=== PATIENT | male | born 1950 | race Caucasian/White ===

== ENCOUNTER 2018-01-31 16:31 | Inpatient (IN) | payer OTHER ==
[~2018-01-31] VITALS: Ht 172.7 cm; Wt 97.4 kg
[2018-01-31] MEDS ORDERED: ASPIRIN 324 MG CHEW PO STA (16:49)
[2018-01-31] MEDS ORDERED: NITROGLYCERIN 0.4 MG SL PER TAB CHARGE SL STA (16:49)
--- NOTE | 2018-01-31 17:11 | DIAGNOSTIC IMAGING REPORT ---
CHEST ONE VIEW PORTABLE CLINICAL HISTORY: cp dyspnea COMPARISON STUDY: No previous studies for comparison. FINDINGS: Mild cardiomegaly. Lungs are clear. Diaphragms are smooth. There are no focal infiltrative changes. IMPRESSION: Mild cardia megaly. Otherwise negative study. The above report was generated using voice recognition software. It may contain grammatical, syntax or spelling errors. Electronically signed by: Gee Neil M.D. 01/31/2018 5:10 PM Dictated Date/Time: 01/31/2018 5:10 PM
[2018-01-31] MEDS ORDERED: MoRPHine SULFATE 2 MG/ML CARP ONE ×2 (17:28→17:35)
[2018-01-31] MEDS ORDERED: GLC/500 PO (17:37)
[2018-01-31] MEDS ORDERED: FENO48TA9 PO (17:37)
[2018-01-31] MEDS ORDERED: MONT1TAB5 PO (17:38)
[2018-01-31] MEDS ORDERED: CRS/10 PO (17:39)
[2018-01-31] MEDS ORDERED: NITROGLYCERIN/D5W 100 MCG/ML 500 ML IV STA (17:41)
[2018-01-31] MEDS ORDERED: MULT60CA PO (17:42)
[2018-01-31] MEDS ORDERED: CHOL1TAB46 PO (17:44)
[2018-01-31] MEDS ORDERED: HEPARIN SOD (PORCINE) 1000 UNIT/ML 10 ML VIAL ONE (17:50)
[2018-01-31] MEDS ORDERED: HEPARIN 25000 UNIT/500 ML D5W ONE (17:50)
[2018-01-31] MEDS ORDERED: GLUCOSE 40% GEL 15 GM TUBE PO PRN (18:15)
[2018-01-31] MEDS ORDERED: ACETAMINOPHEN 325 MG TAB PO PRN (18:15)
[2018-01-31] MEDS ORDERED: DEXTROSE 50% 50 ML SYR IV PRN (18:15)
[2018-01-31] MEDS ORDERED: ALUMINUM/MAGNESIUM/SIMETH (MAALOX MAX) 30 ML UDC PO PRN (18:15)
[2018-01-31] MEDS ORDERED: GLUCOSE 10 TABS/TUBE PO PRN (18:15)
[2018-01-31] MEDS ORDERED: ONDANSETRON INJ 2 MG/ML 2 ML VIAL IV PRN (18:15)
[2018-01-31] MEDS ORDERED: GLUCAGON FOR INJ 1 MG VIAL SQ PRN (18:15)
[2018-01-31 18:17] LABS: BASO % 0.5 %; BASO ABS # 0.05 K/uL (0-0.2); EOS % 0.9 %; HEMATOCRIT 44.9 % (42-52); HEMOGLOBIN 15.4 g/dL (14.0-18.0); IG# 0.02 K/uL (0.00-0.02); LYMPH % 24.3 %; MEAN CELL VOLUME 89.3 fL (80-100); MEAN CORPUSCULAR HEMOGLOBIN 30.6 pg (25-34); MEAN CORPUSCULAR HGB CONC 34.3 g/dl (32-36); MEAN PLATELET VOLUME 10.3 fL (7.4-10.4); MONO % 6.6 %; MONO ABS # 0.71 K/uL (0.11-0.59); NEUT % 67.5 %; NEUT ABS # 7.21 K/uL (1.4-6.5); PLATELET COUNT 215 K/uL (130-400); RED CELL DISTRIBUTION WIDTH CV 14.9 % (11.5-14.5); RED CELL DISTRIBUTION WIDTH SD 48.6 fL (36.4-46.3); WHITE BLOOD COUNT 10.69 K/uL (4.8-10.8)
[2018-01-31 18:25] LABS: PTT PATIENT 28.7 SECONDS (21.0-31.0)
[2018-01-31] MEDS ORDERED: HYDR12.56 PO (18:28)
[2018-01-31] MEDS ORDERED: ADVIN50/60 INH (18:28)
[2018-01-31] MEDS ORDERED: NITROGLYCERIN 2% OINTMENT 30GM TUBE EXT SCH (18:45)
[2018-01-31 18:48] LABS: CALCIUM 8.6 mg/dl (8.5-10.1); CREATININE 0.91 mg/dl (0.60-1.40); POTASSIUM 3.6 mmol/L (3.5-5.1)
--- NOTE | 2018-01-31 18:51 | History and Physical ---
History & Physical Date & Time of Service: Jan 31, 2018 at 18:41 Chief Complaint: Chest Pain Primary Care Physician: Nisha Lafleur M.D. History of Present Illness Source: patient This is a 67 year old male with a PMH of DM2, COPD and ongoing tobacco use, hypertension, HLD - presents with substernal chest pain that began on the evening of 01/30. He states that the pain began at night and was across his upper chest. The pain subsided slightly, but recurred even worse on the day of arrival. He states the pain was across his chest and radiated to this R shoulder. Minimal shortness of breath. States he's never had this pain before. He presented to the ED; found to have elevated troponin >46. Pain improved with nitro and morphine, but still around a 3/10 during my exam. No other symptoms to note. Past Medical/Surgical History Medical Problems: (1) Diabetes (2) NSTEMI (non-ST elevated myocardial infarction) Family History Unobtainable family history due to adoption Social History Smoking Status: Current Every Day Smoker Allergies Coded Allergies: Fenoprofen (Verified Adverse Reaction, Severe, SYNCOPE, 01/31/18) Home Medications Scheduled Cholecalciferol (Vitamin D3), 5,000 UNITS PO DAILY Fenofibrate (Tricor), 48 MG PO DAILY Fluticasone Prop/Salmeterol (Advair Diskus 500/50 60 Dose), 1 PUFFS INH BID Hydrochlorothiazide (Hctz), Unknown Dose PO DAILY Metformin Hcl (Glucophage), 500 MG PO BID Montelukast Sodium (Montelukast Sodium), 10 MG PO DAILY Multiple Vitamins W/ Minerals (Preservision Areds 2), 1 CAP PO BID Rosuvastatin Calcium (Crestor), 10 MG PO DAILY Review of Systems Constitutional: No fever, No chills, No sweats, No weakness, No fatigue Respiratory: + dyspnea on exertion, No cough, No sputum, No wheezing, No shortness of breath, No dyspnea at rest, No hemoptysis Cardiovascular: + chest pain, No orthopnea, No edema, No palpitations Abdomen: No pain, No nausea, No vomiting, No diarrhea, No constipation, No GI bleeding Musculoskeletal: No joint pain, No muscle pain Genitourinary - Male: No hematuria, No dysuria, No urinary frequency, No urinary urgency Neurologic: No weakness, No balance problems Psychiatric: No depression symptoms, No anxiety, No insomnia Endocrine: No fatigue Hematologic / Lymphatic: No abnormal bleeding/bruising Integumentary: No rash Allergic / Immunologic: No environmental allergies, No seasonal allergies Physical Exam Vital Signs Date Time Temp Pulse Resp B/P (MAP) Pulse Ox O2 Delivery O2 Flow Rate FiO2 01/31/18 18:30 78 21 146/90 96 Nasal Cannula 2.0 01/31/18 18:15 78 19 142/88 97 Nasal Cannula 2.0 01/31/18 17:12 87 21 120/73 96 Nasal Cannula 2.0 01/31/18 17:09 96 Nasal Cannula 2.0 01/31/18 17:05 84 20 124/77 95 Room Air 01/31/18 17:01 89 19 118/78 93 Room Air 01/31/18 16:49 89 01/31/18 16:46 97 Room Air 01/31/18 16:45 92 131/91 97 Room Air 01/31/18 16:35 36.5 94 20 121/76 96 Room Air General Appearance: WD/WN, no apparent distress Head: normocephalic, atraumatic Eyes: normal inspection ENT: hearing grossly normal Neck: supple Respiratory/Chest: chest non-tender, lungs clear, normal breath sounds, no respiratory distress, no accessory muscle use Cardiovascular: regular rate, rhythm, no edema, no murmur Abdomen/GI: normal bowel sounds, non tender, soft Extremities/Musculoskelatal: normal inspection, no calf tenderness, normal capillary refill, no pedal edema, normal range of motion Neurologic/Psych: lacquerer II-XII nml as tested, no motor/sensory deficits, alert, normal mood/affect, oriented x 3 Skin: normal color Lymphatic: no adenopathy Diagnostics Laboratory Results Results Past 24 Hours Test 01/31/18 16:55 01/31/18 17:09 Range/Units White Blood Count 10.69 4.8-10.8 K/uL Red Blood Count 5.03 4.7-6.1 M/uL Hemoglobin 15.4 14.0-18.0 g/dL Hematocrit 44.9 42-52 % Mean Corpuscular Volume 89.3 80-100 fL Mean Corpuscular Hemoglobin 30.6 25-34 pg Mean Corpuscular Hemoglobin Concent 34.3 32-36 g/dl Platelet Count 215 130-400 K/uL Mean Platelet Volume 10.3 7.4-10.4 fL Neutrophils (%) (Auto) 67.5 % Lymphocytes (%) (Auto) 24.3 % Monocytes (%) (Auto) 6.6 % Eosinophils (%) (Auto) 0.9 % Basophils (%) (Auto) 0.5 % Neutrophils # (Auto) 7.21 1.4-6.5 K/uL Lymphocytes # (Auto) 2.60 1.2-3.4 K/uL Monocytes # (Auto) 0.71 0.11-0.59 K/uL Eosinophils # (Auto) 0.10 0-0.5 K/uL Basophils # (Auto) 0.05 0-0.2 K/uL RDW Standard Deviation 48.6 36.4-46.3 fL RDW Coefficient of Variation 14.9 11.5-14.5 % Immature Granulocyte % (Auto) 0.2 % Immature Granulocyte # (Auto) 0.02 0.00-0.02 K/uL Prothrombin Time 10.7 9.0-12.0 SECONDS Prothromb Time International Ratio 1.0 0.9-1.1 Activated Partial Thromboplast Time 28.7 21.0-31.0 SECONDS Partial Thromboplastin Ratio 1.1 Bedside Troponin I 46.390 0-0.045 ng/ml Diagnostic Radiology CHEST ONE VIEW PORTABLE CLINICAL HISTORY: cp dyspnea COMPARISON STUDY: No previous studies for comparison. FINDINGS: Mild cardiomegaly. Lungs are clear. Diaphragms are smooth. There are no focal infiltrative changes. IMPRESSION: Mild cardia megaly. Otherwise negative study. EKG Normal sinus rhythm T wave abnormality, consider lateral ischemia Impression Assessment and Plan This is a 67 year old male with a PMH of DM2, COPD and ongoing tobacco use, hypertension, HLD - presents with substernal chest pain NSTEMI - chest pain began last evening; crushing, substernal chest pain, recurring on the day of arrival to the ED - EKG with T wave inversions in Leads I, aVL, V5, V6 - troponin elevation to >46 - heparin ggt started - SL nitro and morphine with pain improvement - will add nitro topical and continue morphine PRN - added metoprolol - increase Crestor from 10mg to 20mg (mentioned tolerance issue to statins; ideally will need 40mg), check fasting lipid panel in AM - trend cardiac enzymes - monitor in tele - check a resting echo - cardiology consulted DM2 - well controlled; last Ha1c is around 6.0% as per patient - will check an updated one in AM - insulin sliding scale and hold oral agents while inpatient HTN - hold HCTZ (will likely d/c on discharge) - started on b-gus COPD Ongoing Tobacco Use - smoking cessation counseling - does not want a nicotine patch while inpatient - continue Advair DVT ppx - heparin ggt FULL CODE Resuscitation Status VTE Prophylaxis Will order VTE Prophylaxis: Yes
[2018-01-31 19:00] VITALS: O2SAT 98
[2018-01-31] MEDS ORDERED: NITROGLYCERIN 2% OINTMENT 30GM TUBE EXT ONE (19:14)
[2018-01-31] MEDS ORDERED: METOPROLOL TARTRATE 50 MG TAB PO STA (19:15)
[2018-01-31 20:00] VITALS: BP 115/77; PULSE 88; TEMP 36.6; Ht 172.7 cm; Wt 97.4 kg
[2018-01-31] MEDS: HEPARIN 25,000 UNIT/500ML D5W 500 ML IV SCH (20:00)
[2018-01-31] MEDS: INSULIN ASPART 100 UNITS/ML 3 ML PEN SC SCH (21:00)
[2018-01-31] MEDS: FLUTICASONE/SALMETEROL (ADVAIR) 500/50 INH 14 PUFF INH SCH (21:00)
[2018-01-31] MEDS ORDERED: METOPROLOL TARTRATE 25 MG TAB PO SCH (21:00)
[2018-01-31] MEDS: SODIUM CHLORIDE 0.9% 1000ML 1,000 ML IV SCH (21:16)
[2018-01-31] MEDS ORDERED: INFLUENZA ADMINISTRATION CHARGE ONE (21:30)
[2018-01-31] MEDS ORDERED: INFLUENZA VACCINE HIGH DOSE 65+ 0.5 ML SYR IM. ONE (21:30)
--- NOTE | 2018-01-31 23:26 | EMERGENCY ROOM VISIT NOTE ---
History Report prepared by Shayna: Hayden Landis Under the Supervision of: Dr. Lobo Allen M.D. First contact with patient: 16:41 Chief Complaint: CHEST PAIN Stated Complaint: CHEST PAIN Nursing Triage Summary: alisa c/o midsternal chest pain last night. patient states pain went away last night. around 0400 today patient c/o bilateral upper chest pain. denies SOB. History of Present Illness The patient is a 67 year old male with a history of diabetes who presents to the Emergency Room with complaints of worsening chest pain that started around 0400 this morning. He states that he initially had chest pain last night, but that mostly went away, and worsened a lot this morning. The patient says that he is not sure if the pain woke him up from sleep. He notes that the pain is mostly in his upper chest on both sides, and radiates into both his shoulders. He describes the pain as an ache. He adds that a couple times today, he felt some numbness down both his arms. The patient states that nothing changes the severity of the pain. The patient currently rates his pain as a 6 or 7 out of 10 in severity. Per the patient's , the patient's face was really flushed last night when the patient had the pain. The patient states that he felt a bit nauseous in the morning when the pain first worsened, but the nausea went away shortly thereafter. The patient denies any sweating or shortness of breath. The patient states that his blood sugars have been fine recently, and is not aware of his family history since he was adopted. The patient notes no use of Viagra or similar drugs within the past 48 hours. He smokes a pack of cigarettes every 2 days. Source of History: patient, spouse/significant other Onset: 0 this morning Position: chest (upper) Symptom Intensity: 6 or 7 out of 10 Quality: ache Timing: worsening Associated Symptoms: + nausea (but has gone away), + numbness (down both arms), No SOB Note: Associated symptoms: Bilateral shoulder pain. A bit flushed last night. Denies sweats. Review of Systems See HPI for pertinent positives & negatives. A total of 10 systems reviewed and were otherwise negative. Past Medical & Surgical Medical Problems: (1) Diabetes (2) NSTEMI (non-ST elevated myocardial infarction) Family History Unobtainable family history due to adoption Social History Smoking Status: Current Every Day Smoker Drug Use: none Marital Status: Housing Status: lives with family Current/Historical Medications Scheduled Cholecalciferol (Vitamin D3), 5,000 UNITS PO DAILY Fenofibrate (Tricor), 48 MG PO DAILY Fluticasone Prop/Salmeterol (Advair Diskus 500/50 60 Dose), 1 PUFFS INH BID Hydrochlorothiazide (Hctz), Unknown Dose PO DAILY Metformin Hcl (Glucophage), 500 MG PO BID Montelukast Sodium (Montelukast Sodium), 10 MG PO DAILY Multiple Vitamins W/ Minerals (Preservision Areds 2), 1 CAP PO BID Rosuvastatin Calcium (Crestor), 10 MG PO DAILY Allergies Coded Allergies: Fenoprofen (Verified Adverse Reaction, Severe, SYNCOPE, 01/31/18) Physical Exam Vital Signs Date Time Temp Pulse Resp B/P (MAP) Pulse Ox O2 Delivery O2 Flow Rate FiO2 01/31/18 17:12 87 21 120/73 96 Nasal Cannula 2.0 01/31/18 17:09 96 Nasal Cannula 2.0 01/31/18 17:05 84 20 124/77 95 Room Air 01/31/18 17:01 89 19 118/78 93 Room Air 01/31/18 16:49 89 01/31/18 16:46 97 Room Air 01/31/18 16:45 92 131/91 97 Room Air 01/31/18 16:35 36.5 94 20 121/76 96 Room Air Physical Exam Constitutional: Vital signs reviewed. Eyes: Pupils are equal round reactive to light. Conjunctiva are noninjected. ENT: Pharynx is clear without erythema or exudate. Mucous membranes are moist. Neck supple without meningeal signs. Respiratory: Clear to auscultation bilaterally. Breath sounds are equal bilaterally. Cardiovascular: Regular rate and rhythm. No rubs or gallops. GI: Soft, nondistended and nontender. Bowel sounds are present. Musculoskeletal: No peripheral edema. No lower extremity tenderness. Integumentary: No cyanosis. Neurological: The patient is awake and alert. No focal deficits. Psychiatric: Normal affect. Medical Decision & Procedures ER Provider Diagnostic Interpretation: X-ray results as stated below per interpretation by me and the radiologist: CHEST ONE VIEW PORTABLE CLINICAL HISTORY: cp dyspnea COMPARISON STUDY: No previous studies for comparison. FINDINGS: Mild cardiomegaly. Lungs are clear. Diaphragms are smooth. There are no focal infiltrative changes. IMPRESSION: Mild cardia megaly. Otherwise negative study. The above report was generated using voice recognition software. It may contain grammatical, syntax or spelling errors. Electronically signed by: Gee Neil M.D. 01/31/2018 5:10 PM Dictated Date/Time: 01/31/2018 5:10 PM Laboratory Results 01/31/18 16:55 Red Blood Count 5.03, Mean Corpuscular Volume 89.3, Mean Corpuscular Hemoglobin 30.6, Mean Corpuscular Hemoglobin Concent 34.3, Mean Platelet Volume 10.3, Neutrophils (%) (Auto) 67.5, Lymphocytes (%) (Auto) 24.3, Monocytes (%) (Auto) 6.6, Eosinophils (%) (Auto) 0.9, Basophils (%) (Auto) 0.5, Neutrophils # (Auto) 7.21, Lymphocytes # (Auto) 2.60, Monocytes # (Auto) 0.71, Eosinophils # (Auto) 0.10, Basophils # (Auto) 0.05 01/31/18 16:55 Test 01/31/18 16:55 01/31/18 17:09 White Blood Count 10.69 K/uL (4.8-10.8) Red Blood Count 5.03 M/uL (4.7-6.1) Hemoglobin 15.4 g/dL (14.0-18.0) Hematocrit 44.9 % (42-52) Mean Corpuscular Volume 89.3 fL (80-100) Mean Corpuscular Hemoglobin 30.6 pg (25-34) Mean Corpuscular Hemoglobin Concent 34.3 g/dl (32-36) Platelet Count 215 K/uL (130-400) Mean Platelet Volume 10.3 fL (7.4-10.4) Neutrophils (%) (Auto) 67.5 % Lymphocytes (%) (Auto) 24.3 % Monocytes (%) (Auto) 6.6 % Eosinophils (%) (Auto) 0.9 % Basophils (%) (Auto) 0.5 % Neutrophils # (Auto) 7.21 K/uL (1.4-6.5) Lymphocytes # (Auto) 2.60 K/uL (1.2-3.4) Monocytes # (Auto) 0.71 K/uL (0.11-0.59) Eosinophils # (Auto) 0.10 K/uL (0-0.5) Basophils # (Auto) 0.05 K/uL (0-0.2) RDW Standard Deviation 48.6 fL (36.4-46.3) RDW Coefficient of Variation 14.9 % (11.5-14.5) Immature Granulocyte % (Auto) 0.2 % Immature Granulocyte # (Auto) 0.02 K/uL (0.00-0.02) Prothrombin Time 10.7 SECONDS (9.0-12.0) Prothromb Time International Ratio 1.0 (0.9-1.1) Activated Partial Thromboplast Time 28.7 SECONDS (21.0-31.0) Partial Thromboplastin Ratio 1.1 Anion Gap 4.0 mmol/L (3-11) Est Creatinine Clear Calc Drug Dose 89.5 ml/min Estimated GFR () 99.3 Estimated GFR (Non- 85.7 BUN/Creatinine Ratio 11.2 (10-20) Calcium Level 8.6 mg/dl (8.5-10.1) Hepatitis C Antibody Screen NEG (NEG) Bedside Troponin I 46.390 ng/ml (0-0.045) Laboratory results as reviewed by me. Medications Administered Medications (Trade) Dose Ordered Sig/Earl Route Start Time Stop Time Status Last Admin Dose Admin Aspirin (Aspirin Chew) 324 mg NOW STAT PO 01/31/18 16:49 01/31/18 16:50 DC 01/31/18 16:57 324 MG Nitroglycerin (Nitrostat Tab) 0.4 mg Q5M STAT SL 01/31/18 16:49 01/31/18 16:50 DC 01/31/18 16:57 0.4 MG Morphine Sulfate (MoRPHine SULFATE INJ) 2 mg STK-MED ONCE .ROUTE 01/31/18 17:28 01/31/18 17:29 DC 01/31/18 17:38 2 MG Morphine Sulfate (MoRPHine SULFATE INJ) 2 mg STK-MED ONCE .ROUTE 01/31/18 17:35 01/31/18 17:36 DC 01/31/18 17:38 2 MG Nitroglycerin/ Dextrose 500 ml @ 0 mls/hr Q0M STAT IV 01/31/18 17:41 01/31/18 19:20 DC 01/31/18 18:10 5 MLS/HR Heparin Sodium (Porcine) (Heparin Iv Bolus) 10,000 unit STK-MED ONCE .ROUTE 01/31/18 17:50 01/31/18 17:51 DC 01/31/18 18:01 7,000 UNIT Heparin Sodium/ Dextrose (Heparin 25,000 Unit/500ml D5W) 25,000 unit STK-MED ONCE .ROUTE 01/31/18 17:50 01/31/18 17:51 DC 01/31/18 18:08 25,000 UNIT ECG Per My Interpretation Indication: chest pain Rate (beats per minute): 89 Rhythm: sinus rhythm Findings: T-wave inversion (in V5, V6, and 1 in AVL), other (no ST elevations) Comparison ECG Date: compared to May 25 2007, T-wave inversions are new Change: Repeat 12-lead EKG shows a normal sinus rhythm at 85 bpm. Prolonged QT and T- wave inversions laterally. Unchanged. ED Course 164: The patient was evaluated in room C12B. A complete history and physical exam was performed. 1649: Nitrostat Tab 0.4 mg SL, Aspirin Chew 324 mg PO. 1730: I reevaluated the patient and his chest pain went down to a 3 with 3 Nitroglycerin, but still has some soreness to his chest. His troponin came back over 46 so I talked about Heparinizing him. We are calling cardiology. 1731: Heparin Sodium/Dextrose 1 ea N/A. 1740: I reevaluated the patient and he still has soreness to his chest. We will start him on IV Nitroglycerin. 1741: Ordered Nitroglycerin/Dextrose 500 ml @ 0 mls/hr IV. I discussed the patient with Dr. Jase Dueñas cardiology - he agrees with the Heparin drip and admission to medicine, and for no need for emergent catheterization. 1751: I reevaluated the patient and he is still having chest pain that he rates as a 3 out of 10. He is getting his Heparin, and waiting for the Nitro drip. The patient expressed understanding and agreement with the treatment plan. The patient will be evaluated for further treatment. 180: I spoke with Dr. Cuellar of [facility] internal medicine. We discussed the patient and his results. The patient will be further evaluated by Dr. Cuellar. 1835: I reevaluated the patient and his Nitro drip is going at 5 micrograms. He states that his chest pain has lessened but he still has a little bit of pain. Medical Decision This is a 67-year-old male presents with chest pain. Differential diagnosis includes MA, unstable angina, GERD, pulmonary embolism, pneumonia, pneumothorax. I did perform a limited focused review of portions of the patient 's old chart on the electronic medical record. The patient has had no prior visits. I did evaluate the patient as noted above. IV access was established. The patient was placed on a continuous cardiac catheterization technologist. Patient was given aspirin. He was also given nitroglycerin sublingually. I did order and personally review the patient's 12-lead EKG and chest x-ray as described above. His chest x-ray demonstrates no acute process. His twelve-lead EKG has T-wave inversions in the lateral leads. This is new compared to his old EKG from 2006 which we obtained to the [employer] system. I did order and review the patient's blood work as noted in the electronic medical record. Troponin is elevated significantly. I did order a second twelve-lead EKG which shows persistent T-wave inversions but no ST elevations. He did have improvement of his chest pain with nitroglycerin but still complains of 3 out of 10 pain. He was given IV morphine which did not seem to affect his pain at all. He was started on IV nitroglycerin. He was also started on IV heparin after I had a discussion with the patient regarding risks and benefits. I did discuss case with Dr. Bailey of cardiology who agreed with my management and plan for inpatient admission to the medical service. I did discuss the case with the hospitalist and complex case manager. The patient did have improvement of his chest pain with the IV nitroglycerin. Will be further assessed by the edger automatic and hospitalist. Medication Reconcilliation Current Medication List: was personally reviewed by me Blood Pressure Screening Patient's blood pressure: Normal blood pressure Consults Time Called: 173 Consulting Physician: Dr. Jase Dueñas cardiology Returned Call: 1741 I discussed the patient with Dr. Jase Dueñas cardiology - he agrees with the Heparin drip and admission to medicine, and for no need for emergent catheterization. Additional Consults: Time Called: 1755 Consulted Physician: Dr. Cuellar - [facility] internal medicine Returned Call: [phone] Additional Comments: I spoke with Dr. Cuellar of [facility] internal medicine. We discussed the patient and his results. The patient will be further evaluated by Dr. Cuellar. Impression Primary Impression: Non-STEMI (non-ST elevated myocardial infarction) Critical Care I have personally spent 42 minutes of critical care time in the direct management of this patient. This includes bedside care, interpretation of diagnostic studies, and testing, discussion with consultants, patient, and family members, and other required patient management activities. This 42 minutes is in excess of all separately billable procedures. Scribe Attestation The scribe's documentation has been prepared under my direct and personally reviewed by me in its entirety. I confirm that the note above accurately reflects all work, treatment, procedures, and medical decision making performed by me. Departure Information Dispostion Being Evaluated By Hospitalist Prescriptions Fluticasone Prop/Salmeterol (Advair Diskus 500/50 60 Dose) 1 Ea Aerp 1 PUFFS INH BID for 30 Days, #1 INHALER 5 Refills Prov: Cody Cuellar, DO 01/31/18 Referrals No Doctor, Assigned (PCP) Patient Instructions My [facility]
[2018-01-31 23:40] VITALS: BP 107/72; PULSE 77; TEMP 36.6; O2SAT 96
[2018-02-01] MEDS: METOPROLOL TARTRATE 25 MG TAB PO SCH ×4 (00:28→17:44)
[2018-02-01] MEDS: NITROGLYCERIN 2% OINTMENT 30GM TUBE EXT SCH ×4 (00:37→17:42)
[2018-02-01 00:55] LABS: PTT PATIENT 70.2 SECONDS (21.0-31.0)
--- NOTE | 2018-02-01 01:43 | CARDIOLOGY CONSULTATION ---
DATE OF CONSULTATION: 01/31/2018 REFERRING: Cody Cuellar DO PRIMARY CARE PHYSICIAN: Dr. Nisha Lafleur. INDICATIONS: Persistent chest pain. HISTORY OF PRESENT ILLNESS: The patient is a 67-year-old male with cardiac risk factors of hypertension, diabetes mellitus, chronic tobacco use, his underlying medical problems of chronic obstructive lung disease with chronic dyspnea, obstructive sleep apnea by past history. The patient presents now to the Emergency Room at [facility] noting having developed severe chest pressure pain beginning approximately 7:00 p.m. day prior to presentation. Symptoms lasted several hours and resolved only to reoccur again approximately 3:00 a.m. this morning. Second bout of episode was associated with pain radiating to the clavicles and jaw. noted flushing in the face, but no diaphoresis. He noted no tachypalpitations, syncope, or near syncope. Symptoms have eased in the Emergency Room with nitrates and morphine, but low level grade 3 ache sensation is still persistent. He notes no recent fevers, chills or sweats. Notes no past injury. Notes no history of prior myocardial infarction, angina or congestive heart failure. Notes no history of rheumatic fever or scarlet fever. Notes no history of significant renal or hepatic disease. Has been on lipid lowering therapy as well as medications to manage diabetes. Notes blood pressures tend to be generally controlled, though have been elevated since ER presentation. Notes no acute weight loss or gain. Notes no recent swelling. Denies any claudication symptoms. notes he has slowed substantially, however in the last several months with increasing fatigue and irritability. REVIEW OF SYSTEMS: Otherwise negative. ALLERGIES: NOTED TO BE FENOPROFEN. MEDICATIONS: Prior to hospitalization were, fenofibrate 48 mg p.o. q. day., hydrochlorothiazide 25 mg p.o. q. day, metformin 500 mg twice per day, Advair inhaler, Singulair 10 mg p.o. q. day, rosuvastatin 10 mg p.o. q. day, multivitamin per day. PAST SURGICAL HISTORY: Notable for lumbar laminectomy in 2010, remote vasectomy, and dental extractions. FAMILY HISTORY: Unknown, patient is adopted. 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 He smokes 1/2 to 1 pack of cigarettes per day. Uses no alcoholic products or significant [id number] medications. PHYSICAL EXAMINATION: VITAL SIGNS: Heart rate is 84, blood pressure is 155/96. HEENT: Normocephalic and atraumatic. Nares without discharge. Throat was clear. NECK: Thick. There is no distinct jugular venous distention. LUNGS: Reveal diminished breath sounds but are predominantly clear. CARDIOVASCULAR: Regular with normal S1, S2. PMI is nondisplaced. There is no audible murmur or rub. ABDOMEN: Obese, soft, nontender. There is no palpable hepatosplenomegaly. There is no palpable aortic enlargement. EXTREMITIES: Femoral and distal pulses are 2+ at the femoral region and 1+ at dorsalis pedis and posterior tibialis. There is no audible abdominal or femoral bruits. There is trivial pedal edema. NEUROLOGIC: The patient alert, answering questions appropriately. DIAGNOSTIC DATA: Chest x-ray reveals mild cardiomegaly but no infiltrate or globular cardiac silhouette. LABORATORY STUDIES: Sodium is 139, potassium is 3.6, chloride is 105, bicarbonate is 30, BUN is 10, creatinine 0.9, glucose is 91. White cell count is 10.6, hemoglobin is 15.4, hematocrit is 44.9. EKG on 2 serial testings demonstrates sinus rhythm with T-wave inversion in 1, aVL, V5 and V6. No acute ST elevation. IMPRESSION: A 67-year-old male presents with symptoms strongly reflective of acute myocardial ischemia, angina with significant elevation in troponin at 46, reflecting non-ST segment elevation myocardial infarction. Symptoms have eased now approximately 24 hours after initial onset. Plan has already begun, control pain with nitrates given low dose of infusion rate, we will begin topical nitro paste 1 inch q. 6 hours, begin beta gus with 25 mg p.o. now with metoprolol 12.5 mg q. 6 hours. We will likely add KENDALL inhibitor in a.m. to regimen pending review of laboratory studies and echocardiogram, tentative plans for diagnostic cardiac catheterization on Friday. Discussed this all in detail with patient. He is to report any worsening complaints and nursing staff to report any hemodynamic instability. Current EKGs do not reflect no ST elevation or Q-waves. Pain now greater than 24 hours after onset sounds. Orders placed, metformin on hold. We will follow patient in the hospital.
[2018-02-01] MEDS: HEPARIN 25,000 UNIT/500ML D5W 500 ML IV SCH (01:44)
[2018-02-01 03:25] VITALS: BP 100/65; PULSE 69; TEMP 36.7; O2SAT 99
[2018-02-01 06:31] LABS: BASO % 0.9 %; BASO ABS # 0.07 K/uL (0-0.2); EOS % 2.6 %; HEMATOCRIT 40.1 % (42-52); HEMOGLOBIN 13.2 g/dL (14.0-18.0); IG# 0.01 K/uL (0.00-0.02); LYMPH % 37.6 %; LYMPH ABS # 2.86 K/uL (1.2-3.4); MEAN CELL VOLUME 90.5 fL (80-100); MEAN CORPUSCULAR HEMOGLOBIN 29.8 pg (25-34); MEAN CORPUSCULAR HGB CONC 32.9 g/dl (32-36); MEAN PLATELET VOLUME 10.8 fL (7.4-10.4); MONO % 7.6 %; MONO ABS # 0.58 K/uL (0.11-0.59); NEUT % 51.2 %; NEUT ABS # 3.88 K/uL (1.4-6.5); PLATELET COUNT 138 K/uL (130-400); RED CELL DISTRIBUTION WIDTH CV 14.8 % (11.5-14.5); RED CELL DISTRIBUTION WIDTH SD 49.7 fL (36.4-46.3)
[2018-02-01 06:55] LABS: PTT PATIENT 64.1 SECONDS (21.0-31.0)
[2018-02-01 07:03] LABS: ALBUMIN 2.9 gm/dl (3.4-5.0); CALCIUM 8.1 mg/dl (8.5-10.1); CREATININE 0.75 mg/dl (0.60-1.40); POTASSIUM 3.8 mmol/L (3.5-5.1)
[2018-02-01 07:12] VITALS: BP 95/60; PULSE 76; TEMP 36.5; O2SAT 98
[2018-02-01 07:22] LABS: TOTAL PROTEIN 6.6 gm/dl (6.4-8.2)
[2018-02-01] MEDS: INSULIN ASPART 100 UNITS/ML 3 ML PEN SC SCH ×4 (07:56→20:03)
[2018-02-01] MEDS: SODIUM CHLORIDE 0.9% 1000ML 1,000 ML IV SCH ×2 (07:57→20:00)
[2018-02-01] MEDS: ROSUVASTATIN CALCIUM 20 MG TAB PO SCH (07:59)
[2018-02-01] MEDS: ASPIRIN 81 MG ECTAB PO SCH (07:59)
[2018-02-01] MEDS: MONTELUKAST SOD 10 MG TAB PO SCH (07:59)
[2018-02-01] MEDS: FENOFIBRATE 48 MG TAB PO SCH (08:00)
[2018-02-01] MEDS: FLUTICASONE/SALMETEROL (ADVAIR) 500/50 INH 14 PUFF INH SCH ×2 (09:00→20:00)
[2018-02-01] MEDS ORDERED: PERFLUTREN LIPID MICROSPHERE (DEFINITY) IV ONE (09:02)
--- NOTE | 2018-02-01 11:31 | ECHOCARDIOGRAM REPORT ---
*NOTICE TO RECEIVING REPUBLICAN AGENCY This information is strictly Confidential and protected under [place] law. [place] law prohibits you from making any further disclosure of this information unless further disclosure is expressly permitted by the written consent of the person to whom it pertains or is authorized by law. A general authorization for the release of medical or other information is not sufficient for this purpose. Hospital accepts no responsibility if the information is made available to any other person, INCLUDING THE PATIENT. Interpretation Summary * Name: MAREK MARC Study Date: 02/01/2018 08:29 AM * Patient Location: .2T\S\S230\S\2 * : 1950 (M/d/yyyy) Gender: Male Height: 68 in * Age: 67 yrs Ethnicity: CA Weight: 229 lb * Ordering Physician: Cody Cuellar * Referring Physician: Self, Referred * Performed By: Silvino Kaufman RDCS * * Reason For Study: Chest pain * BSA: 2.2 m2 * -- Conclusions -- * The left ventricle is normal in size. * There is mild concentric left ventricular hypertrophy. * There is severe hypokinesis to akinesis of the inferior,posterior, and inferoseptal guzman with hypokinesis of all other wall segments. * Ejection Fraction = 35-40%. * Aortic valve sclerosis moderate, without significant aortic valvular stenosis. * There is mild mitral regurgitation. * There is a very small circumferential pericardial effusion Procedure Details * A complete two-dimensional transthoracic echocardiogram was performed (2D, M-mode, Doppler and color flow Doppler). * The study was technically difficult, but visualization was adequate with the administration of Definity ultrasound contrast. * A contrast injection of Definity was performed to improve assessment of LV function. * Contrast was injected into an intravenous site in the right arm. * One vial of Definity ultrasound contrast was diluted in normal saline to a total volume of 10 ml. A total of '2' ml of solution was administered during imaging. * Lot # [id number] of Definity utilized for procedure. * Expiration date 1APR19. * The attending nurse who injected the contrast agent was DEVIKA Schofield. Left Ventricle * The left ventricle is normal in size. * There is mild concentric left ventricular hypertrophy. * Ejection Fraction = 35-40%. * There is severe hypokinesis to akinesis of the inferior,posterior, and inferoseptal guzman with hypokinesis of all other wall segments. Right Ventricle * The right ventricle is normal in size and function. Atria * The left atrium is moderately dilated. * Right atrial size is normal. * No ASD detected; PFO is not assessed. Mitral Valve * The mitral valve anatomy is normal. * There is no mitral valve stenosis. * There is mild mitral regurgitation. Tricuspid Valve * The tricuspid valve anatomy is normal. * There is no tricuspid stenosis. * There is trace tricuspid regurgitation. * Doppler findings do not suggest pulmonary hypertension. Aortic Valve * The aortic valve is trileaflet. * Aortic valve sclerosis moderate, without significant aortic valvular stenosis. * There is focal calcification of the left coronary cusp * No aortic regurgitation is present. Pulmonic Valve * The pulmonic valve is not well visualized. Great Vessels * The aortic root is normal size. Pericardium/Pleural * There is a very small circumferential pericardial effusion Great Vessels * Normal inferior vena cava diameter and respiratory variation suggests normal central venous pressure. Left Ventricular Diastolic Function * Diastolic dysfunction, Grade II, consistent with elevated left atrial pressure. MMode 2D Measurements and Calculations IVSd 1.3 cm IVSs 1.8 cm LVIDd 5.3 cm LVIDs 4.0 cm LVPWd 0.97 cm LVPWs 1.1 cm IVS/LVPW 1.4 FS 25.7 % EDV(Teich) 138.2 ml ESV(Teich) 69.0 ml EF(Teich) 50.1 % EDV(cubed) 153.0 ml ESV(cubed) 62.8 ml EF(cubed) 58.9 % % IVS thick 32.6 % % LVPW thick 14.9 % LV mass(C)d 247.9 grams LV mass(C)dI 114.5 grams/m\S\2 LV mass(C)s 218.6 grams LV mass(C)sI 101.0 grams/m\S\2 SV(Teich) 69.2 ml SI(Teich) 32.0 ml/m\S\2 SV(cubed) 90.1 ml SI(cubed) 41.6 ml/m\S\2 EPSS 1.4 cm Ao root diam 3.2 cm Ao root area 8.2 cm\S\2 ACS 2.0 cm LA dimension 5.0 cm asc Aorta Diam 3.1 cm LA/Ao 1.5 LVOT diam 2.1 cm LVOT area 3.3 cm\S\2 LVAd ap4 42.8 cm\S\2 LVLd ap4 9.5 cm EDV(MOD-sp4) 161.2 ml EDV(sp4-el) 164.5 ml LVAs ap4 30.4 cm\S\2 LVLs ap4 8.5 cm ESV(MOD-sp4) 87.3 ml ESV(sp4-el) 92.1 ml EF(MOD-sp4) 45.8 % EF(sp4-el) 44.0 % LVAd ap2 42.5 cm\S\2 LVLd ap2 9.3 cm EDV(MOD-sp2) 157.3 ml EDV(sp2-el) 164.9 ml LVAs ap2 31.4 cm\S\2 LVLs ap2 9.0 cm ESV(MOD-sp2) 91.1 ml ESV(sp2-el) 93.4 ml EF(MOD-sp2) 42.1 % EF(sp2-el) 43.3 % LVLd %diff -1.85 % EDV(MOD-bp) 158.4 ml LVLs %diff 5.4 % ESV(MOD-bp) 91.5 ml EF(MOD-bp) 42.2 % SV(MOD-sp4) 73.8 ml SI(MOD-sp4) 34.1 ml/m\S\2 SV(MOD-sp2) 66.1 ml SI(MOD-sp2) 30.5 ml/m\S\2 SV(MOD-bp) 66.9 ml SI(MOD-bp) 30.9 ml/m\S\2 SV(sp4-el) 72.3 ml SI(sp4-el) 33.4 ml/m\S\2 SV(sp2-el) 71.4 ml SI(sp2-el) 33.0 ml/m\S\2 Doppler Measurements and Calculations MV E max becca 96.6 cm/sec MV A max becca 61.7 cm/sec MV E/A 1.6 MV dec time 0.18 sec Ao V2 max 137.8 cm/sec Ao max PG 7.6 mmHg Ao max PG (full) 4.8 mmHg PHU(V,A) 2.0 cm\S\2 PHU(V,D) 2.0 cm\S\2 LV V1 max PG 2.8 mmHg LV V1 max 83.7 cm/sec PA V2 max 87.6 cm/sec PA max PG 3.1 mmHg PA acc slope 458.4 cm/sec\S\2 PA acc time 0.12 sec TR max becca 267.9 cm/sec PA pr(Accel) 26.9 mmHg
[2018-02-01 11:37] VITALS: BP 100/67; PULSE 78; TEMP 36.6; O2SAT 94
--- NOTE | 2018-02-01 11:52 | PROGRESS NOTE ---
DATE: 02/01/2018 CARDIOLOGY CONSULTATION FOLLOWUP NOTE The patient seen and examined. Chart, medications, telemetry reviewed. SUBJECTIVE: The patient feels more comfortable this morning, only low grade ache in his chest. Notes no bleeding difficulties. Notes no cough. Notes no dizziness or lightheadedness. Notes no tachypalpitations. OBJECTIVE: VITAL SIGNS: Heart rate is 78, blood pressure is 100/67. NECK: Thin. There is no distinct jugular venous distention. LUNGS: Notable for mildly diminished breath sounds. CARDIOVASCULAR: Regular. There is no audible rub, there is less than grade 1/6 systolic murmurs, no diastolic murmur. ABDOMEN: Soft, nontender. There is no palpable hepatosplenomegaly, no hepatojugular reflux. EXTREMITIES: Without cyanosis or clubbing. There is no peripheral edema. DATA: EKG reveals sinus rhythm with left ventricular hypertrophy pattern and strain. Echocardiogram demonstrates severe hypokinesis to akinesis in the inferoposterior and inferoseptal guzman with global hypokinesis of other segments. There is mild mitral insufficiency, calcification and sclerosis of the aortic valve and trivial circumferential pericardial effusion. Troponin peak was 49.2. Albumin level is 2.9. Cholesterol is 106, LDL is 48, HDL 38. TSH is 2.1. IMPRESSION: A 67-year-old male with late presentation with acute chest pain greater than 24 hours' duration, significant rise in troponins to a peak of 49. Echocardiogram suggestive of multivessel coronary artery disease with a trivial circumferential pericardial effusion. RECOMMENDATIONS: We will continue current dosing of metoprolol. Reduce nitroglycerin to 1/2 inch q. 6 hours with plans to institute low dose KENDALL inhibitor, diagnostic cardiac catheterization has been arranged in a.m. Further recommendations pending the results of coronary angiography. Discussed above findings in detail with the patient's son at patient's request. Son's name is Regan Pryor, . [facility]ITAL[facility]anae
[2018-02-01 15:36] VITALS: BP 105/61; PULSE 82; TEMP 37; O2SAT 96
--- NOTE | 2018-02-01 18:42 | Progress Note ---
Medicine Progress Note Date & Time of Visit: Feb 01, 2018 at 18:41. Subjective Patient denies any additional episodes of chest pain, no overnight events noted. Tolerating PO without difficulty. at the bedside and was updated. Patient denies any other complaints. Objective Last 8 Hrs Date Time Temp Pulse Resp B/P (MAP) Pulse Ox O2 Delivery O2 Flow Rate FiO2 02/01/18 16:00 Room Air 02/01/18 15:36 37.0 82 21 105/61 (76) 96 Room Air 02/01/18 12:00 Room Air 02/01/18 11:37 36.6 78 18 100/67 (78) 94 Room Air Physical Exam: GENERAL: Patient is in no acute distress. HEENT: No acute trauma, normocephalic, mucous membranes moist, no nasal congestion, no scleral icterus. NECK: No stridor, trachea is midline. LUNGS: Diminished bilaterally, no wheeze, no rhonchi, breath sounds equal. HEART: Without murmurs gallops or rubs, regular rate and rhythm. ABDOMEN: Soft, nontender, bowel sounds positive EXTREMITIES: No cyanosis or edema, full range of motion of all the joints without pain or difficulty, no signs for acute trauma. NEUROLOGIC: Oriented x 3, no acute motor or sensory deficits, no focal weakness. SKIN: No rash, no jaundice, no diaphoresis. Laboratory Results: Last 24 Hours Test 01/31/18 20:47 02/01/18 00:11 02/01/18 05:37 02/01/18 06:37 Bedside Glucose 96 mg/dl 106 mg/dl Activated Partial Thromboplast Time 70.2 SECONDS 64.1 SECONDS Partial Thromboplastin Ratio 2.7 2.5 Troponin I 49.200 ng/ml 32.400 ng/ml White Blood Count 7.60 K/uL Red Blood Count 4.43 M/uL Hemoglobin 13.2 g/dL Hematocrit 40.1 % Mean Corpuscular Volume 90.5 fL Mean Corpuscular Hemoglobin 29.8 pg Mean Corpuscular Hemoglobin Concent 32.9 g/dl Platelet Count 138 K/uL Mean Platelet Volume 10.8 fL Neutrophils (%) (Auto) 51.2 % Lymphocytes (%) (Auto) 37.6 % Monocytes (%) (Auto) 7.6 % Eosinophils (%) (Auto) 2.6 % Basophils (%) (Auto) 0.9 % Neutrophils # (Auto) 3.88 K/uL Lymphocytes # (Auto) 2.86 K/uL Monocytes # (Auto) 0.58 K/uL Eosinophils # (Auto) 0.20 K/uL Basophils # (Auto) 0.07 K/uL RDW Standard Deviation 49.7 fL RDW Coefficient of Variation 14.8 % Immature Granulocyte % (Auto) 0.1 % Immature Granulocyte # (Auto) 0.01 K/uL Sodium Level 138 mmol/L Potassium Level 3.8 mmol/L Chloride Level 105 mmol/L Carbon Dioxide Level 27 mmol/L Anion Gap 6.0 mmol/L Blood Urea Nitrogen 14 mg/dl Creatinine 0.75 mg/dl Est Creatinine Clear Calc Drug Dose 105.0 ml/min Estimated GFR () 108.5 Estimated GFR (Non- 93.6 BUN/Creatinine Ratio 18.3 Random Glucose 98 mg/dl Calcium Level 8.1 mg/dl Total Bilirubin 0.4 mg/dl Aspartate Amino Transf (AST/SGOT) 162 U/L Alanine Aminotransferase (ALT/SGPT) 37 U/L Alkaline Phosphatase 73 U/L Total Protein 6.6 gm/dl Albumin 2.9 gm/dl Globulin 3.7 gm/dl Albumin/Globulin Ratio 0.8 Triglycerides Level 99 mg/dl Cholesterol Level 106 mg/dl HDL Cholesterol 38 mg/dl LDL Cholesterol, Calculated 48 mg/dl VLDL Cholesterol, Calculated 20 mg/dl Cholesterol/HDL Ratio 2.8 Thyroid Stimulating Hormone (TSH) 2.130 uIu/ml Hepatitis C Antibody Screen NEG Test 02/01/18 11:31 02/01/18 12:10 02/01/18 16:00 02/01/18 18:15 Bedside Glucose 105 mg/dl 126 mg/dl Troponin I 20.400 ng/ml Assessment & Plan NSTEMI: -crushing, substernal chest pain, recurring on the day of arrival to the ED and the night before admission -EKG with T wave inversions in Leads I, aVL, V5, V6 -troponin elevation maxed to 49, now trending down slowly -remains on heparin drip -SL nitro and morphine with pain improvement -continue nitro paste -continue morphine PRN -continue metoprolol -continue crestor -mentioned tolerance issue to statins; ideally will need 40mg, fasting lipid panel Trigly: 99 Total: 106 LDL: 48 HDL:38 -no new events in tele -TTE: -Cardiology consulted, planning cath tomorrow DM TYPE II: -well controlled as of HbA1c: 6.0% -insulin sliding scale and hold oral agents while inpatient HTN: -hold HCTZ (will likely d/c on discharge) -continue on metoprolol COPD -smoking cessation counseling -continue Advair -not in exacerbation NICOTINE DEPENDANCE: -offered nicotine patch which he refused -smoking cessation advised Current Inpatient Medications: Current Inpatient Medications Medications (Trade) Dose Ordered Sig/Earl Route Start Time Stop Time Status Last Admin Dose Admin Sodium Chloride 1,000 ml @ 80 mls/hr [id number] IV 01/31/18 20:30 03/02/18 20:29 02/01/18 07:57 80 MLS/HR Acetaminophen (Tylenol Tab) 650 mg Q4H PRN PO 01/31/18 18:15 03/02/18 18:14 Al Hydrox/Mg Hydrox/Simethicone (Maalox Max Susp) 15 ml Q4H PRN PO 01/31/18 18:15 03/02/18 18:14 Ondansetron HCl (Zofran Inj) 4 mg Q6H PRN IV 01/31/18 18:15 03/02/18 18:14 Morphine Sulfate (MoRPHine SULFATE INJ) 2 mg Q30M PRN IV 01/31/18 18:15 02/14/18 18:14 Aspirin (Ecotrin Tab) 81 mg QAM PO 02/01/18 09:00 03/03/18 08:59 02/01/18 07:59 81 MG Insulin Aspart (novoLOG ASPART) SLIDING SCALE If C... ACHS SC 01/31/18 21:00 03/02/18 20:59 02/01/18 17:39 6 UNITS Glucose (Glucose 40% Gel) 15-30 GRAMS 15 GRAMS... UD PRN PO 01/31/18 18:15 03/02/18 18:14 Glucose (Glucose Chew Tab) 4-8 Tablets 4 Tabl... UD PRN PO 01/31/18 18:15 03/02/18 18:14 Dextrose (Dextrose 50% 50ML Syringe) 25-50ML OF 50% DW IV FOR... UD PRN IV 01/31/18 18:15 03/02/18 18:14 Glucagon (Glucagon Inj) 1 mg UD PRN SQ 01/31/18 18:15 03/02/18 18:14 Fenofibrate (Tricor Tab) 48 mg DAILY PO 02/01/18 09:00 03/03/18 08:59 02/01/18 08:00 48 MG Montelukast Sodium (Singulair Tab) 10 mg DAILY PO 02/01/18 09:00 03/03/18 08:59 02/01/18 07:59 10 MG Rosuvastatin Calcium (Crestor Tab) 20 mg DAILY PO 02/01/18 09:00 03/03/18 08:59 02/01/18 07:59 20 MG Metoprolol Tartrate (Lopressor Tab) 12.5 mg Q6 PO 02/01/18 00:00 03/02/18 20:59 02/01/18 17:44 12.5 MG Heparin Sodium/ Dextrose 500 ml @ 28 mls/hr [id number] IV 01/31/18 20:00 03/02/18 19:59 02/01/18 01:44 28 MLS/HR Nitroglycerin (Nitroglycerin 2% Oint) 0.5 inch Q6H EXT 02/01/18 12:00 03/02/18 11:59 02/01/18 17:42 0.5 INCH Sodium Chloride 1,000 ml @ 48 mls/hr [id number] IV 02/02/18 06:00 03/04/18 05:59 Salmeterol Xinafoate/ Fluticasone (Advair Diskus 500/50 Inh) 1 puff BID INH 02/01/18 21:00 03/03/18 20:59
[2018-02-01 19:49] VITALS: BP 97/60; PULSE 91; TEMP 36.9; O2SAT 96
[2018-02-01 23:55] VITALS: BP 105/70; PULSE 83; TEMP 36.7; O2SAT 93
[2018-02-02] VITALS (15 sets, daily range): BP systolic 99–144; BP diastolic 61–91; PULSE 75–102; TEMP 36.3–37; O2SAT 90–100
[2018-02-02] MEDS: METOPROLOL TARTRATE 25 MG TAB PO SCH ×2 (00:11→05:22)
[2018-02-02] MEDS: HEPARIN 25,000 UNIT/500ML D5W 500 ML IV SCH (05:24)
[2018-02-02] MEDS: NITROGLYCERIN 2% OINTMENT 30GM TUBE EXT SCH ×2 (05:25)
[2018-02-02] MEDS ORDERED: SODIUM CHLORIDE 0.9% 1000ML 1,000 ML IV SCH ×2 (06:00→13:30)
[2018-02-02 07:08] LABS: PTT PATIENT 53.7 SECONDS (21.0-31.0)
[2018-02-02] MEDS: INSULIN ASPART 100 UNITS/ML 3 ML PEN SC SCH ×4 (07:41→20:23)
[2018-02-02] MEDS: MONTELUKAST SOD 10 MG TAB PO SCH (07:43)
[2018-02-02] MEDS: ASPIRIN 81 MG ECTAB PO SCH (07:44)
[2018-02-02] MEDS: ROSUVASTATIN CALCIUM 20 MG TAB PO SCH (07:44)
[2018-02-02] MEDS: FENOFIBRATE 48 MG TAB PO SCH (07:44)
[2018-02-02] MEDS: FLUTICASONE/SALMETEROL (ADVAIR) 500/50 INH 14 PUFF INH SCH ×2 (07:45→20:24)
[2018-02-02] MEDS: SODIUM CHLORIDE 0.9% 1000ML 1,000 ML IV SCH ×2 (09:18→20:26)
[2018-02-02] MEDS ORDERED: FENTANYL CITRATE INJ 50 MCG/1 ML 2 ML VIAL ONE (10:20)
[2018-02-02] MEDS ORDERED: MIDAZOLAM HCL 1 MG/ML 2ML VIAL ONE ×2 (10:20→11:51)
[2018-02-02] MEDS ORDERED: HEPARIN SOD (PORCINE) 1000 UNIT/ML 10 ML VIAL ONE (10:20)
[2018-02-02] MEDS ORDERED: NITROGLYCERIN/D5W 100MCG/ML 20ML SYR ONE (10:21)
[2018-02-02] MEDS ORDERED: NiCARDipine HCL INJ 2.5 MG/ML 10 ML AMP ONE (10:21)
[2018-02-02] MEDS ORDERED: LORAZEPAM 2 MG/ML 1 ML VIAL IV STA (10:39)
[2018-02-02] MEDS ORDERED: LIDOCAINE HCL 1% 20 ML VIAL ONE (10:50)
[2018-02-02] MEDS ORDERED: LORAZEPAM INJ 0.5 MG in SYRINGE 0.75 ML IV ONE (11:00)
[2018-02-02] MEDS ORDERED: TICAGRELOR 90 MG TAB PO ONE (12:29)
[2018-02-02] MEDS ORDERED: ACETAMINOPHEN 325 MG TAB PO PRN (13:00)
--- NOTE | 2018-02-02 13:00 | Post Sedation Assessment ---
Post Sedation Assessment General Date of Sedation Feb 02, 2018. Vital Signs: Vital Signs Past 12 Hours Date Time Temp Pulse Resp B/P (MAP) Pulse Ox O2 Delivery O2 Flow Rate FiO2 02/02/18 12:28 92 16 121/78 (92) 96 Room Air 02/02/18 08:00 Room Air 02/02/18 07:39 36.5 79 16 129/80 (96) 96 Room Air 02/02/18 04:00 Room Air 02/02/18 03:45 36.6 78 18 99/61 (74) 95 Nasal Cannula Post Procedure Recovery Score Activity: (2) Moves 4 extremities * Respiration: (2) Deep breath/cough Circulation: (2) +/-20% PreAnes Value Consciousness: (2) Fully Awake Oxygen Saturation: (2) > 92% On Room Air Post Anesthesia Score: 10 Discharge Sedation Level of Care: Fast Track Phase II Post Sedation Plan On clinical assessment, the patient appears to have tolerated the sedation without complications. Patient is recovering as anticipated. Patient will continue to be monitored by nursing and may be discharged when sedation discharge criteria are met per below protocol. Upon Completions of procedure and additional 15 minutes continue every 5 minute vital signs and the P.A.R. score; then discharge to a Phase I or Fast Track to Phase II per the following guidelines: * Discharge Patient to appropriate Phase II area if PAR is 8 or greater or return to pre- procedure baseline. The post - procedure orders will be as directed. * If PAR score is less than 8 or not return to pre-procedure baseline then patient will follow Phase I monitoring till PAR is reached for Phase II. The Phase I may be done in procedure room or may call to secure a Phase I area. * If naloxone or flumazenil are used for reversal, hold in Phase I for an additional 60 -120 minutes before discharge to Phase II. Please call the Sedation Physician to re-evaluate and complete post-note for discharge to Phase II area. Do NOT discharge from procedure sedation or Phase 1 until post- sedation evaluation note is complete by procedure /sedation MD Sedation Discharge Instructions to be given to the patient at discharge to home.
--- NOTE | 2018-02-02 13:09 | Cardiac Catheterization ---
Procedure Note Procedure Date Feb 02, 2018. Pre-Procedure Diagnosis Non STEMI AUC Score 8 Post-Procedure Diagnosis Severe CAD, Successful PCI Procedure(s) Performed Drug Eluting Stent, IVUS, Fractional Flow [facility] Manager Kev Enterprise Architect(s) Darrick Estimated Blood Loss 15 Medication(s) Fentanyl, Heparin, Nicardipine, Nitroglycerin, Versed Summary of Findings Indication: NSTEMI Access: 6Fr right radial artery Catheters: EBU 3.5 guide Findings: Full full details of patient's coronary angiography please see cath report dictated by Dr. Laguna. Briefly, patient found to have a severe thrombotic-appearing proximal circumflex stenosis. Decision to proceed with PCI -- PCI -- Antithrombotic therapy: Heparin, Ticagrelor Procedure: LM cannulated with EBU 3.5 guide BMW wire passed across lesion into distal vessel Proximal circumflex lesion predilated with 2.5 compliant balloon Dilated lesion stented with 3.0 x 18 Xience WALDO IVUS confirmed stent stents struts to ostium with no evidence of distal vessel complications or disease at distal end of stent. Stent underexpanded Stent post-dilated with 3.5 noncompliant balloon IC vasodilators administered for spasm BMW wire placed into LAD IVUS showed calcified proximal disease, 50-60% ostial stenosis (CSA 4.2 cm2). iFR completed of ostial LAD lesions -- 0.95 Post procedure SOTERO 3 flow, stent well expanded with minimal residual stenosis and no apparent cardiac complications. Arterial Closure: TR Band Summary: 1. Successful PCI of proximal circumflex with single WALDO (3.0 x 18 Xience, post- dilated with 3.5 NC). 2. Moderate non-obstructive ostial/proximal LAD disease (50-60% calcified by IVUS, iFR 0.95) Recommendations: To PCU for continued monitoring Loaded with Ticagrelor in slab lifting engineer Continue dual-antiplatelet therapy for 1 year Continue statin, ASCVD risk factor modification per Dr. Laguna Consult cardiac Rehab Hemodynamics Rest Ao: -- Final Ao: -- LV: 110/65/85 Recommendations PCI without planned CABG Specimens None Radiation Exposure (mGy) 4644 Contrast (mls) 232 total (120) Visi Fluids (cc crystalloids) 140 Drains none Anesthesia moderate Procedural Complication(s) None Disposition PCU ACC Data Cardiac Status Clinical evaluation leading to the procedure CAD Presntation: Non STEMI Anginal Classification: CCS IV Heart Failure: No, NYHA Class: CCS I Cardiogenic Shock w/in 24Hrs: No Cardiac Arrest w/in 24Hrs: No Imaging studies past 6 months: Yes Stress studies past 6 months: No Closure Device Percutaneous Entry Location: Radial Closure Device: Radial Band Recommendations: PCI without planned CABG PCI Indication: PCI for high risk Non-STEMI Lesion Segment Name: proximal circumflex Culprit Artery: Yes Stenosis Prior to Rx (%): 90 Chronic Total Occlusion: No IVUS: Yes FFR: No Pre-Procedure SOTERO Flow: 3 Previously Treated Lesion: No Lesion Complexity: Non-High/Non-C Lesion Length (mm): 15 Thrombus Present: Yes Bifurcation Lesion: No Guidewire Across Lesion: Yes Guidewire: Stenosis Post-Procedure (%): 0 Post-Procedure SOTERO Flow: 3 Device(s) Deployed: Yes Intraprocedure Events Significant Dissection: No Perforation: No
[2018-02-02] MEDS ORDERED: LISINOPRIL 5 MG TAB PO ONE ×2 (15:00)
--- NOTE | 2018-02-02 15:03 | CARDIAC CATH REPORT ---
PROCEDURE: Left heart catheterization, coronary and LV angiography. INDICATIONS: [id number] elevation myocardial infarction. BRIEF HISTORY: The patient is a 67-year-old male without prior documented cardiac disease, who presented with acute onset rest chest pain and angina pectoris lasting greater than 24 hours on date of admission, 01/31/2018. Troponins were significantly elevated. He did not manifest arrhythmia or congestive heart failure. Imaging demonstrated segmental wall motion abnormalities and moderate left ventricular dysfunction, EF 40%. No stress testing was performed. He was referred for diagnostic cardiac catheterization. ACCESS: Right radial artery. CATHETERS: A 6-Australian long [place] sheath, 5-Australian brachial 3.5, 5-Australian straight pigtail. CONTRAST: Nonionic x112 mL IV FLUIDS: 50 mL normal saline. SEDATION: Start time 11:07, end time 11:31. Lima Boo RN, monitor. SEDATION: 12.5 mcg of fentanyl, 1 mg IV Versed. Local infiltration access site with 1% lidocaine. After intraarterial sheath placed, intraarterial injection of 300 mcg of nicardipine were given. After central access was gained, 2500 units of IV heparin were given. COMPLICATIONS: None. RADIATION EXPOSURE: 2.84 minutes of fluoroscopy, 1774 milligrays, DAP score of 11,443. RESULTS: CORONARY ANGIOGRAPHY: Note left coronary is right dominant. LEFT MAIN: Left main is of normal length and caliber and bifurcates to give rise to left anterior descending. There is no disease in the left main. LEFT ANTERIOR DESCENDING: Left anterior descending is large and long, type 3 vessel. It gives rise to a bifurcating diagonal at the end of its proximal third and courses to the apex and beyond giving rise to usual septal perforators. Within the left anterior descending, there is an eccentric 40% lesion in its proximal portion, just after its origin. There are moderate irregularities in its mid and distal portion. LEFT CIRCUMFLEX: Left circumflex is large but consists predominantly of 1 single large obtuse marginal which reaches well to the apex. Within the left anterior descending, there is an 80% stenosis in its proximal portion. RIGHT CORONARY ARTERY: The right coronary is large and dominant in distribution. It gives rise to 2 right ventricular branches, and at the AV groove, a long posterior descending artery which reaches well to the apex, and along the AV groove, a large first posterior ventricular branch, also reaching to the apex, and a small bifurcating second posterior ventricular branch. Within the right coronary artery, there are moderate irregularities throughout with 2 areas of focal 30% narrowing in its mid portion and at the AV groove, but no high-grade obstructions observed. LEFT VENTRICULAR ANGIOGRAPHY: The left ventricle was upper limits of normal in size. There is focal akinesis of the basilar wall segments with diffuse hypokinesis all other segments, EF 30-40%. There is no mitral insufficiency. HEMODYNAMICS: Initial aortic root pressure was 97/57 with a mean of 74. LV pressure following coronary angiography is 102/15 with an LDP of 22. Aortic root pressure following completion of imaging study was 107/62 with a mean of 82. FINAL IMPRESSIONS: 1. [id number] elevation myocardial infarction with substantial troponin elevation. 2. 80% proximal left circumflex stenosis. 3. Eccentric 40% narrowing in the proximal left anterior descending. 4. Focal akinesis at the basilar inferoposterior wall with diffuse hypokinesis all other segments and moderate left ventricular dysfunction, EF 30-40%. RECOMMENDATIONS: The patient will be referred for coronary intervention acutely of the left circumflex culprit lesion with planned ultimate goals of continued management medically, cardiac risk factors and LV dysfunction, careful monitor for additional ischemia in the LAD distribution, to be reassessed at the time of coronary intervention.
[2018-02-02] MEDS: MoRPHine SULFATE 2 MG/ML CARP IV PRN ×2 (15:25→19:16)
--- NOTE | 2018-02-02 19:24 | Progress Note ---
Medicine Progress Note Date & Time of Visit: Feb 02, 2018 at 19:24. Subjective Patient was seen earlier this AM before the procedure; was feeling a great deal of anxiety before procedure and requested anxiolytic. No recurrence of CP. No overnight events noted. NPO for procedure. Family at bedside and were updated. Objective Last 8 Hrs Date Time Temp Pulse Resp B/P (MAP) Pulse Ox O2 Delivery O2 Flow Rate FiO2 02/02/18 17:45 36.7 80 16 135/85 (102) 100 Room Air 0.0 02/02/18 16:45 36.7 78 18 144/79 (100) 100 Nasal Cannula 2.0 02/02/18 16:15 36.8 82 16 124/74 (91) 96 Nasal Cannula 2.0 02/02/18 16:00 Room Air 02/02/18 15:45 36.9 80 18 125/75 (92) 98 Room Air 02/02/18 15:15 36.5 84 18 138/73 (94) 96 Nasal Cannula 2.0 02/02/18 15:15 36.8 75 20 135/75 (95) 98 Room Air 02/02/18 14:45 36.8 80 18 115/70 (85) 96 Room Air 02/02/18 14:15 93 16 138/87 (104) 96 Room Air 02/02/18 13:45 98 16 119/81 (94) 94 Room Air 02/02/18 13:30 36.5 93 16 136/80 (98) 90 Room Air 02/02/18 13:15 36.5 16 125/83 (97) 92 Room Air 02/02/18 13:00 36.5 87 16 115/73 (87) 96 Room Air 02/02/18 13:00 36.5 87 16 115/73 (87) 96 Room Air 02/02/18 12:55 Room Air 02/02/18 12:28 92 16 121/78 (92) 96 Room Air Physical Exam: GENERAL: Patient is in no acute distress. HEENT: No acute trauma, normocephalic, mucous membranes moist, no nasal congestion, no scleral icterus. NECK: No stridor, trachea is midline. LUNGS: Diminished bilaterally, no wheeze, no rhonchi, breath sounds equal. HEART: Without murmurs gallops or rubs, regular rate and rhythm. ABDOMEN: Soft, nontender, bowel sounds positive EXTREMITIES: No cyanosis or edema, full range of motion of all the joints without pain or difficulty, no signs for acute trauma. NEUROLOGIC: Oriented x 3, no acute motor or sensory deficits, no focal weakness. SKIN: No rash, no jaundice, no diaphoresis. Laboratory Results: Last 24 Hours Test 02/01/18 20:02 02/02/18 05:28 02/02/18 07:01 02/02/18 16:16 Bedside Glucose 100 mg/dl 108 mg/dl 135 mg/dl Activated Partial Thromboplast Time 53.7 SECONDS Partial Thromboplastin Ratio 2.1 Assessment & Plan NSTEMI: -crushing, substernal chest pain, recurring on the day of arrival to the ED and the night before admission -EKG with T wave inversions in Leads I, aVL, V5, V6 -troponin elevation maxed to 49, now trending down slowly -remains on heparin drip -SL nitro and morphine with pain improvement -continue nitro paste -continue morphine PRN -continue metoprolol -continue crestor -mentioned tolerance issue to statins; ideally will need 40mg, fasting lipid panel Trigly: 99 Total: 106 LDL: 48 HDL:38 -no new events in tele -TTE: Report: * -- Conclusions -- * The left ventricle is normal in size. * There is mild concentric left ventricular hypertrophy. * There is severe hypokinesis to akinesis of the inferior,posterior, and inferoseptal guzman with hypokinesis of all other wall segments. * Ejection Fraction = 35-40%. * Aortic valve sclerosis moderate, without significant aortic valvular stenosis. * There is mild mitral regurgitation. * There is a very small circumferential pericardial effusion -Cardiology consulted, cath today showed moderate nonobstructive CAD in the LAD and also required a WALDO in the left circumflex DM TYPE II: -well controlled as of HbA1c: 6.0% -insulin sliding scale and hold oral agents while inpatient HTN: -hold HCTZ (will likely d/c on discharge) -continue on metoprolol COPD -smoking cessation counseling -continue Advair -not in exacerbation NICOTINE DEPENDANCE: -offered nicotine patch which he refused -smoking cessation advised Current Inpatient Medications: Current Inpatient Medications Medications (Trade) Dose Ordered Sig/Earl Route Start Time Stop Time Status Last Admin Dose Admin Sodium Chloride 1,000 ml @ 80 mls/hr [id number] IV 01/31/18 20:30 03/02/18 20:29 02/02/18 09:18 80 MLS/HR Acetaminophen (Tylenol Tab) 650 mg Q4H PRN PO 01/31/18 18:15 03/02/18 18:14 02/02/18 07:53 650 MG Al Hydrox/Mg Hydrox/Simethicone (Maalox Max Susp) 15 ml Q4H PRN PO 01/31/18 18:15 03/02/18 18:14 Ondansetron HCl (Zofran Inj) 4 mg Q6H PRN IV 01/31/18 18:15 03/02/18 18:14 Morphine Sulfate (MoRPHine SULFATE INJ) 2 mg Q30M PRN IV 01/31/18 18:15 02/14/18 18:14 02/02/18 15:25 2 MG Aspirin (Ecotrin Tab) 81 mg QAM PO 02/01/18 09:00 03/03/18 08:59 02/02/18 07:44 81 MG Insulin Aspart (novoLOG ASPART) SLIDING SCALE If C... ACHS SC 01/31/18 21:00 03/02/18 20:59 02/01/18 17:39 6 UNITS Glucose (Glucose 40% Gel) 15-30 GRAMS 15 GRAMS... UD PRN PO 01/31/18 18:15 03/02/18 18:14 Glucose (Glucose Chew Tab) 4-8 Tablets 4 Tabl... UD PRN PO 01/31/18 18:15 03/02/18 18:14 Dextrose (Dextrose 50% 50ML Syringe) 25-50ML OF 50% DW IV FOR... UD PRN IV 01/31/18 18:15 03/02/18 18:14 Glucagon (Glucagon Inj) 1 mg UD PRN SQ 01/31/18 18:15 03/02/18 18:14 Fenofibrate (Tricor Tab) 48 mg DAILY PO 02/01/18 09:00 03/03/18 08:59 02/02/18 07:44 48 MG Montelukast Sodium (Singulair Tab) 10 mg DAILY PO 02/01/18 09:00 03/03/18 08:59 02/02/18 07:43 10 MG Rosuvastatin Calcium (Crestor Tab) 20 mg DAILY PO 02/01/18 09:00 03/03/18 08:59 02/02/18 07:44 20 MG Heparin Sodium/ Dextrose 500 ml @ 28 mls/hr [id number] IV 01/31/18 20:00 03/02/18 19:59 02/02/18 05:24 28 MLS/HR Sodium Chloride 1,000 ml @ 48 mls/hr [id number] IV 02/02/18 06:00 03/04/18 05:59 02/02/18 05:23 48 MLS/HR Salmeterol Xinafoate/ Fluticasone (Advair Diskus 500/50 Inh) 1 puff BID INH 02/01/18 21:00 03/03/18 20:59 02/02/18 07:45 1 PUFF Lisinopril (Zestril Tab) 2.5 mg QAM PO 02/03/18 09:00 03/05/18 08:59 Metoprolol Succinate (Toprol Xl Tab) 25 mg BID PO 02/02/18 21:00 03/04/18 20:59 Ticagrelor (Brilinta Tab) 90 mg BID PO 02/02/18 21:00 03/04/18 20:59 Hydroxyzine HCl (Vistaril Tab) 25 mg Q8 PRN PO 02/02/18 19:00 03/04/18 18:59
[2018-02-02] MEDS: METOPROLOL SUCC 25MG EXT REL TAB PO SCH (20:25)
[2018-02-02] MEDS: TICAGRELOR 90 MG TAB PO SCH (20:25)
[2018-02-03] VITALS (7 sets, daily range): BP systolic 93–188; BP diastolic 56–82; PULSE 76–99; TEMP 36.3–37.4; O2SAT 93–96
[2018-02-03] MEDS ORDERED: NURSING VERBAL MED ORDER ONE
[2018-02-03 06:50] LABS: BASO % 0.3 %; BASO ABS # 0.03 K/uL (0-0.2); EOS % 0.5 %; EOS ABS # 0.05 K/uL (0-0.5); HEMATOCRIT 37.8 % (42-52); HEMOGLOBIN 12.9 g/dL (14.0-18.0); IG# 0.03 K/uL (0.00-0.02); LYMPH % 13.4 %; LYMPH ABS # 1.33 K/uL (1.2-3.4); MEAN CELL VOLUME 88.7 fL (80-100); MEAN CORPUSCULAR HEMOGLOBIN 30.3 pg (25-34); MEAN CORPUSCULAR HGB CONC 34.1 g/dl (32-36); MEAN PLATELET VOLUME 11.3 fL (7.4-10.4); MONO % 8.2 %; MONO ABS # 0.82 K/uL (0.11-0.59); NEUT % 77.3 %; PLATELET COUNT 145 K/uL (130-400); RED CELL DISTRIBUTION WIDTH CV 14.8 % (11.5-14.5); RED CELL DISTRIBUTION WIDTH SD 47.9 fL (36.4-46.3); WHITE BLOOD COUNT 9.96 K/uL (4.8-10.8)
[2018-02-03 06:57] LABS: PTT PATIENT 27.2 SECONDS (21.0-31.0)
[2018-02-03 07:19] LABS: CALCIUM 8.4 mg/dl (8.5-10.1); CREATININE 0.88 mg/dl (0.60-1.40)
[2018-02-03] MEDS: TICAGRELOR 90 MG TAB PO SCH ×2 (08:06→20:54)
[2018-02-03] MEDS: hydrOXYzine HCL 25 MG TAB PO PRN ×3 (08:06→23:41)
[2018-02-03] MEDS: MONTELUKAST SOD 10 MG TAB PO SCH (08:07)
[2018-02-03] MEDS: ASPIRIN 81 MG ECTAB PO SCH (08:07)
[2018-02-03] MEDS: ROSUVASTATIN CALCIUM 20 MG TAB PO SCH (08:07)
[2018-02-03] MEDS: FENOFIBRATE 48 MG TAB PO SCH (08:07)
[2018-02-03] MEDS: FLUTICASONE/SALMETEROL (ADVAIR) 500/50 INH 14 PUFF INH SCH ×2 (08:09→20:53)
[2018-02-03] MEDS: INSULIN ASPART 100 UNITS/ML 3 ML PEN SC SCH ×4 (08:13→20:52)
[2018-02-03] MEDS: LISINOPRIL 2.5 MG TAB PO SCH (09:00)
[2018-02-03] MEDS: METOPROLOL SUCC 25MG EXT REL TAB PO SCH ×2 (10:11→20:53)
--- NOTE | 2018-02-03 10:53 | Progress Note ---
Medicine Progress Note Date & Time of Visit: Feb 03, 2018 at 10:52 . Subjective Cardiac catheterization yesterday via right radial artery demonstrated circumflex lesion. PCI with drug-eluting stent performed with good results. Feels well today. No chest pain, dyspnea. No cough. No nausea or vomiting. No bowel movement today. . Objective Last 8 Hrs Date Time Temp Pulse Resp B/P (MAP) Pulse Ox O2 Delivery O2 Flow Rate FiO2 02/03/18 08:00 Room Air 02/03/18 07:51 36.8 83 16 93/56 (68) 96 02/03/18 04:10 37.3 90 16 105/67 (80) 95 Room Air 02/03/18 04:00 Room Air Physical Exam: General- no distress Lungs- clear to auscultation; no respiratory distress Cardiovascular- RRR; no murmur or gallop appreciated; no JVD; trace pretibial edema Abdomen- + bowel sounds, soft, nontender Extremities- no cyanosis; no calf tenderness; cath site right wrist without hematoma; capillary refill right fingers < 1 sec Neuro- alert, oriented Skin- warm & dry . Laboratory Results: Last 24 Hours Test 02/02/18 11:50 02/02/18 16:16 02/03/18 06:06 Kaolin Activated Coagulation Time 246 SECONDS Bedside Glucose 135 mg/dl White Blood Count 9.96 K/uL Red Blood Count 4.26 M/uL Hemoglobin 12.9 g/dL Hematocrit 37.8 % Mean Corpuscular Volume 88.7 fL Mean Corpuscular Hemoglobin 30.3 pg Mean Corpuscular Hemoglobin Concent 34.1 g/dl Platelet Count 145 K/uL Mean Platelet Volume 11.3 fL Neutrophils (%) (Auto) 77.3 % Lymphocytes (%) (Auto) 13.4 % Monocytes (%) (Auto) 8.2 % Eosinophils (%) (Auto) 0.5 % Basophils (%) (Auto) 0.3 % Neutrophils # (Auto) 7.70 K/uL Lymphocytes # (Auto) 1.33 K/uL Monocytes # (Auto) 0.82 K/uL Eosinophils # (Auto) 0.05 K/uL Basophils # (Auto) 0.03 K/uL RDW Standard Deviation 47.9 fL RDW Coefficient of Variation 14.8 % Immature Granulocyte % (Auto) 0.3 % Immature Granulocyte # (Auto) 0.03 K/uL Activated Partial Thromboplast Time 27.2 SECONDS Partial Thromboplastin Ratio 1.0 Sodium Level 140 mmol/L Potassium Level 4.0 mmol/L Chloride Level 107 mmol/L Carbon Dioxide Level 25 mmol/L Anion Gap 7.0 mmol/L Blood Urea Nitrogen 9 mg/dl Creatinine 0.88 mg/dl Est Creatinine Clear Calc Drug Dose 89.5 ml/min Estimated GFR () 101.6 Estimated GFR (Non- 87.6 BUN/Creatinine Ratio 10.0 Random Glucose 104 mg/dl Calcium Level 8.4 mg/dl Assessment & Plan NON-STEMI Peak troponin 49.2. Echocardiogram demonstrated mild concentric LVH, severe hypokinesis/akinesis of the inferior, posterior, and inferoseptal guzman with overall LVEF of 35 - 40%. Cardiac catheterization demonstrated 40% proximal LAD lesion, 80% proximal left circumflex lesion, 2 areas with 30% stenosis in the mid RCA and at the AV groove. PCI with drug-eluting stent performed with good results. Initially received heparin which has been discontinued. Receiving dual-antiplatelet therapy with aspirin and ticagrelor, metoprolol, statin. Lisinopril held for hypotension. DYSLIPIDEMIA LDL-c = 48. Receiving rosuvastatin. DM TYPE II Usually well controlled. Hemoglobin A1c 6.0. Hold metformin during hospital stay. NovoLog as needed for elevated blood sugars. Fasting blood sugar this morning 159. VTE PROPHYLAXIS Initially received IV heparin for acute coronary syndrome. Transition to enoxaparin. Ambulate. DISPOSITION Expected discharge to home. Primary care follow-up with Dr. Lafleur in [place]. Follow-up with Cardiology. . Current Inpatient Medications: Current Inpatient Medications Medications (Trade) Dose Ordered Sig/Earl Route Start Time Stop Time Status Last Admin Dose Admin Sodium Chloride 1,000 ml @ 80 mls/hr [id number] IV 01/31/18 20:30 03/02/18 20:29 02/02/18 20:26 80 MLS/HR Acetaminophen (Tylenol Tab) 650 mg Q4H PRN PO 01/31/18 18:15 03/02/18 18:14 02/02/18 07:53 650 MG Al Hydrox/Mg Hydrox/Simethicone (Maalox Max Susp) 15 ml Q4H PRN PO 01/31/18 18:15 03/02/18 18:14 Ondansetron HCl (Zofran Inj) 4 mg Q6H PRN IV 01/31/18 18:15 03/02/18 18:14 Morphine Sulfate (MoRPHine SULFATE INJ) 2 mg Q30M PRN IV 01/31/18 18:15 02/14/18 18:14 02/02/18 19:16 2 MG Aspirin (Ecotrin Tab) 81 mg QAM PO 02/01/18 09:00 03/03/18 08:59 02/03/18 08:07 81 MG Insulin Aspart (novoLOG ASPART) SLIDING SCALE If C... ACHS SC 01/31/18 21:00 03/02/18 20:59 02/03/18 08:13 2 UNITS Glucose (Glucose 40% Gel) 15-30 GRAMS 15 GRAMS... UD PRN PO 01/31/18 18:15 03/02/18 18:14 Glucose (Glucose Chew Tab) 4-8 Tablets 4 Tabl... UD PRN PO 01/31/18 18:15 03/02/18 18:14 Dextrose (Dextrose 50% 50ML Syringe) 25-50ML OF 50% DW IV FOR... UD PRN IV 01/31/18 18:15 03/02/18 18:14 Glucagon (Glucagon Inj) 1 mg UD PRN SQ 01/31/18 18:15 03/02/18 18:14 Fenofibrate (Tricor Tab) 48 mg DAILY PO 02/01/18 09:00 03/03/18 08:59 02/03/18 08:07 48 MG Montelukast Sodium (Singulair Tab) 10 mg DAILY PO 02/01/18 09:00 03/03/18 08:59 02/03/18 08:07 10 MG Rosuvastatin Calcium (Crestor Tab) 20 mg DAILY PO 02/01/18 09:00 03/03/18 08:59 02/03/18 08:07 20 MG Salmeterol Xinafoate/ Fluticasone (Advair Diskus 500/50 Inh) 1 puff BID INH 02/01/18 21:00 03/03/18 20:59 02/03/18 08:09 1 PUFF Lisinopril (Zestril Tab) 2.5 mg QAM PO 02/03/18 09:00 03/05/18 08:59 Metoprolol Succinate (Toprol Xl Tab) 25 mg BID PO 02/02/18 21:00 03/04/18 20:59 02/03/18 10:11 25 MG Ticagrelor (Brilinta Tab) 90 mg BID PO 02/02/18 21:00 03/04/18 20:59 02/03/18 08:06 90 MG Hydroxyzine HCl (Vistaril Tab) 25 mg Q8 PRN PO 02/02/18 19:00 03/04/18 18:59 02/03/18 08:06 25 MG
[2018-02-03] MEDS ORDERED: FUROSEMIDE 20 MG TAB PO STA (11:07)
--- NOTE | 2018-02-03 11:48 | CARDIOLOGY PROGRESS NOTE ---
DATE: 02/03/2018 CARDIOLOGY CONSULTATION FOLLOWUP NOTE The patient was seen and examined. Chart, medications, and telemetry were reviewed. SUBJECTIVE: The patient notes mild anxiety over the night. Notes no chest pains. Notes no tachypalpitations. Notes no dizziness. Telemetry reveals minimal atrial tachycardia, but no tachyarrhythmias. No ventricular arrhythmias. Blood pressures are trending slightly lower today. I's and O's are significantly positive over the past 2 days. OBJECTIVE: VITAL SIGNS: Heart rate is 83 and blood pressure is 105/67. HEENT: Normocephalic and atraumatic. NECK: Thick. LUNGS: Reveal mildly diminished breath sounds diffusely. CARDIOVASCULAR: Regular. There is no S3 gallop. ABDOMEN: Soft and nontender. EXTREMITIES: Without cyanosis or clubbing. There is 1+ lower extremity edema. IMPRESSION: A 67-year-old male presented with acute non-ST segment elevation myocardial infarction with coronary intervention for single vessel high grade obstruction. LV systolic function is disproportionate to the degree of coronary artery disease. PLAN: Once again continued medical therapies, he is on appropriate issues with beta gus and low dose KENDALL inhibitor. The KENDALL inhibitor will be held due to low blood pressures. We will plan on getting single dose oral diuretic today given positive volume status. Continue telemetry for an additional 24 hours.
[2018-02-03] MEDS: MoRPHine SULFATE 2 MG/ML CARP IV PRN ×2 (15:30→20:55)
[2018-02-03] MEDS ORDERED: ENOXAPARIN 40 MG/0.4 ML SYR SQ SCH (22:00)
[2018-02-04 03:38] VITALS: BP 101/68; PULSE 84; TEMP 36.9; O2SAT 96
[2018-02-04 06:31] LABS: PTT PATIENT 28.7 SECONDS (21.0-31.0)
[2018-02-04] MEDS: hydrOXYzine HCL 25 MG TAB PO PRN (07:37)
[2018-02-04] MEDS: FLUTICASONE/SALMETEROL (ADVAIR) 500/50 INH 14 PUFF INH SCH (07:37)
[2018-02-04] MEDS: ROSUVASTATIN CALCIUM 20 MG TAB PO SCH (07:37)
[2018-02-04] MEDS: ASPIRIN 81 MG ECTAB PO SCH (07:38)
[2018-02-04] MEDS: MONTELUKAST SOD 10 MG TAB PO SCH (07:38)
[2018-02-04] MEDS: FENOFIBRATE 48 MG TAB PO SCH (07:38)
[2018-02-04] MEDS: TICAGRELOR 90 MG TAB PO SCH (07:38)
[2018-02-04] MEDS: METOPROLOL SUCC 25MG EXT REL TAB PO SCH (07:38)
[2018-02-04] MEDS: INSULIN ASPART 100 UNITS/ML 3 ML PEN SC SCH ×2 (07:42→11:00)
[2018-02-04 08:00] VITALS: BP 113/72; PULSE 83; TEMP 36.7; O2SAT 95
[2018-02-04] MEDS: LISINOPRIL 2.5 MG TAB PO SCH ×2 (09:00→11:01)
[2018-02-04] MEDS ORDERED: TPRSR25 PO ×2 (11:57→13:29)
[2018-02-04] MEDS ORDERED: LSN25 PO ×2 (11:57→13:29)
[2018-02-04] MEDS ORDERED: PLV75 PO ×2 (11:57→13:29)
[2018-02-04] MEDS ORDERED: CRS20 PO ×2 (11:57→13:29)
[2018-02-04] MEDS ORDERED: ASPEC81 PO (11:57)
[2018-02-04] MEDS ORDERED: NTRGSL/4 UT (11:59)
[2018-02-04] MEDS ORDERED: CLOPIDOGREL BISULFATE 75 MG TAB PO ONE (12:00)
[2018-02-04 12:06] VITALS: BP 113/73; PULSE 87; TEMP 36.5; O2SAT 95
[2018-02-04] MEDS ORDERED: ATV5X PO (12:52)
[2018-02-04 13:53] VITALS: BP 113/73; PULSE 87; TEMP 36.5; O2SAT 95
--- NOTE | 2018-02-05 04:52 | Progress Note ---
Medicine Progress Note Date & Time of Visit: Feb 05, 2018 at 04:51. Objective Physical Exam: General- no distress Lungs- clear to auscultation; no respiratory distress Cardiovascular- RRR; no murmur or gallop appreciated; no JVD; trace pretibial edema Abdomen- + bowel sounds, soft, nontender Extremities- no cyanosis; no calf tenderness; cath site right wrist without hematoma; capillary refill right fingers < 1 sec Neuro- alert, oriented Skin- warm & dry . Laboratory Results: Last 24 Hours Test 02/04/18 05:46 02/04/18 06:53 02/04/18 11:51 Activated Partial Thromboplast Time 28.7 SECONDS Partial Thromboplastin Ratio 1.1 Bedside Glucose 160 mg/dl 84 mg/dl Assessment & Plan NON-STEMI Peak troponin 49.2. Echocardiogram demonstrated mild concentric LVH, severe hypokinesis/akinesis of the inferior, posterior, and inferoseptal guzman with overall LVEF of 35 - 40%. Cardiac catheterization demonstrated 40% proximal LAD lesion, 80% proximal left circumflex lesion, 2 areas with 30% stenosis in the mid RCA and at the AV groove. PCI with drug-eluting stent performed with good results. Initially received heparin which has been discontinued. Receiving dual-antiplatelet therapy with aspirin and ticagrelor, metoprolol, statin. Lisinopril held for hypotension. DYSLIPIDEMIA LDL-c = 48. Receiving rosuvastatin. DM TYPE II Usually well controlled. Hemoglobin A1c 6.0. Hold metformin during hospital stay. NovoLog as needed for elevated blood sugars. Fasting blood sugar this morning 159. VTE PROPHYLAXIS Initially received IV heparin for acute coronary syndrome. Transition to enoxaparin. Ambulate. DISPOSITION Expected discharge to home. Primary care follow-up with Dr. Lafleur in [place]. Follow-up with Cardiology. .
== END 2018-02-04 14:35 | disposition home or self-care (01) | DRG 247 ==
LOC: C.EDB 16:33 → C.2T 18:10 → ENRESERV 18:26
PROVIDERS: ADMIT Family Medicine; ATTEND Hospitalist
PROC: 4A023N7 Measurement of Cardiac Sampling and Pressure, Left Heart, Percutaneous Approach (ICD-10-PCS; 2018-02-02)
PROC: B215YZZ Fluoroscopy of Left Heart using Other Contrast (ICD-10-PCS; 2018-02-02)
PROC: B211YZZ Fluoroscopy of Multiple Coronary Arteries using Other Contrast (ICD-10-PCS; 2018-02-02)
PROC: B210YZZ Fluoroscopy of Single Coronary Artery using Other Contrast (ICD-10-PCS; principal; 2018-02-02 07:07)
PROC: 027034Z Dilation of Coronary Artery, One Artery with Drug-eluting Intraluminal Device, Percutaneous Approach (ICD-10-PCS; principal; 2018-02-02 07:07)
DX: I21.4 Non-ST elevation (NSTEMI) myocardial infarction (principal); I25.10 Atherosclerotic heart disease of native coronary artery without angina pectoris; E78.5 Hyperlipidemia, unspecified; E11.9 Type 2 diabetes mellitus without complications; I10 Essential (primary) hypertension; J44.9 Chronic obstructive pulmonary disease, unspecified; F17.210 Nicotine dependence, cigarettes, uncomplicated; Z79.84 Long term (current) use of oral hypoglycemic drugs; Z79.899 Other long term (current) drug therapy; Z88.6 Allergy status to analgesic agent

== ENCOUNTER 2019-02-25 17:19 | Observation (INO) ==
[2019-02-25] MEDS ORDERED: SODIUM CHLORIDE 0.9% 500 ML IV SCH (17:45)
--- NOTE | 2019-02-25 18:02 | XRay Report ---
XR chest 1V portable CLINICAL HISTORY: weakness COMPARISON STUDY: 01/31/2018 FINDINGS: The heart remains mildly enlarged. There is no focal pulmonary consolidation. There is no o vert failure. There are no pleural effusions.[ IMPRESSION: Mild cardiomegaly. No acute findings. Electronically signed by: Bhavik Leavitt M.D. 02/25/2019 6:00 PM
[2019-02-25 18:05] LABS: Basophils # (auto) 0.07 K/uL (0-0.2); Eosinophils # (auto) 0.16 K/uL (0-0.5); Eosinophils % (auto) 2.2 %; Hematocrit (blood only) 41.1 % (42-52); Immature Granulocytes # (auto) 0.02 K/uL (0.00-0.02); Immature Granulocytes % (auto) 0.3 %; Lymphocytes # (auto) 2.18 K/uL (1.2-3.4); Lymphocytes % (auto) 30.4 %; Mean Corpuscular Hgb Conc 34.1 g/dL (32-36); Mean Corpuscular Volume 92.6 fL (80-100); Mean Platelet Volume 9.6 fL (7.4-10.4); Monocytes # (auto) 0.53 K/uL (0.11-0.59); Monocytes % (auto) 7.4 %; Neutrophils % (auto) 58.7 %; Platelet Count 194 K/uL (130-400); RDW Coefficient of Variation 14.7 % (11.5-14.5); RDW Standard Deviation 49.9 fL (36.4-46.3); Red Blood Count 4.44 M/uL (4.7-6.1); White Blood Count 7.16 K/uL (4.8-10.8)
[2019-02-25 18:15] LABS: iSTAT Creatinine 0.8 mg/dl (0.6-1.3); iSTAT Hemoglobin 13.9 g/dl (14.0-18.0); iSTAT Ionized Calcium 1.11 mmol/l (1.12-1.32); iSTAT Potassium 3.9 mEq/L (3.3-5.0)
[2019-02-25 18:20] LABS: D Dimer 300 ug/L FEU (0-500); Partial Thromboplastin Time 27.1 Seconds (21.0-31.0); Prothrombin Time 10.5 Seconds (9.0-12.0)
[2019-02-25 18:30] LABS: Albumin Level 3.1 gm/dl (3.4-5.0); BUN Creatinine Ratio 18.2 (10-20); Blood Urea Nitrogen 15 mg/dl (7-18); Calcium 8.2 mg/dl (8.5-10.1); Carbon Dioxide 25 mmol/L (21-32); Chloride 110 mmol/L (98-107); Creatinine Clr Calc Pharmacy 92.8 ml/min; Est GFR (African American) 102.1; Est GFR (Non-African American) 88.1; Glucose 115 mg/dl (70-99); Magnesium 2.3 mg/dl (1.8-2.4); Potassium 3.9 mmol/L (3.5-5.1); Sodium 140 mmol/L (136-145)
--- NOTE | 2019-02-25 18:31 | CT Scan Report ---
CT head/brain wo con CLINICAL HISTORY: syncope, fall HEAD PAIN COMPARISON STUDY: No previous studies for comparison. TECHNIQUE: Axial CT of the brain is performed from the vertex to the skull base. IV contrast was not administered for this examination. A dose lowering technique was utilized adhering to the principles of ALARA. CT DOSE: 537.48 mGy.cm FINDINGS: No intra or extra-axial mass lesions are visualized. There is no CT evidence of acute cortical infarc tion. There is no evidence of midline shift. There is no acute hemorrhage. No calvarial fractures ar e visualized. There are minor white matter hypodensities likely on a small vessel basis. There is a cavum pellucida and cavum vergae. There is no hydrocephalus. There is no evidence of acute sinusitis IMPRESSION: No acute intracranial findings Electronically signed by: Bhavik Leavitt M.D. 02/25/2019 6:30 PM
[2019-02-25 18:43] LABS: Alanine Aminotransferase 24 U/L (12-78); Albumin Globulin Ratio 0.8 (0.9-2); Alkaline Phosphatase 82 U/L (45-117); Aspartate Aminotransferase 20 U/L (15-37); Bilirubin,Total 0.4 mg/dl (0.2-1); Total Protein 7.1 gm/dl (6.4-8.2); Troponin I < 0.015 ng/ml (0-0.045)
--- NOTE | 2019-02-25 19:31 | Emergency Department Note ---
Entered by Madhavi Anderson acting as a scribe for History of Present Illness General Chief complaint: Tachycardia Stated complaint: FAST HEART RATE, DIZZY, NAUSEA,SYNCOPE- CARDIAC HX Source: patient and other () History of Present Illness Onset (ago): hour(s) (earlier today) Location: head, chest (heart), back (lower) and abdomen Maximum Pain Intensity: 4 Quality: + other (weakness, like he just got hit by a [place] truck. ) Associated symptoms: + headaches and + other (Positive nausea, abdominal pain, dizziness, lower back pain, syncope, diarrhea, and skin color being off. Negat dane neck pain. ); no chest pain and no shortness of breath The patient is a 69 year old male who presents to the Emergency Room with complaints of weakness beginning earlier today. He reports that today he felt like his heart was racing and he had nausea, abdominal pain, dizziness, and diarrhea. He states he feels like he just got hit by a [place] truck. He has a headache and some lower back pain. Pt denies any chest pain, neck pain, or SOB. He notes he went to use the bathroom around noon when he woke up and his found him lying on the floor unconscious. He does not remember his syncopal episode but he does remember his finding him on the floor. He is accompanied by his who reports the patients skin color seems off. The patient has a hx of an IL and he states that when he had his IL, he did not have any symptoms. Pt regularly takes aspirin and Plavix. Home Medications Home Medications Medication Instructions Recorded Confirmed Type aspirin 81 mg PO 3XWK 02/25/19 02/25/19 History cholecalciferol (vitamin D3) 5,000 unit PO DAILY 02/25/19 02/25/19 History [Vitamin D3] citalopram 20 mg PO DAILY 02/25/19 02/25/19 History clopidogrel 75 mg PO DAILY 02/25/19 02/25/19 History lisinopril 2.5 mg PO DAILY 02/25/19 02/25/19 History metformin 500 mg PO BID 02/25/19 02/25/19 History metoprolol succinate 25 mg PO BID 02/25/19 02/25/19 History montelukast [Singulair] 10 mg PO PM 02/25/19 02/25/19 History rosuvastatin 20 mg PO HS 02/25/19 02/25/19 History vit C,B-Yi-acznv-lutein-zeaxan 1 tab PO DAILY 02/25/19 02/25/19 History [PreserVision AREDS-2] Allergies Allergy/AdvReac Type Severity Reaction Status Date / Time fenoprofen AdvReac Severe SYNCOPE Verified 02/25/19 18:07 Past Med/Surg History Medical History NSTEMI (non-ST elevated myocardial infarction) (Acute) Coronary artery disease (Chronic) "s/p non-STEMI 01/31/18, cath showed circ lesion and lesser disease in LAD and RCA, PCI circ with WALDO 02/02/18" Dyslipidemia (Chronic) Sleep apnea (Chronic) COPD (chronic obstructive pulmonary disease) (Chronic) Diabetes mellitus, type 2 (Chronic) Hypertension (Chronic) Surgical History Status post coronary artery stent placement (Chronic) "PCI L circumflex with WALDO 02/02/18" Family History Other No pertinent family history Social History marital status: Current Living Situation: Spouse Feels Safe at Home: Yes Smoking Status: Current every day smoker Review of Systems See HPI for pertinent positives & negatives. and A total of 10 systems reviewed and were otherwise negative Physical Exam Vital Signs Vital Signs - 24 hr 02/25/19 17:30 02/25/19 17:48 02/25/19 18:29 Temperature 36.7 C Temperature Source Oral Sepsis Recent Fever Within 48 Hours No Sepsis Action Taken by Nursing No Action Required Pulse Rate 87 Pulse Rate [Finger] 81 77 Respiratory Rate 20 23 18 Blood Pressure 130/82 Blood Pressure [Right Arm] 145/74 H 133/72 Blood Pressure Mean 98 Blood Pressure Mean [Right Arm] 97 92 Blood Pressure Position Sitting Pulse Oximetry 94 96 95 Oxygen Delivery Method Room Air Room Air Room Air GENERAL: Awake, alert, fatigued-appearing, Mildly diaphoretic HENT: Normocephalic, atraumatic. Oropharynx unremarkable. EYES: Normal conjunctiva. Sclera non-icteric. NECK: Supple. No nuchal rigidity. RESPIRATORY: Clear to auscultation. No wheezes. Normal respiratory effort. CARDIAC: Normal rate. Normal rhythm. Extremities warm and well perfused. GI: Soft, non-distended. No tenderness to palpation. No rebound or guarding. RECTAL: Deferred. MUSCULOSKELETAL: Atraumatic. Chest examination reveals no tenderness. LOWER EXTREMITIES: Calves are equal size bilaterally and non-tender. No edema NEURO: Normal sensorium. No sensory or motor deficits noted. No facial droop. SKIN: Warm and dry. No aundice noted. Course 1734: The patient was evaluated in room A11, and a complete history and physical examination were performed. Administered Medications Discontinued Medications Sodium Chloride (Nss) 500 mls @ 999 mls/hr IV .Q31M CONOR Stop: 02/25/19 18:15 Last Infusion: 02/25/19 18:38 Dose: 0 mls/hr Documented by: [id number] Admin: 02/25/19 17:53 Dose: 999 mls/hr Documented by: [id number] Medical Decision Making Differential Diagnosis Differential diagnosis: Etiologies such as metabolic, infection, hypo/hyperglycemia, electrolyte abnormalities, cardiac sources, intracerebral event, toxicologic, neurologic, as well as others were entertained. Home Medications Current Medication List: was personally reviewed by me Laboratory Data Attestation: I reviewed the patient's lab results. Result diagrams: 02/25/19 17:49 02/25/19 17:49 Lab Results 02/25/19 02/25/19 02/25/19 Range/Units 17:49 17:49 17:49 WBC 7.16 (4.8-10.8) K/uL RBC 4.44 L (4.7-6.1) M/uL Hgb 14.0 (14.0-18.0) g/dL POC Hgb (14.0-18.0) g/dl Hct 41.1 L (42-52) % POC Hct (42-52) % MCV 92.6 (80-100) fL MCH 31.5 (25-34) pg MCHC 34.1 (32-36) g/dL RDW Std Deviation 49.9 H (36.4-46.3) fL RDW Coeff of Adrian 14.7 H (11.5-14.5) % Plt Count 194 (130-400) K/uL MPV 9.6 (7.4-10.4) fL Immature Gran % (Auto) 0.3 % Neut % (Auto) 58.7 % Lymph % (Auto) 30.4 % Callaway % (Auto) 7.4 % Eos % (Auto) 2.2 % Baso % (Auto) 1.0 % Immature Gran # (Auto) 0.02 (0.00-0.02) K/uL Neut # (Auto) 4.20 (1.4-6.5) K/uL Lymph # (Auto) 2.18 (1.2-3.4) K/uL Callaway # (Auto) 0.53 (0.11-0.59) K/uL Eos # (Auto) 0.16 (0-0.5) K/uL Baso # (Auto) 0.07 (0-0.2) K/uL PT 10.5 (9.0-12.0) Seconds INR 1.0 (0.9-1.1) APTT 27.1 (21.0-31.0) Seconds PTT Ratio 1.0 D-Dimer 300 (0-500) ug/L FEU POC Sodium (135-144) mEq/L Sodium 140 (136-145) mmol/L POC Potassium (3.3-5.0) mEq/L Potassium 3.9 (3.5-5.1) mmol/L POC Chloride (101-112) mEq/L Chloride 110 H (98-107) mmol/L Carbon Dioxide 25 (21-32) mmol/L POC Total CO2 (24-31) mEq/l Anion Gap 5.0 (3-11) POC Anion Gap (16-25) mmol/L POC BUN (7-18) mg/dl BUN 15 (7-18) mg/dl Creatinine 0.84 (0.6-1.4) mg/dl POC Creatinine (0.6-1.3) mg/dl Est Cr Clr Drug Dosing 92.8 ml/min Est GFR ( Amer) 102.1 Est GFR (Non-Af Amer) 88.1 BUN/Creatinine Ratio 18.2 (10-20) Glucose 115 H (70-99) mg/dl POC Glucose (other) (70-99) mg/dl Calcium 8.2 L (8.5-10.1) mg/dl POC Ioniz Calcium Meliton (1.12-1.32) mmol/l Magnesium 2.3 (1.8-2.4) mg/dl Total Bilirubin 0.4 (0.2-1) mg/dl AST 20 (15-37) U/L ALT 24 (12-78) U/L Alkaline Phosphatase 82 (45-117) U/L POC Troponin I (0-0.045) ng/ml Troponin I < 0.015 (0-0.045) ng/ml Total Protein 7.1 (6.4-8.2) gm/dl Albumin 3.1 L (3.4-5.0) gm/dl Globulin 4.0 (2.5-4.0) gm/dl Albumin/Globulin Ratio 0.8 L (0.9-2) Lipase 250 (73-393) U/L TSH 1.240 (0.300-4.500) uIu/ml 02/25/19 02/25/19 Range/Units 17:58 18:01 WBC (4.8-10.8) K/uL RBC (4.7-6.1) M/uL Hgb (14.0-18.0) g/dL POC Hgb 13.9 L (14.0-18.0) g/dl Hct (42-52) % POC Hct 41 L (42-52) % MCV (80-100) fL MCH (25-34) pg MCHC (32-36) g/dL RDW Std Deviation (36.4-46.3) fL RDW Coeff of Adrian (11.5-14.5) % Plt Count (130-400) K/uL MPV (7.4-10.4) fL Immature Gran % (Auto) % Neut % (Auto) % Lymph % (Auto) % Callaway % (Auto) % Eos % (Auto) % Baso % (Auto) % Immature Gran # (Auto) (0.00-0.02) K/uL Neut # (Auto) (1.4-6.5) K/uL Lymph # (Auto) (1.2-3.4) K/uL Callaway # (Auto) (0.11-0.59) K/uL Eos # (Auto) (0-0.5) K/uL Baso # (Auto) (0-0.2) K/uL PT (9.0-12.0) Seconds INR (0.9-1.1) APTT (21.0-31.0) Seconds PTT Ratio D-Dimer (0-500) ug/L FEU POC Sodium 141 (135-144) mEq/L Sodium (136-145) mmol/L POC Potassium 3.9 (3.3-5.0) mEq/L Potassium (3.5-5.1) mmol/L POC Chloride 105 (101-112) mEq/L Chloride (98-107) mmol/L Carbon Dioxide (21-32) mmol/L POC Total CO2 24 (24-31) mEq/l Anion Gap (3-11) POC Anion Gap 17.0 (16-25) mmol/L POC BUN 15 (7-18) mg/dl BUN (7-18) mg/dl Creatinine (0.6-1.4) mg/dl POC Creatinine 0.8 (0.6-1.3) mg/dl Est Cr Clr Drug Dosing ml/min Est GFR ( Amer) Est GFR (Non-Af Amer) BUN/Creatinine Ratio (10-20) Glucose (70-99) mg/dl POC Glucose (other) 115 H (70-99) mg/dl Calcium (8.5-10.1) mg/dl POC Ioniz Calcium Meliton 1.11 L (1.12-1.32) mmol/l Magnesium (1.8-2.4) mg/dl Total Bilirubin (0.2-1) mg/dl AST (15-37) U/L ALT (12-78) U/L Alkaline Phosphatase (45-117) U/L POC Troponin I < 0.03 (0-0.045) ng/ml Troponin I (0-0.045) ng/ml Total Protein (6.4-8.2) gm/dl Albumin (3.4-5.0) gm/dl Globulin (2.5-4.0) gm/dl Albumin/Globulin Ratio (0.9-2) Lipase (73-393) U/L TSH (0.300-4.500) uIu/ml Imaging Data Radiologist's Impression: Radiology results as stated below per my review and the radiologist's interpretation: CT head/brain wo con CLINICAL HISTORY: syncope, fall HEAD PAIN COMPARISON STUDY: No previous studies for comparison. TECHNIQUE: Axial CT of the brain is performed from the vertex to the skull base. IV contrast was not administered for this examination. A dose lowering technique was utilized adhering to the principles of ALARA. CT DOSE: 537.48 mGy.cm FINDINGS: No intra or extra-axial mass lesions are visualized. There is no CT evidence of acute cortical infarction. There is no evidence of midline shift. There is no acute hemorrhage. No calvarial fractures are visualized. There are minor white matter hypodensities likely on a small vessel basis. There is a cavum pellucida and cavum vergae. There is no hydrocephalus. There is no evidence of acute sinusitis IMPRESSION: No acute intracranial findings Electronically signed by: Bhavik Leavitt M.D. 02/25/2019 6:30 PM XR chest 1V portable CLINICAL HISTORY: weakness COMPARISON STUDY: 01/31/2018 FINDINGS: The heart remains mildly enlarged. There is no focal pulmonary consolidation. There is no overt failure. There are no pleural effusions.[ IMPRESSION: Mild cardiomegaly. No acute findings. Electronically signed by: Bhavik Leavitt M.D. 02/25/2019 6:00 PM ECG Data Attestation: I personally reviewed and interpreted this ECG as follows: Indication: weakness Rate (beats per minute): 79 Rhythm: normal sinus (with SA) Findings: + other (nonspecific inferior T wave changes ); no ST depression and no ST elevation Blood Pressure Blood Pressure Findings: Normal blood pressure Blood Pressure Disposition: did not require urgent referral Head Trauma GCS Score: 15 MDM Narrative 69-year-old gentleman with a past medical history significant for CAD status post stent, COPD, diabetes, hypertension presenting today complaining of generalized weakness and fatigue today with a syncopal episode. States a little bit of diarrhea and stomach upset earlier. Denies now. Denies fever or cold symptoms. Slightly diaphoretic upon arrival. Denies any chest pain. Point of care troponin is negative. EKG without acute changes. Given the syncope and trauma as well as his aspirin and Plavix use CT the head was completed. Chest x-ray complete without acute findings. Basic laboratory studies here do not show significant leukocytosis or anemia. D-dimer is negative lowering my suspicion of PE. Doubt dissection here. Kidney function is normal. No electrolyte abnormality. No evidence of acute hepatitis or pancreatitis. Trop negative x1. Patient does have significant cardiac history. With the unprovoked syncopal episode today believe observation overnight is warranted. Still feeling weak. Hospitalist contacted. Impression & Plan Syncope, Weakness Discharge Plan Visit Data Chief Complaint: Tachycardia Stated Complaint: FAST HEART RATE, DIZZY, NAUSEA,SYNCOPE- CARDIAC HX ED Provider: Julio Cesar [place] Discharge Problem: Syncope, Weakness Patient Disposition: Being Evaluated by Hospitalist Forms Stand Alone Forms: [facility] Prescriptions Prescriptions: No Action metformin 500 mg tablet 500 mg PO BID RF: 0 clopidogrel 75 mg tablet 75 mg PO DAILY RF: 0 citalopram 20 mg tablet 20 mg PO DAILY RF: 0 metoprolol succinate 25 mg tablet extended release 24 hr 25 mg PO BID RF: 0 lisinopril 2.5 mg tablet 2.5 mg PO DAILY RF: 0 rosuvastatin 20 mg tablet 20 mg PO HS RF: 0 aspirin 81 mg Tablet,Delayed Release (Dr/Ec) 81 mg PO 3XWK RF: 0 montelukast [Singulair] 10 mg Tablet 10 mg PO PM RF: 0 cholecalciferol (vitamin D3) [Vitamin D3] 5,000 unit Tablet 5,000 unit PO DAILY RF: 0 PreserVision AREDS-2 [id number]-mg Capsule 1 tab PO DAILY RF: 0 Referrals Referrals: Nisha Lafelur M.D. [Primary Care Provider] - Discharge Problem: Syncope Qualifiers: Syncope type: unspecified Qualified Code(s): R55 - Syncope and collapse The scribe's documentation has been prepared under my direction and personally reviewed by me in its entirety. I confirm that the note above accurately reflects all work, treatment, procedures, and medical decision making performed by me.
--- NOTE | 2019-02-25 20:56 | History & Physical Report ---
Date of Service February 25, 2019 Assessment & Plan (1) Syncope: This is a 69-year-old male with a PMH of HTN, HLD, DM II, CAD (s/p stent placement in January 2018), tobacco use disorder, COPD and other medical problems listed below who presents with generalized weakness and syncopal event occurring earlier today. -Likely due to orthostatic hypotension after GI losses, poor p.o. intake -CT head without acute intracranial abnormalities -Troponin within normal limits. D-dimer negative -Orthostatic vitals, encourage p.o. intake -No EKG changes or findings on chest x-ray that would suggest cardiac etiology -However, due to asymptomatic NSTEMI in the past, best to monitor overnight on telemetry -See attending addendum for further plan details (2) Diarrhea: Endorsing 3 episodes earlier today -C. difficile toxin pending -Clears for now (3) Coronary artery disease: H/o NSTEMI s/p PCI L circumflex with WALDO 02/02/18 -No chest pain today. No acute EKG changes, initial troponin WNL -Continue Plavix, aspirin, statin (4) COPD (chronic obstructive pulmonary disease): Stable. Encourage smoking cessation -Takes a home inhaler intermittently but does not remember the name (5) Diabetes mellitus, type 2: Last a1c of 5.7 in May 2018 -Repeat a1c needed -Hold home agents -SSI while in-patient -BSG AC HS (6) Hypertension: Normotensive -Continue Toprol with hold parameters, lisinopril (7) Dyslipidemia: Continue statin Code status: FULL PCP: Ciarra gay [place] Patient seen in collaboration with Dr. Oliver. Please see addendum. History of Present Illness Chief Complaint: Weakness, syncopal episode Primary Care Provider: Nisha guy This is a 69-year-old male with a PMH of HTN, HLD, DM II, CAD (s/p stent placement in January 2018), tobacco use disorder, COPD and other medical problems listed below who presents with generalized weakness and syncopal event occurring earlier today. Patient woke up in her normal state of health and was getting ready for the day when he developed dizziness and nausea. Feels like "a [place] truck had hit me". Had 3 episodes of diarrhea and and last remembers walking from the bathroom back to his bedroom. found patient face down on bedroom floor, but he was responsive when she called his name. Unclear how long patient was on the ground. Patient continues to feel generally weak and lightheaded but denies any confusion, chest pain, palpitations or shortness of breath. Had 3 glasses of diet ice tea today but no water intake. No history of syncopal events in the past. Was admitted last January after feeling generally ill and was found to have an NSTEMI that required cardiac catheterization and stent placement 2 days later. Is on Plavix and aspirin. Patient found to be hemodynamically stable. No electrolyte abnormalities. Troponin normal. Head CT without acute intracranial abnormalities. Chest x-ray with mild cardiomegaly. EKG without acute ischemic changes. Allergies Allergy/AdvReac Type Severity Reaction Status Date / Time fenoprofen AdvReac Severe SYNCOPE Verified 02/25/19 18:07 Home Medications Home Medications Medication Instructions Recorded Confirmed Type aspirin 81 mg PO 3XWK 02/25/19 02/25/19 History cholecalciferol (vitamin D3) 5,000 unit PO DAILY 02/25/19 02/25/19 History [Vitamin D3] citalopram 20 mg PO DAILY 02/25/19 02/25/19 History clopidogrel 75 mg PO DAILY 02/25/19 02/25/19 History lisinopril 2.5 mg PO DAILY 02/25/19 02/25/19 History metformin 500 mg PO BID 02/25/19 02/25/19 History metoprolol succinate 25 mg PO BID 02/25/19 02/25/19 History montelukast [Singulair] 10 mg PO PM 02/25/19 02/25/19 History rosuvastatin 20 mg PO HS 02/25/19 02/25/19 History vit C,E-Ze-qpbgu-lutein-zeaxan 1 tab PO BID 02/25/19 02/25/19 History [PreserVision AREDS-2] Past Med/Surg History Surgical History Status post coronary artery stent placement (Chronic) "PCI L circumflex with WALDO 02/02/18" Family History Other No pertinent family history Social History Preferred Language: Khmer Communication Ability: Effective 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 Physical Exam Physical Exam: General Appearance: WD/WN, no apparent distress, obese Head: normocephalic, atraumatic Eyes: normal inspection, PERRL, EOMI ENT: hearing grossly normal, pharynx normal (mucous membranes) Neck: supple, no JVD, no adenopathy Respiratory/Chest: lungs clear to auscultation. Scattered wheezes. No rales or rhonci. No respiratory distress or accessory muscle use Cardiovascular: regular rate, rhythm, no murmur, normal peripheral pulses Abdomen/GI: normal bowel sounds, soft, non-tender to palpation Extremities/Musculoskelatal: normal inspection, no calf tenderness, normal capillary refill, no pedal edema Neurologic/Psych: alert, normal mood/affect, oriented x 3 Skin: normal color, warm/dry Results & Data Vital Signs (Past 12 Hours) Vital Signs Temp Pulse Pulse Resp BP BP Pulse Ox 02/25/19 20:00 70 15 02/25/19 19:31 77 17 97 02/25/19 19:30 68 15 123/75 97 02/25/19 19:21 74 18 118/74 96 02/25/19 19:00 72 18 118/74 96 02/25/19 18:31 75 20 96 02/25/19 18:30 73 15 122/67 97 02/25/19 18:29 76 77 17 133/72 133/72 96 02/25/19 18:01 76 18 96 02/25/19 18:00 76 16 120/76 02/25/19 17:54 85 22 96 02/25/19 17:48 81 23 145/74 H 96 02/25/19 17:47 79 22 145/74 H 96 02/25/19 17:30 36.7 C 87 20 130/82 94 Laboratory Results Short CBC 02/25/19 Range/Units 17:49 WBC 7.16 (4.8-10.8) K/uL Hgb 14.0 (14.0-18.0) g/dL Hct 41.1 L (42-52) % Plt Count 194 (130-400) K/uL BMP 02/25/19 17:49 Sodium 140 Potassium 3.9 Chloride 110 H Carbon Dioxide 25 BUN 15 Creatinine 0.84 Glucose 115 H Calcium 8.2 L Cardiac Enzymes 02/25/19 Range/Units 17:49 Troponin I < 0.015 (0-0.045) ng/ml Liver Function 02/25/19 Range/Units 17:49 Total Bilirubin 0.4 (0.2-1) mg/dl AST 20 (15-37) U/L ALT 24 (12-78) U/L Alkaline Phosphatase 82 (45-117) U/L Albumin 3.1 L (3.4-5.0) gm/dl Diagnostic Findings Head CT: IMPRESSION: No acute intracranial findings CXR: IMPRESSION: Mild cardiomegaly. No acute findings Supervising Physician Co-Signing Physician Notes IM ATTENDING : Patient seen and examined. History obtained from patient and records. Preceding documentation by Ms. Siri Mayo PA-C reviewed. FINAL ASSESSMENT AND PLAN as follows : Syncope Likely secondary to orthostasis secondary to their illness Rule out arrhythmia given palpitation complaints the day before event Rule out cardiac dysfunction (hx ischemic cardiomyopathy EF 35 to 40%, TTE 2018) Hypertension, stable CAD status post stent Hyperlipidemia on statin Rx DM2 on oral meds, well controlled as of recent inpatient hemoglobin A1c of 6 last year. Asthma as per records, stable Ongoing tobacco abuse OBS Medical telemetry Check orthostatic vitals IVF Stool C. difficile TTE RE syncope ISS BG goal 1 40-180, update hemoglobin A1C DVT prophylaxis Lovenox subcu Full code (1) Syncope Syncope type: unspecified Qualified Code(s): R55 - Syncope and collapse
[2019-02-26] MEDS ORDERED: ACETAMINOPHEN 325 MG TAB PO PRN (00:06)
[2019-02-26] MEDS ORDERED: GLUCAGON FOR INJ 1 MG VIAL SQ PRN (00:06)
[2019-02-26] MEDS ORDERED: ROSUVASTATIN CALCIUM 20 MG TAB PO SCH (00:06)
[2019-02-26] MEDS ORDERED: DEXTROSE 50% 50 ML SYRINGE IV PRN (00:06)
[2019-02-26] MEDS ORDERED: NITROGLYCERIN SL 0.4 MG/TAB TAB SL PRN (00:06)
[2019-02-26] MEDS ORDERED: LACTATED RINGER'S 1,000 ML IV ONE (00:06)
[2019-02-26] MEDS ORDERED: CARBOHYDRATES FOR HYPOGLYCEMIA PO PRN (00:06)
[2019-02-26] MEDS ORDERED: GLUCOSE 40% GEL 15 GM TUBE PO PRN (00:06)
[2019-02-26] MEDS ORDERED: GLUCOSE 10 TABS/TUBE PO PRN (00:06)
[2019-02-26] MEDS ORDERED: TRAMADOL HCL 50 MG TABLET PO PRN (00:06)
[2019-02-26] MEDS ORDERED: PROMETHAZINE HCL 12.5 MG in SODIUM CHLORIDE 0.9% 50 ML IV PRN (00:06)
[2019-02-26] MEDS: INSULIN ASPART 100 UNITS/ML 3 ML PEN SC SCH ×3 (01:24→12:48)
[2019-02-26] MEDS: METOPROLOL SUCC 25MG EXT REL TAB PO SCH ×2 (01:24→08:47)
[2019-02-26 05:49] LABS: Basophils # (auto) 0.03 K/uL (0-0.2); Basophils % (auto) 0.4 %; Eosinophils % (auto) 2.9 %; Hematocrit (blood only) 38.7 % (42-52); Immature Granulocytes # (auto) 0.01 K/uL (0.00-0.02); Immature Granulocytes % (auto) 0.1 %; Lymphocytes % (auto) 37.5 %; Mean Corpuscular Hgb Conc 33.6 g/dL (32-36); Mean Corpuscular Volume 90.8 fL (80-100); Mean Platelet Volume 9.3 fL (7.4-10.4); Monocytes # (auto) 0.54 K/uL (0.11-0.59); Monocytes % (auto) 7.8 %; Neutrophils # (auto) 3.56 K/uL (1.4-6.5); Neutrophils % (auto) 51.3 %; Platelet Count 173 K/uL (130-400); RDW Coefficient of Variation 14.7 % (11.5-14.5); Red Blood Count 4.26 M/uL (4.7-6.1); White Blood Count 6.94 K/uL (4.8-10.8)
[2019-02-26 06:25] LABS: BUN Creatinine Ratio 20.1 (10-20); Calcium 8.6 mg/dl (8.5-10.1); Creatinine Clr Calc Pharmacy 97.8 ml/min; Est GFR (African American) 104.2; Est GFR (Non-African American) 89.9
[2019-02-26 06:28] LABS: Estimated Average Glucose 128 mg/dl; Hemoglobin A1C 6.1 % (4.5-5.6)
[2019-02-26] MEDS ORDERED: INFLUENZA VACCINE HIGH DOSE 65+ 0.5 ML SYR IM ONE (08:30)
[2019-02-26] MEDS ORDERED: INFLUENZA VIRUS QUAD VACCINE 0.5 ML SYR IM ONE (09:00)
[2019-02-26] MEDS ORDERED: INFLUENZA ADMINISTRATION CHARGE ONE (09:00)
[2019-02-26] MEDS ORDERED: ENOXAPARIN INJ 30 MG/0.3 ML SYR SQ SCH (09:00)
[2019-02-26] MEDS ORDERED: CLOPIDOGREL BISULFATE 75 MG TAB PO SCH (09:00)
[2019-02-26] MEDS ORDERED: LISINOPRIL 2.5 MG TAB PO SCH (09:00)
[2019-02-26] MEDS ORDERED: ASPIRIN 81 MG ECTAB PO SCH (09:00)
[2019-02-26] MEDS ORDERED: CITALOPRAM 20 MG TAB PO SCH (09:00)
--- NOTE | 2019-02-26 11:38 | Consultation Report ---
DATE OF CONSULTATION: 02/26/2019 CONSULTATION REQUESTED BY: Siri Mayo PA-C. REASON FOR CONSULTATION: Syncope. HISTORY OF PRESENT ILLNESS: Mr. Pryor states he was in his normal state of health up until yesterday morning. He states he woke up feeling well but then had several bouts of significant diarrhea. He does not remember eating anything out of the ordinary except for his 's homemade apple tarts, which is a new recipe for her, but he had significant diarrhea. After his third and final bout he stood up and was walking back to bed when all of a sudden next thing he knew he woke up on the floor. He states that when he is walking back, he really notice anything out the ordinary, was just as though someone turned the lights off on him. He woke up on the floor, was only out for a few seconds. His came to his aid and he woke up feeling rather well. He denied any associated chest pain, shortness of breath, palpitations, lightheadedness or dizziness. He notes he really did not have anything to drink yesterday besides coffee and on a regular basis he normally drinks about a gallon of diet ice tea a day without any other liquids. Since admission, he was started on IV fluids and currently states he feels fine and is anxious for discharge. PAST SURGICAL HISTORY: 1. Drug-eluting stent placement to the circumflex in the setting of non-ST segment elevation [place] January 2018. 2. Vasectomy. 3. Lumbar hemilaminectomy. 4. Colonoscopy. 5. Oral surgery. MEDICAL ILLNESSES: 1. Coronary artery disease status post PCI to the circumflex with residual nonobstructive ostial/proximal LAD disease, calcified with IFR of 0.95. 2. Moderate LV systolic dysfunction, EF of 40-45%. 3. Hypertension. 4. Dyslipidemia. 5. COPD. 6. Ongoing tobacco abuse. 7. Diabetes. 8. Spinal stenosis. FAMILY HISTORY: Noncontributory. SOCIAL HISTORY: The patient is a lifelong smoker, still smokes on a daily basis. Denies any alcohol or recreational drug use. REVIEW OF SYSTEMS: As per HPI, all other review of systems reviewed and negative at this time. ALLERGIES: 1. LISINOPRIL. 2. NALFON. MEDICATIONS AN OUTPATIENT: 1. Plavix 75 mg daily. 2. Aspirin 81 mg every other day. 3. Lisinopril 2.5 mg daily. 4. Metoprolol succinate 25 mg b.i.d. 5. Crestor 20 mg daily. 6. Singular daily. 7. Metformin daily. PHYSICAL EXAMINATION: VITALS: Temperature 36.8, pulse 73, respiratory rate 12, blood pressure 120/76. GENERAL: Awake, alert, oriented x3 in no acute distress. HEENT: Normocephalic, atraumatic. Pupils equal, round, reactive to light and accommodation. Extraocular muscles intact. Anicteric sclerae. Moist mucous membranes. NECK: No JVD, no bruit. CARDIOVASCULAR: Regular. Positive S4. Normal S1 and S2. No S3. No murmurs or rubs. PULMONARY: Clear to auscultation bilaterally. No rales, rhonchi, or wheezing. ABDOMEN: Bowel sounds x4, soft. No rebound, guarding, tenderness. No organomegaly. EXTREMITIES: No clubbing, cyanosis or edema. +2 pedal pulses bilaterally. SKIN: Warm and dry. TEST RESULTS OF SIGNIFICANCE: BUN to creatinine ratio of 20:1. A 2D echocardiogram performed today was read as no significant change compared to previous study of 02/20/2018, normal LV chamber size, wall thickness is mildly increased and segments with normal wall motion, severe hypokinesis of the inferior and posterior guzman. The remaining left ventricular wall segments are mildly hypokinetic. EF 40-45%, grade 1 diastolic dysfunction, mild aortic valve sclerosis without stenosis, [id number] mitral regurgitation, mild tricuspid regurgitation. IMPRESSION: 1. Orthostatic syncope. 2. Prerenal azotemia. 3. History of coronary artery disease. 4. Mild ischemic cardiomyopathy, stable. RECOMMENDATIONS: It was my pleasure to see Mr. Pryor in consultation today. From a cardiac standpoint he was counseled that it appears he had an episode of orthostatic syncope, which is not surprising given his chronic dehydration and significant bouts of diarrhea yesterday. So at this point, no further cardiac testing or intervention is necessary. I recommend he continue with IV fluid hydration and then be discharged to home once he is euvolemic. No other medication changes will be made at this time. He is to follow up with his regularly scheduled appointment with Dr. Laguna in April.
--- NOTE | 2019-02-26 14:17 | Hospitalist Progress Note ---
Date of Service February 26, 2019 Assessment & Plan (1) Syncope: This is a 69-year-old male with a PMH of HTN, HLD, DM II, CAD (s/p stent placement in January 2018), tobacco use disorder, COPD and other medical problems listed below who presents with generalized weakness and syncopal event Syncope Likely due to orthostatic hypotension after GI losses, poor p.o. intake -CT head without acute intracranial abnormalities -no arrhythmia on telemetry -Troponin within normal limits. D-dimer negative echocardiogram 02/26/19 No significant change compared to previous study for 02/20/18 Normal LV chamber size The wall thickness is mildly increased in segments with normal wall motion There is severe hypokinese of the inferior and posterior guzman The remaining left ventricular wall segments are mildly hypokinetic The qualitative LV ejection fraction is 40 to 45% (mildly reduced) Grade I diastolic dysfunction Aortic valve sclerosis mild, without significant aortic valvular stenosis Mild to moderate mitral regurgitation Mild tricuspid regurgitation was evaluated by cardiology Dr. Hogue and no further cardiology testing Patient has follow up cardiology appointment scheduled 04/27/2019 1:30 PM Provider Leo Laguna MD Department Cardiology, [facility] clinic appointment line also notified of any earlier appointments can be made for the patient to see Dr. Laguna Patient should follow up with primary medical doctor in 1 week (2) Diarrhea: No clinical evidence for C.difficile colitis given that patient is afebrile and normal whit blood cell count diarrhea has resolved after 3 episodes at home yesterday (3) Coronary artery disease: Coronary artery disease with stent in the past (s/p PCI L circumflex with WALDO 02/02/18 because of STEMI), Left Ventricular systolic dysfunction No chest pain on presentation echocardiogram 02/26/19 (No significant change compared to previous study for 02/20/18) -Continue Plavix, aspirin, statin (4) COPD (chronic obstructive pulmonary disease): Stable. Encourage smoking cessation follow up with primary care doctor (5) Diabetes mellitus, type 2: Type 2 diabetes mellitus with glucose controlled without retirement current use of insulin HbA1c 6.1 patient may resume follow up with primary care doctor with metformin (6) Hypertension: History of hypertension -Continue home dose metoprolol and lisinopril -no documented hypoteniso while in patient -no syncope while inpatient (7) Dyslipidemia: Continue statin Discharge Diagnosis Syncope, Diarrhea, Coronary artery disease with stent in the past, Left Ventricular systolic dysfunction, Type 2 diabetes mellitus without watermaster current use of insulin Subjective Patient seen and examined. No syncopal events. ambulatory. no hypotension. no arrhythmia on telemetry. no abdomen pain. no vomiting. Physical Exam Constitutional: WD/WN, vitals as above Eyes: PERRL, conjunctivae normal, anicteric sclerae EOM intact bilaterally ENMT: external ear and nose normal, oropharynx normal Neck: trachea midline, no thyromegaly Respiratory: normal respiratory effort, lungs clear to auscultation Gastrointestinal (Abdomen): normal bowel sounds, soft, nontender, no hepatosplenomegaly Neurologic: PERRL, EOMI, accommodation nl, no face palsy, no dysarthria CN's II-XI intact bilaterally Psychiatric: A+Ox3, euthymic affect Results & Data Vital Signs (Past 12 Hours) Vital Signs Temp Pulse Pulse Resp BP BP Pulse Ox 02/26/19 12:00 36.8 C 61 20 128/76 96 02/26/19 08:00 73 02/26/19 07:27 36.8 C 66 20 120/76 96 02/26/19 04:42 36.7 C 67 18 134/81 95 (1) Syncope Syncope type: unspecified Qualified Code(s): R55 - Syncope and collapse
--- NOTE | 2019-02-26 14:45 | Discharge Summary ---
Date of Service February 26, 2019 Admission HPI Per Admitting Provider This is a 69-year-old male with a PMH of HTN, HLD, DM II, CAD (s/p stent placement in January 2018), tobacco use disorder, COPD and other medical problems listed below who presents with generalized weakness and syncopal event occurring earlier today. Patient woke up in her normal state of health and was getting ready for the day when he developed dizziness and nausea. Feels like "a [place] truck had hit me". Had 3 episodes of diarrhea and and last remembers walking from the bathroom back to his bedroom. found patient face down on bedroom floor, but he was responsive when she called his name. Unclear how long patient was on the ground. Patient continues to feel generally weak and lightheaded but denies any confusion, chest pain, palpitations or shortness of breath. Had 3 glasses of diet ice tea today but no water intake. No history of syncopal events in the past. Was admitted last January after feeling generally ill and was found to have an NSTEMI that required cardiac catheterization and stent place ment 2 days later. Is on Plavix and aspirin. Patient found to be hemodynamically stable. No electrolyte abnormalities. Troponin normal. Head CT without acute intracranial abnormalities. Chest x-ray with mild cardiomegaly. EKG without acute ischemic changes. Admission Exam Per Admitting Provider General Appearance: WD/WN, no apparent distress, obese Head: normocephalic, atraumatic Eyes: normal inspection, PERRL, EOMI ENT: hearing grossly normal, pharynx normal (mucous membranes) Neck: supple, no JVD, no adenopathy Respiratory/Chest: lungs clear to auscultation. Scattered wheezes. No rales or rhonci. No respiratory distress or accessory muscle use Cardiovascular: regular rate, rhythm, no murmur, normal peripheral pulses Abdomen/GI: normal bowel sounds, soft, non-tender to palpation Extremities/Musculoskelatal: normal inspection, no calf tenderness, normal capillary refill, no pedal edema Neurologic/Psych: alert, normal mood/affect, oriented x 3 Skin: normal color, warm/dry Principal Diagnosis Syncope, Diarrhea, Coronary artery disease with stent in the past, Left Ventricular systolic dysfunction, Type 2 diabetes mellitus without fci current use of insulin Discharge Exam Constitutional WD/WN, vitals as above Eyes PERRL, conjunctivae normal, anicteric sclerae EOM intact bilaterally ENMT external ear and nose normal, oropharynx normal Neck trachea midline, no thyromegaly Respiratory normal respiratory effort, lungs clear to auscultation Gastrointestinal (Abdomen) normal bowel sounds, soft, nontender, no hepatosplenomegaly Neurologic PERRL, EOMI, accommodation nl, no face palsy, no dysarthria CN's II-XI intact bilaterally Psychiatric A+Ox3, euthymic affect Discharge Data Allergies Allergy/AdvReac Type Severity Reaction Status Date / Time fenoprofen AdvReac Severe SYNCOPE Verified 02/25/19 18:07 Consultations 02/25/19 19:56 ED Decision to Admit Stat Ordered Studies 02/25/19 17:43 CT head/brain wo con Stat Hospital Course (1) Syncope: This is a 69-year-old male with a PMH of HTN, HLD, DM II, CAD (s/p stent placement in January 2018), tobacco use disorder, COPD and other medical problems listed below who presents with generalized weakness and syncopal event Syncope Likely due to orthostatic hypotension after GI losses, poor p.o. intake -CT head without acute intracranial abnormalities -no arrhythmia on telemetry -Troponin within normal limits. D-dimer negative echocardiogram 02/26/19 No significant change compared to previous study for 02/20/18 Normal LV chamber size The wall thickness is mildly increased in segments with normal wall motion There is severe hypokinese of the inferior and posterior guzman The remaining left ventricular wall segments are mildly hypokinetic The qualitative LV ejection fraction is 40 to 45% (mildly reduced) Grade I diastolic dysfunction Aortic valve sclerosis mild, without significant aortic valvular stenosis Mild to moderate mitral regurgitation Mild tricuspid regurgitation was evaluated by cardiology Dr. Hogue and no further cardiology testing Patient has follow up cardiology appointment scheduled 04/27/2019 1:30 PM Provider Leo Laguna MD Department Cardiology, [facility] appointment line also notified of any earlier appointments can be made for the patient to see Dr. Laguna Patient should follow up with primary medical doctor in 1 week (2) Diarrhea: No clinical evidence for C.difficile colitis given that patient is afebrile and normal whit blood cell count diarrhea has resolved after 3 episodes at home yesterday (3) Coronary artery disease: Coronary artery disease with stent in the past (s/p PCI L circumflex with WALDO 02/02/18 because of STEMI), Left Ventricular systolic dysfunction No chest pain on presentation echocardiogram 02/26/19 (No significant change compared to previous study for 02/20/18) -Continue Plavix, aspirin, statin (4) COPD (chronic obstructive pulmonary disease): Stable. Encourage smoking cessation follow up with primary care doctor (5) Diabetes mellitus, type 2: Type 2 diabetes mellitus with glucose controlled without fci current use of insulin HbA1c 6.1 patient may resume follow up with primary care doctor with metformin (6) Hypertension: History of hypertension -Continue home dose metoprolol and lisinopril -no documented hypoteniso while in patient -no syncope while inpatient (7) Dyslipidemia: Continue statin Discharge Diagnosis Syncope, Diarrhea, Coronary artery disease with stent in the past, Left Ventricular systolic dysfunction, Type 2 diabetes mellitus without fci current use of insulin Total Time Total Time Spent Total Time Spent (In Minutes): 40 minutes Total Time Includes: Examination of the Patient, Discharge Planning and Medication Reconciliation Discharge Plan Discharge Items Patient Disposition: Home - Self-Care Reason For Visit: SYNCOPE Discharge Diagnosis: Syncope, Diarrhea, Coronary artery disease with stent in the past, Left Ventricular systolic dysfunction, Type 2 diabetes mellitus without fci current use of insulin Condition: Good Discharge Goals: Improve disease control Activity: Resume your previous activity Non-emergency contact: Primary Care Provider and [employer] Call non-emergency contact if: you have any medication questions Follow-up/Referrals: Nisha Lafleur M.D. [Primary Care Provider] - Diet: Carb Consistent or DM2 and Heart Healthy Addtl Provider Instructions: Syncope Likely due to orthostatic hypotension after GI losses, poor p.o. intake -CT head without acute intracranial abnormalities -no arrhythmia on telemetry -Troponin within normal limits. D-dimer negative echocardiogram 02/26/19 No significant change compared to previous study for 02/20/18 Normal LV chamber size The wall thickness is mildly increased in segments with normal wall motion There is severe hypokinese of the inferior and posterior guzman The remaining left ventricular wall segments are mildly hypokinetic The qualitative LV ejection fraction is 40 to 45% (mildly reduced) Grade I diastolic dysfunction Aortic valve sclerosis mild, without significant aortic valvular stenosis Mild to moderate mitral regurgitation Mild tricuspid regurgitation was evaluated by cardiology Dr. Hogue and no further cardiology testing Patient has follow up cardiology appointment scheduled 04/27/2019 1:30 PM Provider Leo Laguna MD Department Cardiology, [facility] appointment line also notified of any earlier appointments can be made for the patient to see Dr. Laguna Patient should follow up with primary medical doctor in 1 week Prescriptions: Continued metformin 500 mg tablet 500 mg PO BID RF: 0 clopidogrel 75 mg tablet 75 mg PO DAILY RF: 0 citalopram 20 mg tablet 20 mg PO DAILY RF: 0 metoprolol succinate 25 mg tablet extended release 24 hr 25 mg PO BID RF: 0 lisinopril 2.5 mg tablet 2.5 mg PO DAILY RF: 0 rosuvastatin 20 mg tablet 20 mg PO HS RF: 0 aspirin 81 mg Tablet,Delayed Release (Dr/Ec) 81 mg PO 3XWK RF: 0 montelukast [Singulair] 10 mg Tablet 10 mg PO PM RF: 0 cholecalciferol (vitamin D3) [Vitamin D3] 5,000 unit Tablet 5,000 unit PO DAILY RF: 0 PreserVision AREDS-2 [id number] Capsule 1 tab PO BID RF: 0 Stand-Alone Forms: [facility] Discharge Orders: Discharge Order (Routine); Ordered 02/26/19 Ordered By: Jose Francisco Salgado Admission Data Admit Date/Time: 02/25/19 21:58 Attending Provider: Jose Francisco Salgado Admit Provider: Silvino Oliver Primary Care Provider: Nisha Lafleur Other Providers: Silvino Oliver Service: Telemetry Medical
[2019-02-26] MEDS ORDERED: MONTELUKAST SODIUM 10 MG TABLET PO SCH (21:00)
== END 2019-02-26 15:45 | disposition home or self-care (01) ==
LOC: 2N 17:19 → ED 17:19 → 2N 22:37

== ENCOUNTER 2022-01-19 13:55 | Observation (INO) ==
--- NOTE | 2022-01-19 14:15 | Emergency Department Note ---
Impression & Plan Brain TIA, Facial droop, Stenosis of both vertebral arteries, Encounter for smoking cessation counseling ED Provider Note NAME: MAREK MARC AGE: 71 SEX: M : 1950 ARRIVES VIA: Walk-In INFORMANT: Patient, ED PROVIDER(S): Wali Biggs MD Chief Complaint: Falls, facial droop HPI: Patient presents due to concern for some weakness and falls that have occurred each of the last 3 days. The patient had noticed some facial droop around 1030 this morning. Patient denies any fevers chills chest pains or shortness of breath. The patient denies any head strike with his falls or LOC. The patient does take aspirin Plavix from prior history of stroke and states that his symptoms are somewhat similar to when he had a stroke before. Patient does use tobacco but denies any alcohol use. The patient denies any cough but had had some wheezing this morning to where he used an inhaler. Patient denies any belly pain nausea vomiting or diarrhea. Patient does have some chronic right lower extremity issues secondary to prior back surgery and states that sometimes he feels a little bit of weakness and pain in that leg but that is chronic in nature. Patient denies any chest pains or shortness of breath. The patient is not had any nausea. Patient denies any other blood thinners with the exception of his antiplatelets. ROS: See HPI for pertinent positives and negatives. A total of 10 systems were reviewed and otherwise negative. Past medical history: See below Surgical history: See below Social history: See below Physical Exam: GENERAL: NAD, wearing a mask, non-toxic. EYE EXAM: Normal conjunctiva. PERRL, no anisocoria and EOM's grossly intact w/o pain. NECK: Supple, no nuchal rigidity, no adenopathy, non-tender. No signs of meningismus. FROM of the neck with good chin to chest and neck extension. No stridor. LUNGS: Clear to auscultation. Normal chest wall mechanics. HEART: NSR, no MRG. ABDOMEN: Abdomen soft, non-tender, normo-active bowel sounds, no masses, no rebound or guarding. BACK: No CVA TTP. SKIN: No rashes and no bruising. UPPER EXTREMITIES: Upper extremities are grossly normal. LOWER EXTREMITIES: Grossly normal, no edema. NEURO EXAM: A&O x3, cranial nerves II-XII grossly intact, normal speech, moves all 4 extremities on command w/o issue. Good finger to nose, no drift, no sensory deficits. Differential diagnoses: Infection, dehydration, metabolic abnormality, hypo/hyperglycemia, electrolyte disturbance, anemia, hypoxia, cardiac sources, intracerebral event, toxicologic, neurologic, as well as other pathologies. Course: Patient was seen and evaluated the bedside. Full history physical exam was performed. EKG interpreted by me Normal sinus rhythm, rate of 79, normal intervals, normal axis, T wave inversion in the high lateral leads as well as V6 inversion in V6 may be more pronounced but the high lateral lead T wave inversions appear to be old from comparison EKG November 11, 2021 per Imaging Studies: See Below Cardiac monitoring: An order was placed for continuous cardiac monitoring. The monitor shows a rate of 82 with sinus rhythm. MDM: Patient was seen due to concern for TIA symptoms the patient did have some right-sided facial droop prior to arrival. The patient did not have any acute deficits on my exam. NIH of 0. The patient did have blood work completed along with CT of the head and CT angiography of the head neck. Patient's blood work showed a normal white count with mild anemia at 13.6. Platelet count is unremarkable. The patient's kidney function unremarkable. Covid negative with negative troponin. UA and chest x-ray unremarkable. CT of the head shows no acute changes. The patient's head and neck CTA does show multifocal moderate to severe narrowing within the intracranial segments of the bilateral vertebral arteries. The patient does have a prior left ICA stent with 75% stenosis. I did speak with the on-call neurologist Dr. Alex who does not think that the patient requires any additional need for intervention at this time given the patient's lack of acute findings on exam. Patient will be admitted to the medicine service. I did speak the on-call hospitalist Dr. Carlson who admitted the patient. I counseled patient on smoking cessation for 3 minutes. Treatment options discussed and resources provided. Patient was receptive. Past Med/Surg History Medical History (Updated 01/19/22 @ 21:22 by Wali Biggs MD) Cardiac murmur in childhood; no further issues COPD (chronic obstructive pulmonary disease) inhaler prn Coronary artery disease "s/p non-STEMI 01/31/18, cath showed circ lesion and lesser disease in LAD and RCA, PCI circ with WALDO 02/02/18" Degenerative disc disease Depression Diabetes mellitus, type 2 Dyslipidemia Hypertension Macular degeneration of both eyes NSTEMI (non-ST elevated myocardial infarction) 01/31/18--follows with Dr. Laguna--plavix daily Sleep apnea cpap Transient ischemic attack (TIA) 02/2019--follows with Dr. Itz Fernando @ [facility] on plavix daily Surgical History History of bilateral cataract extraction History of cardiac cath 02/02/2018 @ [facility] with 1 stent placed History of carotid angioplasty left side 1 stent placed @ [facility] 02/2019 History of colonoscopy History of lumbar spinal fusion History of tooth extraction all teeth removed Hx of vasectomy Status post coronary artery stent placement "PCI L circumflex with WALDO 02/02/18" Family History Other Family history not known due to adoption No pertinent family history Social History Smoking Status: Current every day smoker Tobacco Type: Cigarettes Cigarettes Per Day: 1/2 PPD; Second Hand Exposure: No; Do You Dip or Chew Tobacco: No; Hx Alcohol Use: Yes Alcohol type: beer Hx Substance Use: No Preferred Language: Indian Communication Ability: Effective Digital Photographic Printer Required: No Beliefs That Will Affect Care: None marital status: Current Living Situation: Spouse Feels Safe at Home: Yes Assistive Devices: CPAP, Denture - Upper and Denture - Lower Allergies Allergies Allergy/AdvReac Type Severity Reaction Status Date / Time fenoprofen Allergy Severe SYNCOPE Verified 01/19/22 15:25 Home Meds Home Medications Medication Instructions Recorded Confirmed aspirin 81 mg tablet,delayed 81 mg PO HS 02/25/19 01/19/22 release cholecalciferol (vitamin D3) 125 5,000 unit PO QAM 02/25/19 01/19/22 mcg (5,000 unit) tablet (Vitamin D3) citalopram 20 mg tablet 20 mg PO QAM 02/25/19 01/19/22 clopidogrel 75 mg tablet 75 mg PO QAM 02/25/19 01/19/22 lisinopril 2.5 mg tablet 2.5 mg PO QAM 02/25/19 01/19/22 metformin 500 mg tablet 500 mg PO QAM 02/25/19 01/19/22 metoprolol succinate 25 mg 25 mg PO QAM 02/25/19 01/19/22 tablet,extended release 24 hr montelukast 10 mg tablet 10 mg PO HS 02/25/19 01/19/22 (Singulair) rosuvastatin 20 mg tablet 20 mg PO QAM 02/25/19 01/19/22 vit C 250 mg-vit E 90 mg-zinc 40 1 tab PO BID 02/25/19 01/19/22 mg-copper 1 [id number] capsule (PreserVision AREDS-2) fluticasone 500 mcg-salmeterol 50 1 inh INHALATION BID PRN 05/18/20 01/19/22 mcg/dose blistr powdr for inhalation (Advair Diskus) albuterol sulfate 90 mcg/actuation 2 puff INHALATION Q6H PRN 01/19/22 01/19/22 aerosol inhaler (ProAir HFA) Results & Data (ED) Vital Signs Vital Signs - 24 hr 01/19/22 14:05 01/19/22 14:24 01/19/22 14:25 Temperature 36.3 C L Temperature Source Skin Pulse Rate 86 Pulse Rate [Left Radial] 87 Pulse Rate from SpO2 Sensor Pulse Rhythm [Left Radial] Regular Pulse Strength [Left Radial] Normal Respiratory Rate 20 14 Respiratory Effort / Characteristics Non-Labored Spontaneous Non-Labored Respiratory Depth Normal Normal Respiratory Pattern Regular Regular Blood Pressure 128/69 Blood Pressure [Left Arm] 156/100 H Blood Pressure Mean 88 Blood Pressure Mean [Left Arm] 118 Blood Pressure Position [Left Arm] Lying Pulse Oximetry 97 97 Oxygen Delivery Method Room Air Room Air Room Air Sepsis Recent Fever Within 48 Hours No Sepsis New/Unexplained Change in Mental Status N/A Sepsis Action Taken by Nursing No Action Required 01/19/22 16:00 01/19/22 16:30 01/19/22 18:00 Temperature Temperature Source Pulse Rate 75 78 Pulse Rate [Left Radial] 81 84 Pulse Rate from SpO2 Sensor 77 66 Pulse Rhythm [Left Radial] Regular Regular Pulse Strength [Left Radial] Normal Normal Respiratory Rate 14 18 20 Respiratory Effort / Characteristics Non-Labored Non-Labored Respiratory Depth Normal Normal Respiratory Pattern Regular Regular Blood Pressure 134/77 119/78 Blood Pressure [Left Arm] 128/81 128/68 Blood Pressure Mean 96 91 Blood Pressure Mean [Left Arm] 96 88 Blood Pressure Position [Left Arm] Lying Lying Pulse Oximetry 97 93 98 Oxygen Delivery Method Room Air Room Air Sepsis Recent Fever Within 48 Hours Sepsis New/Unexplained Change in Mental Status Sepsis Action Taken by [facility] Medications Current Medication List: was personally reviewed by me Laboratory Data Attestation: I reviewed the patient's lab results. Result diagrams: 01/19/22 14:35 01/19/22 14:35 Lab Results 01/19/22 01/19/22 01/19/22 Range/Units 14:35 14:35 14:35 WBC 7.57 (4.8-10.8) K/uL RBC 4.43 L (4.7-6.1) M/uL Hgb 13.6 L (14.0-18.0) g/dL Hct 40.0 L (42-52) % MCV 90.3 (80-100) fL MCH 30.7 (25-34) pg MCHC 34.0 (32-36) g/dL RDW Std Deviation 53.5 H (36.4-46.3) fL RDW Coeff of Adrian 16.0 H (11.5-14.5) % Plt Count 201 (130-400) K/uL MPV 9.7 (7.4-10.4) fL Immature Gran % (Auto) 0.1 % Neut % (Auto) 68.3 % Lymph % (Auto) 21.0 % [place] % (Auto) 9.2 % Eos % (Auto) 0.9 % Baso % (Auto) 0.5 % Neut # (Auto) 5.16 (1.4-6.5) K/uL Lymph # (Auto) 1.59 (1.2-3.4) K/uL [place] # (Auto) 0.70 H (0.11-0.59) K/uL Eos # (Auto) 0.07 (0-0.5) K/uL Baso # (Auto) 0.04 (0-0.2) K/uL Immature Gran # (Auto) 0.01 (0.00-0.02) K/uL PT 10.7 (9.0-12.0) Seconds INR 1.0 (0.9-1.1) APTT 28.1 (21.0-31.0) Seconds PTT Ratio 1.0 Sodium 136 (136-145) mmol/L Potassium 4.1 (3.5-5.1) mmol/L Chloride 104 (98-107) mmol/L Carbon Dioxide 26 (21-32) mmol/L Anion Gap 6 (3-11) BUN 12 (6-23) mg/dl Creatinine 0.80 (0.6-1.4) mg/dl Est Cr Clr Drug Dosing 92.3 ml/min Est GFR ( Amer) 102.7 ml/min Est GFR (Non-Af Amer) 88.6 ml/min BUN/Creatinine Ratio 15.0 (10-20) Glucose 90 (70-99(Fasting)) mg/dl Calcium 9.3 (8.5-10.1) mg/dl Magnesium 2.1 (1.7-2.4) mg/dl Total Bilirubin 0.4 (0.2-1.0) mg/dl AST 16 (13-39) U/L ALT 13 (7-52) U/L Alkaline Phosphatase 75 (34-104) U/L Troponin I < 0.03 (0-0.04) ng/ml Total Protein 7.2 (6.0-8.3) gm/dl Albumin 4.0 (3.4-5.0) gm/dl Globulin 3.2 (2.5-4.0) gm/dl Albumin/Globulin Ratio 1.3 (0.9-2) SARS-CoV-2, RNA, NAAT (NEGATIVE) 01/19/22 Range/Units 15:35 WBC (4.8-10.8) K/uL RBC (4.7-6.1) M/uL Hgb (14.0-18.0) g/dL Hct (42-52) % MCV (80-100) fL MCH (25-34) pg MCHC (32-36) g/dL RDW Std Deviation (36.4-46.3) fL RDW Coeff of Adrian (11.5-14.5) % Plt Count (130-400) K/uL MPV (7.4-10.4) fL Immature Gran % (Auto) % Neut % (Auto) % Lymph % (Auto) % [place] % (Auto) % Eos % (Auto) % Baso % (Auto) % Neut # (Auto) (1.4-6.5) K/uL Lymph # (Auto) (1.2-3.4) K/uL [place] # (Auto) (0.11-0.59) K/uL Eos # (Auto) (0-0.5) K/uL Baso # (Auto) (0-0.2) K/uL Immature Gran # (Auto) (0.00-0.02) K/uL PT (9.0-12.0) Seconds INR (0.9-1.1) APTT (21.0-31.0) Seconds PTT Ratio Sodium (136-145) mmol/L Potassium (3.5-5.1) mmol/L Chloride (98-107) mmol/L Carbon Dioxide (21-32) mmol/L Anion Gap (3-11) BUN (6-23) mg/dl Creatinine (0.6-1.4) mg/dl Est Cr Clr Drug Dosing ml/min Est GFR ( Amer) ml/min Est GFR (Non-Af Amer) ml/min BUN/Creatinine Ratio (10-20) Glucose (70-99(Fasting)) mg/dl Calcium (8.5-10.1) mg/dl Magnesium (1.7-2.4) mg/dl Total Bilirubin (0.2-1.0) mg/dl AST (13-39) U/L ALT (7-52) U/L Alkaline Phosphatase (34-104) U/L Troponin I (0-0.04) ng/ml Total Protein (6.0-8.3) gm/dl Albumin (3.4-5.0) gm/dl Globulin (2.5-4.0) gm/dl Albumin/Globulin Ratio (0.9-2) SARS-CoV-2, RNA, NAAT NEGATIVE (NEGATIVE) Administered Medications Discontinued Medications Ioversol (Optiray 320 125ml) 119 ml IV ONCE ONE Stop: 01/19/22 15:34 Last Admin: 01/19/22 15:41 Dose: 1 ml Documented by: [id number] Imaging Data Radiologist's Impression: Head CT 01/19/22 14:[address] DOSE: HISTORY: Weakness. Stroke Like Symptoms TECHNIQUE: Multiaxial CT images of the head were performed without the use of intravenous contrast. Automated exposure control was utilized for this study. A dose lowering technique was utilized adhering to the principles of ALARA. Comparison: Head CT 02/25/2019. Findings: The paranasal sinuses and mastoid air cells are clear. The calvarium and skull base are intact. There is no mass, hematoma, midline shift, acute infarct. White matter hypodensity is nonspecific but suggestive of microvascular ischemic change. The ventricles and sulci demonstrate mild age-related invo lutional changes. A cavum septum pellucidum is again noted. Impression: No significant change compared to the prior study. No acute intracranial abnormality. ACT 112: Negative or not required by law. Electronically signed by: Seth Armas M.D. 01/19/2022 4:07 PM Head CTA 01/19/22 14:29 HEAD & NECK CTA HISTORY: Weakness. Stroke Like Symptoms TECHNIQUE: Multiaxial CT images of the head were performed following the intravenous administration of contrast to evaluate the major cerebral vessels. Multiaxial CT images of the neck were also performed following the intravenous administration of contrast to evaluate the major cervical vessels. Maximum intensity projection images were also obtained. A dose lowering technique was utilized adhering to the principles of ALARA. COMPARISON: Head CT 02/25/2019. FINDINGS: There is no mass, hematoma, midline shift, or acute infarct. Visualized intracranial internal carotid arteries and basilar artery are widely patent. There is no significant stenosis, occlusion, or aneurysm seen within the bilateral ACAs, MCAs, or vending mechanic. Mild to moderate calcified plaque within the bilateral carotid siphons and distal vertebral arteries. There is moderate to severe multifocal narrowing seen within the hypoplastic distal left vertebral artery. There is also a focal area of moderate to severe stenosis within the distal right vertebral artery due to the calcified plaque. Persistent right posterior circulation which is considered to be a normal variant. The major dural venous sinuses are patent. The aortic arch and proximal great vessels are widely patent. Evidence for prior left carotid endarterectomy. Focal area of approximately 75 % narrowing within the stent at the level the proximal left internal carotid artery. This is best seen on axial image 241. The bilateral common carotid arteries are widely patent. There is moderate atherosclerotic plaque in the proximal right internal carotid artery resulting in approximately 40% stenosis. The mid to distal bilateral cervical internal carotid arteries are patent. Bilateral cervical vertebral arteries are patent. The left vertebral artery is slightly hypoplastic. IMPRESSION: 1. No significant stenosis, occlusion, or aneurysm within the [place]. 2. Multifocal moderate to severe narrowing within the intracranial segments of the distal bilateral vertebral arteries. 3. Prior left carotid endarterectomy. There is a focal area of approximately 75% stenosis within the stent at the level of the left proximal internal carotid artery. 4. Approximately 40% stenosis within the proximal right internal carotid artery due to the calcified plaque. ACT 112: Negative or not required by law. Electronically signed by: Seth Armas M.D. 01/19/2022 4:16 PM Neck CTA 01/19/22 14:29 HEAD & NECK CTA HISTORY: Weakness. Stroke Like Symptoms TECHNIQUE: Multiaxial CT images of the head were performed following the intravenous administration of contrast to evaluate the major cerebral vessels. Multiaxial CT images of the neck were also performed following the intravenous administration of contrast to evaluate the major cervical vessels. Maximum intensity projection images were also obtained. A dose lowering technique was utilized adhering to the principles of ALARA. COMPARISON: Head CT 02/25/2019. FINDINGS: There is no mass, hematoma, midline shift, or acute infarct. Visualized intracranial internal carotid arteries and basilar artery are widely patent. There is no significant stenosis, occlusion, or aneurysm seen within the bilateral ACAs, MCAs, or vending mechanic. Mild to moderate calcified plaque within the bilateral carotid siphons and distal vertebral arteries. There is moderate to severe multifocal narrowing seen within the hypoplastic distal left vertebral artery. There is also a focal area of moderate to severe stenosis within the distal right vertebral artery due to the calcified plaque. Persistent right posterior circulation which is considered to be a normal variant. The major dural venous sinuses are patent. The aortic arch and proximal great vessels are widely patent. Evidence for prior left carotid endarterectomy. Focal area of approximately 75 % narrowing within the stent at the level the proximal left internal carotid artery. This is best seen on axial image 241. The bilateral common carotid arteries are widely patent. There is moderate atherosclerotic plaque in the proximal right internal carotid artery resulting in approximately 40% stenosis. The mid to distal bilateral cervical internal carotid arteries are patent. Bilateral cervical vertebral arteries are patent. The left vertebral artery is slightly hypoplastic. IMPRESSION: 1. No significant stenosis, occlusion, or aneurysm within the [place]. 2. Multifocal moderate to severe narrowing within the intracranial segments of the distal bilateral vertebral arteries. 3. Prior left carotid endarterectomy. There is a focal area of approximately 75% stenosis within the stent at the level of the left proximal internal carotid artery. 4. Approximately 40% stenosis within the proximal right internal carotid artery due to the calcified plaque. ACT 112: Negative or not required by law. Electronically signed by: Seth Armas M.D. 01/19/2022 4:16 PM Chest X-Ray 01/19/22 14:35 XR chest 1V portable HISTORY: Weakness. COMPARISON: Chest 11/11/2021. FINDINGS: The cardiac silhouette remains mildly enlarged. The lungs are clear. No pleural effusions. No pneumothorax. No evidence for pulmonary edema. IMPRESSION: Mild cardiomegaly. Otherwise, no acute process within the chest. ACT 112: Negative or not required by law. Electronically signed by: Seth Armas M.D. 01/19/2022 2:59 PM Knee X-Ray 01/19/22 14:35 RIGHT KNEE 3 VIEWS HISTORY: intermittent R medial knee pain COMPARISON: None. FINDINGS: There is no fracture or dislocation. The bones are slightly osteopenic. Mild vascular calcifications are present. Cartilage spaces are maintained for age No radiopaque foreign bodies. Mild prepatellar soft tissue swelling. No knee effusion. IMPRESSION: Mild prepatellar soft tissue swelling. No fractures within the right knee. ACT 112: Negative or not required by law. Electronically signed by: Seth Armas M.D. 01/19/2022 3:00 PM Discharge Plan Visit Data Chief Complaint: Stroke/CVA Symptoms Stated Complaint: FALLING, FACE IS DROOPING, TIA SYMPTOMS Discharge Problem: Brain TIA, Facial droop, Stenosis of both vertebral arteries, Encounter for smoking cessation counseling Patient Disposition: Admitted As Inpatient Discharge Instructions Interventions: ED Discharge Assessment Last Done: 01/19/22 19:22
[2022-01-19 14:46] LABS: Basophils # (auto) 0.04 K/uL (0-0.2); Basophils % (auto) 0.5 %; Eosinophils # (auto) 0.07 K/uL (0-0.5); Eosinophils % (auto) 0.9 %; Hemoglobin 13.6 g/dL (14.0-18.0); Immature Granulocytes # (auto) 0.01 K/uL (0.00-0.02); Immature Granulocytes % (auto) 0.1 %; Lymphocytes # (auto) 1.59 K/uL (1.2-3.4); Mean Corpuscular Hemoglobin 30.7 pg (25-34); Mean Corpuscular Volume 90.3 fL (80-100); Mean Platelet Volume 9.7 fL (7.4-10.4); Monocytes % (auto) 9.2 %; Neutrophils # (auto) 5.16 K/uL (1.4-6.5); Neutrophils % (auto) 68.3 %; Platelet Count 201 K/uL (130-400); RDW Standard Deviation 53.5 fL (36.4-46.3); Red Blood Count 4.43 M/uL (4.7-6.1); White Blood Count 7.57 K/uL (4.8-10.8)
[2022-01-19 14:56] LABS: Partial Thromboplastin Time 28.1 Seconds (21.0-31.0); Prothrombin Time 10.7 Seconds (9.0-12.0)
--- NOTE | 2022-01-19 15:00 | XRay Report ---
XR chest 1V portable HISTORY: Weakness. COMPARISON: Chest 11/11/2021. FINDINGS: The cardiac silhouette remains mildly enlarged. The lungs are clear. No pleural effusions. No pneumothorax. No evidence for pulmonary edema. IMPRESSION: Mild cardiomegaly. Otherwise, no acute process within the chest. ACT 112: Negative or not required by law. Electronically signed by: Seth Armas M.D. 01/19/2022 2:59 PM
--- NOTE | 2022-01-19 15:01 | XRay Report ---
RIGHT KNEE 3 VIEWS HISTORY: intermittent R medial knee pain COMPARISON: None. FINDINGS: There is no fracture or dislocation. The bones are slightly osteopenic. Mild vascular calci fications are present. Cartilage spaces are maintained for age No radiopaque foreign bodies. Mild pre patellar soft tissue swelling. No knee effusion. IMPRESSION: Mild prepatellar soft tissue swelling. No fractures within the right knee. ACT 112: Negative or not required by law. Electronically signed by: Seth Armas M.D. 01/19/2022 3:00 PM
[2022-01-19 15:09] LABS: Alanine Aminotransferase 13 U/L (7-52); Albumin Globulin Ratio 1.3 (0.9-2); Alkaline Phosphatase 75 U/L (34-104); Anion Gap 6 (3-11); Aspartate Aminotransferase 16 U/L (13-39); Bilirubin,Total 0.4 mg/dl (0.2-1.0); Blood Urea Nitrogen 12 mg/dl (6-23); Calcium 9.3 mg/dl (8.5-10.1); Carbon Dioxide 26 mmol/L (21-32); Chloride 104 mmol/L (98-107); Creatinine Clr Calc Pharmacy 92.3 ml/min; Est GFR (African American) 102.7 ml/min; Est GFR (Non-African American) 88.6 ml/min; Globulin 3.2 gm/dl (2.5-4.0); Glucose 90 mg/dl (70-99(Fasting)); Magnesium 2.1 mg/dl (1.7-2.4); Potassium 4.1 mmol/L (3.5-5.1); Sodium 136 mmol/L (136-145); Total Protein 7.2 gm/dl (6.0-8.3); Troponin I < 0.03 ng/ml (0-0.04)
[2022-01-19] MEDS ORDERED: OPTIRAY 320 125ml IV ONE (15:33)
--- NOTE | 2022-01-19 16:08 | CT Scan Report ---
HEAD CT NONCONTRAST CT DOSE: HISTORY: Weakness. Stroke Like Symptoms TECHNIQUE: Multiaxial CT images of the head were performed without the use of intravenous contrast. A utomated exposure control was utilized for this study. A dose lowering technique was utilized adheri ng to the principles of ALARA. Comparison: Head CT 02/25/2019. Findings: The paranasal sinuses and mastoid air cells are clear. The calvarium and skull base are int act. There is no mass, hematoma, midline shift, acute infarct. White matter hypodensity is nonspecifi c but suggestive of microvascular ischemic change. The ventricles and sulci demonstrate mild age-rela natalia involutional changes. A cavum septum pellucidum is again noted. Impression: No significant change compared to the prior study. No acute intracranial abnormality. ACT 112: Negative or not required by law. Electronically signed by: Seth Armas M.D. 01/19/2022 4:07 PM
--- NOTE | 2022-01-19 16:17 | CT Scan Report ---
HEAD & NECK CTA HISTORY: Weakness. Stroke Like Symptoms TECHNIQUE: Multiaxial CT images of the head were performed following the intravenous administration o f contrast to evaluate the major cerebral vessels. Multiaxial CT images of the neck were also perform ed following the intravenous administration of contrast to evaluate the major cervical vessels. Maxim um intensity projection images were also obtained. A dose lowering technique was utilized adhering to the principles of ALARA. COMPARISON: Head CT 02/25/2019. FINDINGS: There is no mass, hematoma, midline shift, or acute infarct. Visualized intracranial internal carotid arteries and basilar artery are widely patent. There is no significant stenosis, occlusion, or aneur ysm seen within the bilateral ACAs, MCAs, or leases and land supervisor. Mild to moderate calcified plaque within the bilat eral carotid siphons and distal vertebral arteries. There is moderate to severe multifocal narrowing seen within the hypoplastic distal left vertebral artery. There is also a focal area of moderate to s evere stenosis within the distal right vertebral artery due to the calcified plaque. Persistent right posterior circulation which is considered to be a normal variant. The major dural venous sinus es are patent. The aortic arch and proximal great vessels are widely patent. Evidence for prior left carotid endar terectomy. Focal area of approximately 75 % narrowing within the stent at the level the proximal left internal carotid artery. This is best seen on axial image 241. The bilateral common carotid arteries are widely patent. There is moderate atherosclerotic plaque in the proximal right internal carotid a rtery resulting in approximately 40% stenosis. The mid to distal bilateral cervical internal carotid arteries are patent. Bilateral cervical vertebral arteries are patent. The left vertebral artery is s lightly hypoplastic. IMPRESSION: 1. No significant stenosis, occlusion, or aneurysm within the [place]. 2. Multifocal moderate to severe narrowing within the intracranial segments of the distal bilateral v ertebral arteries. 3. Prior left carotid endarterectomy. There is a focal area of approximately 75% stenosis within the stent at the level of the left proximal internal carotid artery. 4. Approximately 40% stenosis within the proximal right internal carotid artery due to the calcified plaque. ACT 112: Negative or not required by law. Electronically signed by: Seth Armas M.D. 01/19/2022 4:16 PM
[2022-01-19] MEDS ORDERED: PHARMACIST DISCHARGE MED REC CONSULT PRN (19:36)
[2022-01-19] MEDS ORDERED: POLYETHYLENE (MIRALAX) 17 GM PACK PO PRN (19:36)
[2022-01-19] MEDS ORDERED: NITROGLYCERIN SL 0.4 MG/TAB TAB SL PRN (19:36)
[2022-01-19] MEDS ORDERED: ONDANSETRON INJ 2 MG/ML 2 ML VIAL IV PRN (19:36)
[2022-01-19] MEDS ORDERED: SODIUM CHLORIDE 0.9% 1000ML 1,000 ML IV SCH (19:36)
[2022-01-19] MEDS ORDERED: ACETAMINOPHEN 325 MG TAB PO PRN (19:36)
[2022-01-19] MEDS ORDERED: ALBUTEROL HFA 8 GM INHALER INH PRN (19:44)
[2022-01-19] MEDS ORDERED: FLUTICASONE/VILANTEROL 200/25MCG 14 PUFFS/INHALER INH PRN (19:45)
[2022-01-19] MEDS ORDERED: ASPIRIN 81 MG ECTAB PO SCH (21:00)
[2022-01-19] MEDS ORDERED: MONTELUKAST SODIUM 10 MG TABLET PO SCH (21:00)
[2022-01-19] MEDS: CEROVITE ADV FORMULA TAB PO SCH (21:10)
[2022-01-19] MEDS: INSULIN ASPART PER UNIT SC SCH (21:12)
--- NOTE | 2022-01-19 21:36 | History and Physical Report ---
DATE OF ADMISSION: 01/19/2022. CHIEF COMPLAINT: Stroke-like symptoms. HISTORY OF PRESENT ILLNESS: This is a 71-year-old male with past medical history significant for hyperlipidemia, type 2 diabetes, allergies, asthma, obstructive sleep apnea, hypertension, bilateral carotid stenosis, status post stent to the left internal carotid, history of CVA, history of ischemic cardiomyopathy, obesity, degenerative disk disease, history of spinal stenosis, status post back surgery, anxiety, who lives at home with his , who was brought in because of stroke-like symptoms around 10:30 am. As per daughter and , the patient is falling every day for the last 3 days. The patient has chronic back pain and the patient states the pain shoots into the leg and left leg is giving up. It is going on for one year, but last week getting more worse, but today after a fall, he seemed to be somewhat slurring speech, he also has right facial droop and right eye was deviated. By they got t0 ER, the symptoms improved, currently back to his baseline. The patient is alert and oriented. Speech is clear. No facial droop seen currently. Was feeling lightheaded earlier, but is okay now. No blurred visions, no earache, no runny nose, no sore throat. He has chronic cough. No difficulty swallowing. Appetite is okay. No fever, no chills, no chest pain, no shortness of breath, no nausea, no vomiting, no abdominal pain. Normal bowel and bladder movements. Denies any blood in stool or black stools. Hemodynamically stable. ALLERGIES: FENTANYL, PROPANE. PAST MEDICAL HISTORY: As mentioned above. PAST SURGICAL HISTORY: Left carotid artery stenosis, dental surgery, colonoscopy, lumbar laminectomy, vasectomy. MEDICATIONS: The patient is on albuterol 2 puffs inhalation q. 6 hours p.r.n., aspirin 81 mg p.o. at bedtime, vitamin D 5000 units p.o. a.m., citalopram 20 mg p.o. a.m., Plavix 75 mg p.o. a.m., Advair Diskus one inhalation b.i.d., lisinopril 2.5 mg p.o. a.m., metformin 500 mg p.o. a.m., metoprolol succinate 25 mg p.o. a.m., Singulair 10 mg p.o. at bedtime, PreserVision AREDS one tablet p.o. b.i.d., lovastatin 20 mg p.o. a.m. FAMILY HISTORY: Significant for no family history on file. SOCIAL HISTORY: . Smokes half pack a day. No alcohol, no drug use. REVIEW OF SYSTEMS: As per HPI. Rest of the review of systems is negative. PHYSICAL EXAMINATION: GENERAL: The patient is obese, not in acute distress. VITAL SIGNS: Temperature 36.3, pulse 70, respiratory rate 18, blood pressure 119/78, oxygen 93% on room air. HEENT: Pupils equal, round and reactive to light. Extraocular muscles intact. Oral mucosa moist. NECK: No JVD, no neck masses. CARDIOVASCULAR: S1 and S2 heard. Regular rate and rhythm. No murmur, no gallop. RESPIRATORY SYSTEM: Normal AP diameter. No accessory muscle use. No wheezing, no crackles. ABDOMEN: Soft, bowel sounds present, nontender, no distention. CENTRAL NERVOUS SYSTEM: Alert and oriented. No facial droop. Speech is clear. Insight is okay. Power 5/5 in all extremities. No pronator drift. Coordination of movements normal. Sensation is intact. Position sense intact. EXTREMITIES: No edema, no erythema. LABORATORY DATA: WBC 7.5, hemoglobin 13.6, hematocrit 40, platelets 201. PT 10.7, INR 1, APTT 28.1. Sodium 136, potassium 4.1, chloride 104, bicarbonate 26, BUN 12, creatinine 0.8, serum glucose 98, calcium 9.3, magnesium 2.1, total bilirubin 0.4, AST 16, ALT 13, alkaline phosphatase 74. Troponin I less than 0.03. SARS-CoV-2 rapid test negative. IMAGING DATA: Right knee x-ray: Mild prepatellar soft tissue swelling, no active fractures of the right knee. Chest x-ray: Mild cardiomegaly, no acute process within the chest. CTA of the head and neck, no significant stenosis, occlusion or aneurysm within the [place], multifocal moderate to severe narrowing within the intracranial segments of the distal bilateral vertebral arteries. 75% stenosis of the stent of the left proximal internal carotid artery, approximately 40% stenosis within the proximal right internal carotid artery due to the calcified plaque. CT of the head, no significant change, no acute intracranial abnormality. EKG: Normal sinus rhythm at 79, nonspecific T-wave abnormality in the lateral leads. ASSESSMENT AND PLAN: This 71-year-old male presents with stroke-like symptoms. 1. Possible TIA with right facial droop that got resolved now. History of CVA and TIA in the past. Imaging study shows stenosis of the left carotid artery stent placement and also multifocal ytmnodnc-eg-eqwtqt narrowing of the intracranial segments of the distal bilateral vertebral arteries. The patient is on aspirin, Plavix and statin. Findings were notified to the neurology by the ER. To continue current meds. Monitor in the hospital. We will do full stroke with MRI scan, echo, speech evaluation, PT, OT evaluation. Await neuro input. Continue home medications. We will also consult vascular surgery while the patient is in the hospital. 2. Frequent falls. History of back surgery in the past, getting sciatica, like pain, getting worse lately. We will consult orthopedic surgery consult while the patient is in the hospital and PT/OT.Has right knee soft tissue swelling on xray probabaly from falling. 3. History of diabetes: Hold metformin. Follow HbA1c levels. We will place the patient on insulin sliding scale. 4. History of hyperlipidemia: Continue statin. Follow fasting lipid profile. 5. History of tobacco abuse: Needs counseling. 6. History of sleep apnea, noncompliant with CPAP: We will place him on a CPAP while in the hospital and recommend to use CPAP while at home. 7. History of hypertension: We will hold lisinopril for now. Continue metoprolol( patient not sure wheter taking 25mg or 50mg). Allow for permissive hypertension. 8. History of asthma: Continue home inhalers. 9. Deep venous thrombosis prophylaxis: Sequential compression devices for now. DISPOSITION: Closely monitor in the tele floor. Level 1 full code. PT/OT prior to discharge. Social service to help with discharge planning. Job ID: [id number] [facility]
[2022-01-19] MEDS ORDERED: GADOBUTROL 65ML VIAL IV ONE (22:09)
[2022-01-20] MEDS ORDERED: DICLOFENAC SOD 1% GEL 100 GM TUBE EXT PRN (05:02)
[2022-01-20 06:35] LABS: Basophils # (auto) 0.04 K/uL (0-0.2); Basophils % (auto) 0.6 %; Eosinophils # (auto) 0.12 K/uL (0-0.5); Eosinophils % (auto) 1.7 %; Hematocrit (blood only) 39.2 % (42-52); Hemoglobin 13.3 g/dL (14.0-18.0); Immature Granulocytes # (auto) 0.01 K/uL (0.00-0.02); Immature Granulocytes % (auto) 0.1 %; Lymphocytes # (auto) 2.16 K/uL (1.2-3.4); Lymphocytes % (auto) 31.2 %; Mean Corpuscular Hemoglobin 30.6 pg (25-34); Mean Corpuscular Hgb Conc 33.9 g/dL (32-36); Mean Corpuscular Volume 90.1 fL (80-100); Monocytes # (auto) 0.76 K/uL (0.11-0.59); Neutrophils # (auto) 3.84 K/uL (1.4-6.5); Neutrophils % (auto) 55.4 %; Platelet Count 220 K/uL (130-400); Red Blood Count 4.35 M/uL (4.7-6.1); White Blood Count 6.93 K/uL (4.8-10.8)
[2022-01-20 07:11] LABS: BUN Creatinine Ratio 18.1 (10-20); Calcium 9.1 mg/dl (8.5-10.1); Chol HDL Ratio 2.8 (0-5); Creatinine Clr Calc Pharmacy 88.5 ml/min; Est GFR (African American) 101.2 ml/min; Est GFR (Non-African American) 87.3 ml/min; Magnesium 2.1 mg/dl (1.7-2.4); Potassium 4.1 mmol/L (3.5-5.1)
[2022-01-20] MEDS: INSULIN ASPART PER UNIT SC SCH ×3 (07:45→16:33)
[2022-01-20] MEDS: CEROVITE ADV FORMULA TAB PO SCH (08:16)
--- NOTE | 2022-01-20 08:55 | Magnetic Resonance Report ---
Brain MRI WITH AND WITHOUT CONTRAST HISTORY: Headache. Multiple falls. Amnesia. TECHNIQUE: Multiplanar multisequence MRI of the brain was performed both before and after the intrave nous administration of contrast. COMPARISON STUDY: Head CT 01/19/2022. FINDINGS: There is no mass, hematoma, midline shift, or acute infarct. The paranasal sinuses are sandhya r. The mastoid air cells are clear. The ventricles and sulci demonstrate mild age-related involutiona l changes. Scattered foci of T2 hyperintensity seen within the periventricular and subcortical white matter are nonspecific but suggestive of mild microvascular ischemic changes. The major vascular flow voids at the skull base are well-maintained. Incidental note is made of a cavum septum pellucidum. B ilateral lens replacement. No abnormal enhancement. IMPRESSION: No acute intracranial abnormality. Scattered foci of T2 hyperintensity seen within the periventricula r and subcortical white matter are nonspecific but favor microvascular ischemic change. ACT 112: Negative or not required by law. Electronically signed by: Seth Armas M.D. 01/20/2022 8:54 AM
[2022-01-20] MEDS ORDERED: lisinopril 2.5 MG TAB PO SCH (09:00)
[2022-01-20] MEDS ORDERED: ROSUVASTATIN CALCIUM 20 MG TAB PO SCH (09:00)
[2022-01-20] MEDS ORDERED: CHOLECALCIFEROL 5,000 UNITS 125 MCG TAB PO SCH (09:00)
[2022-01-20] MEDS ORDERED: CITALOPRAM 20 MG TAB PO SCH (09:00)
[2022-01-20] MEDS ORDERED: CLOPIDOGREL BISULFATE 75 MG TAB PO SCH (09:00)
[2022-01-20] MEDS ORDERED: METOPROLOL SUCC 25MG EXT REL TAB PO SCH (09:00)
--- NOTE | 2022-01-20 09:23 | Electrocardiogram Report ---
Test Reason : Blood Pressure : / mmHG Vent. Rate : 079 BPM Atrial Rate : 079 BPM P-R Int : 166 ms QRS Dur : 092 ms QT Int : 368 ms P-R-T Axes : 063 -21 225 degrees QTc Int : 421 ms Normal sinus rhythm Nonspecific T wave abnormality Lateral leads Abnormal ECG When compared with ECG of 11-NOV-2021 11:59, T wave inversion more evident in Lateral leads Confirmed by Jesús Domingo ([id number]) on 01/20/2022 9:23:00 AM Referred By: REFERRED SELF Confirmed By:Jesús Domingo
--- NOTE | 2022-01-20 10:46 | Orthopedic Consultation ---
Date of Consultation January 20, 2022 Assessment & Plan (1) Chronic back pain greater than 3 months duration: Assessment chronic back pain with worsening right sciatica. Plan at this time would like to start with some x-rays lumbar spine. We progressed to an MRI of the lumbar spine without gadolinium. The MRI lumbar spine does not need to delay his discharge if he is okay to go later today. This can be done in outpatient basis. History of Present Illness Reason for Consultation: Back pain with right leg pain Attending Physician: Chelle Valdez MD History of Present Illness This is a very pleasant 71-year-old male who was admitted yesterday with possible stroke. He also was noting worsening chronic persistent back pain with right sciatica. He does have a history of undergoing a lumbar surgery in 2010. He has not had follow-up regarding his back for well over a year. He describes pain involving the right leg mostly of the thigh extending to the knee. Does not extend to the foot. It limits his ability to stand and ambulate any distance. He states that he uses a electric cart when shopping. Left lower extremity is asymptomatic. Allergies Allergy/AdvReac Type Severity Reaction Status Date / Time fenoprofen Allergy Severe SYNCOPE Verified 01/19/22 15:25 Home Medications Medication Instructions Recorded Confirmed Type aspirin 81 mg tablet,delayed 81 mg PO HS 02/25/19 01/19/22 History release cholecalciferol (vitamin D3) 125 5,000 unit PO QAM 02/25/19 01/19/22 History mcg (5,000 unit) tablet (Vitamin D3) citalopram 20 mg tablet 20 mg PO QAM 02/25/19 01/19/22 History clopidogrel 75 mg tablet 75 mg PO QAM 02/25/19 01/19/22 History lisinopril 2.5 mg tablet 2.5 mg PO QAM 02/25/19 01/19/22 History metformin 500 mg tablet 500 mg PO QAM 02/25/19 01/19/22 History metoprolol succinate 25 mg 25 mg PO QAM 02/25/19 01/19/22 History tablet,extended release 24 hr montelukast 10 mg tablet 10 mg PO HS 02/25/19 01/19/22 History (Singulair) rosuvastatin 20 mg tablet 20 mg PO QAM 02/25/19 01/19/22 History vit C 250 mg-vit E 90 mg-zinc 40 1 tab PO BID 02/25/19 01/19/22 History mg-copper 1 om-wsvkek-pbwjwl capsule (PreserVision AREDS-2) fluticasone 500 mcg-salmeterol 50 1 inh INHALATION BID PRN 05/18/20 01/19/22 History mcg/dose blistr powdr for inhalation (Advair Diskus) albuterol sulfate 90 mcg/actuation 2 puff INHALATION Q6H PRN 01/19/22 01/19/22 History aerosol inhaler (ProAir HFA) Patient History Medical History (Updated 01/20/22 @ 10:44 by Guerrero Hays DO) Cardiac murmur in childhood; no further issues COPD (chronic obstructive pulmonary disease) inhaler prn Coronary artery disease "s/p non-STEMI 01/31/18, cath showed circ lesion and lesser disease in LAD and RCA, PCI circ with WALDO 02/02/18" Degenerative disc disease Depression Diabetes mellitus, type 2 Dyslipidemia Hypertension Macular degeneration of both eyes NSTEMI (non-ST elevated myocardial infarction) 01/31/18--follows with Dr. Laguna--plavix daily Sleep apnea cpap Transient ischemic attack (TIA) 02/2019--follows with Dr. Itz Fernando @ [facility] [place] on plavix daily Surgical History History of bilateral cataract extraction History of cardiac cath 02/02/2018 @ [facility] with 1 stent placed History of carotid angioplasty left side 1 stent placed @ [facility] [place] 02/2019 History of colonoscopy History of lumbar spinal fusion History of tooth extraction all teeth removed Hx of vasectomy Status post coronary artery stent placement "PCI L circumflex with WALDO 02/02/18" Family History Other Family history not known due to adoption No pertinent family history Social History Smoking Status: Current every day smoker Tobacco Type: Cigarettes Cigarettes Per Day: 1/2 PPD; Second Hand Exposure: No; Do You Dip or Chew Tobacco: No; Hx Alcohol Use: Yes Alcohol type: beer Hx Substance Use: No Preferred Language: Spanish Communication Ability: Effective 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 He has excellent strength testing. Full sensation to cold and light touch lower extremities. No tension signs. He has a well-healed midline incision to the lumbar spine. Results & Data ([facility]) Vital Signs (Past 12 Hours) Vital Signs Temp Pulse Pulse Pulse Resp BP Pulse Ox 01/20/22 08:18 85 122/69 01/20/22 08:00 36.6 C 83 18 122/69 94 01/20/22 04:52 36.9 C 71 16 99/63 L 98 01/19/22 23:43 92 H 01/19/22 22:46 36.5 C 68 18 119/69 97
--- NOTE | 2022-01-20 16:22 | XRay Report ---
XR lumbar spine min 4V routine HISTORY: 71 years-old Male back pain, standing films acute low back pain without reported trauma COMPARISON: Lumbar spine MRI of same day TECHNIQUE: 5 views of the lumbar spine FINDINGS: 5 lumbar type vertebral segments are present. Posterior interbody rickey and screw fusion hardware at L3 -L5. The hardware appears intact. There is mild lucency surrounding the right L4 and left L5 pedicle screws. Multilevel intervertebral disc space narrowing, severe at L2-L3. Moderate associated anterior osteophytic spurring at this interspace. Vacuum disc phenomenon at L1-L2. Straightening of the sherri l lumbar lordosis. No acute fracture, subluxation or endplate erosion. IMPRESSION: 1. No acute fracture or subluxation. 2. Posterior interbody rickey and screw fusion at L3-L5. Mild lucency surrounding the L4 and L5 pedicle screws may represent hardware loosening. 3. Degenerative changes as above include severe intervertebral disc space narrowing at L2-L3. ACT 112: Negative or not required by law. The above report was generated using voice recognition software. It may contain grammatical, syntax o r spelling errors. Electronically signed by: Carl Austin M.D. 01/20/2022 4:21 PM
[2022-01-20] MEDS ORDERED: STROKE PATIENT DISCHARGE STA (16:42)
--- NOTE | 2022-01-20 17:30 | Consultation Report ---
NEUROLOGY CONSULTATION NOTE DATE OF SERVICE: 01/20/2022. CHIEF COMPLAINT: Falls, weakness. HISTORY OF PRESENT ILLNESS: This 71-year-old male with multiple medical comorbidities including hypertension, peripheral vascular disease, diabetes and prior history of stroke, brought to the Emergency Department yesterday morning after a fall. As per daughter and , the patient has been following every day for the last 3 days. He has chronic back pain. The pain shoots into the leg. The leg has been giving out on him. Predominantly this is involving the left leg. It is being going on for 1 year, but worse in the last week, also noted to be slurring his words at times with a right facial droop. The patient was at baseline when he was seen in the Emergency Department. He underwent CT and CTA head and neck imaging. The patient was admitted for further evaluation. Neurology was consulted upon admission. ALLERGIES: FENTANYL AND PROPANE. PAST MEDICAL HISTORY: Type 2 diabetes, hyperlipidemia, hypertension, allergies, asthma, obstructive sleep apnea, bilateral carotid disease, status post stent, history of cerebrovascular accident, ischemic cardiomyopathy, obesity, degenerative disk disease, history of spinal stenosis, status post back surgery. PAST SURGICAL HISTORY: Left carotid artery stent, dental surgery, colonoscopy, lumbar laminectomy, vasectomy. HOME MEDICATIONS: Albuterol, aspirin, Celexa, Plavix, lisinopril, metformin, metoprolol, Singulair, lovastatin. FAMILY HISTORY: No pertinent family history noted. SOCIAL HISTORY: He is . Smokes half pack a day. No alcohol. No drug use. REVIEW OF SYSTEMS: Pertinent for left leg weakness, slurred speech, low back pain, sciatica, facial droop. PHYSICAL EXAMINATION: VITAL SIGNS: Blood pressure 114/67, pulse is 78, respiratory rate 18, temperature is 36.6 degrees Celsius, oxygen saturation 94% on room air. GENERAL: The patient appears chronically ill, appears stated age, no distress. HEENT: Head is normocephalic and atraumatic. Eyes show normal conjunctivae. Eyes are midline. No ptosis. NECK: Supple. LUNGS: Normal respiratory effort. CARDIAC: Pulses are intact. ABDOMEN: Nontender. SKIN: No skin rashes. PSYCHIATRIC: Normal mood and normal affect for psychiatric exam. NEUROLOGIC: He is awake, alert, oriented to person, place, and time. Speech is clear. He is following simple commands. No aphasia. Face is symmetric. Eyes are midline. Extraocular muscles intact. Pupils symmetric. Tongue is midline. Shoulder shrug is intact. No focal weakness in the upper and lower extremities. No tremor. No myoclonic jerks. Sensation is intact to light touch. No ataxia with gcrgbh-yv-ulcv testing. DIAGNOSTIC TESTING AND LABORATORY VALUES: WBC 6.93, hemoglobin 13.3, platelet count 220. Urinalysis was not performed. Sodium was 139, potassium 4.1, chloride 105, carbon dioxide 27, BUN 15, creatinine 0.83, glucose 96. Hemoglobin A1c is pending. Magnesium 2.1, triglycerides 319, LDL 17, HDL 44. IMAGING: MRI of the brain showed no acute intracranial abnormality. Scattered T2 hyperintensities within the periventricular and subcortical white matter are nonspecific, but favor microvascular ischemic changes. X-ray of the knee, mild prepatellar soft tissue swelling. No fracture of the right knee. Chest x-ray: Mild cardiomegaly. Head CTA and CTA of the neck, there was no significant stenosis, occlusion or aneurysm within the [place]. Multifocal fqhzmtdi-vf-mjwapp narrowing within the intracranial segments of the bilateral vertebral arteries, prior left carotid endarterectomy. There is focal area of approximately 75% stenosis within the stent at the level of the proximal internal carotid artery. Approximately 40% stenosis in the proximal right internal carotid artery due to calcified plaque. ASSESSMENT AND PLAN: A 71-year-old male with a history of chronic low back pain, status post lumbar laminectomy as well as known peripheral vascular disease, status post left carotid endarterectomy on dual antiplatelet therapy, as well as known diabetes and chronic smoker, admitted with falls and left leg weakness. Clinical history is devoid of any features to suggest ischemic stroke. Recommend continue dual antiplatelet therapy or home medications. Discussed smoking cessasion. MRI of the brain is reassuring and shows no evidence of acute infarct. Recommend outpatient PT. Follow up with Neurology as needed. Job ID: [id number] [facility]
--- NOTE | 2022-01-20 17:55 | Magnetic Resonance Report ---
MR lumbar spine wo con CLINICAL HISTORY: 71 years-old Male with back and right leg pain. Chronic low back pain with right l ower extremity radicular symptoms. COMPARISON: None. TECHNIQUE: Multiplanar, multi sequence MRI of the lumbar spine was performed without intravenous cont rast. FINDINGS: The study is motion degraded. Quarter Supervisor localizer images demonstrate no gross extraspinal abnormality. Mi ld lumbar levoscoliosis. Mild urinary bladder distention. There is moderate marrow edema involving th e L1 and L2 vertebral bodies, centered around the endplates. Small chronic appearing Schmorl's node i nvolves the inferior endplate of L1 anteriorly. Mild edema within the adjacent prevertebral tissues. No acute fracture, subluxation or endplate erosion. Susceptibility artifact related to the posterior interbody rickey and screw fusion hardware at L3-L5. Prior L4-L5 laminectomy. There is a multilocular fl uid collection within the operative bed at the L4-L5 level measuring 1.8 x 2.0 x 5.9 cm. Conus medull jessica terminates at L1. Signal within the imaged thoracic spinal cord and cauda equina is within sherri l limits. T12-L1: Ligamentum flavum thickening with moderate facet arthrosis. No central canal or neural [place] inal stenosis. L1-L2: Moderate intervertebral disc space narrowing with marrow changes as above. Mild spondylitic s purring with small circumferential annular disc bulge. Ligamental flavum thickening with severe facet arthrosis and small facet effusions. Moderate to severe central canal stenosis with AP dimension of the thecal sac measuring 6 mm. Mild to moderate bilateral foraminal stenosis. L2-L3: Severe intervertebral disc space narrowing with moderate bridging osteophytic spurring. Circu mferential annular disc bulge with disc osteophyte complex. Ligamentum flavum thickening with severe facet arthrosis. Mild to moderate central canal stenosis, AP dimension of the thecal sac measuring 8 mm. The right neural foramen is patent. Mild left foraminal stenosis. L3-L4: Mild intervertebral disc space narrowing with spondylitic spurring and tiny posterior annular disc bulge. Facet arthrosis. The central canal is patent. Mild bilateral foraminal narrowing. L4-L5: Mild intervertebral disc space narrowing with spondylitic spurring and posterior disc osteoph yte complex. Facet arthrosis. Central canal is patent. Mild bilateral foraminal narrowing. L5-S1: Severe intervertebral disc space narrowing with spondylitic spurring and central/left paracen tral disc osteophyte complex. Ligamentum flavum thickening with moderate facet arthrosis. The central canal and right neural foramen are patent. Moderate narrowing of the left lateral recess. The aforem entioned disc osteophyte complex may abut the left S1 nerve root. Mild left foraminal stenosis. IMPRESSION: 1. No acute fracture or subluxation. 2. Moderate bone marrow edema at the L1-L2 level is likely secondary to Mod[place] type I endplate degener ation. 3. Prior L4-L5 laminectomy with L3-L5 posterior interbody rickey and screw fusion. 5.9 cm multilocular f luid collection within the deep operative bed is suggestive of a probable seroma. 4. Moderate to severe central canal stenosis at L1-L2. 5. Multilevel neural foraminal narrowing. ACT 112: Negative or not required by law. The above report was generated using voice recognition software. It may contain grammatical, syntax o r spelling errors. Dictated: 01/20/2022 5:27 PM Transcribed: 01/20/2022 5:50 PM Stacie [id number] C[facility]_Valerie Electronically signed by: Carl Austin M.D. 01/20/2022 5:54 PM
[2022-01-21 09:02] LABS: Estimated Average Glucose 123 mg/dl; Hemoglobin A1C 5.9 % (4.5-5.6)
== END 2022-01-20 17:15 | disposition home or self-care (01) ==
LOC: ED 13:55 → INTOOBSV 18:26 → 2S 18:26 → SUATTDRO 18:26 → 2S 19:22

== ENCOUNTER 2022-04-04 17:14 | Observation (INO) ==
[2022-04-04] MEDS ORDERED: SODIUM CHLORIDE 0.9% 1000ML 1,000 ML IV SCH (17:30)
--- NOTE | 2022-04-04 17:37 | Emergency Department Note ---
Impression & Plan Ventricular tachycardia (paroxysmal) ADMIT ED Provider Note HPI: Patient is a 72-year-old gentleman with history of NSTEMI, coronary artery disease, presents emergency department with a chief complaint of 2 weeks of generalized weakness, shortness of breath with ambulation, states that he did test positive for COVID-19 about 2 weeks ago. Patient actually presents with his [id number] stating that they were at [facility] emergency room earlier today and they were discharged home despite him having some hypotension which was very concerning to them and therefore they presented to this emergency room at [facility]. On arrival here to the ED the patient is in no acute distress, he is noted to be hypotensive in the 80s systolic but is resting comfortably in bed, saturating well on room air, he is alert and oriented x3 on arrival. Denies any chest pain or shortness of breath ROS: -Pulmonary: Shortness of breath on exertion -Cardio: Shortness of breath on exertion -General: Generalized weakness, COVID-19 infection *10 point review systems was conducted and is otherwise negative unless stated above *Outpatient medications and allergy history reviewed PE: General: Alert, NAD HEENT: Normocephalic, atraumatic Eyes: Extraocular eye movement is intact, no scleral erythema Pulmonary: Clear to auscultation bilaterally, no wheezing Cardio: Regular rate and rhythm GI: Abdomen is soft, nontender : No suprapubic tenderness MSK: No evidence of trauma or malformation of the extremities, no edema Skin: No evidence of rash Neuro: Alert, no focal deficits Psychiatric: Cooperative quality assurance monitor chassis: - An order was placed for continuous cardiac monitoring - Patient was noted to be in sinus rhythm with rate of 80 EKG: Rate: 84 Rhythm: Normal sinus rhythm Intervals: Within normal limits ST changes: No ST elevation Time: 1740 Medical Decision Making: Patient presented to the emergency department generalized weakness, hypotension, states he was just discharged from [facility] emergency room. 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 Shortly after arrival IV was established, lab work obtained, patient has a normal high-sensitivity troponin level, BNP is moderately elevated in the 300s, chest x-ray shows stable cardiomegaly. COVID-19 testing was obtained and is positive. Patient is a nonspecific leukocytosis of 15.6, no pneumonia on chest x-ray, no recent dysuria, potassium is low 3.2 which was repleted orally in the ED, procalcitonin was obtained and is low. Patient later reported that he had a fall 3 days ago, states he fell off a ladder that was approximately 3 to 4 feet high, states he did hit his head, I did obtain CT imaging of the head that does not show any evidence of any acute intracranial process. While here in the emergency room the patient did have a run on the monitor of ventricular tachycardia that lasted approximately 5 to 6 seconds. This was asymptomatic. Electrolytes are within normal range. Given the patient's symptoms, run of ventricular tachycardia, exertional dyspnea, and history of i schemic cardiomyopathy, feel that he is appropriate for inpatient care. His hypotension did improve to greater than 100 systolic with a 500 cc bolus of fluid. Blood cultures were drawn in the ED, will hold off on antibiotics at this time secondary to unclear diagnosis, possible leukocytosis secondary to COVID-19 infection, will hold off on any further fluid secondary to patient's cardiomyopathy history and concern for fluid overload given his exertional dyspnea and cardiomegaly on chest x-ray. Case was discussed with the on-call hospitalist for [facility] and the patient was admitted in stable condition. Diagnosis: 1. Exertional dyspnea 2. History of coronary artery disease 3. Ventricular tachycardia, transient 4. COVID-19 infection 5. Head injury, closed 6. Hypokalemia 7. Hypotension, fluid responsive Disposition: Admission Gee Mancilla DO Emergency Medicine Past Med/Surg History Medical History (Updated 04/04/22 @ 22:31 by Gee Mancilla DO) Cardiac murmur in childhood; no further issues COPD (chronic obstructive pulmonary disease) inhaler prn Coronary artery disease "s/p non-STEMI 01/31/18, cath showed circ lesion and lesser disease in LAD and RCA, PCI circ with WALDO 02/02/18" Degenerative disc disease Depression Diabetes mellitus, type 2 Dyslipidemia Hypertension Macular degeneration of both eyes NSTEMI (non-ST elevated myocardial infarction) 01/31/18--follows with Dr. Laguna--plavix daily Sleep apnea cpap Stenosis of both vertebral arteries Transient ischemic attack (TIA) 02/2019--follows with Dr. Itz Fernando @ [facility] on plavix daily Surgical History History of bilateral cataract extraction History of cardiac cath 02/02/2018 @ [facility] with 1 stent placed History of carotid angioplasty left side 1 stent placed @ [facility] 02/2019 History of colonoscopy History of lumbar spinal fusion History of tooth extraction all teeth removed Hx of vasectomy Status post coronary artery stent placement "PCI L circumflex with WALDO 02/02/18" Family History Other Family history not known due to adoption No pertinent family history Social History Smoking Status: Current every day smoker Tobacco Type: Cigarettes Cigarettes Per Day: 1/2 PPD; Second Hand Exposure: No; Hx Alcohol Use: Yes Alcohol type: beer Hx Substance Use: No Preferred Language: Chinese Communication Ability: Effective Agency 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: No Beliefs That Will Affect Care: None marital status: Current Living Situation: Spouse Feels Safe at Home: Yes Assistive Devices: None Allergies Allergies Allergy/AdvReac Type Severity Reaction Status Date / Time fenoprofen Allergy Severe SYNCOPE Verified 04/04/22 19:09 Home Meds Home Medications Medication Instructions Recorded Confirmed aspirin 81 mg tablet,delayed 81 mg PO HS 02/25/19 04/04/22 release cholecalciferol (vitamin D3) 125 5,000 unit PO QAM 02/25/19 04/04/22 mcg (5,000 unit) tablet (Vitamin D3) citalopram 20 mg tablet 20 mg PO QAM 02/25/19 04/04/22 clopidogrel 75 mg tablet 75 mg PO QAM 02/25/19 04/04/22 lisinopril 2.5 mg tablet 2.5 mg PO QAM 02/25/19 04/04/22 metformin 500 mg tablet 500 mg PO QAM 02/25/19 04/04/22 montelukast 10 mg tablet 10 mg PO HS 02/25/19 04/04/22 (Singulair) rosuvastatin 20 mg tablet 20 mg PO QAM 02/25/19 04/04/22 vit C 250 mg-vit E 90 mg-zinc 40 1 tab PO BID 02/25/19 04/04/22 mg-copper 1 [id number] capsule (PreserVision AREDS-2) fluticasone 500 mcg-salmeterol 50 2 inh INHALATION BID PRN 05/18/20 04/04/22 mcg/dose blistr powdr for inhalation (Advair Diskus) albuterol sulfate 90 mcg/actuation 2 puff INHALATION Q6H PRN 01/19/22 04/04/22 aerosol inhaler (ProAir HFA) fluticasone fur. 100 mcg-umeclid 1 inh INHALATION DAILY PRN 04/04/22 04/04/22 62.5 mcg-vilant 25 mcg inhalat.powder (Trelegy Ellipta) metoprolol succinate 50 mg 25 mg PO QAM 04/04/22 04/04/22 tablet,extended release 24 hr umeclidinium 62.5 mcg/actuation 1 inh INHALATION DAILY PRN 04/04/22 04/04/22 blister powder for inhalation (Incruse Ellipta) Results & Data (ED) Vital Signs Vital Signs - 24 hr 04/04/22 17:21 04/04/22 17:43 04/04/22 17:44 Temperature 36.9 C Temperature Source Temporal Artery Scan Pulse Rate 89 89 Pulse Rate from SpO2 Sensor Pulse Rhythm Regular Pulse Strength Normal Respiratory Rate 18 22 27 H Respiratory Effort / Characteristics Non-Labored Spontaneous Non-Labored Spontaneous Respiratory Depth Normal Respiratory Pattern Regular Blood Pressure 89/57 L Blood Pressure Mean 67 Blood Pressure Position Sitting Pulse Oximetry 94 94 93 Oxygen Delivery Method Room Air Room Air Sepsis Recent Fever Within 48 Hours No Sepsis New/Unexplained Change in Mental Status No Sepsis Action Taken by Nursing No Action Required 04/04/22 17:45 04/04/22 18:00 04/04/22 18:08 Temperature Temperature Source Pulse Rate 84 Pulse Rate from SpO2 Sensor Pulse Rhythm Pulse Strength Respiratory Rate 27 H 28 H Respiratory Effort / Characteristics Non-Labored Non-Labored Respiratory Depth Normal Respiratory Pattern Blood Pressure 97/60 L Blood Pressure Mean 72 Blood Pressure Position Pulse Oximetry 93 94 Oxygen Delivery Method Sepsis Recent Fever Within 48 Hours Sepsis New/Unexplained Change in Mental Status Sepsis Action Taken by Nursing 04/04/22 18:10 04/04/22 18:15 04/04/22 18:30 Temperature Temperature Source Pulse Rate 77 83 79 Pulse Rate from SpO2 Sensor Pulse Rhythm Pulse Strength Respiratory Rate 20 23 22 Respiratory Effort / Characteristics Non-Labored Respiratory Depth Respiratory Pattern Blood Pressure 108/49 L 98/50 L Blood Pressure Mean 68 66 Blood Pressure Position Pulse Oximetry 94 93 94 Oxygen Delivery Method Room Air Sepsis Recent Fever Within 48 Hours Sepsis New/Unexplained Change in Mental Status Sepsis Action Taken by Nursing 04/04/22 18:45 04/04/22 19:00 04/04/22 19:17 Temperature Temperature Source Pulse Rate 77 81 Pulse Rate from SpO2 Sensor Pulse Rhythm Pulse Strength Respiratory Rate 15 23 Respiratory Effort / Characteristics Non-Labored Spontaneous Respiratory Depth Respiratory Pattern Blood Pressure 96/58 L 114/59 L Blood Pressure Mean 70 77 Blood Pressure Position Pulse Oximetry 97 94 96 Oxygen Delivery Method Sepsis Recent Fever Within 48 Hours Sepsis New/Unexplained Change in Mental Status Sepsis Action Taken by Nursing 04/04/22 19:18 04/04/22 19:30 04/04/22 19:45 Temperature Temperature Source Pulse Rate 83 83 85 Pulse Rate from SpO2 Sensor Pulse Rhythm Pulse Strength Respiratory Rate 22 24 24 Respiratory Effort / Characteristics Non-Labored Respiratory Depth Respiratory Pattern Blood Pressure 95/55 L 110/46 L Blood Pressure Mean 68 67 Blood Pressure Position Pulse Oximetry 96 96 Oxygen Delivery Method Sepsis Recent Fever Within 48 Hours Sepsis New/Unexplained Change in Mental Status Sepsis Action Taken by Nursing 04/04/22 19:46 04/04/22 20:00 04/04/22 20:17 Temperature Temperature Source Pulse Rate 86 84 86 Pulse Rate from SpO2 Sensor 85 87 Pulse Rhythm Pulse Strength Respiratory Rate 21 20 12 Respiratory Effort / Characteristics Respiratory Depth Respiratory Pattern Blood Pressure 123/58 L 114/65 Blood Pressure Mean 79 81 Blood Pressure Position Pulse Oximetry 91 96 95 Oxygen Delivery Method Sepsis Recent Fever Within 48 Hours Sepsis New/Unexplained Change in Mental Status Sepsis Action Taken by Nursing 04/04/22 20:20 04/04/22 20:30 04/04/22 20:45 Temperature Temperature Source Pulse Rate 84 83 81 Pulse Rate from SpO2 Sensor 70 85 Pulse Rhythm Pulse Strength Respiratory Rate 20 15 Respiratory Effort / Characteristics Respiratory Depth Respiratory Pattern Blood Pressure 123/60 132/79 Blood Pressure Mean 81 96 Blood Pressure Position Pulse Oximetry 97 94 Oxygen Delivery Method Sepsis Recent Fever Within 48 Hours Sepsis New/Unexplained Change in Mental Status Sepsis Action Taken by Nursing 04/04/22 20:46 04/04/22 21:00 Temperature Temperature Source Pulse Rate 83 81 Pulse Rate from SpO2 Sensor 82 Pulse Rhythm Pulse Strength Respiratory Rate 20 17 Respiratory Effort / Characteristics Respiratory Depth Respiratory Pattern Blood Pressure 109/48 L 108/47 L Blood Pressure Mean 68 67 Blood Pressure Position Pulse Oximetry 91 93 Oxygen Delivery Method Sepsis Recent Fever Within 48 Hours Sepsis New/Unexplained Change in Mental Status Sepsis Action Taken by Nursing Laboratory Data Result diagrams: 04/04/22 17:59 04/04/22 17:59 Lab Results 04/04/22 04/04/22 04/04/22 Range/Units 17:59 17:59 17:59 WBC 15.65 H (4.8-10.8) K/uL RBC 4.22 L (4.7-6.1) M/uL Hgb 12.6 L (14.0-18.0) g/dL Hct 37.4 L (42-52) % MCV 88.6 (80-100) fL MCH 29.9 (25-34) pg MCHC 33.7 (32-36) g/dL RDW Std Deviation 49.9 H (36.4-46.3) fL RDW Coeff of Adrian 15.4 H (11.5-14.5) % Plt Count 258 (130-400) K/uL MPV 9.8 (7.4-10.4) fL Immature Gran % (Auto) 0.3 % Neut % (Auto) 84.1 % Lymph % (Auto) 12.3 % [place] % (Auto) 3.0 % Eos % (Auto) 0.2 % Baso % (Auto) 0.1 % Neut # (Auto) 13.17 H (1.4-6.5) K/uL Lymph # (Auto) 1.92 (1.2-3.4) K/uL [place] # (Auto) 0.47 (0.11-0.59) K/uL Eos # (Auto) 0.03 (0-0.5) K/uL Baso # (Auto) 0.01 (0-0.2) K/uL Immature Gran # (Auto) 0.05 H (0.00-0.02) K/uL PT 11.2 (9.0-12.0) Seconds INR 1.1 (0.9-1.1) APTT 27.6 (21.0-31.0) Seconds PTT Ratio 1.0 Sodium (136-145) mmol/L Potassium (3.5-5.1) mmol/L Chloride (98-107) mmol/L Carbon Dioxide (21-32) mmol/L Anion Gap (3-11) BUN (6-23) mg/dl Creatinine (0.6-1.4) mg/dl Est Cr Clr Drug Dosing ml/min Est GFR ( Amer) ml/min Est GFR (Non-Af Amer) ml/min BUN/Creatinine Ratio (10-20) Glucose (70-99(Fasting)) mg/dl Lactate (0.4-2.0) mmol/L Calcium (8.5-10.1) mg/dl Magnesium (1.7-2.4) mg/dl Total Bilirubin (0.2-1.0) mg/dl AST (13-39) U/L ALT (7-52) U/L Alkaline Phosphatase (34-104) U/L Troponin I High Sens 15.6 (0-20) pg/ml B-Natriuretic Peptide (0-100) pg/ml Total Protein (6.0-8.3) gm/dl Albumin (3.4-5.0) gm/dl Globulin (2.5-4.0) gm/dl Albumin/Globulin Ratio (0.9-2) Procalcitonin (0-0.5) ng/ml TSH (0.300-4.500) uIu/ml SARS-CoV-2 (PCR) (Negative) Influenza Type A (PCR) (Neg) Influenza Type B (PCR) (Neg) RSV (RT-PCR) (Neg) 04/04/22 04/04/22 04/04/22 Range/Units 17:59 17:59 17:59 WBC (4.8-10.8) K/uL RBC (4.7-6.1) M/uL Hgb (14.0-18.0) g/dL Hct (42-52) % MCV (80-100) fL MCH (25-34) pg MCHC (32-36) g/dL RDW Std Deviation (36.4-46.3) fL RDW Coeff of Adrian (11.5-14.5) % Plt Count (130-400) K/uL MPV (7.4-10.4) fL Immature Gran % (Auto) % Neut % (Auto) % Lymph % (Auto) % [place] % (Auto) % Eos % (Auto) % Baso % (Auto) % Neut # (Auto) (1.4-6.5) K/uL Lymph # (Auto) (1.2-3.4) K/uL [place] # (Auto) (0.11-0.59) K/uL Eos # (Auto) (0-0.5) K/uL Baso # (Auto) (0-0.2) K/uL Immature Gran # (Auto) (0.00-0.02) K/uL PT (9.0-12.0) Seconds INR (0.9-1.1) APTT (21.0-31.0) Seconds PTT Ratio Sodium 137 (136-145) mmol/L Potassium 3.2 L (3.5-5.1) mmol/L Chloride 103 (98-107) mmol/L Carbon Dioxide 27 (21-32) mmol/L Anion Gap 7 (3-11) BUN 14 (6-23) mg/dl Creatinine 1.05 (0.6-1.4) mg/dl Est Cr Clr Drug Dosing 66.4 ml/min Est GFR ( Amer) 80.7 ml/min Est GFR (Non-Af Amer) 69.6 ml/min BUN/Creatinine Ratio 13.3 (10-20) Glucose 178 H (70-99(Fasting)) mg/dl Lactate 2.2 H* (0.4-2.0) mmol/L Calcium 8.7 (8.5-10.1) mg/dl Magnesium 2.0 (1.7-2.4) mg/dl Total Bilirubin 0.6 (0.2-1.0) mg/dl AST 12 L (13-39) U/L ALT 18 (7-52) U/L Alkaline Phosphatase 69 (34-104) U/L Troponin I High Sens (0-20) pg/ml B-Natriuretic Peptide (0-100) pg/ml Total Protein 6.4 (6.0-8.3) gm/dl Albumin 3.5 (3.4-5.0) gm/dl Globulin 2.9 (2.5-4.0) gm/dl Albumin/Globulin Ratio 1.2 (0.9-2) Procalcitonin 0.17 (0-0.5) ng/ml TSH (0.300-4.500) uIu/ml SARS-CoV-2 (PCR) (Negative) Influenza Type A (PCR) (Neg) Influenza Type B (PCR) (Neg) RSV (RT-PCR) (Neg) 04/04/22 04/04/22 04/04/22 Range/Units 17:59 17:59 18:54 WBC (4.8-10.8) K/uL RBC (4.7-6.1) M/uL Hgb (14.0-18.0) g/dL Hct (42-52) % MCV (80-100) fL MCH (25-34) pg MCHC (32-36) g/dL RDW Std Deviation (36.4-46.3) fL RDW Coeff of Adrian (11.5-14.5) % Plt Count (130-400) K/uL MPV (7.4-10.4) fL Immature Gran % (Auto) % Neut % (Auto) % Lymph % (Auto) % [place] % (Auto) % Eos % (Auto) % Baso % (Auto) % Neut # (Auto) (1.4-6.5) K/uL Lymph # (Auto) (1.2-3.4) K/uL [place] # (Auto) (0.11-0.59) K/uL Eos # (Auto) (0-0.5) K/uL Baso # (Auto) (0-0.2) K/uL Immature Gran # (Auto) (0.00-0.02) K/uL PT (9.0-12.0) Seconds INR (0.9-1.1) APTT (21.0-31.0) Seconds PTT Ratio Sodium (136-145) mmol/L Potassium (3.5-5.1) mmol/L Chloride (98-107) mmol/L Carbon Dioxide (21-32) mmol/L Anion Gap (3-11) BUN (6-23) mg/dl Creatinine (0.6-1.4) mg/dl Est Cr Clr Drug Dosing ml/min Est GFR ( Amer) ml/min Est GFR (Non-Af Amer) ml/min BUN/Creatinine Ratio (10-20) Glucose (70-99(Fasting)) mg/dl Lactate (0.4-2.0) mmol/L Calcium (8.5-10.1) mg/dl Magnesium (1.7-2.4) mg/dl Total Bilirubin (0.2-1.0) mg/dl AST (13-39) U/L ALT (7-52) U/L Alkaline Phosphatase (34-104) U/L Troponin I High Sens (0-20) pg/ml B-Natriuretic Peptide 320 H (0-100) pg/ml Total Protein (6.0-8.3) gm/dl Albumin (3.4-5.0) gm/dl Globulin (2.5-4.0) gm/dl Albumin/Globulin Ratio (0.9-2) Procalcitonin (0-0.5) ng/ml TSH 1.610 (0.300-4.500) uIu/ml SARS-CoV-2 (PCR) POSITIVE A* (Negative) Influenza Type A (PCR) Negative (Neg) Influenza Type B (PCR) Negative (Neg) RSV (RT-PCR) Negative (Neg) 04/04/22 Range/Units 20:15 WBC (4.8-10.8) K/uL RBC (4.7-6.1) M/uL Hgb (14.0-18.0) g/dL Hct (42-52) % MCV (80-100) fL MCH (25-34) pg MCHC (32-36) g/dL RDW Std Deviation (36.4-46.3) fL RDW Coeff of Adrian (11.5-14.5) % Plt Count (130-400) K/uL MPV (7.4-10.4) fL Immature Gran % (Auto) % Neut % (Auto) % Lymph % (Auto) % [place] % (Auto) % Eos % (Auto) % Baso % (Auto) % Neut # (Auto) (1.4-6.5) K/uL Lymph # (Auto) (1.2-3.4) K/uL [place] # (Auto) (0.11-0.59) K/uL Eos # (Auto) (0-0.5) K/uL Baso # (Auto) (0-0.2) K/uL Immature Gran # (Auto) (0.00-0.02) K/uL PT (9.0-12.0) Seconds INR (0.9-1.1) APTT (21.0-31.0) Seconds PTT Ratio Sodium (136-145) mmol/L Potassium (3.5-5.1) mmol/L Chloride (98-107) mmol/L Carbon Dioxide (21-32) mmol/L Anion Gap (3-11) BUN (6-23) mg/dl Creatinine (0.6-1.4) mg/dl Est Cr Clr Drug Dosing ml/min Est GFR ( Amer) ml/min Est GFR (Non-Af Amer) ml/min BUN/Creatinine Ratio (10-20) Glucose (70-99(Fasting)) mg/dl Lactate 2.0 (0.4-2.0) mmol/L Calcium (8.5-10.1) mg/dl Magnesium (1.7-2.4) mg/dl Total Bilirubin (0.2-1.0) mg/dl AST (13-39) U/L ALT (7-52) U/L Alkaline Phosphatase (34-104) U/L Troponin I High Sens (0-20) pg/ml B-Natriuretic Peptide (0-100) pg/ml Total Protein (6.0-8.3) gm/dl Albumin (3.4-5.0) gm/dl Globulin (2.5-4.0) gm/dl Albumin/Globulin Ratio (0.9-2) Procalcitonin (0-0.5) ng/ml TSH (0.300-4.500) uIu/ml SARS-CoV-2 (PCR) (Negative) Influenza Type A (PCR) (Neg) Influenza Type B (PCR) (Neg) RSV (RT-PCR) (Neg) Administered Medications Discontinued Medications Sodium Chloride (Nss 1000ml) 1,000 mls @ 999 mls/hr IV .Q1H1M CONOR Stop: 04/04/22 18:30 Last Infusion: 04/04/22 19:08 Dose: 0 mls/hr Documented by: [id number] Admin: 04/04/22 18:15 Dose: 999 mls/hr Documented by: [id number] Sodium Chloride (Nss 1000ml) 500 mls @ 999 mls/hr IV .Q31M ONE Stop: 04/04/22 19:16 Last Admin: 04/04/22 19:07 Dose: Not Given Documented by: [id number] Morphine Sulfate (Morphine Sulfate 4 Mg/Ml 1 Ml Carp\\Vial) 4 mg IV NOW STA Stop: 04/04/22 19:29 Last Admin: 04/04/22 19:40 Dose: 4 mg Documented by: [id number] Potassium Chloride (Potassium Chloride Crtab 20 Meq Tabcr) 40 meq PO NOW STA Stop: 04/04/22 20:19 Last Admin: 04/04/22 21:45 Dose: 40 meq Documented by: [id number] Imaging Data Radiologist's Impression: Chest X-Ray 04/04/22 17:29 XR chest 1V portable HISTORY: SEPSIS COMPARISON: Chest 01/19/2022. FINDINGS: The cardiac silhouette remains mildly enlarged. The lungs are clear. No pleural effusions. No pneumothorax. IMPRESSION: Stable mild cardiomegaly. ACT 112: Negative or not required by law. Electronically signed by: Seht Armas M.D. 04/04/2022 6:[address] 04/04/22 17:[address] DOSE: 638.56 mGycm HISTORY: Fall TECHNIQUE: Multiaxial CT images of the head were performed without the use of intravenous contrast. Automated exposure control was utilized for this study. A dose lowering technique was utilized adhering to the principles of ALARA. Comparison: Head CT 01/19/2022. Findings: Mild mucosal thickening within the ethmoid air cells. The mastoid air cells are clear. The calvarium and skull base are intact. There is no mass, hematoma, midline shift, acute infarct. White matter hypodensity is nonspecific but suggestive of microvascular ischemic change. The ventricles and sulci demonstrate mild age-related involutional changes. Impression: No acute intracranial abnormality. ACT 112: Negative or not required by law. Electronically signed by: Seth Armas M.D. 04/04/2022 7:14 PM Discharge Plan Visit Data Chief Complaint: Hypotension Stated Complaint: LOW BLOOD PRESSURE ED Provider: Gee Mancilla Discharge Problem: Ventricular tachycardia (paroxysmal) Forms Stand Alone Forms: [facility] [place] [employer] Prescriptions Prescriptions: No Action metformin 500 mg tablet 500 mg PO QAM RF: 0 clopidogrel 75 mg tablet 75 mg PO QAM RF: 0 citalopram 20 mg tablet 20 mg PO QAM RF: 0 lisinopril 2.5 mg tablet 2.5 mg PO QAM RF: 0 rosuvastatin 20 mg tablet 20 mg PO QAM RF: 0 aspirin 81 mg Tablet,Delayed Release (Dr/Ec) 81 mg PO HS RF: 0 montelukast [Singulair] 10 mg Tablet 10 mg PO HS RF: 0 cholecalciferol (vitamin D3) [Vitamin D3] 5,000 unit Tablet 5,000 unit PO QAM RF: 0 PreserVision AREDS-2 [phone] [id number]-mg Capsule 1 tab PO BID RF: 0 fluticasone propion-salmeterol [Advair Diskus] 500-50 mcg/dose Blister With Device 2 inh INHALATION BID PRN (Reason: Shortness Of Breath) RF: 0 metoprolol succinate 50 mg tablet extended release 24 hr 25 mg PO QAM RF: 0 Incruse Ellipta 62.5 mcg/actuation Blister With Device 1 inh INHALATION DAILY PRN (Reason: Shortness Of Breath) RF: 0 Trelegy Ellipta 100-62.5-25 mcg Blister With Device 1 inh INHALATION DAILY PRN (Reason: Shortness Of Breath) RF: 0 albuterol sulfate [ProAir HFA] 90 mcg/actuation HFA aerosol inhaler 2 puff INHALATION Q6H PRN (Reason: Wheezing) RF: 0 Referrals Referrals: Nisha Lafleur M.D. [Primary Care Provider] -
--- NOTE | 2022-04-04 18:19 | XRay Report ---
XR chest 1V portable HISTORY: SEPSIS COMPARISON: Chest 01/19/2022. FINDINGS: The cardiac silhouette remains mildly enlarged. The lungs are clear. No pleural effusions. No pneumothorax. IMPRESSION: Stable mild cardiomegaly. ACT 112: Negative or not required by law. Electronically signed by: Seth Armas M.D. 04/04/2022 6:16 PM
[2022-04-04 18:35] LABS: Basophils # (auto) 0.01 K/uL (0-0.2); Basophils % (auto) 0.1 %; Eosinophils # (auto) 0.03 K/uL (0-0.5); Eosinophils % (auto) 0.2 %; Hematocrit (blood only) 37.4 % (42-52); Hemoglobin 12.6 g/dL (14.0-18.0); Immature Granulocytes # (auto) 0.05 K/uL (0.00-0.02); Immature Granulocytes % (auto) 0.3 %; Lymphocytes # (auto) 1.92 K/uL (1.2-3.4); Lymphocytes % (auto) 12.3 %; Mean Corpuscular Hemoglobin 29.9 pg (25-34); Mean Corpuscular Hgb Conc 33.7 g/dL (32-36); Mean Corpuscular Volume 88.6 fL (80-100); Mean Platelet Volume 9.8 fL (7.4-10.4); Monocytes # (auto) 0.47 K/uL (0.11-0.59); Neutrophils # (auto) 13.17 K/uL (1.4-6.5); Neutrophils % (auto) 84.1 %; Platelet Count 258 K/uL (130-400); RDW Coefficient of Variation 15.4 % (11.5-14.5); RDW Standard Deviation 49.9 fL (36.4-46.3); Red Blood Count 4.22 M/uL (4.7-6.1); White Blood Count 15.65 K/uL (4.8-10.8)
[2022-04-04] MEDS ORDERED: SODIUM CHLORIDE 0.9% 1000ML 500 ML IV ONE (18:46)
[2022-04-04 18:47] LABS: Albumin Globulin Ratio 1.2 (0.9-2); Albumin Level 3.5 gm/dl (3.4-5.0); BUN Creatinine Ratio 13.3 (10-20); Bilirubin,Total 0.6 mg/dl (0.2-1.0); Calcium 8.7 mg/dl (8.5-10.1); Creatinine Clr Calc Pharmacy 66.4 ml/min; Est GFR (African American) 80.7 ml/min; Est GFR (Non-African American) 69.6 ml/min; Globulin 2.9 gm/dl (2.5-4.0); Potassium 3.2 mmol/L (3.5-5.1); Total Protein 6.4 gm/dl (6.0-8.3)
[2022-04-04 18:48] LABS: INR 1.1 (0.9-1.1); Partial Thromboplastin Time 27.6 Seconds (21.0-31.0); Prothrombin Time 11.2 Seconds (9.0-12.0)
--- NOTE | 2022-04-04 19:16 | CT Scan Report ---
HEAD CT NONCONTRAST CT DOSE: 638.56 mGycm HISTORY: Fall TECHNIQUE: Multiaxial CT images of the head were performed without the use of intravenous contrast. A utomated exposure control was utilized for this study. A dose lowering technique was utilized adheri ng to the principles of ALARA. Comparison: Head CT 01/19/2022. Findings: Mild mucosal thickening within the ethmoid air cells. The mastoid air cells are clear. The calvarium and skull base are intact. There is no mass, hematoma, midline shift, acute infarct. White matter hypodensity is nonspecific but suggestive of microvascular ischemic change. The ventricles and sulci demonstrate mild age-related involutional changes. Impression: No acute intracranial abnormality. ACT 112: Negative or not required by law. Electronically signed by: Seth Armas M.D. 04/04/2022 7:14 PM
[2022-04-04] MEDS ORDERED: MoRPHine SULFATE 4 MG/ML 1 ML CARP\\VIAL IV STA (19:28)
[2022-04-04 19:36] LABS: Influenza A virus by PCR Negative (Neg); Influenza B virus by PCR Negative (Neg); RSV by PCR Negative (Neg)
[2022-04-04 19:46] LABS: SARS CoV2 RNA(COVID-19) InHosp POSITIVE (Negative)
[2022-04-04] MEDS ORDERED: POTASSIUM CHLORIDE CRTAB 20 MEQ TABCR PO STA (20:18)
[2022-04-04 23:21] LABS: Appearance Urine Clear (Clear); Bilirubin Urine Negative (Negative); Blood Urine Negative (Negative); Color Urine Yellow; Glucose Urine UA Negative (Negative); Ketones Urine Negative (Negative); Leukocyte Esterase Urine Negative (Negative); Nitrite Urine Negative (Negative); Protein Urine Negative (Negative); Specific Gravity Urine 1.014 (1.000-1.030); Urobilinogen Urine Negative (Negative); pH Urine 5.5 (4.5-7.5)
[2022-04-05] MEDS ORDERED: NITROGLYCERIN SL 0.4 MG/TAB TAB SL PRN (00:21)
[2022-04-05] MEDS ORDERED: UMECLIDINIUM BROMIDE 62.5MCG/BLISTER 7 PUFFS/INHALER INH PRN (00:21)
[2022-04-05] MEDS ORDERED: FLUTICASONE/SALMETEROL (ADVAIR) 500/50 INH 14 PUFF INH PRN (00:21)
[2022-04-05] MEDS ORDERED: ALBUTEROL HFA 8 GM INHALER INH PRN (00:46)
--- NOTE | 2022-04-05 01:05 | History and Physical Report ---
DATE OF ADMISSION: 04/04/2022. CHIEF COMPLAINT: COVID pneumonia, shortness of breath on exertion. HISTORY OF PRESENT ILLNESS: A 72-year-old male with past medical history significant for hyperlipidemia, type 2 diabetes, asthma, sleep apnea, seems to be noncompliant with CPAP, hypertension, bilateral carotid artery stenosis, history of TIA, history of ischemic cardiomyopathy, history of CVA, obesity, anxiety, spinal stenosis, presents with shortness of breath on exertion. The patient says he was diagnosed with COVID a couple of weeks ago, he was treated with 4 days of prednisone, but he says he still has a lot of cough and yesterday was feeling a lot of cold, chills. He thinks he might have had fever and has generalized weakness, poor appetite, not getting better, and minimal exertion, feeling short of breath. On presentation in the ER, he was also hypotensive. With a fluid bolus, the blood pressure improved. Currently resting, saturating okay at 93% on room air. Had headache earlier, that is okay now. Denies any blurred visions, no earache, no runny nose, no sore throat. No nausea, no vomiting, no chest pain, no abdominal pain. Normal bowel and bladder movements. No swelling in the legs.There was question of confusion and questionable brief facial droop as per family per Nursing staff. ALLERGIES: FENOPROFEN. PAST MEDICAL HISTORY: As mentioned above. PAST SURGICAL HISTORY: Colonoscopy, dental surgery, lumbar hemilaminectomy, vasectomy, vertebral artery catheter placement. MEDICATIONS: The patient is on albuterol 2 puffs inhalation q. 6 hours p.r.n., aspirin 81 mg p.o. at bedtime, vitamin D 5000 units p.o. a.m., citalopram 20 mg p.o. a.m., Plavix 75 mg p.o. a.m., Advair Diskus two inhalations b.i.d., Trelegy 1 inhalation daily, lisinopril 2.5 mg p.o. a.m., metformin 500 mg p.o. a.m., metoprolol succinate 25 mg p.o. a.m., Singulair 10 mg p.o. at bedtime, PreserVision 1 tablet p.o. b.i.d., rosuvastatin 20 mg p.o. a.m. FAMILY HISTORY: Significant for no family history on record. SOCIAL HISTORY: , smokes half pack a day. No alcohol use. No drug use. REVIEW OF SYSTEMS: As per HPI. Rest of the review of systems is negative. PHYSICAL EXAMINATION: GENERAL: The patient is of moderate build, not in acute distress. VITAL SIGNS: Temperature 36.9, pulse 81, respiratory rate 17, blood pressure 108/47, oxygen 93% on room air. HEENT: Pupils equal, round and reactive to light. Oral mucosa moist. NECK: No JVD. No neck masses. CARDIOVASCULAR: S1 and S2 heard. Regular rate and rhythm. No murmur, no gallop. RESPIRATORY SYSTEM: Normal AP diameter. No accessory muscle use. No wheezing, no crackles. ABDOMEN: Soft. Bowel sounds are present, nontender, nondistended. CENTRAL NERVOUS SYSTEM: Cranial nerves II-XII grossly intact, nonfocal. EXTREMITIES: No edema, no erythema. LABORATORY DATA: WBC 15.6, hemoglobin 12.6, hematocrit 37.4, platelets 258. PT 11.2, INR 1.1, APTT 27.6. Sodium 137, potassium 3.2, chloride 103, bicarbonate 27, BUN 14, creatinine 1.05. Serum glucose 178. Lactate 2, on presentation it was 2.2, calcium 8.7, magnesium 2, total bilirubin 0.6, AST 12, ALT 18, alkaline phosphatase 69. Troponin I high sensitivity 15.6. BNP 320. Procalcitonin 0.17. TSH 1.6. SARS-CoV-2 PCR positive. Influenza A and B PCR negative. RSV PCR negative. IMAGING DATA: CT of the head noncontrast, no acute intracranial abnormalities seen. Chest x-ray, stable mild cardiomegaly. EKG: Normal sinus rhythm at a rate of 84, no significant change was found. ASSESSMENT AND PLAN: This is a 72-year-old male who presents with shortness of breath on exertion, who was recently diagnosed with COVID. 1. COVID: The patient received vaccine two times with Moderna, but did not receive any booster. Diagnosed with COVID two weeks ago, was treated with 4 days of prednisone. Still having generalized weakness, colds, shortness of breath on minimal exertion. Will do a CT of the chest PE study and monitor in the hospital. COVID precautions. 2. Hypotension: With the fluid bolus, blood pressure improved. Holding his lisinopril. Metoprolol withholding parameters. Will follow serial enzymes and consult cardiology in the a.m. 3. History of asthma: Continue home inhalers, currently stable. There is no wheezing on exam. 4. Depression. Continue citalopram. 5. History of cerebrovascular accident: On aspirin, Plavix and statin. 6. History of obstructive sleep apnea, noncompliant with the CPAP machine, it looks like. 7. Bilateral carotid stenosis: Left carotid angioplasty with stent placement. On aspirin, Plavix, and statin. 8. Tobacco abuse: Needs counseling. 9. History of coronary artery disease: Status post stent placement. On aspirin, Plavix, statin and beta gus. Need to determine the dose of metoprolol. BID vs daily dose. 10. History of hyperlipidemia: On statin. 11. History of hypertension: Currently hypotension, holding the lisinopril and metoprolol withholding parameters. 12. History of chronic congestive heart failure: With ejection fraction of 40% to 45%. Will monitor for any volume overload. Repeat echo as per Cardiology. 13. Hx of TIA. confusion as per family ct head ok. Will monitor. 14. Deep venous thrombosis prophylaxis: Placed on Lovenox. DISPOSITION: Closely monitor in the [facility] tele. PT/OT prior to discharge. Social service to help with discharge planning. Job ID: [id number] MTDD
[2022-04-05] MEDS: ACETAMINOPHEN 325 MG TAB PO PRN ×2 (01:13→23:33)
[2022-04-05] MEDS: BENZONATATE 100 MG CAPSULE PO SCH ×4 (01:13→21:16)
[2022-04-05] MEDS ORDERED: FLUTICASONE FUROATE 100MCG 14 PUFFS/INHALER INH PRN (05:42)
[2022-04-05] MEDS ORDERED: UMECLIDINIUM/VILANTEROL 62.5/25MCG 7 PUFFS/INHALER INH PRN (05:43)
[2022-04-05 06:21] LABS: Hematocrit (blood only) 35.5 % (42-52); Hemoglobin 11.8 g/dL (14.0-18.0); Mean Corpuscular Hemoglobin 29.7 pg (25-34); Mean Corpuscular Hgb Conc 33.2 g/dL (32-36); Mean Corpuscular Volume 89.4 fL (80-100); Mean Platelet Volume 9.5 fL (7.4-10.4); Platelet Count 236 K/uL (130-400); RDW Coefficient of Variation 15.7 % (11.5-14.5); RDW Standard Deviation 51.5 fL (36.4-46.3); Red Blood Count 3.97 M/uL (4.7-6.1); White Blood Count 15.03 K/uL (4.8-10.8)
[2022-04-05 06:38] LABS: Basophils # (auto) 0.01 K/uL (0-0.2); Basophils % (auto) 0.1 %; Eosinophils # (auto) 0.07 K/uL (0-0.5); Eosinophils % (auto) 0.5 %; Immature Granulocytes # (auto) 0.07 K/uL (0.00-0.02); Immature Granulocytes % (auto) 0.5 %; Lymphocytes # (auto) 1.77 K/uL (1.2-3.4); Lymphocytes % (auto) 11.8 %; Monocytes # (auto) 0.88 K/uL (0.11-0.59); Monocytes % (auto) 5.9 %; Neutrophils # (auto) 12.23 K/uL (1.4-6.5); Neutrophils % (auto) 81.2 %
[2022-04-05 06:59] LABS: BUN Creatinine Ratio 16.3 (10-20); Calcium 8.2 mg/dl (8.5-10.1); Creatinine Clr Calc Pharmacy 71.1 ml/min; Est GFR (African American) 87.7 ml/min; Est GFR (Non-African American) 75.6 ml/min; Magnesium 2.1 mg/dl (1.7-2.4); Potassium 3.9 mmol/L (3.5-5.1)
[2022-04-05 07:12] LABS: Estimated Average Glucose 126 mg/dl
--- NOTE | 2022-04-05 09:24 | Cardiology Consultation ---
Date of Consultation April 05, 2022 History of Present Illness Attending Physician: Crystal Martinez MD History of Present Illness Past medical history: 1.Ocz-LH-tkmindb elevation myocardial infarction 01/31/2018. 2.Status post drug-eluting stent to the left circumflex with moderate residual of 50% within the left anterior descending. January 31, 2018 3.Hypertension. 4.Hyperlipidemia, on therapy. 5.Chronic obstructive lung disease/sleep apnea continued tobacco use. 6.Moderate left ventricular dysfunction, EF of 40-45%. 7. Carotid artery disease status post left carotid stent June 17, 2019 following TIA Allergies Allergy/AdvReac Type Severity Reaction Status Date / Time fenoprofen Allergy Severe SYNCOPE Verified 04/04/22 19:09 Home Medications Medication Instructions Recorded Confirmed Type aspirin 81 mg tablet,delayed 81 mg PO HS 02/25/19 04/04/22 History release cholecalciferol (vitamin D3) 125 5,000 unit PO QAM 02/25/19 04/04/22 History mcg (5,000 unit) tablet (Vitamin D3) citalopram 20 mg tablet 20 mg PO QAM 02/25/19 04/04/22 History clopidogrel 75 mg tablet 75 mg PO QAM 02/25/19 04/04/22 History lisinopril 2.5 mg tablet 2.5 mg PO QAM 02/25/19 04/04/22 History metformin 500 mg tablet 500 mg PO QAM 02/25/19 04/04/22 History montelukast 10 mg tablet 10 mg PO HS 02/25/19 04/04/22 History (Singulair) rosuvastatin 20 mg tablet 20 mg PO QAM 02/25/19 04/04/22 History vit C 250 mg-vit E 90 mg-zinc 40 1 tab PO BID 02/25/19 04/04/22 History mg-copper 1 [id number] capsule (PreserVision AREDS-2) fluticasone 500 mcg-salmeterol 50 2 inh INHALATION BID PRN 05/18/20 04/04/22 History mcg/dose blistr powdr for inhalation (Advair Diskus) albuterol sulfate 90 mcg/actuation 2 puff INHALATION Q6H PRN 01/19/22 04/04/22 History aerosol inhaler (ProAir HFA) fluticasone fur. 100 mcg-umeclid 1 inh INHALATION DAILY PRN 04/04/22 04/04/22 History 62.5 mcg-vilant 25 mcg inhalat.powder (Trelegy Ellipta) metoprolol succinate 50 mg 25 mg PO QAM 04/04/22 04/04/22 History tablet,extended release 24 hr umeclidinium 62.5 mcg/actuation 1 inh INHALATION DAILY PRN 04/04/22 04/04/22 History blister powder for inhalation (Incruse Ellipta) Patient History Medical History (Updated 04/04/22 @ 22:31 by Gee Mancilla DO) Cardiac murmur in childhood; no further issues COPD (chronic obstructive pulmonary disease) inhaler prn Coronary artery disease "s/p non-STEMI 01/31/18, cath showed circ lesion and lesser disease in LAD and RCA, PCI circ with WALDO 02/02/18" Degenerative disc disease Depression Diabetes mellitus, type 2 Dyslipidemia Hypertension Macular degeneration of both eyes NSTEMI (non-ST elevated myocardial infarction) 01/31/18--follows with Dr. Laguna--plavix daily Sleep apnea cpap Stenosis of both vertebral arteries Transient ischemic attack (TIA) 02/2019--follows with Dr. Itz Fernando @ [facility] on plavix daily Surgical History History of bilateral cataract extraction History of cardiac cath 02/02/2018 @ [facility] with 1 stent placed History of carotid angioplasty left side 1 stent placed @ [facility] 02/2019 History of colonoscopy History of lumbar spinal fusion History of tooth extraction all teeth removed Hx of vasectomy Status post coronary artery stent placement "PCI L circumflex with WALDO 02/02/18" Family History Other Family history not known due to adoption No pertinent family history Social History Smoking Status: Never smoker Tobacco Type: Cigarettes Cigarettes Per Day: 1/2 PPD; Second Hand Exposure: No; Hx Alcohol Use: No Hx Substance Use: No Preferred Language: Chinese Communication Ability: Effective Community Cultural Development Officer Required: No Beliefs That Will Affect Care: None marital status: Current Living Situation: Spouse and Family Feels Safe at Home: Yes Safety Concerns: Feels Safe At This Time Assistive Devices: None Results & Data ([facility]) Vital Signs (Past 12 Hours) Vital Signs Temp Pulse Pulse Pulse Resp BP Pulse Ox 04/05/22 05:00 36.5 C 74 20 105/55 L 94 04/05/22 03:42 68 04/05/22 00:21 36.7 C 91 H 20 135/71 97 04/05/22 00:00 88 20 97
[2022-04-05] MEDS: CEROVITE ADV FORMULA TAB PO SCH (09:33)
[2022-04-05] MEDS: ENOXAPARIN INJ 40 MG/0.4 ML SYR SQ SCH (09:33)
[2022-04-05] MEDS: ROSUVASTATIN CALCIUM 20 MG TAB PO SCH (09:33)
[2022-04-05] MEDS: CLOPIDOGREL BISULFATE 75 MG TAB PO SCH (09:33)
[2022-04-05] MEDS: CHOLECALCIFEROL 5,000 UNITS 125 MCG TAB PO SCH (09:33)
[2022-04-05] MEDS: METOPROLOL SUCC 25MG EXT REL TAB PO SCH (09:33)
[2022-04-05] MEDS: CITALOPRAM 20 MG TAB PO SCH (09:33)
[2022-04-05] MEDS ORDERED: OPTIRAY 320 125ml IV ONE (09:49)
--- NOTE | 2022-04-05 10:04 | CT Scan Report ---
CT angio chest PE protocol CLINICAL HISTORY: Shortness of breath. Covid positive. COMPARISON STUDY: Portable chest from 04/04/2022 CT DOSE: 677.21 mGy.cm TECHNIQUE: CT Angio of the chest was performed.followed by image post processing with coronal, and s agittal MIP reformats. Contrast Volume: Isovue 320, 120 ml FINDINGS: Vasculature: There is homogeneous perfusion of the pulmonary vasculature bilaterally. No intraluminal filling defects or evidence for pulmonary embolus is seen. Airway: The airway is clear. No endobronchial lesion is identified. Lungs: There are patchy groundglass opacities seen at both lung bases posteriorly. This can be seen i n the presence of an early viral type pneumonitis. The presence of early Covid pneumonia cannot be ex cluded. The lungs are otherwise clear of confluent alveolar opacities, air bronchograms or pulmonary nodules. Pleura: There is no evidence for pleural effusion. There is no evidence for pneumothorax. Mediastinum: There is no evidence for pathologic adenopathy. The heart size is within normal limits. There is prominent coronary artery calcification. The thoracic aorta is within normal limits. There i s no evidence for pericardial effusion. Upper abdomen:The adrenal glands are normal bilaterally. There is evidence for small sliding-type hia king hernia. Osseous structures: There is no acute osseous pathology. Degenerative changes are seen within the sp ine. Impression: 1. No CTA evidence for pulmonary embolus. 2. Patchy groundglass opacities involving both lung bases which can be seen with an early viral type pneumonitis. The findings are suspicious for early Covid 19 pneumonia. 3. No confluent alveolar opacities or air bronchograms. 4. Coronary artery calcification. ACT 112: Negative or not required by law. Electronically signed by: Ludin Daniel M.D. 04/05/2022 10:01 AM
--- NOTE | 2022-04-05 15:37 | Electrocardiogram Report ---
Test Reason : Blood Pressure : / mmHG Vent. Rate : 084 BPM Atrial Rate : 084 BPM P-R Int : 144 ms QRS Dur : 092 ms QT Int : 386 ms P-R-T Axes : 035 -10 218 degrees QTc Int : 456 ms Normal sinus rhythm Left ventricular hypertrophy with repolarization abnormality Abnormal ECG When compared with ECG of 19-JAN-2022 14:19, No significant change was found Confirmed by Donnell Godoy ([id number]) on 04/05/2022 3:37:14 PM Referred By: REFERRED SELF Confirmed By:Donnell Godoy
--- NOTE | 2022-04-05 16:01 | Hospitalist Progress Note ---
Date of Service April 05, 2022 Assessment & Plan (1) COVID-19 virus infection: Plan: Received 2 doses of Moderna vaccine Diagnosed with COVID 19 virus infection 2 weeks ago and received 4 days of oral prednisone Ongoing symptoms of cough and weakness with exertional shortness of breath COVID 19 virus infection remains positive No requirements of oxygen No treatments were given Has cough and weakness-we will observe (2) Chronic systolic (congestive) heart failure: Plan: History of CAD with CHF Echo was done 1 01/20/2022 with EF of 40 to 45% No evidence of any acute fluid overload or any other cardiac symptoms (3) Coronary artery disease: Plan: History of non-ST elevation [place] and status post stent placement (4) Sleep apnea: (5) COPD (chronic obstructive pulmonary disease): Plan: Does not have any exacerbation Will continue current medications including inhalers (6) Diabetes mellitus, type 2: Plan: We will check hemoglobin A1c (7) Hypertension: Plan: Blood pressure remains stable Other significant medical conditions remain stable DVT prophylaxis Subcu Lovenox CODE STATUS Full Will need PT and OT evaluation prior to discharge Admission and Anticipated Discharge Date Admission Date: April 04, 2022 Subjective 04/05/2022 The patient was seen and examined in medical telemetry unit and in the COVID room He complains to have ongoing cough and extremely tired Denies any fever and or chills and does not require any oxygen to maintain saturation Review of Systems Review of Systems: Sitting at the edge of the bed without any acute distress Physical Exam Physical Exam: Sitting at the edge of the bed Constitutional: well developed, well nourished, + ill appearing and + obese Eyes: PERRL, conjunctivae normal, anicteric sclerae ENMT: external ear and nose normal, oropharynx normal Neck: trachea midline, no thyromegaly Respiratory: no respiratory distress Auscultation: + diminished lung sounds (Bibasally) and + crackles (Minimal crackles bibasslly) Gastrointestinal (Abdomen): Inspection/Auscultation: normal bowel sounds; abdomen not distended Percussion/Palpation: abdomen soft; abdomen nontender Musculoskeletal: No acute arthritis in any joint Neurologic: Alert, awake and oriented x3. Generally weak but no focal sensory or no motor deficit appreciated Results & Data Results & Data ([facility]) Vital Signs (Past 12 Hours) Vital Signs Temp Pulse Resp BP Pulse Ox 04/05/22 12:06 36.7 C 72 18 113/72 92 04/05/22 05:00 36.5 C 74 20 105/55 L 94 Laboratory Results Short CBC 04/04/22 04/05/22 Range/Units 17:59 05:24 WBC 15.65 H 15.03 H (4.8-10.8) K/uL Hgb 12.6 L 11.8 L (14.0-18.0) g/dL Hct 37.4 L 35.5 L (42-52) % Plt Count 258 236 (130-400) K/uL BMP 04/04/22 04/05/22 17:59 05:24 Sodium 137 136 Potassium 3.2 L 3.9 D Chloride 103 105 Carbon Dioxide 27 26 BUN 14 16 Creatinine 1.05 0.98 Glucose 178 H 97 Calcium 8.7 8.2 L Liver Function 04/04/22 Range/Units 17:59 Total Bilirubin 0.6 (0.2-1.0) mg/dl AST 12 L (13-39) U/L ALT 18 (7-52) U/L Alkaline Phosphatase 69 (34-104) U/L Albumin 3.5 (3.4-5.0) gm/dl Urine 04/04/22 Range/Units Unknown Urine Color Yellow Urine Appearance Clear (Clear) Urine pH 5.5 (4.5-7.5) Ur Specific [place] 1.014 (1.000-1.030) Urine Protein Negative (Negative) Urine Glucose (UA) Negative (Negative) Medications Administered Current Inpatient Medications Acetaminophen (Acetaminophen 325 Mg Tab) 650 mg PO Q4H PRN PRN Reason: Pain or Fever Stop: 05/05/22 00:20 Last Admin: 04/05/22 01:13 Dose: 650 mg Documented by: Albuterol (Albuterol Hfa 8 Gm Inhaler) 2 puffs INH Q6H PRN PRN Reason: Wheezing Stop: 05/05/22 00:45 Aspirin (Aspirin 81 Mg Ectab) 81 mg PO HS [facility] Stop: 05/05/22 20:59 Benzonatate (Benzonatate 100 Mg Capsule) 100 mg PO TID [facility] Stop: 05/05/22 00:29 Last Admin: 04/05/22 13:46 Dose: 100 mg Documented by: Citalopram Hydrobromide (Citalopram 20 Mg Tab) 20 mg PO [facility] Stop: 05/05/22 08:59 Last Admin: 04/05/22 09:33 Dose: 20 mg Documented by: Clopidogrel Bisulfate (Clopidogrel Bisulfate 75 Mg Tab) 75 mg PO [facility] Stop: 05/05/22 08:59 Last Admin: 04/05/22 09:33 Dose: 75 mg Documented by: Enoxaparin Sodium (Enoxaparin Inj 40 Mg/0.4 Ml Syr) 40 mg SQ Q24H [facility] Stop: 05/05/22 08:59 Last Admin: 04/05/22 09:33 Dose: 40 mg Documented by: Fluticasone Furoate (Fluticasone Furoate 100mcg 14 Puffs/Inhaler) 1 puffs INH DAILY PRN PRN Reason: Shortness Of Breath Stop: 05/05/22 05:41 Guaifenesin/Codeine Phosphate (Guaifenesin/Codeine 100mg/10mg 5ml Udc) 5 ml PO Q6H PRN PRN Reason: Cough Stop: 05/05/22 00:27 Metoprolol Succinate (Metoprolol Succ 25mg Ext Rel Tab) 25 mg PO [facility] Stop: 05/05/22 08:59 Last Admin: 04/05/22 09:33 Dose: 25 mg Documented by: Montelukast Sodium (Montelukast Sodium 10 Mg Tablet) 10 mg PO [facility] Stop: 05/05/22 20:59 Morphine Sulfate (Morphine Sulfate 4 Mg/Ml 1 Ml Carp\Vial) 3 mg IV Q4H PRN PRN Reason: Pain Stop: 04/19/22 00:20 Multivitamins/Minerals (Cerovite Adv Formula Tab) 1 tab PO [facility] Stop: 05/05/22 08:59 Last Admin: 04/05/22 09:33 Dose: 1 tab Documented by: Nitroglycerin (Nitroglycerin Sl 0.4 Mg/Tab Tab) 0.4 mg SL UD PRN PRN Reason: Chest Pain Stop: 05/05/22 00:20 Rosuvastatin Calcium (Rosuvastatin Calcium 20 Mg Tab) 20 mg PO [facility] Stop: 05/05/22 08:59 Last Admin: 04/05/22 09:33 Dose: 20 mg Documented by: Umeclidinium/Vilanterol (Umeclidinium/Vilanterol 62.5/25mcg 7 Puffs/Inhaler) 1 puffs INH DAILY PRN PRN Reason: SHORTNESS OF BREATH Stop: 05/05/22 05:42 Vitamin D (Cholecalciferol 5,000 Units 125 Mcg Tab) [facility] Stop: 05/05/22 08:59 Last Admin: 04/05/22 09:33 Dose: 5,000 units Documented by:
[2022-04-05] MEDS: guaiFENesin/CODEINE 100MG/10MG 5ML UDC PO PRN ×2 (16:34→23:37)
[2022-04-05] MEDS: MONTELUKAST SODIUM 10 MG TABLET PO SCH (21:15)
[2022-04-05] MEDS: ASPIRIN 81 MG ECTAB PO SCH (21:16)
[2022-04-06] MEDS: MoRPHine SULFATE 4 MG/ML 1 ML CARP\\VIAL IV PRN ×2 (00:36→23:44)
[2022-04-06] MEDS: BENZONATATE 100 MG CAPSULE PO SCH ×3 (08:42→20:22)
[2022-04-06] MEDS: METOPROLOL SUCC 25MG EXT REL TAB PO SCH (08:42)
[2022-04-06] MEDS: CITALOPRAM 20 MG TAB PO SCH (08:42)
[2022-04-06] MEDS: guaiFENesin/CODEINE 100MG/10MG 5ML UDC PO PRN ×3 (08:42→22:51)
[2022-04-06] MEDS: CEROVITE ADV FORMULA TAB PO SCH (08:42)
[2022-04-06] MEDS: CLOPIDOGREL BISULFATE 75 MG TAB PO SCH (08:42)
[2022-04-06] MEDS: ENOXAPARIN INJ 40 MG/0.4 ML SYR SQ SCH (08:42)
[2022-04-06] MEDS: ROSUVASTATIN CALCIUM 20 MG TAB PO SCH (08:42)
[2022-04-06] MEDS: CHOLECALCIFEROL 5,000 UNITS 125 MCG TAB PO SCH (08:42)
[2022-04-06 09:43] LABS: Basophils # (auto) 0.01 K/uL (0-0.2); Basophils % (auto) 0.1 %; Eosinophils # (auto) 0.12 K/uL (0-0.5); Eosinophils % (auto) 1.1 %; Hematocrit (blood only) 36.1 % (42-52); Hemoglobin 12.2 g/dL (14.0-18.0); Immature Granulocytes # (auto) 0.02 K/uL (0.00-0.02); Immature Granulocytes % (auto) 0.2 %; Lymphocytes # (auto) 1.99 K/uL (1.2-3.4); Lymphocytes % (auto) 18.4 %; Mean Corpuscular Hgb Conc 33.8 g/dL (32-36); Mean Corpuscular Volume 88.9 fL (80-100); Mean Platelet Volume 9.7 fL (7.4-10.4); Monocytes # (auto) 0.84 K/uL (0.11-0.59); Monocytes % (auto) 7.8 %; Neutrophils # (auto) 7.84 K/uL (1.4-6.5); Neutrophils % (auto) 72.4 %; Platelet Count 235 K/uL (130-400); RDW Coefficient of Variation 15.5 % (11.5-14.5); RDW Standard Deviation 51.2 fL (36.4-46.3); Red Blood Count 4.06 M/uL (4.7-6.1); White Blood Count 10.82 K/uL (4.8-10.8)
[2022-04-06 10:05] LABS: Albumin Level 3.3 gm/dl (3.4-5.0); BUN Creatinine Ratio 18.3 (10-20); Bilirubin,Total 0.5 mg/dl (0.2-1.0); Calcium 8.7 mg/dl (8.5-10.1); Creatinine Clr Calc Pharmacy 84.9 ml/min; Est GFR (Non-African American) 87.1 ml/min; Globulin 3.2 gm/dl (2.5-4.0); Magnesium 2.2 mg/dl (1.7-2.4); Potassium 4.1 mmol/L (3.5-5.1); Total Protein 6.5 gm/dl (6.0-8.3)
--- NOTE | 2022-04-06 12:57 | Hospitalist Progress Note ---
Date of Service April 06, 2022 Assessment & Plan (1) COVID-19 virus infection: Plan: Received 2 doses of Moderna vaccine Diagnosed with COVID 19 virus infection 2 weeks ago and received 4 days of oral prednisone Ongoing symptoms of cough and weakness with exertional shortness of breath COVID 19 virus infection remains positive No requirements of oxygen No treatments were given Has cough and weakness-we will observe Getting better gradually (2) Chronic systolic (congestive) heart failure: Plan: History of CAD with CHF Echo was done 1 01/20/2022 with EF of 40 to 45% No evidence of any acute fluid overload or any other cardiac symptoms Remains stable (3) Coronary artery disease: Plan: History of non-ST elevation [place] and status post stent placement (4) Sleep apnea: (5) COPD (chronic obstructive pulmonary disease): Plan: Does not have any exacerbation Will continue current medications including inhalers (6) Diabetes mellitus, type 2: Plan: We will check hemoglobin A1c (7) Hypertension: Plan: Blood pressure remains stable Other significant medical conditions remain stable DVT prophylaxis Subcu Lovenox CODE STATUS Full Will need PT and OT evaluation prior to discharge Admission and Anticipated Discharge Date Admission Date: April 04, 2022 Subjective 04/05/2022 The patient was seen and examined in medical telemetry unit and in the COVID room He complains to have ongoing cough and extremely tired Denies any fever and or chills and does not require any oxygen to maintain saturation 04/06/2022 Patient was seen and examined in medical telemetry unit and in the COVID room He is a little better but he still has cough without phlegm and generalized weakness Saturating normally on room air and denies any GI symptoms Review of Systems Review of Systems: Sitting at the edge of the bed without any acute distress Physical Exam Physical Exam: Sitting at the edge of the bed Constitutional: well developed, well nourished, + ill appearing and + obese Eyes: PERRL, conjunctivae normal, anicteric sclerae ENMT: external ear and nose normal, oropharynx normal Neck: trachea midline, no thyromegaly Respiratory: no respiratory distress Auscultation: + diminished lung sounds (Bibasally) and + crackles (Minimal crackles bibasslly) Cardiovascular: Rate/Rhythm: regular rate and regular rhythm; not tachycardic Heart Sounds: normal S1 and normal S2; no murmur Extremities: no edema Gastrointestinal (Abdomen): Inspection/Auscultation: normal bowel sounds; abdomen not distended Percussion/Palpation: abdomen soft; abdomen nontender Musculoskeletal: No acute arthritis in any joint Neurologic: Alert, awake and oriented x3. No focal sensory or motor deficit appreciated Results & Data Results & Data ([facility]) Vital Signs (Past 12 Hours) Vital Signs Temp Pulse Resp BP Pulse Ox 04/06/22 05:47 36.7 C 73 18 102/66 92 Laboratory Results Short CBC 04/06/22 Range/Units 09:02 WBC 10.82 H (4.8-10.8) K/uL Hgb 12.2 L (14.0-18.0) g/dL Hct 36.1 L (42-52) % Plt Count 235 (130-400) K/uL BMP 04/06/22 09:02 Sodium 138 Potassium 4.1 Chloride 106 Carbon Dioxide 28 BUN 15 Creatinine 0.82 Glucose 94 Calcium 8.7 Liver Function 04/06/22 Range/Units 09:02 Total Bilirubin 0.5 (0.2-1.0) mg/dl AST 12 L (13-39) U/L ALT 15 (7-52) U/L Alkaline Phosphatase 63 (34-104) U/L Albumin 3.3 L (3.4-5.0) gm/dl Medications Administered Current Inpatient Medications Acetaminophen (Acetaminophen 325 Mg Tab) 650 mg PO Q4H PRN PRN Reason: Pain or Fever Stop: 05/05/22 00:20 Last Admin: 04/05/22 23:33 Dose: 650 mg Documented by: Albuterol (Albuterol Hfa 8 Gm Inhaler) 2 puffs INH Q6H PRN PRN Reason: Wheezing Stop: 05/05/22 00:45 Aspirin (Aspirin 81 Mg Ectab) 81 mg PO HS [facility] Stop: 05/05/22 20:59 Last Admin: 04/05/22 21:16 Dose: 81 mg Documented by: Benzonatate (Benzonatate 100 Mg Capsule) 100 mg PO TID [facility] Stop: 05/05/22 00:29 Last Admin: 04/06/22 08:42 Dose: 100 mg Documented by: Citalopram Hydrobromide (Citalopram 20 Mg Tab) 20 mg PO QAM [facility] Stop: 05/05/22 08:59 Last Admin: 04/06/22 08:42 Dose: 20 mg Documented by: Clopidogrel Bisulfate (Clopidogrel Bisulfate 75 Mg Tab) 75 mg PO [facility] Stop: 05/05/22 08:59 Last Admin: 04/06/22 08:42 Dose: 75 mg Documented by: Enoxaparin Sodium (Enoxaparin Inj 40 Mg/0.4 Ml Syr) 40 mg SQ Q24H [facility] Stop: 05/05/22 08:59 Last Admin: 04/06/22 08:42 Dose: 40 mg Documented by: Fluticasone Furoate (Fluticasone Furoate 100mcg 14 Puffs/Inhaler) 1 puffs INH DAILY PRN PRN Reason: Shortness Of Breath Stop: 05/05/22 05:41 Guaifenesin/Codeine Phosphate (Guaifenesin/Codeine 100mg/10mg 5ml Udc) 5 ml PO Q6H PRN PRN Reason: Cough Stop: 05/05/22 00:27 Last Admin: 04/06/22 08:42 Dose: 5 ml Documented by: Metoprolol Succinate (Metoprolol Succ 25mg Ext Rel Tab) 25 mg PO [facility] Stop: 05/05/22 08:59 Last Admin: 04/06/22 08:42 Dose: 25 mg Documented by: Montelukast Sodium (Montelukast Sodium 10 Mg Tablet) 10 mg PO [facility] Stop: 05/05/22 20:59 Last Admin: 04/05/22 21:15 Dose: 10 mg Documented by: Morphine Sulfate (Morphine Sulfate 4 Mg/Ml 1 Ml Carp\Vial) 3 mg IV Q4H PRN PRN Reason: Pain Stop: 04/19/22 00:20 Last Admin: 04/06/22 00:36 Dose: 3 mg Documented by: Multivitamins/Minerals (Cerovite Adv Formula Tab) 1 tab PO [facility] Stop: 05/05/22 08:59 Last Admin: 04/06/22 08:42 Dose: 1 tab Documented by: Nitroglycerin (Nitroglycerin Sl 0.4 Mg/Tab Tab) 0.4 mg SL UD PRN PRN Reason: Chest Pain Stop: 05/05/22 00:20 Rosuvastatin Calcium (Rosuvastatin Calcium 20 Mg Tab) 20 mg PO [facility] Stop: 05/05/22 08:59 Last Admin: 04/06/22 08:42 Dose: 20 mg Documented by: Umeclidinium/Vilanterol (Umeclidinium/Vilanterol 62.5/25mcg 7 Puffs/Inhaler) 1 puffs INH DAILY PRN PRN Reason: SHORTNESS OF BREATH Stop: 05/05/22 05:42 Vitamin D (Cholecalciferol 5,000 Units 125 Mcg Tab) 5,000 units [facility] Stop: 05/05/22 08:59 Last Admin: 04/06/22 08:42 Dose: 5,000 units Documented by:
[2022-04-06] MEDS: MONTELUKAST SODIUM 10 MG TABLET PO SCH (20:22)
[2022-04-06] MEDS: ASPIRIN 81 MG ECTAB PO SCH (20:23)
[2022-04-07] MEDS: guaiFENesin/CODEINE 100MG/10MG 5ML UDC PO PRN ×2 (05:17→16:08)
[2022-04-07] MEDS: ROSUVASTATIN CALCIUM 20 MG TAB PO SCH (09:02)
[2022-04-07] MEDS: CITALOPRAM 20 MG TAB PO SCH (09:02)
[2022-04-07] MEDS: CEROVITE ADV FORMULA TAB PO SCH (09:02)
[2022-04-07] MEDS: ENOXAPARIN INJ 40 MG/0.4 ML SYR SQ SCH (09:02)
[2022-04-07] MEDS: CLOPIDOGREL BISULFATE 75 MG TAB PO SCH (09:02)
[2022-04-07] MEDS: BENZONATATE 100 MG CAPSULE PO SCH ×3 (09:02→20:54)
[2022-04-07] MEDS: CHOLECALCIFEROL 5,000 UNITS 125 MCG TAB PO SCH (09:02)
[2022-04-07] MEDS: METOPROLOL SUCC 25MG EXT REL TAB PO SCH (09:02)
--- NOTE | 2022-04-07 13:46 | Hospitalist Progress Note ---
Date of Service April 07, 2022 Assessment & Plan (1) COVID-19 virus infection: Plan: Received 2 doses of Moderna vaccine Diagnosed with COVID 19 virus infection 2 weeks ago and received 4 days of oral prednisone Ongoing symptoms of cough and weakness with exertional shortness of breath COVID 19 virus infection remains positive No requirements of oxygen No treatments were given Has cough and weakness-we will observe Clinically much better and will have chest x-ray tomorrow Will get PT and OT evaluation and may be discharged tomorrow following the evaluation (2) Chronic systolic (congestive) heart failure: Plan: History of CAD with CHF Echo was done 1 01/20/2022 with EF of 40 to 45% No evidence of any acute fluid overload or any other cardiac symptoms Remains stable-denies any symptoms of fluid overload and/or CHF (3) Coronary artery disease: Plan: History of non-ST elevation [place] and status post stent placement No acute symptoms (4) Sleep apnea: (5) COPD (chronic obstructive pulmonary disease): Plan: Does not have any exacerbation Will continue current medications including inhalers (6) Diabetes mellitus, type 2: Plan: We will check hemoglobin A1c (7) Hypertension: Plan: Blood pressure remains stable Other significant medical conditions remain stable DVT prophylaxis Subcu Lovenox CODE STATUS Full Will need PT and OT evaluation prior to discharge Admission and Anticipated Discharge Date Admission Date: April 04, 2022 Subjective 04/05/2022 The patient was seen and examined in medical telemetry unit and in the COVID room He complains to have ongoing cough and extremely tired Denies any fever and or chills and does not require any oxygen to maintain saturation 04/06/2022 Patient was seen and examined in medical telemetry unit and in the COVID room He is a little better but he still has cough without phlegm and generalized weakness Saturating normally on room air and denies any GI symptoms 04/07/2022 The patient was seen and examined in medical telemetry unit and in the COVID room His condition is much improved but he still remains weak and lethargic We will get PT and OT evaluation before discharge and the 2 steps Review of Systems Review of Systems: Sitting at the edge of the bed without any acute distress Physical Exam Physical Exam: Sitting at the edge of the bed Constitutional: well developed, well nourished, + ill appearing and + obese Eyes: PERRL, conjunctivae normal, anicteric sclerae ENMT: external ear and nose normal, oropharynx normal Neck: trachea midline, no thyromegaly Respiratory: no respiratory distress Auscultation: + diminished lung sounds (Bibasally) and + crackles (Minimal crackles bibasslly) Cardiovascular: Rate/Rhythm: regular rate and regular rhythm; not tachycardic Heart Sounds: normal S1 and normal S2; no murmur Extremities: no edema Gastrointestinal (Abdomen): Inspection/Auscultation: normal bowel sounds; abdomen not distended Percussion/Palpation: abdomen soft; abdomen nontender Musculoskeletal: No acute arthritis in any joint Neurologic: Alert, awake and oriented x3. Generally weak but no focal sensory or no motor deficit appreciated Psychiatric: A+Ox3, euthymic affect Lymphatic: no cervical or axillary lymphadenopathy Results & Data Results & Data ([facility]) Vital Signs (Past 12 Hours) Vital Signs Temp Pulse Pulse Resp BP Pulse Ox 04/07/22 08:10 36.3 C L 80 18 120/73 91 04/07/22 07:18 75 04/07/22 02:45 37.4 C 79 18 124/76 93 Medications Administered Current Inpatient Medications Acetaminophen (Acetaminophen 325 Mg Tab) 650 mg PO Q4H PRN PRN Reason: Pain or Fever Stop: 05/05/22 00:20 Last Admin: 04/05/22 23:33 Dose: 650 mg Documented by: Albuterol (Albuterol Hfa 8 Gm Inhaler) 2 puffs INH Q6H PRN PRN Reason: Wheezing Stop: 05/05/22 00:45 Aspirin (Aspirin 81 Mg Ectab) 81 mg PO HS [facility] Stop: 05/05/22 20:59 Last Admin: 04/06/22 20:23 Dose: 81 mg Documented by: Benzonatate (Benzonatate 100 Mg Capsule) 100 mg PO TID [facility] Stop: 05/05/22 00:29 Last Admin: 04/07/22 09:02 Dose: 100 mg Documented by: Citalopram Hydrobromide (Citalopram 20 Mg Tab) 20 mg PO QAM [facility] Stop: 05/05/22 08:59 Last Admin: 04/07/22 09:02 Dose: 20 mg Documented by: Clopidogrel Bisulfate (Clopidogrel Bisulfate 75 Mg Tab) 75 mg PO QAM [facility] Stop: 05/05/22 08:59 Last Admin: 04/07/22 09:02 Dose: 75 mg Documented by: Enoxaparin Sodium (Enoxaparin Inj 40 Mg/0.4 Ml Syr) 40 mg SQ Q24H [facility] Stop: 05/05/22 08:59 Last Admin: 04/07/22 09:02 Dose: 40 mg Documented by: Fluticasone Furoate (Fluticasone Furoate 100mcg 14 Puffs/Inhaler) 1 puffs INH DAILY PRN PRN Reason: Shortness Of Breath Stop: 05/05/22 05:41 Guaifenesin/Codeine Phosphate (Guaifenesin/Codeine 100mg/10mg 5ml Udc) 5 ml PO Q6H PRN PRN Reason: Cough Stop: 05/05/22 00:27 Last Admin: 04/07/22 05:17 Dose: 5 ml Documented by: Metoprolol Succinate (Metoprolol Succ 25mg Ext Rel Tab) [facility] Stop: 05/05/22 08:59 Last Admin: 04/07/22 09:02 Dose: 25 mg Documented by: Montelukast Sodium (Montelukast Sodium 10 Mg Tablet) 10 mg PO [facility] Stop: 05/05/22 20:59 Last Admin: 04/06/22 20:22 Dose: 10 mg Documented by: Morphine Sulfate (Morphine Sulfate 4 Mg/Ml 1 Ml Carp\Vial) 3 mg IV Q4H PRN PRN Reason: Pain Stop: 04/19/22 00:20 Last Admin: 04/06/22 23:44 Dose: 3 mg Documented by: Multivitamins/Minerals (Cerovite Adv Formula Tab) [facility] tab [facility] Stop: 05/05/22 08:59 Last Admin: 04/07/22 09:02 Dose: 1 tab Documented by: Nitroglycerin (Nitroglycerin Sl 0.4 Mg/Tab Tab) 0.4 mg SL UD PRN PRN Reason: Chest Pain Stop: 05/05/22 00:20 Rosuvastatin Calcium (Rosuvastatin Calcium 20 Mg Tab) [facility] Stop: 05/05/22 08:59 Last Admin: 04/07/22 09:02 Dose: 20 mg Documented by: Umeclidinium/Vilanterol (Umeclidinium/Vilanterol 62.5/25mcg 7 Puffs/Inhaler) 1 puffs INH DAILY PRN PRN Reason: SHORTNESS OF BREATH Stop: 05/05/22 05:42 Vitamin D (Cholecalciferol 5,000 Units 125 Mcg Tab) 5,000 units [facility] Stop: 05/05/22 08:59 Last Admin: 04/07/22 09:02 Dose: 5,000 units Documented by:
[2022-04-07] MEDS: MoRPHine SULFATE 4 MG/ML 1 ML CARP\\VIAL IV PRN (20:47)
[2022-04-07] MEDS: MONTELUKAST SODIUM 10 MG TABLET PO SCH (20:54)
[2022-04-07] MEDS: ASPIRIN 81 MG ECTAB PO SCH (20:54)
[2022-04-08 07:03] LABS: Basophils # (auto) 0.02 K/uL (0-0.2); Basophils % (auto) 0.2 %; Eosinophils % (auto) 1.1 %; Hematocrit (blood only) 36.5 % (42-52); Hemoglobin 12.2 g/dL (14.0-18.0); Immature Granulocytes # (auto) 0.02 K/uL (0.00-0.02); Immature Granulocytes % (auto) 0.2 %; Lymphocytes # (auto) 1.63 K/uL (1.2-3.4); Lymphocytes % (auto) 18.7 %; Mean Corpuscular Hemoglobin 29.7 pg (25-34); Mean Corpuscular Hgb Conc 33.4 g/dL (32-36); Mean Corpuscular Volume 88.8 fL (80-100); Mean Platelet Volume 9.8 fL (7.4-10.4); Monocytes # (auto) 0.82 K/uL (0.11-0.59); Monocytes % (auto) 9.4 %; Neutrophils # (auto) 6.13 K/uL (1.4-6.5); Neutrophils % (auto) 70.4 %; Platelet Count 231 K/uL (130-400); RDW Coefficient of Variation 15.4 % (11.5-14.5); Red Blood Count 4.11 M/uL (4.7-6.1); White Blood Count 8.72 K/uL (4.8-10.8)
[2022-04-08 07:28] LABS: BUN Creatinine Ratio 14.3 (10-20); Calcium 8.9 mg/dl (8.5-10.1); Est GFR (Non-African American) 86.3 ml/min
[2022-04-08] MEDS: ROSUVASTATIN CALCIUM 20 MG TAB PO SCH (08:32)
[2022-04-08] MEDS: CHOLECALCIFEROL 5,000 UNITS 125 MCG TAB PO SCH (08:32)
[2022-04-08] MEDS: METOPROLOL SUCC 25MG EXT REL TAB PO SCH (08:32)
[2022-04-08] MEDS: BENZONATATE 100 MG CAPSULE PO SCH ×2 (08:32→13:25)
[2022-04-08] MEDS: CITALOPRAM 20 MG TAB PO SCH (08:32)
[2022-04-08] MEDS: ENOXAPARIN INJ 40 MG/0.4 ML SYR SQ SCH (08:33)
[2022-04-08] MEDS: CLOPIDOGREL BISULFATE 75 MG TAB PO SCH (08:33)
[2022-04-08] MEDS: CEROVITE ADV FORMULA TAB PO SCH (08:33)
--- NOTE | 2022-04-08 12:18 | XRay Report ---
XR chest 1V portable CLINICAL HISTORY: Covid Pneumonia TECHNIQUE: Single frontal radiograph of the chest was obtained. Comparison: Comparison is made to chest radiograph 04/04/2022 FINDINGS: No lines and tubes are seen. The cardiomediastinal silhouette is stable. No well-defined airspace opa cities are seen. No evidence of pleural effusion or pneumothorax. Degenerative changes are seen in th e bilateral shoulder joints. IMPRESSION: No acute abnormalities and in particular no evidence of pneumonia. Stable mild cardiomegaly is seen. ACT 112: Negative or not required by law. Electronically signed by: Ry Montelongo M.D. 04/08/2022 12:16 PM
--- NOTE | 2022-04-08 13:29 | Hospitalist Progress Note ---
Date of Service April 08, 2022 Assessment & Plan (1) COVID-19 virus infection: Plan: Received 2 doses of Moderna vaccine Diagnosed with COVID 19 virus infection 2 weeks ago and received 4 days of oral prednisone Ongoing symptoms of cough and weakness with exertional shortness of breath COVID 19 virus infection remains positive No requirements of oxygen No treatments were given Has cough and weakness-we will observe Clinically much better and will have chest x-ray tomorrow He feels physically and mentally ready to go and has been ambulating in the room without any difficulties His chest x-ray did not show any evidence of pneumonia He passed to a step O2 saturation test He will be discharged home this afternoon (2) Chronic systolic (congestive) heart failure: Plan: History of CAD with CHF Echo was done 1 01/20/2022 with EF of 40 to 45% No evidence of any acute fluid overload or any other cardiac symptoms Remains stable-denies any symptoms of fluid overload and/or CHF (3) Coronary artery disease: Plan: History of non-ST elevation [place] and status post stent placement No acute symptoms (4) Sleep apnea: (5) COPD (chronic obstructive pulmonary disease): Plan: Does not have any exacerbation Will continue current medications including inhalers (6) Diabetes mellitus, type 2: Plan: We will check hemoglobin A1c-6.0 (7) Hypertension: Plan: Blood pressure remains stable Other significant medical conditions remain stable DVT prophylaxis Subcu Lovenox CODE STATUS Full Feels physically stable to go home Admission and Anticipated Discharge Date Admission Date: April 04, 2022 Subjective 04/05/2022 The patient was seen and examined in medical telemetry unit and in the COVID room He complains to have ongoing cough and extremely tired Denies any fever and or chills and does not require any oxygen to maintain saturation 04/06/2022 Patient was seen and examined in medical telemetry unit and in the COVID room He is a little better but he still has cough without phlegm and generalized weakness Saturating normally on room air and denies any GI symptoms 04/07/2022 The patient was seen and examined in medical telemetry unit and in the COVID room His condition is much improved but he still remains weak and lethargic We will get PT and OT evaluation before discharge and the 2 steps 04/08/2022 The patient was seen and examined in medical telemetry unit and in the COVID room He has been doing much better and wants to go home today He is mentally and physically ready to be discharged Denies any significant symptoms except cough He has been moving around in the room Review of Systems Review of Systems: Sitting at the edge of the bed without any acute distress Respiratory: No shortness of breath at rest Physical Exam Physical Exam: Sitting at the edge of the bed Constitutional: well developed, well nourished, + ill appearing and + obese Eyes: PERRL, conjunctivae normal, anicteric sclerae ENMT: external ear and nose normal, oropharynx normal Neck: trachea midline, no thyromegaly Respiratory: no respiratory distress Auscultation: + diminished lung sounds (Bibasally); no crackles (Minimal crackles bibasslly) Cardiovascular: Rate/Rhythm: regular rate and regular rhythm; not tachycardic Heart Sounds: normal S1 and normal S2; no murmur Extremities: no edema Gastrointestinal (Abdomen): Inspection/Auscultation: normal bowel sounds; abdomen not distended Percussion/Palpation: abdomen soft; abdomen nontender Musculoskeletal: No acute arthritis in any joint Neurologic: normal touch/pain/proprioception, moves all extremities and + focal motor deficit Psychiatric: A+Ox3, euthymic affect Lymphatic: no cervical or axillary lymphadenopathy Results & Data Results & Data ([facility]) Vital Signs (Past 12 Hours) Vital Signs Temp Pulse Pulse Pulse Pulse Pulse Resp 04/08/22 12:28 36.8 C 79 16 04/08/22 12:01 94 H 87 66 04/08/22 08:30 36.6 C 88 16 04/08/22 06:01 68 04/08/22 03:13 36.9 C 81 18 Resp Resp Resp BP Pulse Ox Pulse Ox Pulse Ox 04/08/22 12:28 113/74 95 04/08/22 12:01 24 20 18 94 95 04/08/22 08:30 121/76 93 04/08/22 06:01 04/08/22 03:13 130/75 92 Pulse Ox 04/08/22 12:28 04/08/22 12:01 94 04/08/22 08:30 04/08/22 06:01 04/08/22 03:13 Laboratory Results Short CBC 04/08/22 Range/Units 06:19 WBC 8.72 (4.8-10.8) K/uL Hgb 12.2 L (14.0-18.0) g/dL Hct 36.5 L (42-52) % Plt Count 231 (130-400) K/uL [place] 04/08/22 06:19 Sodium 136 Potassium 4.0 Chloride 101 Carbon Dioxide 29 BUN 12 Creatinine 0.84 Glucose 100 H Calcium 8.9 Medications Administered Current Inpatient Medications Acetaminophen (Acetaminophen 325 Mg Tab) 650 mg PO Q4H PRN PRN Reason: Pain or Fever Stop: 05/05/22 00:20 Last Admin: 04/05/22 23:33 Dose: 650 mg Documented by: Albuterol (Albuterol Hfa 8 Gm Inhaler) 2 puffs INH Q6H PRN PRN Reason: Wheezing Stop: 05/05/22 00:45 Aspirin (Aspirin 81 Mg Ectab) 81 mg PO HS [facility] Stop: 05/05/22 20:59 Last Admin: 04/07/22 20:54 Dose: 81 mg Documented by: Benzonatate (Benzonatate 100 Mg Capsule) 100 mg PO TID [facility] Stop: 05/05/22 00:29 Last Admin: 04/08/22 13:25 Dose: 100 mg Documented by: Citalopram Hydrobromide (Citalopram 20 Mg Tab) [facility] Stop: 05/05/22 08:59 Last Admin: 04/08/22 08:32 Dose: 20 mg Documented by: Clopidogrel Bisulfate (Clopidogrel Bisulfate 75 Mg Tab) 75 mg PO QAM [facility] Stop: 05/05/22 08:59 Last Admin: 04/08/22 08:33 Dose: 75 mg Documented by: Enoxaparin Sodium (Enoxaparin Inj 40 Mg/0.4 Ml Syr) 40 mg SQ Q24H [facility] Stop: 05/05/22 08:59 Last Admin: 04/08/22 08:33 Dose: 40 mg Documented by: Fluticasone Furoate (Fluticasone Furoate 100mcg 14 Puffs/Inhaler) 1 puffs INH DAILY PRN PRN Reason: Shortness Of Breath Stop: 05/05/22 05:41 Guaifenesin/Codeine Phosphate (Guaifenesin/Codeine 100mg/10mg 5ml Udc) 5 ml PO Q6H PRN PRN Reason: Cough Stop: 05/05/22 00:27 Last Admin: 04/07/22 16:08 Dose: 5 ml Documented by: Metoprolol Succinate (Metoprolol Succ 25mg Ext Rel Tab) 25 mg PO [facility] Stop: 05/05/22 08:59 Last Admin: 04/08/22 08:32 Dose: 25 mg Documented by: Montelukast Sodium (Montelukast Sodium 10 Mg Tablet) 10 mg PO [facility] Stop: 05/05/22 20:59 Last Admin: 04/07/22 20:54 Dose: 10 mg Documented by: Morphine Sulfate (Morphine Sulfate 4 Mg/Ml 1 Ml Carp\Vial) 3 mg IV Q4H PRN PRN Reason: Pain Stop: 04/19/22 00:20 Last Admin: 04/07/22 20:47 Dose: 3 mg Documented by: Multivitamins/Minerals (Cerovite Adv Formula Tab) 1 tab PO [facility] Stop: 05/05/22 08:59 Last Admin: 04/08/22 08:33 Dose: 1 tab Documented by: Nitroglycerin (Nitroglycerin Sl 0.4 Mg/Tab Tab) 0.4 mg SL UD PRN PRN Reason: Chest Pain Stop: 05/05/22 00:20 Rosuvastatin Calcium (Rosuvastatin Calcium 20 Mg Tab) 20 mg PO [facility] Stop: 05/05/22 08:59 Last Admin: 04/08/22 08:32 Dose: 20 mg Documented by: Umeclidinium/Vilanterol (Umeclidinium/Vilanterol 62.5/25mcg 7 Puffs/Inhaler) 1 puffs INH DAILY PRN PRN Reason: SHORTNESS OF BREATH Stop: 05/05/22 05:42 Vitamin D (Cholecalciferol 5,000 Units 125 Mcg Tab) 5,000 units PO [facility] Stop: 05/05/22 08:59 Last Admin: 04/08/22 08:32 Dose: 5,000 units Documented by:
--- NOTE | 2022-04-09 07:47 | Discharge Summary ---
Date of Service April 09, 2022 Admission HPI Per Admitting Provider DICTATED BY:Dewayne Carlson MD DATE OF ADMISSION: 04/04/2022. CHIEF COMPLAINT: COVID pneumonia, shortness of breath on exertion. HISTORY OF PRESENT ILLNESS: A 72-year-old male with past medical history significant for hyperlipidemia, type 2 diabetes, asthma, sleep apnea, seems to be noncompliant with CPAP, hypertension, bilateral carotid artery stenosis, history of TIA, history of ischemic cardiomyopathy, history of CVA, obesity, anxiety, spinal stenosis, presents with shortness of breath on exertion. The patient says he was diagnosed with COVID a couple of weeks ago, he was treated with 4 days of prednisone, but he says he still has a lot of cough and yesterday was feeling a lot of cold, chills. He thinks he might have had fever and has generalized weakness, poor appetite, not getting better, and minimal exertion, feeling short of breath. On presentation in the ER, he was also hypotensive. With a fluid bolus, the blood pressure improved. Currently resting, saturating okay at 93% on room air. Had headache earlier, that is okay now. Denies any blurred visions, no earache, no runny nose, no sore throat. No nausea, no vomiting, no chest pain, no abdominal pain. Normal bowel and bladder movements. No swelling in the legs.There was question of confusion and questionable brief facial droop as per family per Nursing staff. Admission Exam Per Admitting Provider GENERAL: The patient is of moderate build, not in acute distress. VITAL SIGNS: Temperature 36.9, pulse 81, respiratory rate 17, blood pressure 108/47, oxygen 93% on room air. HEENT: Pupils equal, round and reactive to light. Oral mucosa moist. NECK: No JVD. No neck masses. CARDIOVASCULAR: S1 and S2 heard. Regular rate and rhythm. No murmur, no gallop. RESPIRATORY SYSTEM: Normal AP diameter. No accessory muscle use. No wheezing, no crackles. ABDOMEN: Soft. Bowel sounds are present, nontender, nondistended. CENTRAL NERVOUS SYSTEM: Cranial nerves II-XII grossly intact, nonfocal. EXTREMITIES: No edema, no erythema. Principal Diagnosis COVID-19 virus infection, generalized weakness-improved, chronic systolic CHF, CAD, type 2 diabetes Discharge Exam Sitting at the edge of the bed Constitutional well developed, well nourished, + ill appearing and + obese Eyes PERRL, conjunctivae normal, anicteric sclerae ENMT external ear and nose normal, oropharynx normal Neck trachea midline, no thyromegaly Respiratory no respiratory distress Auscultation: + diminished lung sounds (Bibasally); no crackles (Minimal crackles bibasslly) Cardiovascular Rate/Rhythm: regular rate and regular rhythm; not tachycardic Heart Sounds: normal S1 and normal S2; no murmur Extremities: no edema Gastrointestinal (Abdomen) Inspection/Auscultation: normal bowel sounds; abdomen not distended Percussion/Palpation: abdomen soft; abdomen nontender Neurologic normal touch/pain/proprioception, moves all extremities and + focal motor deficit Psychiatric A+Ox3, euthymic affect Lymphatic no cervical or axillary lymphadenopathy Discharge Data Allergies Allergy/AdvReac Type Severity Reaction Status Date / Time fenoprofen Allergy Severe SYNCOPE Verified 04/04/22 19:09 Consultations 04/04/22 20:18 ED Decision to Admit Stat Ordered Studies 04/04/22 17:34 CT head/brain wo con Stat 04/04/22 22:32 CT angio chest PE protocol Urgent Hospital Course (1) COVID-19 virus infection: Received 2 doses of Moderna vaccine Diagnosed with COVID 19 virus infection 2 weeks ago and received 4 days of oral prednisone Ongoing symptoms of cough and weakness with exertional shortness of breath COVID 19 virus infection remains positive No requirements of oxygen No treatments were given Has cough and weakness-we will observe Clinically much better and will have chest x-ray tomorrow He feels physically and mentally ready to go and has been ambulating in the room without any difficulties His chest x-ray did not show any evidence of pneumonia He passed to a step O2 saturation test He will be discharged home this afternoon (2) Chronic systolic (congestive) heart failure: History of CAD with CHF Echo was done 1 01/20/2022 with EF of 40 to 45% No evidence of any acute fluid overload or any other cardiac symptoms Remains stable-denies any symptoms of fluid overload and/or CHF (3) Coronary artery disease: History of non-ST elevation UT and status post stent placement No acute symptoms (4) Sleep apnea: (5) COPD (chronic obstructive pulmonary disease): Does not have any exacerbation Will continue current medications including inhalers (6) Diabetes mellitus, type 2: We will check hemoglobin A1c-6.0 (7) Hypertension: Blood pressure remains stable Other significant medical conditions remain stable DVT prophylaxis Subcu Lovenox CODE STATUS Full Feels physically stable to go home Total Time Total Time Spent Total Time Spent (In Minutes): 35 minutes Discharge Plan Discharge Items Patient Disposition: Home - Self-Care Reason For Visit: SOB Discharge Diagnosis: COVID-19 virus infection, generalized weakness-improved, chronic systolic CHF, CAD, type 2 diabetes Condition on Discharge: Fair Activity: Resume your previous activity Non-emergency contact: Primary Care Provider Call non-emergency contact if: you have any medication questions and your symptoms worsen Follow-up/Referrals: Nisha Lafleur M.D. [Primary Care Provider] - (Your doctor's office will give you a call with an appointment within 7 days) Diet: Carb Consistent or DM2 and Heart Healthy Fluids: 1500ml (6 cups) Addtl Attending Provider Instructions: Please take precautions to avoid fall You will need to be in isolation for 1 more day at home and use mask for 5 more days. No change in new medications Will need to see her primary care physician within 7 days Home Isolation COVID-19 Instructions The following information about Home Isolation is from the CDC Website: https://www.cdc.gov/coronavirus/2019-ncov/hcp/pjlrikhi-terfdew-inzrmb.html Stay home except to get medical care People who are mildly ill with COVID-19 are able to isolate at home during their illness. You should restrict activities outside your home, except for getting medical care. Do not go to work, school, or public areas. Avoid using public transportation, ride-sharing, or taxis. Separate yourself from other people and animals in your home People: As much as possible, you should stay in a specific room and away from other people in your home. Also, you should use a separate bathroom, if available. Animals: You should restrict contact with pets and other animals while you are sick with COVID-19, just like you would around other people. Although there have not been reports of pets or other animals becoming sick with COVID-19, it is still recommended that people sick with COVID-19 limit contact with animals until more information is known about the virus. When possible, have another member of your household care for your animals while you are sick. If you are sick with COVID-19, avoid contact with your pet, including petting, snuggling, being kissed or licked, and sharing food. If you must care for your pet or be around animals while you are sick, wash your hands before and after you interact with pets and wear a face mask. Call ahead before visiting your doctor If you have a medical appointment, call the healthcare provider and tell them that you have or may have COVID-19. This will help the healthcare providers office take steps to keep other people from getting infected or exposed. Wear a face mask You should wear a face mask when you are around other people (e.g., sharing a room or vehicle) or pets and before you enter a healthcare providers office. If you are not able to wear a face mask (for example, because it causes trouble breathing), then people who live with you should not stay in the same room with you, or they should wear a face mask if they enter your room. Cover your coughs and sneezes Cover your mouth and nose with a tissue when you cough or sneeze. Throw used tissues in a lined trash can. Immediately wash your hands with soap and water for at least 20 seconds or, if soap and water are not available, clean your hands with an alcohol-based hand clipping marker that contains at least 60% alcohol. Clean your hands often Wash your hands often with soap and water for at least 20 seconds, especially after blowing your nose, coughing, or sneezing; going to the bathroom; and before eating or preparing food. If soap and water are not readily available, use an alcohol-based hand clipping marker with at least 60% alcohol, covering all surfaces of your hands and rubbing them together until they feel dry. Soap and water are the best option if hands are visibly dirty. Avoid touching your eyes, nose, and mouth with unwashed hands. Avoid sharing personal household items You should not share dishes, drinking glasses, cups, eating utensils, towels, or bedding with other people or pets in your home. After using these items, they should be washed thoroughly with soap and water. Clean all high-touch surfaces everyday High touch surfaces include counters, tabletops, doorknobs, bathroom fixtures, toilets, phones, keyboards, tablets, and bedside tables. Also, clean any surfaces that may have blood, stool, or body fluids on them. Use a household cleaning spray or wipe, according to the label instructions. Labels contain instructions for safe and effective use of the cleaning product including precautions you should take when applying the product, such as wearing gloves and making sure you have good ventilation during use of the product. Monitor your symptoms Seek prompt medical attention if your illness is worsening (e.g., difficulty breathing).Beforeseeking care, call your healthcare provider and tell them that you have, or are being evaluated for, COVID-19. Put on a face mask before you enter the facility. These steps will help the healthcare providers office to keep other people in the office or waiting room from getting infected or exposed. Ask your healthcare provider to call the local or [facility] health department. Persons who are placed under active monitoring or facilitated self- monitoring should follow instructions provided by their local health department or occupational health professionals, as appropriate. When working with your local health department check their available hours. If you have a medical emergency and need to call 911, notify the dispatch personnel that you have, or are being evaluated for COVID-19. If possible, put on a face mask before emergency medical services arrive. Discontinuing home isolation Patients with confirmed COVID-19 should remain under home isolation precautions until the risk of secondary transmission to others is thought to be low. The decision to discontinue home isolation precautions should be made on a [id number] basis, in consultation with healthcare providers and [facility] and local health departments. Pending Studies at Discharge: No Stand-Alone Forms: [facility], Smoking Cessation Medications and DC Order Prescriptions: New benzonatate 100 mg Capsule 100 mg PO TID 10 Days Qty: 30 RF: 0 Continued metformin 500 mg tablet 500 mg PO QAM RF: 0 clopidogrel 75 mg tablet 75 mg PO QAM RF: 0 citalopram 20 mg tablet 20 mg PO QAM RF: 0 lisinopril 2.5 mg tablet 2.5 mg PO QAM RF: 0 rosuvastatin 20 mg tablet 20 mg PO QAM RF: 0 aspirin 81 mg Tablet,Delayed Release (Dr/Ec) 81 mg PO HS RF: 0 montelukast [Singulair] 10 mg Tablet 10 mg PO HS RF: 0 cholecalciferol (vitamin D3) [Vitamin D3] 5,000 unit Tablet 5,000 unit PO QAM RF: 0 PreserVision AREDS-2 [id number] zi-[id number]-[id number]-mg Capsule 1 tab PO BID RF: 0 fluticasone propion-salmeterol [Advair Diskus] 500-50 mcg/dose Blister With Device 2 inh INHALATION BID PRN (Reason: Shortness Of Breath) RF: 0 metoprolol succinate 50 mg tablet extended release 24 hr 25 mg PO QAM RF: 0 Incruse Ellipta 62.5 mcg/actuation Blister With Device 1 inh INHALATION DAILY PRN (Reason: Shortness Of Breath) RF: 0 Trelegy Ellipta 100-62.5-25 mcg Blister With Device 1 inh INHALATION DAILY PRN (Reason: Shortness Of Breath) RF: 0 albuterol sulfate [ProAir HFA] 90 mcg/actuation HFA aerosol inhaler 2 puff INHALATION Q6H PRN (Reason: Wheezing) RF: 0 Discharge Orders: Discharge Order (Routine); Ordered 04/08/22 Ordered By: Crystal Dahl/Other Patient Handouts: Managing Type 2 Diabetes Admission Data Admit Date/Time: 04/04/22 22:32 Attending Provider: Crystal Martinez Admit Provider: Dewayne Carlson Primary Care Provider: Nisha Lafleur Other Providers: Dewayne Carlson ; [facility] Other Interventions: Discharge Summary Assessment (RN) Last Done: 04/08/22 13:51
== END 2022-04-08 16:05 | disposition home or self-care (01) ==
LOC: ED 17:14 → 2N 22:32 → INTOOBSV 22:32 → 2N 23:11

== ENCOUNTER 2022-05-03 14:54 | Observation (INO) ==
--- NOTE | 2022-05-03 15:35 | XRay Report ---
XR chest 1V portable CLINICAL HISTORY: Atypical chest pain TECHNIQUE: Single frontal radiograph of the chest was obtained. Comparison: Comparison is made to chest radiograph 04/08/2022 FINDINGS: No lines and tubes are seen. The cardiomediastinal silhouette is normal. The lungs are clear. No evid ence of pleural effusion or pneumothorax. IMPRESSION: No acute chest disease. ACT 112: Negative or not required by law. Electronically signed by: Ry Montelongo M.D. 05/03/2022 3:34 PM
[2022-05-03 15:52] LABS: Basophils # (auto) 0.04 K/uL (0-0.2); Basophils % (auto) 0.6 %; Eosinophils # (auto) 0.07 K/uL (0-0.5); Eosinophils % (auto) 1.1 %; Hematocrit (blood only) 35.4 % (42-52); Hemoglobin 12.1 g/dL (14.0-18.0); Immature Granulocytes # (auto) 0.02 K/uL (0.00-0.02); Immature Granulocytes % (auto) 0.3 %; Lymphocytes # (auto) 1.68 K/uL (1.2-3.4); Lymphocytes % (auto) 26.9 %; Mean Corpuscular Hemoglobin 31.6 pg (25-34); Mean Corpuscular Hgb Conc 34.2 g/dL (32-36); Mean Corpuscular Volume 92.4 fL (80-100); Mean Platelet Volume 10.1 fL (7.4-10.4); Monocytes # (auto) 0.52 K/uL (0.11-0.59); Monocytes % (auto) 8.3 %; Neutrophils # (auto) 3.92 K/uL (1.4-6.5); Neutrophils % (auto) 62.8 %; Platelet Count 198 K/uL (130-400); RDW Standard Deviation 54.5 fL (36.4-46.3); Red Blood Count 3.83 M/uL (4.7-6.1); White Blood Count 6.25 K/uL (4.8-10.8)
[2022-05-03] MEDS ORDERED: NITROGLYCERIN 2% OINTMENT 30GM TUBE EXT STA (15:52)
[2022-05-03] MEDS ORDERED: ASPIRIN CHEW 324 MG PO STA (15:52)
--- NOTE | 2022-05-03 15:58 | Emergency Department Note ---
Impression & Plan Precordial chest pain, Anemia, History of coronary artery disease ED Provider Note NAME: MAREK MARC AGE: 72 SEX: M : 1950 ARRIVES VIA: Walk-In INFORMANT: [Patient] ED PROVIDER(S): [Steve Castro MD] CHIEF COMPLAINT: Chest pain HISTORY OF PRESENT ILLNESS: The patient is a 72-year-old male presents to the ER with central to left chest pain that started about 2 hours ago. The patient was doing some work cleaning his car. He felt dizzy and tight across the chest. The pain was a 7. No pain radiation. No shortness of breath, sweating or nausea. He took a total of 2 nitroglycerin and the pain reduced markedly to now being just very mild. The severe pain lasted for about 15 minutes. The patient has a history of cardiac stenting x1. He has had a mini stroke with a carotid stent. He states that he thinks his nitroglycerin was pretty old, it has not been used since around 2018. The patient denies cough or congestion. He has been in baseline health. REVIEW OF SYSTEMS: See HPI for pertinent positives and negatives. A total of ten systems were reviewed and were otherwise negative. PMHx/PSHx: See Below SOCIAL HISTORY: See Below. PHYSICAL EXAM: GENERAL: Patient is in no acute distress. HEENT: No acute trauma, normocephalic atraumatic, mucous membranes moist, no nasal congestion, no scleral icterus. NECK: No stridor, no adenopathy, no meningismus, trachea is midline. LUNGS: Clear to auscultation bilaterally, no wheeze, no rhonchi, breath sounds equal. HEART: Without murmurs gallops or rubs, regular rate and rhythm. ABDOMEN: Soft, nontender, bowel sounds positive, no peritonitis. EXTREMITIES: No cyanosis or edema, full range of motion of all the joints without pain or difficulty, no signs for acute trauma. NEUROLOGIC: Oriented x 3, no acute motor or sensory deficits, no focal weakness. SKIN: No rash, no jaundice, no diaphoresis. DIFFERENTIAL DIAGNOSIS: Cardiac ischemia, aortic dissection, pulmonary embolism, pneumothorax, pneumonia, pericarditis, myocarditis, esophageal rupture, GERD, cholecystitis, pancreatitis, musculoskeletal, as well as other pathologies. EMERGENCY DEPARTMENT COURSE/PROCEDURES: ECG: Indication was chest pain. The ECG shows a normal sinus rhythm with a rate of 89. There is some T wave inversion in the lateral leads. There is no ST elevation, no PVCs. The QTc is 442. Compared to an ECG from 04 Apr 2022, the T wave inversions appear somewhat improved. Continuous Cardiac Monitoring: An order was placed for continuous cardiac monitoring. The monitor shows a rate of 79 with normal sinus rhythm. MEDICAL DECISION MAKING: There is no leukocytosis. The patient is somewhat anemic with a hemoglobin of 12.1. The anemia appears baseline looking back at previous testing. There was a normal platelet count. No coagulopathy. No renal failure or significant electrolyte abnormality. No concerning liver enzyme elevation. The patient appeared to be in a euthyroid state. ECG showed a normal sinus rhythm, no ST elevation. Cardiac enzyme testing x1 is not consistent with acute cardiac injury. COVID test returned negative. Chest x-ray did not show pneumonia or CHF. Patient presents with chest discomfort. He has a history of coronary artery disease with coronary stenting. He did feel improved with nitroglycerin taken prior to arrival. The patient was given nitroglycerin paste, 1 inch. He was ordered for oral aspirin. Given the patient's past history, given his complaints and his response to nitroglycerin, I do think further cardiac work-up is warranted. Hospitalization is indicated. 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 The on-call hospitalist was consulted. Past Med/Surg History Medical History (Updated 05/03/22 @ 23:01 by Steve Castro MD) Cardiac murmur in childhood; no further issues COPD (chronic obstructive pulmonary disease) inhaler prn Coronary artery disease "s/p non-STEMI 01/31/18, cath showed circ lesion and lesser disease in LAD and RCA, PCI circ with WALDO 02/02/18" Degenerative disc disease Depression Diabetes mellitus, type 2 Dyslipidemia Hypertension Macular degeneration of both eyes NSTEMI (non-ST elevated myocardial infarction) 01/31/18--follows with Dr. Laguna--plavix daily Sleep apnea cpap Stenosis of both vertebral arteries Transient ischemic attack (TIA) 02/2019--[place]. Itz Fernando [place] [facility] [place] Surgical History History of bilateral cataract extraction History of cardiac cath 02/02/2018 @ [facility] with 1 stent placed History of carotid angioplasty left side 1 stent placed [place] [facility] [place] History of colonoscopy History of lumbar spinal fusion History of tooth extraction all teeth removed Hx of vasectomy Status post coronary artery stent placement "PCI L circumflex with WALDO 02/02/18" Family History Other Family history not known due to adoption No pertinent family history Social History Smoking Status: Current every day smoker Tobacco Type: Cigarettes Cigarettes Per Day: 1/2 PPD; Second Hand Exposure: No; Hx Alcohol Use: No Hx Substance Use: No Preferred Language: Ukrainian Communication Ability: Effective 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 Beliefs That Will Affect Care: None marital status: Current Living Situation: Spouse Other Information That Helps Us Care for You: No Feels Safe at Home: Yes Safety Concerns: Feels Safe At This Time Assistive Devices: CPAP Allergies Allergies Allergy/AdvReac Type Severity Reaction Status Date / Time fenoprofen Allergy Severe SYNCOPE Verified 04/04/22 19:09 Home Meds Home Medications Medication Instructions Recorded Confirmed aspirin 81 mg tablet,delayed 81 mg PO HS 02/25/19 05/03/22 release cholecalciferol (vitamin D3) 125 5,000 unit PO QAM 02/25/19 05/03/22 mcg (5,000 unit) tablet (Vitamin D3) clopidogrel 75 mg tablet 75 mg PO QAM 02/25/19 05/03/22 lisinopril 2.5 mg tablet 2.5 mg PO QAM 02/25/19 05/03/22 metformin 500 mg tablet 500 mg PO QAM 02/25/19 05/03/22 montelukast 10 mg tablet 10 mg PO HS 02/25/19 05/03/22 (Singulair) rosuvastatin 20 mg tablet 20 mg PO QAM 02/25/19 05/03/22 vit C 250 mg-vit E 90 mg-zinc 40 1 tab PO BID 02/25/19 05/03/22 mg-copper 1 wi-qlicpa-ldwmpy capsule (PreserVision AREDS-2) fluticasone 500 mcg-salmeterol 50 2 inh INHALATION BID PRN 05/18/20 05/03/22 mcg/dose blistr powdr for inhalation (Advair Diskus) albuterol sulfate 90 mcg/actuation 2 puff INHALATION Q6H PRN 01/19/22 05/03/22 aerosol inhaler (ProAir HFA) fluticasone fur. 100 mcg-umeclid 1 inh INHALATION DAILY PRN 04/04/22 05/03/22 62.5 mcg-vilant 25 mcg inhalat.powder (Trelegy Ellipta) metoprolol succinate 50 mg 25 mg PO QAM 04/04/22 05/03/22 tablet,extended release 24 hr umeclidinium 62.5 mcg/actuation 1 inh INHALATION DAILY PRN 04/04/22 05/03/22 blister powder for inhalation (Incruse Ellipta) Results & Data (ED) Vital Signs Vital Signs - 24 hr 05/03/22 14:59 05/03/22 17:00 Temperature 36.2 C L Temperature Source Temporal Artery Scan Pulse Rate 79 Pulse Rate [Left Finger] 78 Pulse Rhythm [Left Finger] Regular Pulse Strength [Left Finger] Normal Respiratory Rate 16 20 Respiratory Effort / Characteristics Non-Labored Spontaneous Respiratory Depth Normal Normal Respiratory Pattern Regular Blood Pressure 129/69 Blood Pressure [Left Arm] 106/58 L Blood Pressure Mean 89 Blood Pressure Mean [Left Arm] 74 Blood Pressure Position [Left Arm] Lying Pulse Oximetry 97 98 Oxygen Delivery Method Room Air Room Air Sepsis Recent Fever Within 48 Hours No Sepsis New/Unexplained Change in Mental Status No Sepsis Action Taken by Nursing No Action Required Home Medications Current Medication List: was personally reviewed by me Laboratory Data Attestation: I reviewed the patient's lab results. Result diagrams: 05/03/22 15:27 05/03/22 15:27 Lab Results 05/03/22 05/03/22 05/03/22 Range/Units 15:15 15:27 15:27 WBC 6.25 (4.8-10.8) K/uL RBC 3.83 L (4.7-6.1) M/uL Hgb 12.1 L (14.0-18.0) g/dL Hct 35.4 L (42-52) % MCV 92.4 (80-100) fL MCH 31.6 (25-34) pg MCHC 34.2 (32-36) g/dL RDW Std Deviation 54.5 H (36.4-46.3) fL RDW Coeff of Adrian 16.0 H (11.5-14.5) % Plt Count 198 (130-400) K/uL MPV 10.1 (7.4-10.4) fL Immature Gran % (Auto) 0.3 % Neut % (Auto) 62.8 % Lymph % (Auto) 26.9 % [place] % (Auto) 8.3 % Eos % (Auto) 1.1 % Baso % (Auto) 0.6 % Neut # (Auto) 3.92 (1.4-6.5) K/uL Lymph # (Auto) 1.68 (1.2-3.4) K/uL [place] # (Auto) 0.52 (0.11-0.59) K/uL Eos # (Auto) 0.07 (0-0.5) K/uL Baso # (Auto) 0.04 (0-0.2) K/uL Immature Gran # (Auto) 0.02 (0.00-0.02) K/uL PT 10.9 (9.0-12.0) Seconds INR 1.0 (0.9-1.1) APTT 27.9 (21.0-31.0) Seconds PTT Ratio 1.0 Sodium (136-145) mmol/L Potassium (3.5-5.1) mmol/L Chloride (98-107) mmol/L Carbon Dioxide (21-32) mmol/L Anion Gap (3-11) BUN (6-23) mg/dl Creatinine (0.6-1.4) mg/dl Est Cr Clr Drug Dosing ml/min Est GFR ( Amer) ml/min Est GFR (Non-Af Amer) ml/min BUN/Creatinine Ratio (10-20) Glucose (70-99(Fasting)) mg/dl Calcium (8.5-10.1) mg/dl Magnesium (1.7-2.4) mg/dl Total Bilirubin (0.2-1.0) mg/dl AST (13-39) U/L ALT (7-52) U/L Alkaline Phosphatase (34-104) U/L Troponin I High Sens (0-20) pg/ml Total Protein (6.0-8.3) gm/dl Albumin (3.4-5.0) gm/dl Globulin (2.5-4.0) gm/dl Albumin/Globulin Ratio (0.9-2) TSH 1.226 (0.300-4.500) uIu/ml SARS-CoV-2, RNA, NAAT (NEGATIVE) 05/03/22 05/03/22 05/03/22 Range/Units 15:27 15:52 16:11 WBC (4.8-10.8) K/uL RBC (4.7-6.1) M/uL Hgb (14.0-18.0) g/dL Hct (42-52) % MCV (80-100) fL MCH (25-34) pg MCHC (32-36) g/dL RDW Std Deviation (36.4-46.3) fL RDW Coeff of Adrian (11.5-14.5) % Plt Count (130-400) K/uL MPV (7.4-10.4) fL Immature Gran % (Auto) % Neut % (Auto) % Lymph % (Auto) % [place] % (Auto) % Eos % (Auto) % Baso % (Auto) % Neut # (Auto) (1.4-6.5) K/uL Lymph # (Auto) (1.2-3.4) K/uL [place] # (Auto) (0.11-0.59) K/uL Eos # (Auto) (0-0.5) K/uL Baso # (Auto) (0-0.2) K/uL Immature Gran # (Auto) (0.00-0.02) K/uL PT (9.0-12.0) Seconds INR (0.9-1.1) APTT (21.0-31.0) Seconds PTT Ratio Sodium 141 (136-145) mmol/L Potassium 3.7 (3.5-5.1) mmol/L Chloride 110 H (98-107) mmol/L Carbon Dioxide 26 (21-32) mmol/L Anion Gap 5 (3-11) BUN 12 (6-23) mg/dl Creatinine 0.73 (0.6-1.4) mg/dl Est Cr Clr Drug Dosing 94.5 ml/min Est GFR ( Amer) 105.9 ml/min Est GFR (Non-Af Amer) 91.4 ml/min BUN/Creatinine Ratio 16.4 (10-20) Glucose 104 H (70-99(Fasting)) mg/dl Calcium 8.8 (8.5-10.1) mg/dl Magnesium 2.1 (1.7-2.4) mg/dl Total Bilirubin 0.4 (0.2-1.0) mg/dl AST 20 (13-39) U/L ALT 17 (7-52) U/L Alkaline Phosphatase 71 (34-104) U/L Troponin I High Sens 11.5 (0-20) pg/ml Total Protein 6.8 (6.0-8.3) gm/dl Albumin 3.7 (3.4-5.0) gm/dl Globulin 3.1 (2.5-4.0) gm/dl Albumin/Globulin Ratio 1.2 (0.9-2) TSH (0.300-4.500) uIu/ml SARS-CoV-2, RNA, NAAT NEGATIVE (NEGATIVE) Administered Medications Aspirin (Aspirin 81 Mg Ectab) 81 mg PO HS CONOR Stop: 06/02/22 20:59 Last Admin: 05/03/22 20:51 Dose: 81 mg Documented by: [id number] Insulin Aspart (Insulin Aspart Per Unit) 0 units SC [facility] CONOR Stop: 06/02/22 20:59 Last Admin: 05/03/22 20:25 Dose: Not Given Documented by: [id number] Cosigned by: [id number] Montelukast Sodium (Montelukast Sodium 10 Mg Tablet) 10 mg PO HS CONOR Stop: 06/02/22 20:59 Last Admin: 05/03/22 20:52 Dose: 10 mg Documented by: [id number] Discontinued Medications Aspirin (Aspirin Chew 324 Mg) 324 mg PO NOW STA Stop: 05/03/22 15:53 Last Admin: 05/03/22 16:07 Dose: 324 mg Documented by: [id number] Nitroglycerin (Nitroglycerin 2% Ointment 30gm Tube) 1 inch EXT NOW STA Stop: 05/03/22 15:53 Last Admin: 05/03/22 16:07 Dose: 1 inch Documented by: [id number] Imaging Data Radiologist's Impression: Chest X-Ray 05/03/22 15:23 XR chest 1V portable CLINICAL HISTORY: Atypical chest pain TECHNIQUE: Single frontal radiograph of the chest was obtained. Comparison: Comparison is made to chest radiograph 04/08/2022 FINDINGS: No lines and tubes are seen. The cardiomediastinal silhouette is normal. The lungs are clear. No evidence of pleural effusion or pneumothorax. IMPRESSION: No acute chest disease. ACT 112: Negative or not required by law. Electronically signed by: Ry Montelongo M.D. 05/03/2022 3:34 PM Discharge Plan Visit Data Chief Complaint: Chest Pain Stated Complaint: CHEST DISCOMFORT ED Provider: Steve Castro Discharge Problem: Precordial chest pain, Anemia, History of coronary artery disease Patient Disposition: Admitted As Inpatient Condition: Good Discharge Instructions Interventions: ED Discharge Assessment Last Done: 05/03/22 18:54
--- NOTE | 2022-05-03 16:05 | Electrocardiogram Report ---
Test Reason : Blood Pressure : / mmHG Vent. Rate : 089 BPM Atrial Rate : 089 BPM P-R Int : 166 ms QRS Dur : 092 ms QT Int : 364 ms P-R-T Axes : 062 -08 249 degrees QTc Int : 442 ms Normal sinus rhythm Nonspecific T wave abnormality Abnormal ECG When compared with ECG of 04-APR-2022 17:40, No significant change was found Confirmed by Donnell Godoy ([id number]) on 05/03/2022 4:04:51 PM Referred By: Confirmed By:Donnell Godoy
[2022-05-03 16:15] LABS: Partial Thromboplastin Time 27.9 Seconds (21.0-31.0); Prothrombin Time 10.9 Seconds (9.0-12.0)
[2022-05-03 16:27] LABS: Albumin Globulin Ratio 1.2 (0.9-2); Albumin Level 3.7 gm/dl (3.4-5.0); BUN Creatinine Ratio 16.4 (10-20); Bilirubin,Total 0.4 mg/dl (0.2-1.0); Calcium 8.8 mg/dl (8.5-10.1); Creatinine Clr Calc Pharmacy 94.5 ml/min; Est GFR (African American) 105.9 ml/min; Est GFR (Non-African American) 91.4 ml/min; Globulin 3.1 gm/dl (2.5-4.0); Potassium 3.7 mmol/L (3.5-5.1); Total Protein 6.8 gm/dl (6.0-8.3)
[2022-05-03 16:30] LABS: Troponin I High Sensitivity 11.5 pg/ml (0-20)
--- NOTE | 2022-05-03 17:11 | History & Physical Report ---
Date of Service May 03, 2022 Assessment & Plan (1) Chest pain: (2) Chronic systolic (congestive) heart failure: (3) Ventricular tachycardia (paroxysmal): (4) Hypertension: (5) Dyslipidemia: (6) Coronary artery disease: Plan: -Admit to [facility] with tele for observation - 01/2018 had PCI with stent to the Left circumflex aa - Last echo was 01/20/2022 with EF of 40 to 45%, mild MR, left ventricle mildly dilated -- will repeat - Trend cardiac biomarkers, initial set was negative - EKG reviewed as above without acute changes - Cardiology consult - PT/OT consulted - A1C and lipids with am labs for completeness - Cont metoprolol, lisionpril, rosuvastatin, plavix, aspirin (7) Diabetes mellitus, type 2: Plan: - Last A1C was 6.0 on 04/05/22 - ISS with accuchecks achs, hold metformin (8) COPD (chronic obstructive pulmonary disease): Plan: - may continue inhalers (9) Sleep apnea: Plan: - cpap hs DVT ppx: teds, scds, plavix and aspirin CODE:Full code Dispo: From home, observation, likely to remain in the hospital x 1 day History of Present Illness Chief Complaint: chest pain Primary Care Provider: Nisha Lafleur This is a 72 yo M with PMhx of HTN, ischemic cardiomyopathy, history of CVA, DM II, asthma, sleep apnea, seems to be noncompliant with CPAP, hbilateral carotid artery stenosis, history of TIA, history of obesity, anxiety, spinal stenosis, hx of COVID about 2 months ago, who presents with acute onset of chest pain. His is present with him at bedside. This morning at approximately 1030 to 11 AM while he was helping his clean out the inside of her car, he developed substernal chest pain without radiation, rated 8/10. He reports that he walked inside the house and sat down to try and catch his breath nd pain seemed to intensify. He proceeded to take with 1 nitro tab with minimal improvement, waited 5 minutes and then took another nitro tablet which improved his pain. He has never taken nitro before in the past. He has neve felt chest pain like this before. During his previous heart attack in 2018, did not experience symptoms including chest pain. Patient has been taking all his medications as routinely prescribed. He admits to smoking 0.5 PPD since age 16. Denies any alcohol use. Allergies Allergy/AdvReac Type Severity Reaction Status Date / Time fenoprofen Allergy Severe SYNCOPE Verified 04/04/22 19:09 Home Medications Medication Instructions Recorded Confirmed Type aspirin 81 mg tablet,delayed 81 mg PO HS 02/25/19 05/03/22 History release cholecalciferol (vitamin D3) 125 5,000 unit PO QAM 02/25/19 05/03/22 History mcg (5,000 unit) tablet (Vitamin D3) clopidogrel 75 mg tablet 75 mg PO QAM 02/25/19 05/03/22 History lisinopril 2.5 mg tablet 2.5 mg PO QAM 02/25/19 05/03/22 History metformin 500 mg tablet 500 mg PO QAM 02/25/19 05/03/22 History montelukast 10 mg tablet 10 mg PO HS 02/25/19 05/03/22 History (Singulair) rosuvastatin 20 mg tablet 20 mg PO QAM 02/25/19 05/03/22 History vit C 250 mg-vit E 90 mg-zinc 40 1 tab PO BID 02/25/19 05/03/22 History mg-copper 1 ls-rxwoac-onuuzu capsule (PreserVision AREDS-2) fluticasone 500 mcg-salmeterol 50 2 inh INHALATION BID PRN 05/18/20 05/03/22 History mcg/dose blistr powdr for inhalation (Advair Diskus) albuterol sulfate 90 mcg/actuation 2 puff INHALATION Q6H PRN 01/19/22 05/03/22 History aerosol inhaler (ProAir HFA) fluticasone fur. 100 mcg-umeclid 1 inh INHALATION DAILY PRN 04/04/22 05/03/22 History 62.5 mcg-vilant 25 mcg inhalat.powder (Trelegy Ellipta) metoprolol succinate 50 mg 25 mg PO QAM 04/04/22 05/03/22 History tablet,extended release 24 hr umeclidinium 62.5 mcg/actuation 1 inh INHALATION DAILY PRN 04/04/22 05/03/22 History blister powder for inhalation (Incruse Ellipta) Past Med/Surg History Medical History (Updated 05/03/22 @ 17:03 by Tammie Francis PA-C) Cardiac murmur in childhood; no further issues COPD (chronic obstructive pulmonary disease) inhaler prn Coronary artery disease "s/p non-STEMI 01/31/18, cath showed circ lesion and lesser disease in LAD and RCA, PCI circ with WALDO 02/02/18" Degenerative disc disease Depression Diabetes mellitus, type 2 Dyslipidemia Hypertension Macular degeneration of both eyes NSTEMI (non-ST elevated myocardial infarction) 01/31/18--follows with Dr. Laguna--plavix daily Sleep apnea cpap Stenosis of both vertebral arteries Transient ischemic attack (TIA) 02/2019--follows with Dr. Itz Fernando @ [facility] [place] on plavix daily Surgical History History of bilateral cataract extraction History of cardiac cath 02/02/2018 @ [facility] with 1 stent placed History of carotid angioplasty left side 1 stent placed @ [facility] [place] 02/2019 History of colonoscopy History of lumbar spinal fusion History of tooth extraction all teeth removed Hx of vasectomy Status post coronary artery stent placement "PCI L circumflex with WALDO 02/02/18" Family History Other Family history not known due to adoption No pertinent family history Social History Smoking Status: Current every day smoker Tobacco Type: Cigarettes Cigarettes Per Day: 1/2 PPD; Second Hand Exposure: No; Hx Alcohol Use: No Hx Substance Use: No Preferred Language: Divehi Communication Ability: Effective Security Sme Required: No Beliefs That Will Affect Care: None marital status: Current Living Situation: Spouse Other Information That Helps Us Care for You: No Feels Safe at Home: Yes Safety Concerns: Feels Safe At This Time Assistive Devices: CPAP Review of Systems Review of Systems: Constitutional: No fever, sweats or chills Eyes: No diplopia, no worsening or blurred vision ENT: normal hearing, no trouble swallowing Respiratory: No cough, sputum, dyspnea at rest or on exertion Cardiovascular: As per HPI, current chest pain/discomfort rated as 4/10 Abdomen: No pain, nausea, vomiting, diarrhea or constipation Musculoskeletal: No joint pain, calf pain, swelling Neurologic: No weakness, numbness/tingling, or balance problems Psychiatric: No anxiety or depression Skin: No rash or itch Physical Exam Physical Exam: General: awake, alert, no apparent distress, + obese with BMI of 30.7, smells of smoke Head: Normocephalic, atraumatic ENT: PERRL, EOMI, no pharyngeal exudate, mucous membranes moist Chest: Clear to auscultation, on room air, no adventitious breath sounds Cardiac: Regular rate and rhythm, + PVCs, no pain with chest wall palpation, no murmur, no JVD, normal peripheral pulses, good capillary refill Abdominal: NABS x 4 quadrants, soft, nondistended, nontender to palpation, no rebound or guarding Extremities: Normal inspection, no peripheral edema or erythema, calfs nontender to palpation Psych: Normal mood and affect Neuro: AAO x 3, strength intact bilaterally and rated 5/5, no motor deficits, speech is clear, no peripheral sensory deficits Results & Data Results & Data ([facility]) Vital Signs (Past 12 Hours) Vital Signs Temp Pulse Resp BP Pulse Ox 05/03/22 14:59 36.2 C L 79 16 129/69 97 Laboratory Results 05/03/22 05/03/22 05/03/22 16:11 15:27 15:27 WBC RBC Hgb Hct MCV MCH MCHC RDW Std Deviation RDW Coeff of Adrian Plt Count MPV Immature Gran % (Auto) Neut % (Auto) Lymph % (Auto) [place] % (Auto) Eos % (Auto) Baso % (Auto) Neut # (Auto) Lymph # (Auto) [place] # (Auto) Eos # (Auto) Baso # (Auto) Immature Gran # (Auto) PT 10.9 INR 1.0 APTT 27.9 PTT Ratio 1.0 Sodium 141 Potassium 3.7 Chloride 110 H Carbon Dioxide 26 Anion Gap 5 BUN 12 Creatinine 0.73 Est Cr Clr Drug Dosing 94.5 Est GFR ( Amer) 105.9 Est GFR (Non-Af Amer) 91.4 BUN/Creatinine Ratio 16.4 Glucose 104 H Calcium 8.8 Total Bilirubin 0.4 AST 20 ALT 17 Alkaline Phosphatase 71 Troponin I High Sens 11.5 Total Protein 6.8 Albumin 3.7 Globulin 3.1 Albumin/Globulin Ratio 1.2 TSH SARS-CoV-2, RNA, NAAT NEGATIVE 05/03/22 05/03/22 15:27 15:15 WBC 6.25 RBC 3.83 L Hgb 12.1 L Hct 35.4 L MCV 92.4 MCH 31.6 MCHC 34.2 RDW Std Deviation 54.5 H RDW Coeff of Adrian 16.0 H Plt Count 198 MPV 10.1 Immature Gran % (Auto) 0.3 Neut % (Auto) 62.8 Lymph % (Auto) 26.9 [place] % (Auto) 8.3 Eos % (Auto) 1.1 Baso % (Auto) 0.6 Neut # (Auto) 3.92 Lymph # (Auto) 1.68 [place] # (Auto) 0.52 Eos # (Auto) 0.07 Baso # (Auto) 0.04 Immature Gran # (Auto) 0.02 PT INR APTT PTT Ratio Sodium Potassium Chloride Carbon Dioxide Anion Gap BUN Creatinine Est Cr Clr Drug Dosing Est GFR ( Amer) Est GFR (Non-Af Amer) BUN/Creatinine Ratio Glucose Calcium Total Bilirubin AST ALT Alkaline Phosphatase Troponin I High Sens Total Protein Albumin Globulin Albumin/Globulin Ratio TSH 1.226 SARS-CoV-2, RNA, NAAT Diagnostic Findings Chest X-Ray 05/03/22 15:23 XR chest 1V portable CLINICAL HISTORY: Atypical chest pain TECHNIQUE: Single frontal radiograph of the chest was obtained. Comparison: Comparison is made to chest radiograph 04/08/2022 FINDINGS: No lines and tubes are seen. The cardiomediastinal silhouette is normal. The lungs are clear. No evidence of pleural effusion or pneumothorax. IMPRESSION: No acute chest disease. ACT 112: Negative or not required by law. Electronically signed by: Ry Montelongo M.D. 05/03/2022 3:34 PM ECG Additional Comments: 03-MAY-2022 14:59:18 [facility]-EDSTAT ROUTINE RETRIEVAL Normal sinus rhythm Nonspecific T wave abnormality Abnormal ECG When compared with ECG of 04-APR-2022 17:40, No significant change was found Confirmed by Donnell Godoy ([id number]) on 05/03/2022 4:04:51 PM 25mm/[id number]: [id number] By: Donnell Godoy Vent. rate 89 BPM UT interval 166 ms QRS duration 92 ms QT/QTc 364/442 ms Code Status & VTE Plan Code Status Full code - discussed with pt at bedside Supervising Physician Co-Signing Physician Notes Patient is a 72-year-old male with history of hypertension, ischemic cardiomyopathy, CVA, diabetes and other medical problems presents with history of sudden onset of retrosternal chest pain, nonradiating, improving with nitroglycerin use and rest, associated with some shortness of breath. Please review HPI for complete details of presentation. Blood work showed hemoglobin 12.1, WBC 6.25, platelet 198, sodium 141, potassium 3.7, chloride 11/10/2009, creatinine 0.73, glucose 104, magnesium 2.1, calcium 8.8, troponin 11.5, normal LFTs, TSH 1.2. Chest x-ray showed no acute process. EKG showed normal sinus rhythm, T wave changes which is unchanged from prior. On exam patient is moderately built and nourished, no apparent distress, normocephalic atraumatic, EOMI, normal breath sounds, clear to auscultation, S1-S2, no murmur, no pedal edema, abdomen soft, nontender, normal bowel sounds, alert, awake, oriented, grossly no focal deficits. Patient is admitted for management of chest pain rule out ACS. Given significant past medical history, will consult cardiology. Check resting echo. Trend cardiac enzymes and repeat EKG in the morning. Continue aspirin, Plavix, statin, metoprolol. Continue insulin for diabetes management. I personally reviewed the record. Patient is interviewed and examined at bedside. Patient's care is coordinated with Tammie Berrios. Please refer to the documentation above for details of patient's presentation and for discussion of other issues.
[2022-05-03] MEDS ORDERED: NITROGLYCERIN SL 0.4 MG/TAB TAB SL PRN (17:43)
[2022-05-03] MEDS ORDERED: CARBOHYDRATES FOR HYPOGLYCEMIA PO PRN (18:54)
[2022-05-03] MEDS ORDERED: GLUCOSE 10 TABS/TUBE PO PRN (18:54)
[2022-05-03] MEDS ORDERED: NON-FORMULARY MEDICATION (Fluticasone-Umeclidin-Vilanter [Trelegy Ellipta] 100-62.5-25 mcg INH PRN (18:54)
[2022-05-03] MEDS ORDERED: GLUCAGON FOR INJ 1 MG VIAL SQ PRN (18:54)
[2022-05-03] MEDS ORDERED: UMECLIDINIUM BROMIDE 62.5MCG/BLISTER 7 PUFFS/INHALER INH PRN (18:54)
[2022-05-03] MEDS ORDERED: GLUCOSE 40% GEL 15 GM TUBE PO PRN (18:54)
[2022-05-03] MEDS ORDERED: DEXTROSE 50% 50 ML SYRINGE IV PRN (18:54)
[2022-05-03] MEDS ORDERED: ACETAMINOPHEN 325 MG TAB PO PRN (18:54)
[2022-05-03] MEDS ORDERED: ONDANSETRON INJ 2 MG/ML 2 ML VIAL IV PRN (18:54)
[2022-05-03] MEDS ORDERED: ALBUTEROL HFA 8 GM INHALER INH PRN (19:28)
[2022-05-03] MEDS ORDERED: FLUTICASONE/VILANTEROL 200/25MCG 14 PUFFS/INHALER INH PRN (19:31)
[2022-05-03] MEDS: INSULIN ASPART PER UNIT SC SCH (20:25)
[2022-05-03] MEDS: ASPIRIN 81 MG ECTAB PO SCH (20:51)
[2022-05-03] MEDS: MONTELUKAST SODIUM 10 MG TABLET PO SCH (20:52)
[2022-05-03] MEDS ORDERED: NON-FORMULARY MEDICATION (Vit C,E-Zn-Coppr-Lutein-Zeaxan [Preservision Areds-2] 250-200-40 PO SCH (21:00)
[2022-05-04 07:39] LABS: Hematocrit (blood only) 34.9 % (42-52); Hemoglobin 11.4 g/dL (14.0-18.0); Mean Corpuscular Hemoglobin 30.3 pg (25-34); Mean Corpuscular Hgb Conc 32.7 g/dL (32-36); Mean Corpuscular Volume 92.8 fL (80-100); Mean Platelet Volume 9.9 fL (7.4-10.4); Platelet Count 185 K/uL (130-400); RDW Coefficient of Variation 16.2 % (11.5-14.5); RDW Standard Deviation 54.9 fL (36.4-46.3); Red Blood Count 3.76 M/uL (4.7-6.1); White Blood Count 6.14 K/uL (4.8-10.8)
[2022-05-04] MEDS: INSULIN ASPART PER UNIT SC SCH ×4 (07:54→20:37)
[2022-05-04 08:06] LABS: Albumin Globulin Ratio 1.3 (0.9-2); Albumin Level 3.5 gm/dl (3.4-5.0); BUN Creatinine Ratio 20.9 (10-20); Bilirubin,Total 0.4 mg/dl (0.2-1.0); Calcium 8.3 mg/dl (8.5-10.1); Chol HDL Ratio 2.5 (0-5); Creatinine Clr Calc Pharmacy 75.7 ml/min; Est GFR (African American) 95.9 ml/min; Est GFR (Non-African American) 82.7 ml/min; Globulin 2.7 gm/dl (2.5-4.0); Magnesium 2.1 mg/dl (1.7-2.4); Potassium 4.5 mmol/L (3.5-5.1); Total Protein 6.2 gm/dl (6.0-8.3)
[2022-05-04] MEDS: LIDOCAINE 5% 1 PATCH TD SCH (09:49)
[2022-05-04] MEDS: CLOPIDOGREL BISULFATE 75 MG TAB PO SCH (09:50)
[2022-05-04] MEDS: CHOLECALCIFEROL 5,000 UNITS 125 MCG TAB PO SCH (09:50)
[2022-05-04] MEDS: lisinopril 2.5 MG TAB PO SCH (09:51)
[2022-05-04] MEDS: ROSUVASTATIN CALCIUM 20 MG TAB PO SCH (09:51)
[2022-05-04] MEDS: METOPROLOL SUCC 25MG EXT REL TAB PO SCH (09:51)
--- NOTE | 2022-05-04 13:04 | Cardiology Consultation ---
Date of Consultation May 04, 2022 Assessment & Plan (1) Precordial chest pain: (2) Coronary artery disease: Patient is a 72-year-old male with complex underlying history of vascular disease including prior left circumflexcoronary intervention 2017 after presenting with atypical symptoms, extensive circumflex distribution wall motion abnormality persisting. Moderate residual left anterior descending disease noted Patient presents now with concerning symptoms for angina pectoris at low-level exertion resolving with sublingual nitroglycerin. Echocardiogram not significantly changed Plan: Continue current medical therapies as ordered. Initiate anticoagulation with IV heparin with any recurrence of symptoms. We will likely need to proceed to diagnostic coronary angiography this admission History of Present Illness Reason for Consultation: Chest pain, coronary disease Requesting Physician: Dr. Raygoza Attending Physician: Harleen Raygoza, DO History of Present Illness Patient is a 72-year-old male with underlying medical issues which include 1.[id number] elevation myocardial infarction 01/31/2018. 2.Status post drug-eluting stent to the left circumflex with moderate residual of 50% within the left anterior descending. January 31, 2018 3.Hypertension. 4.Hyperlipidemia, on therapy. 5.Chronic obstructive lung disease/sleep apnea continued tobacco use. 6.Moderate left ventricular dysfunction, EF of 40-45%. 7. Carotid artery disease status post left carotid stent June 17, 2019 following TIA, recurrent TIA January 2022 with repeat left carotid artery stenting Patient presents this admission having developed severe substernal chest pressure during low-level activity with associated dyspnea and lightheadedness. Patient saw at rest but symptoms intensified. Patient took 2 sublingual nitroglycerin with symptoms easing after second nitroglycerin. No prior history of nitroglycerin usage. No recent chest pains, tachypalpitations, syncope or near syncope. No fevers chills or productive cough. No acute weight loss or gain. No recent neurologic complaints after event in January. Does continue to smoke COVID infection/pneumonia approximately 4 weeks ago Patient compliant with antiplatelet therapy Allergies Allergy/AdvReac Type Severity Reaction Status Date / Time fenoprofen Allergy Severe SYNCOPE Verified 04/04/22 19:09 Home Medications Medication Instructions Recorded Confirmed Type aspirin 81 mg tablet,delayed 81 mg PO HS 02/25/19 05/03/22 History release cholecalciferol (vitamin D3) 125 5,000 unit PO QAM 02/25/19 05/03/22 History mcg (5,000 unit) tablet (Vitamin D3) clopidogrel 75 mg tablet 75 mg PO QAM 02/25/19 05/03/22 History lisinopril 2.5 mg tablet 2.5 mg PO QAM 02/25/19 05/03/22 History metformin 500 mg tablet 500 mg PO QAM 02/25/19 05/03/22 History montelukast 10 mg tablet 10 mg PO HS 02/25/19 05/03/22 History (Singulair) rosuvastatin 20 mg tablet 20 mg PO QAM 02/25/19 05/03/22 History vit C 250 mg-vit E 90 mg-zinc 40 1 tab PO BID 02/25/19 05/03/22 History mg-copper 1 eg-hjrjco-uioefa capsule (PreserVision AREDS-2) fluticasone 500 mcg-salmeterol 50 2 inh INHALATION BID PRN 05/18/20 05/03/22 History mcg/dose blistr powdr for inhalation (Advair Diskus) albuterol sulfate 90 mcg/actuation 2 puff INHALATION Q6H PRN 01/19/22 05/03/22 History aerosol inhaler (ProAir HFA) fluticasone fur. 100 mcg-umeclid 1 inh INHALATION DAILY PRN 04/04/22 05/03/22 History 62.5 mcg-vilant 25 mcg inhalat.powder (Trelegy Ellipta) metoprolol succinate 50 mg 25 mg PO QAM 04/04/22 05/03/22 History tablet,extended release 24 hr umeclidinium 62.5 mcg/actuation 1 inh INHALATION DAILY PRN 04/04/22 05/03/22 History blister powder for inhalation (Incruse Ellipta) Patient History Medical History Cardiac murmur in childhood; no further issues COPD (chronic obstructive pulmonary disease) inhaler prn Coronary artery disease "s/p non-STEMI 01/31/18, cath showed circ lesion and lesser disease in LAD and RCA, PCI circ with WALDO 02/02/18" Degenerative disc disease Depression Diabetes mellitus, type 2 Dyslipidemia Hypertension Macular degeneration of both eyes NSTEMI (non-ST elevated myocardial infarction) 01/31/18--follows with Dr. Laguna--plavix daily Sleep apnea cpap Stenosis of both vertebral arteries Transient ischemic attack (TIA) 02/2019--follows with Dr. Itz Fernando @ [facility] on plavix daily Surgical History History of bilateral cataract extraction History of cardiac cath 02/02/2018 @ [facility] with 1 stent placed History of carotid angioplasty left side 1 stent placed @ [facility] 02/2019 History of colonoscopy History of lumbar spinal fusion History of tooth extraction all teeth removed Hx of vasectomy Status post coronary artery stent placement "PCI L circumflex with WALDO 02/02/18" Family History Other Family history not known due to adoption No pertinent family history Social History Smoking Status: Current every day smoker Tobacco Type: Cigarettes Cigarettes Per Day: 1/2 PPD; Second Hand Exposure: No; Hx Alcohol Use: No Hx Substance Use: No Preferred Language: Sami Communication Ability: Effective Dryer Feeder Required: No Beliefs That Will Affect Care: None marital status: Current Living Situation: Spouse Other Information That Helps Us Care for You: No Feels Safe at Home: Yes Safety Concerns: Feels Safe At This Time Assistive Devices: CPAP Review of Systems Review of Systems: All systems reviewed & are unremarkable except as noted in HPI & below Physical Exam Constitutional: WD/WN, vitals as above + obese; no acute distress Eyes: PERRL, conjunctivae normal, anicteric sclerae ENMT: external ear and nose normal, oropharynx normal Neck: trachea midline, no thyromegaly Respiratory: normal respiratory effort, lungs clear to auscultation Cardiovascular: Rate/Rhythm: regular rate and regular rhythm Heart Sounds: normal S1 and normal S2; no gallop and no murmur Palpation: normal PMI Vessels: normal carotid upstroke and radial pulses present; no JVD and no carotid bruit Extremities: no edema Gastrointestinal (Abdomen): normal bowel sounds, soft, nontender, no hepatosplenomegaly Musculoskeletal: no cyanosis or clubbing, extremities motor strength 5/5 Skin: no rashes, warm and dry Neurologic: PERRL, EOMI, accommodation nl, no face palsy, no dysarthria Psychiatric: A+Ox3, euthymic affect Results & Data ([facility]) Vital Signs (Past 12 Hours) Vital Signs Temp Pulse Pulse Resp BP BP Pulse Ox 05/04/22 11:37 36.5 C 75 19 109/65 97 05/04/22 07:37 36.5 C 70 18 118/73 96 05/04/22 07:00 55 L 05/04/22 04:12 36.5 C 73 18 92/56 L 94 Laboratory Results Laboratory Results - last 24 hr 05/03/22 05/03/22 05/03/22 15:15 15:27 15:27 WBC 6.25 RBC 3.83 L Hgb 12.1 L Hct 35.4 L MCV 92.4 MCH 31.6 MCHC 34.2 RDW Std Deviation 54.5 H RDW Coeff of Adrian 16.0 H Plt Count 198 MPV 10.1 Immature Gran % (Auto) 0.3 Neut % (Auto) 62.8 Lymph % (Auto) 26.9 [place] % (Auto) 8.3 Eos % (Auto) 1.1 Baso % (Auto) 0.6 Neut # (Auto) 3.92 Lymph # (Auto) 1.68 [place] # (Auto) 0.52 Eos # (Auto) 0.07 Baso # (Auto) 0.04 Immature Gran # (Auto) 0.02 PT 10.9 INR 1.0 APTT 27.9 PTT Ratio 1.0 Sodium Potassium Chloride Carbon Dioxide Anion Gap BUN Creatinine Est Cr Clr Drug Dosing Est GFR ( Amer) Est GFR (Non-Af Amer) BUN/Creatinine Ratio Glucose POC Glucose Calcium Magnesium Total Bilirubin AST ALT Alkaline Phosphatase Troponin I High Sens Total Protein Albumin Globulin Albumin/Globulin Ratio Triglycerides Cholesterol LDL Cholesterol, Calc VLDL Cholesterol, Calc HDL Cholesterol Cholesterol/HDL Ratio TSH 1.226 SARS-CoV-2, RNA, NAAT 05/03/22 05/03/22 05/03/22 15:27 15:52 16:11 WBC RBC Hgb Hct MCV MCH MCHC RDW Std Deviation RDW Coeff of Adrian Plt Count MPV Immature Gran % (Auto) Neut % (Auto) Lymph % (Auto) [place] % (Auto) Eos % (Auto) Baso % (Auto) Neut # (Auto) Lymph # (Auto) [place] # (Auto) Eos # (Auto) Baso # (Auto) Immature Gran # (Auto) PT INR APTT PTT Ratio Sodium 141 Potassium 3.7 Chloride 110 H Carbon Dioxide 26 Anion Gap 5 BUN 12 Creatinine 0.73 Est Cr Clr Drug Dosing 94.5 Est GFR ( Amer) 105.9 Est GFR (Non-Af Amer) 91.4 BUN/Creatinine Ratio 16.4 Glucose 104 H POC Glucose Calcium 8.8 Magnesium 2.1 Total Bilirubin 0.4 AST 20 ALT 17 Alkaline Phosphatase 71 Troponin I High Sens 11.5 Total Protein 6.8 Albumin 3.7 Globulin 3.1 Albumin/Globulin Ratio 1.2 Triglycerides Cholesterol LDL Cholesterol, Calc VLDL Cholesterol, Calc HDL Cholesterol Cholesterol/HDL Ratio TSH SARS-CoV-2, RNA, NAAT NEGATIVE 05/03/22 05/03/22 05/04/22 17:40 20:20 00:35 WBC RBC Hgb Hct MCV MCH MCHC RDW Std Deviation RDW Coeff of Adrian Plt Count MPV Immature Gran % (Auto) Neut % (Auto) Lymph % (Auto) [place] % (Auto) Eos % (Auto) Baso % (Auto) Neut # (Auto) Lymph # (Auto) [place] # (Auto) Eos # (Auto) Baso # (Auto) Immature Gran # (Auto) PT INR APTT PTT Ratio Sodium Potassium Chloride Carbon Dioxide Anion Gap BUN Creatinine Est Cr Clr Drug Dosing Est GFR ( Amer) Est GFR (Non-Af Amer) BUN/Creatinine Ratio Glucose POC Glucose 123 H Calcium Magnesium Total Bilirubin AST ALT Alkaline Phosphatase Troponin I High Sens 12.5 13.4 Total Protein Albumin Globulin Albumin/Globulin Ratio Triglycerides Cholesterol LDL Cholesterol, Calc VLDL Cholesterol, Calc HDL Cholesterol Cholesterol/HDL Ratio TSH SARS-CoV-2, RNA, NAAT 05/04/22 05/04/22 05/04/22 07:15 07:19 07:19 WBC 6.14 RBC 3.76 L Hgb 11.4 L Hct 34.9 L MCV 92.8 MCH 30.3 MCHC 32.7 RDW Std Deviation 54.9 H RDW Coeff of Adrian 16.2 H Plt Count 185 MPV 9.9 Immature Gran % (Auto) Neut % (Auto) Lymph % (Auto) [place] % (Auto) Eos % (Auto) Baso % (Auto) Neut # (Auto) Lymph # (Auto) [place] # (Auto) Eos # (Auto) Baso # (Auto) Immature Gran # (Auto) PT INR APTT PTT Ratio Sodium 139 Potassium 4.5 D Chloride 108 H Carbon Dioxide 29 Anion Gap 2 L BUN 19 Creatinine 0.91 Est Cr Clr Drug Dosing 75.7 Est GFR ( Amer) 95.9 Est GFR (Non-Af Amer) 82.7 BUN/Creatinine Ratio 20.9 H Glucose 97 POC Glucose 99 Calcium 8.3 L Magnesium 2.1 Total Bilirubin 0.4 AST 18 ALT 16 Alkaline Phosphatase 66 Troponin I High Sens Total Protein 6.2 Albumin 3.5 Globulin 2.7 Albumin/Globulin Ratio 1.3 Triglycerides 72 Cholesterol 104 LDL Cholesterol, Calc 49 VLDL Cholesterol, Calc 14 HDL Cholesterol 41 Cholesterol/HDL Ratio 2.5 TSH SARS-CoV-2, RNA, NAAT 05/04/22 05/04/22 07:19 11:26 WBC RBC Hgb Hct MCV MCH MCHC RDW Std Deviation RDW Coeff of Adrian Plt Count MPV Immature Gran % (Auto) Neut % (Auto) Lymph % (Auto) [place] % (Auto) Eos % (Auto) Baso % (Auto) Neut # (Auto) Lymph # (Auto) [place] # (Auto) Eos # (Auto) Baso # (Auto) Immature Gran # (Auto) PT INR APTT PTT Ratio Sodium Potassium Chloride Carbon Dioxide Anion Gap BUN Creatinine Est Cr Clr Drug Dosing Est GFR ( Amer) Est GFR (Non-Af Amer) BUN/Creatinine Ratio Glucose POC Glucose 109 H Calcium Magnesium Total Bilirubin AST ALT Alkaline Phosphatase Troponin I High Sens 13.7 Total Protein Albumin Globulin Albumin/Globulin Ratio Triglycerides Cholesterol LDL Cholesterol, Calc VLDL Cholesterol, Calc HDL Cholesterol Cholesterol/HDL Ratio TSH SARS-CoV-2, RNA, NAAT
--- NOTE | 2022-05-04 14:34 | Hospitalist Progress Note ---
Date of Service May 04, 2022 Assessment & Plan (1) Chest pain: Plan: There is concern for angina pectoris given the description and history of vascular disease. Continue current medical management including baby aspirin, Plavix 75, lisinopril 2.5, Toprol-XL 25 p.o. every morning and Crestor 20 mg p.o. every morning. Echocardiogram is unchanged and per cardiology if any additional symptoms arise will add heparin for additional medical therapy. Consider diagnostic catheterization this admission, possibly Friday. (2) Coronary artery disease: Plan: -Admit to [facility] with tele for observation - 01/2018 had PCI with stent to the Left circumflex aa - Last echo was 01/20/2022 with EF of 40 to 45%, mild MR, left ventricle mildly dilated -- will repeat -Cardiac biomarker trend was negative overnight. - EKG reviewed and rhythm is sinus wtih inverted t waves in inferior leads. - Cardiology following - PT/OT consulted - A1C was 6.0 in March 31, lipid panel reflects good control on statin -cont med management above. (3) Diabetes mellitus, type 2: Plan: - Last A1C was 6.0 on 04/05/22 - ISS with accuchecks achs, hold metformin currently at inpatient goal (4) COPD (chronic obstructive pulmonary disease): Plan: chronic, stable. Cont home inhalers. (5) Sleep apnea: Plan: - cpap hs DVT ppx: Lovenox CODE:Full code Dispo: consider diagnostic cardiac catheterization Friday. Remain in PCU for now. Plan to return home when cleared by cardiology. Harleen Raygoza DO [facility] Hospitalist Admission and Anticipated Discharge Date Admission Date: May 03, 2022 Subjective 72-year-old man with known history of vascular disease including cardiac disease presented with chest pain minimally improved with sublingual nitroglycerin at home. Currently denies any chest pain and reports having some discomfort centrally overnight. Tolerating p.o. Denies shortness of breath Verbalized understanding for sideration of cardiac catheterization this admission active smoker-unwilling to quit despite verbalizing understanding of ongoing risks Review of Systems Review of Systems: All systems reviewed negative except as indicated above. Physical Exam Physical Exam: CONSTITUTIONAL: WNWD, vitals as above, generally well- appearing, sitting on bed eating lunch EYES: normal conjunctivae, no scleral icterus ENT: external ear and nose normal, MMM NECK: trachea midline, RESPIRATORY: clear to auscultation bilaterally, no crackles, rales or wheezes, normal respiratory effort CARDIOVASCULAR: regular rate and rhythm, S1 and 2 heard without murmurs, gallops or rubs, no JVD, no peripheral edema CHEST: inspection of chest was normal GASTROINTESTINAL: soft, nontender, no hepatomegaly, no guarding MUSCULOSKELETAL: strength 5/5 throughout, head is normocephalic and atraumatic SKIN: warm and dry NEUROLOGIC: CN 2-12 grossly intact, no sensory deficit, normal cognition, normal speech, no tremor PSYCHIATRIC: alert cooperative and oriented to person, place and time. Euthymic mood, makes good eye contact, language grossly intact, recent and remote memory grossly intact. Results & Data Results & Data ([facility]) Vital Signs (Past 12 Hours) Vital Signs Temp Pulse Pulse Resp BP BP Pulse Ox 05/04/22 11:37 36.5 C 75 19 109/65 97 05/04/22 07:37 36.5 C 70 18 118/73 96 05/04/22 07:00 55 L 05/04/22 04:12 36.5 C 73 18 92/56 L 94 Laboratory Results Short CBC 05/03/22 05/04/22 Range/Units 15:27 07:19 WBC 6.25 6.14 (4.8-10.8) K/uL Hgb 12.1 L 11.4 L (14.0-18.0) g/dL Hct 35.4 L 34.9 L (42-52) % Plt Count 198 185 (130-400) K/uL BMP 05/03/22 05/04/22 15:27 07:19 Sodium 141 139 Potassium 3.7 4.5 D Chloride 110 H 108 H Carbon Dioxide 26 29 BUN 12 19 Creatinine 0.73 0.91 Glucose 104 H 97 Calcium 8.8 8.3 L Liver Function 05/03/22 05/04/22 Range/Units 15:27 07:19 Total Bilirubin 0.4 0.4 (0.2-1.0) mg/dl AST 20 18 (13-39) U/L ALT 17 16 (7-52) U/L Alkaline Phosphatase 71 66 (34-104) U/L Albumin 3.7 3.5 (3.4-5.0) gm/dl Medications Administered Current Inpatient Medications Acetaminophen (Acetaminophen 325 Mg Tab) 650 mg PO Q4H PRN PRN Reason: Moderate Pain Stop: 06/02/22 18:53 Albuterol (Albuterol Hfa 8 Gm Inhaler) 2 puffs INH Q6H PRN PRN Reason: Wheezing Stop: 06/02/22 19:27 Aspirin (Aspirin 81 Mg Ectab) 81 mg PO [facility] Stop: 06/02/22 20:59 Last Admin: 05/03/22 20:51 Dose: 81 mg Documented by: Clopidogrel Bisulfate (Clopidogrel Bisulfate 75 Mg Tab) 75 mg PO QAM [facility] Stop: 06/03/22 08:59 Last Admin: 05/04/22 09:50 Dose: 75 mg Documented by: Dextrose (Dextrose 50% 50 Ml Syringe) 25 - 50 ml IV UD PRN; Protocol PRN Reason: Hypoglycemia Protocol Stop: 06/02/22 18:53 Fluticasone/Vilanterol (Fluticasone/Vilanterol 200/25mcg 14 Puffs/Inhaler) 1 puffs INH DAILY PRN PRN Reason: Shortness Of Breath Stop: 06/02/22 19:30 Glucagon (Glucagon For Inj 1 Mg Vial) 1 mg SQ UD PRN; Protocol PRN Reason: Hypoglycemia Protocol Stop: 06/02/22 18:53 Glucose (Glucose 10 Tabs/Tube) 4 - 8 tabs PO UD PRN; Protocol PRN Reason: Hypoglycemia Protocol Stop: 06/02/22 18:53 Glucose (Glucose 40% Gel 15 Gm Tube) 15 - 30 gm PO UD PRN; Protocol PRN Reason: Hypoglycemia Protocol Stop: 06/02/22 18:53 Insulin Aspart (Insulin Aspart Per Unit) 0 units SC [facility] Stop: 06/02/22 20:59 Last Admin: 05/04/22 12:51 Dose: Not Given Documented by: Lidocaine (Lidocaine 5% 1 Patch) 1 patch TD [facility] Stop: 06/03/22 08:59 Last Admin: 05/04/22 09:49 Dose: 1 patch Documented by: Lisinopril (Lisinopril 2.5 Mg Tab) 2.5 mg PO [facility] Stop: 06/03/22 08:59 Last Admin: 05/04/22 09:51 Dose: 2.5 mg Documented by: Metoprolol Succinate (Metoprolol Succ 25mg Ext Rel Tab) [facility] [place] Stop: 06/03/22 08:59 Last Admin: 05/04/22 09:51 Dose: 25 mg Documented by: Miscellaneous (Carbohydrates For Hypoglycemia ) 15 - 30 gm PO UD PRN PRN Reason: Hypoglycemia Protocol Stop: 06/02/22 18:53 Miscellaneous (Remove Lidoderm Patch) 1 ea N/A DAILY@2100 [facility] Stop: 06/03/22 20:59 Montelukast Sodium (Montelukast Sodium 10 Mg Tablet) 10 mg PO [facility] Stop: 06/02/22 20:59 Last Admin: 05/03/22 20:52 Dose: 10 mg Documented by: Nitroglycerin (Nitroglycerin Sl 0.4 Mg/Tab Tab) 0.4 mg SL PRN PRN PRN Reason: chest pain Stop: 06/02/22 17:42 Ondansetron HCl (Ondansetron Inj 2 Mg/Ml 2 Ml Vial) 4 mg IV Q4H PRN PRN Reason: Nausea And Vomiting Stop: 06/02/22 18:53 Rosuvastatin Calcium (Rosuvastatin Calcium 20 Mg Tab) 20 mg PO [facility] Stop: 06/03/22 08:59 Last Admin: 05/04/22 09:51 Dose: 20 mg Documented by: Umeclidinium [place] (Umeclidinium [place] 62.5mcg/Blister 7 Puffs/Inhaler) 1 puffs INH DAILY PRN PRN Reason: Shortness Of Breath Stop: 06/02/22 18:53 Vitamin D (Cholecalciferol 5,000 Units 125 Mcg Tab) 5,000 units PO [facility] Stop: 06/03/22 08:59 Last Admin: 05/04/22 09:50 Dose: 5,000 units Documented by:
[2022-05-04] MEDS: ASPIRIN 81 MG ECTAB PO SCH (19:57)
[2022-05-04] MEDS: MONTELUKAST SODIUM 10 MG TABLET PO SCH (19:58)
[2022-05-04] MEDS ORDERED: ENOXAPARIN INJ 40 MG/0.4 ML SYR SQ SCH (22:00)
[2022-05-05 08:00] LABS: Hematocrit (blood only) 35.3 % (42-52); Hemoglobin 11.6 g/dL (14.0-18.0); Mean Corpuscular Hemoglobin 30.3 pg (25-34); Mean Corpuscular Hgb Conc 32.9 g/dL (32-36); Mean Corpuscular Volume 92.2 fL (80-100); Mean Platelet Volume 10.2 fL (7.4-10.4); Platelet Count 182 K/uL (130-400); RDW Coefficient of Variation 15.9 % (11.5-14.5); RDW Standard Deviation 53.8 fL (36.4-46.3); Red Blood Count 3.83 M/uL (4.7-6.1); White Blood Count 4.92 K/uL (4.8-10.8)
[2022-05-05] MEDS: ROSUVASTATIN CALCIUM 20 MG TAB PO SCH (08:19)
[2022-05-05] MEDS: METOPROLOL SUCC 25MG EXT REL TAB PO SCH (08:19)
[2022-05-05] MEDS: CLOPIDOGREL BISULFATE 75 MG TAB PO SCH (08:19)
[2022-05-05] MEDS: CHOLECALCIFEROL 5,000 UNITS 125 MCG TAB PO SCH (08:19)
[2022-05-05] MEDS: lisinopril 2.5 MG TAB PO SCH (08:19)
[2022-05-05] MEDS: UMECLIDINIUM BROMIDE 62.5MCG/BLISTER 7 PUFFS/INHALER INH SCH (08:20)
[2022-05-05] MEDS: LIDOCAINE 5% 1 PATCH TD SCH (08:20)
[2022-05-05] MEDS: FLUTICASONE/VILANTEROL 200/25MCG 14 PUFFS/INHALER INH SCH (08:21)
[2022-05-05 08:23] LABS: Albumin Globulin Ratio 1.3 (0.9-2); Albumin Level 3.5 gm/dl (3.4-5.0); BUN Creatinine Ratio 24.7 (10-20); Bilirubin,Total 0.4 mg/dl (0.2-1.0); Calcium 8.6 mg/dl (8.5-10.1); Creatinine Clr Calc Pharmacy 89.4 ml/min; Est GFR (African American) 103.6 ml/min; Est GFR (Non-African American) 89.4 ml/min; Globulin 2.8 gm/dl (2.5-4.0); Potassium 4.1 mmol/L (3.5-5.1); Total Protein 6.3 gm/dl (6.0-8.3)
[2022-05-05] MEDS: INSULIN ASPART PER UNIT SC SCH ×4 (08:23→21:00)
--- NOTE | 2022-05-05 12:09 | Cardiology Progress Note ---
Date of Service May 05, 2022 Assessment & Plan (1) Precordial chest pain: (2) Coronary artery disease: Plan: Patient is a 72-year-old male with complex underlying history of vascular disease including prior left circumflexcoronary intervention 2018 after presenting with atypical symptoms, extensive circumflex distribution wall motion abnormality persisting. Moderate residual left anterior descending disease noted Patient presents now with concerning symptoms for angina pectoris at low-level exertion resolving with sublingual nitroglycerin. Echocardiogram not significantly changed Plan: Continue current medical therapies as ordered. Initiate anticoagulation with IV heparin with any recurrence of symptoms. Patient to be scheduled for cardiac catheterization in a.m. discussed in detail with patient and agreeable Admission and Anticipated Discharge Date Admission Date: May 04, 2022 Subjective Patient seen and examined, chart, medications, telemetry reviewed. No further chest pain or discomfort overnight. No dizziness or lightheadedness. No arrhythmias other than mild bradycardia. No abdominal pain or discomfort no bleeding difficulties Review of Systems Review of Systems: All systems reviewed & are unremarkable except as noted in Subjective Physical Exam Constitutional: WD/WN, vitals as above + obese; no acute distress Eyes: PERRL, conjunctivae normal, anicteric sclerae ENMT: external ear and nose normal, oropharynx normal Neck: trachea midline, no thyromegaly Respiratory: normal respiratory effort, lungs clear to auscultation Cardiovascular: Rate/Rhythm: regular rate and regular rhythm Heart Sounds: normal S1 and normal S2; no gallop and no murmur Palpation: normal PMI Vessels: normal carotid upstroke and radial pulses present; no JVD and no carotid bruit Extremities: no edema Gastrointestinal (Abdomen): normal bowel sounds, soft, nontender, no hepatosplenomegaly Musculoskeletal: no cyanosis or clubbing, extremities motor strength 5/5 Skin: no rashes, warm and dry Neurologic: PERRL, EOMI, accommodation nl, no face palsy, no dysarthria Psychiatric: A+Ox3, euthymic affect Results & Data ([facility]) Vital Signs (Past 12 Hours) Vital Signs Temp Pulse Pulse Pulse Resp BP Pulse Ox 05/05/22 08:00 64 05/05/22 07:09 36.5 C 44 L 16 104/64 96 05/05/22 07:00 62 05/05/22 03:15 36.5 C 72 16 120/65 95 Diagnostic Findings Laboratory Results - last 24 hr 05/04/22 05/04/22 05/04/22 13:07 16:15 20:36 WBC RBC Hgb Hct MCV MCH MCHC RDW Std Deviation RDW Coeff of Adrian Plt Count MPV Sodium Potassium Chloride Carbon Dioxide Anion Gap BUN Creatinine Est Cr Clr Drug Dosing Est GFR ( Amer) Est GFR (Non-Af Amer) BUN/Creatinine Ratio Glucose POC Glucose 116 H 96 Calcium Total Bilirubin AST ALT Alkaline Phosphatase Troponin I High Sens 11.9 Total Protein Albumin Globulin Albumin/Globulin Ratio 05/05/22 05/05/22 05/05/22 07:13 07:14 07:14 WBC 4.92 RBC 3.83 L Hgb 11.6 L Hct 35.3 L MCV 92.2 MCH 30.3 MCHC 32.9 RDW Std Deviation 53.8 H RDW Coeff of Adrian 15.9 H Plt Count 182 MPV 10.2 Sodium 139 Potassium 4.1 Chloride 108 H Carbon Dioxide 28 Anion Gap 3 BUN 19 Creatinine 0.77 Est Cr Clr Drug Dosing 89.4 Est GFR ( Amer) 103.6 Est GFR (Non-Af Amer) 89.4 BUN/Creatinine Ratio 24.7 H Glucose 93 POC Glucose 94 Calcium 8.6 Total Bilirubin 0.4 AST 18 ALT 15 Alkaline Phosphatase 66 Troponin I High Sens Total Protein 6.3 Albumin 3.5 Globulin 2.8 Albumin/Globulin Ratio 1.3 05/05/22 11:19 WBC RBC Hgb Hct MCV MCH MCHC RDW Std Deviation RDW Coeff of Adrian Plt Count MPV Sodium Potassium Chloride Carbon Dioxide Anion Gap BUN Creatinine Est Cr Clr Drug Dosing Est GFR ( Amer) Est GFR (Non-Af Amer) BUN/Creatinine Ratio Glucose POC Glucose 72 Calcium Total Bilirubin AST ALT Alkaline Phosphatase Troponin I High Sens Total Protein Albumin Globulin Albumin/Globulin Ratio
--- NOTE | 2022-05-05 19:20 | Electrocardiogram Report ---
Test Reason : Blood Pressure : / mmHG Vent. Rate : 069 BPM Atrial Rate : 069 BPM P-R Int : 172 ms QRS Dur : 092 ms QT Int : 422 ms P-R-T Axes : 075 -03 -85 degrees QTc Int : 452 ms Sinus rhythm with Premature atrial complexes Low voltage QRS T wave abnormality, consider inferolateral ischemia Abnormal ECG When compared with ECG of 03-MAY-2022 14:59, Premature atrial complexes are now Present Inverted T waves have replaced nonspecific T wave abnormality in Inferior leads Confirmed by Ted Reed ([id number]) on 05/05/2022 7:20:25 PM Referred By: REFERRED SELF Confirmed By:Ted Reed
--- NOTE | 2022-05-05 19:23 | Hospitalist Progress Note ---
Date of Service May 05, 2022 Assessment & Plan (1) Chest pain: Plan: (1) Chest pain: Plan: There is concern for angina pectoris given the description and history of vascular disease. Continue current medical management including baby aspirin, Plavix 75, lisinopril 2.5, Toprol-XL 25 p.o. every morning and Crestor 20 mg p.o. every morning. Echocardiogram is unchanged and per cardiology if any additional symptoms arise will add heparin for additional medical therapy. Pt w/o chest pain.Diagnostic catheterization possibly Friday. NPO midnight. Hold lovenox. (2) Coronary artery disease: Plan: - c/w tele - 01/2018 had PCI with stent to the Left circumflex aa - Last echo was 01/20/2022 with EF of 40 to 45%, mild MR, left ventricle mildly dilated -- will repeat -Cardiac biomarker trend was negative at presentation. - EKG reviewed and rhythm is sinus wtih inverted t waves in inferior leads. - Cardiology following - PT/OT consulted - A1C was 6.0 in March 31, lipid panel reflects good control on statin -cont med management above. (3) Diabetes mellitus, type 2: Plan: - Last A1C was 6.0 on 04/05/22 - ISS with accuchecks achs, hold metformin currently at inpatient goal (4) COPD (chronic obstructive pulmonary disease): Plan: chronic, stable. Cont home inhalers. (5) Sleep apnea: Plan: - cpap hs DVT ppx: Lovenox on hold CODE:Full code Dispo: Diagnostic cardiac catheterization Friday. Remain in PCU for now. Plan to return home when cleared by cardiology. Admission and Anticipated Discharge Date Admission Date: May 04, 2022 Subjective Patient seen and examined at bedside as a follow-up of chest pain rule out ACS. Patient was sitting up in bed, on room air, NAD, no new acute events overnight. Patient reports eating okay and moving bowels okay. Patient denies any further chest pain while in the hospital. Patient denies any headache/dizziness/palpitations/belly pain/other review of symptoms. Physical Exam Physical Exam: GENERAL: Alert and oriented x3. NAD, on RA. HEENT: No pallor, no icterus. Pupils equal, round and reactive to light. Oral mucosa moist. NECK: No JVD, no neck masses. HEART: S1 and S2 heard. Regular rate and rhythm. Systolic murmur at Aortic area, no gallop. RESPIRATORY SYSTEM: Normal AP diameter. No accessory muscle use. No wheezing, no crackles. ABDOMEN: Soft, bowel sounds present, nontender, no distention. CENTRAL NERVOUS SYSTEM: No facial droop. Speech is clear. Obeys simple commands. Moves extremities. EXTREMITIES: No edema, no erythema seen. Results & Data Results & Data ([facility]) Vital Signs (Past 12 Hours) Vital Signs Temp Pulse Pulse Pulse Resp BP Pulse Ox 05/05/22 15:50 36.8 C 58 L 18 109/69 95 05/05/22 15:12 83 05/05/22 14:08 05/05/22 12:00 36.4 C L 93 H 124/73 94 05/05/22 08:00 64 Pulse Ox 05/05/22 15:50 05/05/22 15:12 05/05/22 14:08 96 05/05/22 12:00 05/05/22 08:00
[2022-05-05] MEDS: MONTELUKAST SODIUM 10 MG TABLET PO SCH (21:00)
[2022-05-05] MEDS: ASPIRIN 81 MG ECTAB PO SCH (21:00)
[2022-05-06] MEDS ORDERED: SODIUM CHLORIDE 0.9% 1000ML 1,000 ML IV SCH (00:01)
[2022-05-06] MEDS ORDERED: LIDOCAINE 1% LOCAL 20 ML VIAL ONE (06:56)
[2022-05-06 06:59] LABS: Hematocrit (blood only) 36.9 % (42-52); Hemoglobin 12.2 g/dL (14.0-18.0); Mean Corpuscular Hemoglobin 30.5 pg (25-34); Mean Corpuscular Hgb Conc 33.1 g/dL (32-36); Mean Corpuscular Volume 92.3 fL (80-100); Mean Platelet Volume 9.9 fL (7.4-10.4); Platelet Count 182 K/uL (130-400); RDW Coefficient of Variation 15.8 % (11.5-14.5); RDW Standard Deviation 53.6 fL (36.4-46.3); White Blood Count 6.25 K/uL (4.8-10.8)
[2022-05-06 07:19] LABS: Albumin Globulin Ratio 1.2 (0.9-2); Albumin Level 3.7 gm/dl (3.4-5.0); BUN Creatinine Ratio 19.4 (10-20); Bilirubin,Total 0.4 mg/dl (0.2-1.0); Calcium 9.1 mg/dl (8.5-10.1); Creatinine Clr Calc Pharmacy 70.1 ml/min; Est GFR (African American) 87.7 ml/min; Est GFR (Non-African American) 75.6 ml/min; Magnesium 2.2 mg/dl (1.7-2.4); Phosphorus 3.2 mg/dl (2.5-4.9); Potassium 4.4 mmol/L (3.5-5.1); Total Protein 6.7 gm/dl (6.0-8.3)
[2022-05-06] MEDS: INSULIN ASPART PER UNIT SC SCH ×3 (08:09→16:42)
[2022-05-06] MEDS: METOPROLOL SUCC 25MG EXT REL TAB PO SCH (08:10)
[2022-05-06] MEDS: FLUTICASONE/VILANTEROL 200/25MCG 14 PUFFS/INHALER INH SCH (08:11)
[2022-05-06] MEDS: ROSUVASTATIN CALCIUM 20 MG TAB PO SCH (08:11)
[2022-05-06] MEDS: UMECLIDINIUM BROMIDE 62.5MCG/BLISTER 7 PUFFS/INHALER INH SCH (08:11)
[2022-05-06] MEDS: lisinopril 2.5 MG TAB PO SCH (08:11)
[2022-05-06] MEDS ORDERED: HEPARIN (PORCINE) 1000 UNIT/ML 10 ML (CATH LAB USE ONLY) ONE (11:01)
[2022-05-06] MEDS ORDERED: MIDAZOLAM HCL 1 MG/ML 2ML VIAL ONE (11:01)
[2022-05-06] MEDS ORDERED: niCARdipine HCL INJ 2.5 MG/ML 10 ML AMP ONE (11:02)
[2022-05-06] MEDS ORDERED: fentaNYL citrate 100 MCG/2 ML VIAL ONE (11:02)
[2022-05-06] MEDS ORDERED: NITROGLYCERIN/D5W 100MCG/ML 20ML SYR ONE (11:02)
--- NOTE | 2022-05-06 12:20 | Cardiac Catheterization ---
Date of Service May 06, 2022 Cardiac Cath Report Cardiac Cath Report Procedure: 1. Coronary angiography History: This is a 72-year-old male patient with a previous history of a coronary stent in the circumflex artery who presented with exertional angina. Procedure summary: After informed consent was obtained the patient was brought to the cardiac catheterization lab where access was obtained using a retrograde Salinger technique from the right radial artery. Preformed 5 Nepali diagnostic catheters were utilized for the coronary angiograms. Following the procedure the patient was returned to the holding of the Incident Response Analyst in stable condition. ACC data: Start time 11:52 AM End time 12:08 PM Opening aortic pressure 105/65 Closing aortic pressure 114/74 LV pressurevalve not crossed Sedation 1 mg intravenous Versed IV fluid 55 cc normal saline Contrast 50 cc Optiray Fluoroscopy time 2 minutes Radiation 795 mGy DAP 75.10 Hill per centimeter squared Right dominant system AUC score 7 Coronary angiography: Selective injections of the left coronary artery revealed the left main trunk to be widely patent. The left circumflex artery consists mainly of 1 large marginal branch. The previous stented site in the left circumflex artery is widely patent. Just proximal to the stent at the ostium of the left circumflex there is a 50% narrowing. The LAD has luminal irregularities in its proximal and mid segment but is widely patent all the way to the apex of the heart. The re is a single large first diagonal branch. The diagonal branch is widely patent. Injections in the right coronary artery reveals minor luminal irregularities of the proximal and midportion of the artery. The right coronary artery is widely patent. The right coronary artery is dominant. Summary: The patient's coronary anatomy is essentially widely patent. The previous stented site in the left circumflex artery is widely patent. Just proximal to that stent and almost at the ostium of the left circumflex artery there is a 50% narrowing which is most likely a post stent effect. Recommendations: Continued medical management of the patient's coronary artery disease.
[2022-05-06] MEDS: CHOLECALCIFEROL 5,000 UNITS 125 MCG TAB PO SCH (13:29)
[2022-05-06] MEDS: LIDOCAINE 5% 1 PATCH TD SCH (13:30)
[2022-05-06] MEDS: CLOPIDOGREL BISULFATE 75 MG TAB PO SCH (13:30)
--- NOTE | 2022-05-06 18:16 | Discharge Summary ---
Date of Service May 06, 2022 Admission HPI Per Admitting Provider This is a 72 yo M with PMhx of HTN, ischemic cardiomyopathy, history of CVA, DM II, asthma, sleep apnea, seems to be noncompliant with CPAP, hbilateral carotid artery stenosis, history of TIA, history of obesity, anxiety, spinal stenosis, hx of COVID about 2 months ago, who presents with acute onset of chest pain. His is present with him at bedside. This morning at approximately 1030 to 11 AM while he was helping his clean out the inside of her car, he developed substernal chest pain without radiation, rated 8/10. He reports that he walked inside the house and sat down to try and catch his breath nd pain seemed to intensify. He proceeded to take with 1 nitro tab with minimal improvement, waited 5 minutes and then took another nitro tablet which improved his pain. He has never taken nitro before in the past. He has neve felt chest pain like this before. During his previous heart attack in 2018, did not experience symptoms including chest pain. Patient has been taking all his medications as routinely prescribed. He admits to smoking 0.5 PPD since age 16. Denies any alcohol use. Admission Exam Per Admitting Provider General: awake, alert, no apparent distress, + obese with BMI of 30.7, smells of smoke Head: Normocephalic, atraumatic ENT: PERRL, EOMI, no pharyngeal exudate, mucous membranes moist Chest: Clear to auscultation, on room air, no adventitious breath sounds Cardiac: Regular rate and rhythm, + PVCs, no pain with chest wall palpation, no murmur, no JVD, normal peripheral pulses, good capillary refill Abdominal: NABS x 4 quadrants, soft, nondistended, nontender to palpation, no rebound or guarding Extremities: Normal inspection, no peripheral edema or erythema, calfs nontender to palpation Psych: Normal mood and affect Neuro: AAO x 3, strength intact bilaterally and rated 5/5, no motor deficits, speech is clear, no peripheral sensory deficits Principal Diagnosis Chest pain rule out ACS History of CAD Discharge Exam GENERAL: Alert and oriented x3. NAD, on RA. HEENT: No pallor, no icterus. Pupils equal, round and reactive to light. Oral mucosa moist. NECK: No JVD, no neck masses. HEART: S1 and S2 heard. Regular rate and rhythm. Systolic murmur at Aortic area, no gallop. RESPIRATORY SYSTEM: Normal AP diameter. No accessory muscle use. No wheezing, no crackles. ABDOMEN: Soft, bowel sounds present, nontender, no distention. CENTRAL NERVOUS SYSTEM: No facial droop. Speech is clear. Obeys simple commands. Moves extremities. EXTREMITIES: No edema, no erythema seen. Discharge Data Allergies Allergy/AdvReac Type Severity Reaction Status Date / Time fenoprofen Allergy Severe SYNCOPE Verified 04/04/22 19:09 Consultations 05/03/22 17:00 ED Decision to Admit Stat 05/03/22 18:54 Consult Cardiology Routine Procedures Performed Operation Date: 05/06/22 12:00 Actual Procedures p Cineradiography w/Routine Exam - Truman Malave DO p Cath, Coronaries ONLY (no LV) - Truman Malave DO Ordered Studies 05/06/22 06:34 CL Cath Imgs for PACS use only Routine Hospital Course (1) Chest pain: 72-year-old gentleman was managed for the following while in hospital: (1) Chest pain: Plan: There is concern for angina pectoris given the description and history of vascular disease. Continue current medical management including baby aspirin, Plavix 75, lisinopril 2.5, Toprol-XL 25 p.o. every morning and Crestor 20 mg p.o. every morning. Echocardiogram is unchanged and cardiac cath performed 05/06/2022 was essentially with no acute findings, vessels were widely patent. No interventions performed. Pt w/o chest pain. d/w cardio, OK w/ DC from their POV. (2) Coronary artery disease: Plan: - c/w tele - 01/2018 had PCI with stent to the Left circumflex aa - Last echo was 01/20/2022 with EF of 40 to 45%, mild MR, left ventricle mildly dilated -- will repeat -Cardiac biomarker trend was negative at presentation. - EKG reviewed and rhythm is sinus wtih inverted t waves in inferior leads. - Cardiology following - PT/OT consulted - A1C was 6.0 in March 31, lipid panel reflects good control on statin -cont med management above. (3) Diabetes mellitus, type 2: Plan: - Last A1C was 6.0 on 04/05/22 - ISS with accuchecks achs, hold metformin currently at inpatient goal (4) COPD (chronic obstructive pulmonary disease): Plan: chronic, stable. Cont home inhalers. (5) Sleep apnea: Plan: - cpap hs CODE:Full code Patient being discharged home with following instruction at the point of discharge: Follow-up with your primary care physician within a week time. Follow-up with your cardiology doctor as outpatient. Your cardiology office will call you for setting up follow-up. You underwent cardiac catheterization while in hospital, no interventions were needed. Take your medications as previous. Total Time Total Time Spent Total Time Spent (In Minutes): 35 Discharge Plan Discharge Items Patient Disposition: Home - Self-Care Reason For Visit: CHEST PAIN Discharge Diagnosis: Chest pain rule out ACS History of CAD Condition on Discharge: Good Activity: Resume your previous activity Non-emergency contact: Primary Care Provider Call non-emergency contact if: you have any medication questions, your pain is worsening and your temperature is above 101 Follow-up/Referrals: Nisha Lafleur M.D. [Primary Care Provider] - Diet: Carb Count or DM1 and Heart Healthy Addtl Attending Provider Instructions: ACTIVITY RECOMMENDATIONS: Excess manipulation of the wrist should be avoided for the next 24-48 hours. * No lifting over 2 pounds (approximately a 1/2 gallon of milk) with the utilized arm for 24 hours. * No strenuous activity such as bowling or tennis for 3 days. * Keep the site of the procedure covered with a bandage for 24 hours. *You may shower the day after the procedure. Do not take a tub bath or submerge the puncture site in water for the next 3 days. *Do not operate any motorized equipment for 3 days. SPECIAL CARE INSTRUCTIONS: The site may be slightly bruised and sore following your procedure. Should any of the following occur, contact the Dr. who performed your procedure. 1. Redness/inflammation, swelling, chills, or fever, or colored drainage at procedure site within 3-7 days after your procedure. 2. Coldness, discoloration, ongoing numbness, severe pain, or swelling. Expect mild tingling of hand and tenderness at the puncture site for up to three days. If this persists beyond three days, or other symptoms develop, notify the Dr. who performed your procedure. BLEEDING: If the procedure site on your wrist begins to bleed, do not panic 1. Place 1 or 2 fingers firmly just slightly above the insertion site to stop the bleeding. You may be able to feel your pulse as you hold pressure. 2. Lift your finger after 5 minutes to see if the bleeding has stopped. 3. Once the bleeding has stopped, gently wipe the wrist area clean with a bandage. * If the bleeding from your wrist does not stop after 10 minutes, or if there is a large amount of bleeding or spurting, call 911 (do not drive yourself to the hospital). SKIN IRRITATION: * You may experience some redness and/or swelling in the area where radiation was administered. If any skin irritation occurs, please contact your family physician. FOLLOW UP VISIT: Keep any scheduled doctor appointments. Addtl Marketing Project Specialist Provider Instructions: Follow-up with your primary care physician within a week time. Follow-up with your cardiology doctor as outpatient. Your cardiology office will call you for setting up follow-up. You underwent cardiac catheterization while in hospital, no interventions were needed. Take your medications as previous. Pending Studies at Discharge: No Stand-Alone Forms: My [facility], Smoking Cessation Medications and DC Order Prescriptions: New nitroglycerin [Nitrostat] 0.4 mg Tablet, Sublingual 0.4 mg sublingual PRN PRN (Reason: chest pain) Qty: 10 RF: 0 Continued metformin 500 mg tablet 500 mg PO QAM RF: 0 clopidogrel 75 mg tablet 75 mg PO QAM RF: 0 lisinopril 2.5 mg tablet 2.5 mg PO QAM RF: 0 rosuvastatin 20 mg tablet 20 mg PO QAM RF: 0 aspirin 81 mg Tablet,Delayed Release (Dr/Ec) 81 mg PO HS RF: 0 montelukast [Singulair] 10 mg Tablet 10 mg PO HS RF: 0 cholecalciferol (vitamin D3) [Vitamin D3] 5,000 unit Tablet 5,000 unit PO QAM RF: 0 PreserVision AREDS-2 [id number] [id number] Capsule 1 tab PO BID RF: 0 fluticasone propion-salmeterol [Advair Diskus] 500-50 mcg/dose Blister With Device 2 inh INHALATION BID PRN (Reason: Shortness Of Breath) RF: 0 metoprolol succinate 50 mg tablet extended release 24 hr 25 mg PO QAM RF: 0 Incruse Ellipta 62.5 mcg/actuation Blister With Device 1 inh INHALATION DAILY PRN (Reason: Shortness Of Breath) RF: 0 Trelegy Ellipta 100-62.5-25 mcg Blister With Device 1 inh INHALATION DAILY PRN (Reason: Shortness Of Breath) RF: 0 albuterol sulfate [ProAir HFA] 90 mcg/actuation HFA aerosol inhaler 2 puff INHALATION Q6H PRN (Reason: Wheezing) RF: 0 Discharge Orders: Discharge Order (Routine); Ordered 05/06/22 Ordered By: Pavan Barron Admission Data Admit Date/Time: 05/04/22 14:32 Attending Provider: Pavan Barron Admit Provider: Harleen Raygoza Primary Care Provider: Nisha Lafleur Other Providers: Deny Green ; Arnulfo Hogue
== END 2022-05-06 18:47 | disposition home or self-care (01) | DRG 287 ==
LOC: ED 14:54 → 2S 14:54 → SUATTDRO 17:13 → 2S 18:54 → SUATTDRO 05-04 14:32
PROC: CLB.CCO (2022-05-06 12:00)

== ENCOUNTER 2022-12-19 13:35 | Observation (INO) ==
--- NOTE | 2022-12-19 14:39 | Emergency Department Note ---
Impression & Plan Acute UTI, Acute urinary retention, Constipation, Back pain ED Provider Note NAME: MAREK MARC AGE: 72 SEX: M : 1950 ARRIVES VIA: Walk-In INFORMANT: Patient, ED PROVIDER(S): Wali Biggs MD CHIEF COMPLAINT: Back pain, difficulty with urination MEDICAL DECISION MAKING: Patient presented due to concern for back pain and urinary retention. The patient does not have any saddle anesthesia or lower extremity weakness. The patient has a prior history of lumbar fusion. Patient did have blood work completed along with CT abdomen pelvis was ordered IV morphine and IV established. Patient did have a bladder scan completed. The patient's white count was normal at 7. Patient does have mild anemia hemoglobin of 13. Platelet count is unremarkable. Kidney function grossly unremarkable. No azotemia. The patient did have a Acuna catheter placed which did have adequate drainage. The patient had mild improvement in symptoms. Patient's urinalysis does appear to show infection patient was ordered a dose of Rocephin. Patient CT shows moderate to large amount of formed stool within the rectum. Questionable focal area of thickening of proximal sigmoid but no evidence of acute diverticulitis. There are signs of bronchiolitis but no pneumoperitoneum. Chest x-ray also obtained. Patient does have some c ardiomegaly noted the patient did get up and perform an ambulatory trial but still had abdominal pain. The patient was ordered to oNe treatments. I did speak with the on-call hospitalist service Dr. Oliver and the patient was admitted to the medicine service. Prior /Outside records reviewed: I did review the patient's kidney function from April 2022 which was normal at that time with a creatinine of .9. Differential diagnosis: Musculoskeletal, disc herniation, fracture, metastatic disease, cord compression, discitis, sciatica, cauda equina, infection, aortic disease, renal colic, gastrointestinal, as well as other pathologies. Diagnostics, as interpreted by me: ECG: None Cardiac monitoring: An order was placed for continuous cardiac monitoring. The monitor shows a rate of 77 with sinus rhythm. Patient was placed on pulse oximetry Medical decision rules: None Imaging studies: See below HPI: Patient presents due to concern for acute on chronic back pain. Patient states that is gotten progressively worse over the last month. The patient has been taking ibuprofen and Tylenol but without significant improvement in symptoms. Patient does complain of bandlike back pain in the lower back. No recent falls or trauma. He has been working to close his breezeway at home and this has been taking him more time due to his discomfort. Patient is a prior history of lumbar fusion. Patient states that has not been able to urinate since 2 AM this morning. Patient does complain of constipation related symptoms and does have "rabbit turds" on Friday. Patient denies any chest pains or shortness of breath. Patient denies any nausea vomiting. Patient does smoke tobacco. Patient does follow with a primary care doctor in [facility]. Patient denies any perianal or saddle anesthesia. No genital anesthesia. No weakness. PAST MEDICAL HISTORY: See Below PAST SURGICAL HISTORY: See Below SOCIAL HISTORY: See Below HOME MEDICATIONS: See Below ALLERGIES: See Below VITALS: See Below PHYSICAL EXAMINATION: GENERAL: NAD, wearing a mask, non-toxic. EYE EXAM: Normal conjunctiva. PERRL, no anisocoria and EOM's grossly intact w/o pain. NECK: Supple, no nuchal rigidity, no adenopathy, non-tender. No signs of meningismus. FROM of the neck with good chin to chest and neck extension. No stridor. LUNGS: Clear to auscultation. Normal chest wall mechanics. HEART: NSR, no MRG. ABDOMEN: Abdomen soft, non-tender, normo-active bowel sounds, no masses, no rebound or guarding. BACK: No CVA TTP. Bandlike low back pain in the lower lumbar spine that is midline and in the bilateral paraspinal areas. SKIN: No rashes and no bruising. UPPER EXTREMITIES: Upper extremities are grossly normal. LOWER EXTREMITIES: Grossly normal, no edema. Negative straight leg raise bilaterally. No sensory deficits. NEURO EXAM: A&O x3, cranial nerves II-XII grossly intact, normal speech, moves all 4 extremities. 5 out of 5 strength bilateral extremities with no sensory deficits. Past Med/Surg History Medical History (Updated 12/19/22 @ 22:09 by Wali Biggs MD) Cardiac murmur in childhood; no further issues COPD (chronic obstructive pulmonary disease) inhaler prn Coronary artery disease "s/p non-STEMI 01/31/18, cath showed circ lesion and lesser disease in LAD and RCA, PCI circ with WALDO 02/02/18" Degenerative disc disease Depression Diabetes mellitus, type 2 Dyslipidemia Hypertension Macular degeneration of both eyes NSTEMI (non-ST elevated myocardial infarction) 01/31/18--follows with Dr. Laguna--plavix daily Sleep apnea cpap Stenosis of both vertebral arteries Transient ischemic attack (TIA) 02/2019--follows with Dr. Itz Fernando @ [facility] [place] plav[place] Surgical History History of bilateral cataract extraction History of cardiac cath 02/02/2018 @ [facility] with 1 stent placed History of carotid angioplasty left side 1 stent placed @ [facility] [place] 02/2019 History of colonoscopy History of lumbar spinal fusion History of tooth extraction all teeth removed Hx of vasectomy Status post coronary artery stent placement "PCI L circumflex with WALDO 02/02/18" Family History Other Family history not known due to adoption No pertinent family history Social History Smoking Status: Current every day smoker Tobacco Type: Cigarettes Cigarettes Per Day: 1/2 PPD; Second Hand Exposure: No; Hx Alcohol Use: No Hx Substance Use: No Preferred Language: Vietnamese Communication Ability: Effective Er Rn Required: No Beliefs That Will Affect Care: None marital status: Current Living Situation: Spouse Feels Safe at Home: Yes Assistive Devices: None Allergies Allergies Allergy/AdvReac Type Severity Reaction Status Date / Time fenoprofen Allergy Severe SYNCOPE Verified 12/19/22 20:46 Home Meds Home Medications Medication Instructions Recorded Confirmed aspirin 81 mg tablet,delayed 81 mg PO QAM 02/25/19 12/19/22 release cholecalciferol (vitamin D3) 125 5,000 unit PO QAM 02/25/19 12/19/22 mcg (5,000 unit) tablet (Vitamin D3) clopidogrel 75 mg tablet 37.5 mg PO QAM 02/25/19 12/19/22 lisinopril 2.5 mg tablet 2.5 mg PO QAM 02/25/19 12/19/22 metformin 500 mg tablet 500 mg PO QAM 02/25/19 12/19/22 montelukast 10 mg tablet 10 mg PO HS 02/25/19 12/19/22 (Singulair) rosuvastatin 20 mg tablet 20 mg PO QAM 02/25/19 12/19/22 vit C 250 mg-vit E 90 mg-zinc 40 1 tab PO BID 02/25/19 12/19/22 mg-copper 1 [id number] capsule (PreserVision AREDS-2) fluticasone 500 mcg-salmeterol 50 1 inh inhalation BID 05/18/20 12/19/22 mcg/dose blistr powdr for inhalation (Advair Diskus) albuterol sulfate 90 mcg/actuation 2 puff inhalation Q6H PRN Wheezing 01/19/22 12/19/22 aerosol inhaler (ProAir HFA) metoprolol succinate 50 mg 25 mg PO BID 04/04/22 12/19/22 tablet,extended release 24 hr citalopram 20 mg tablet 20 mg PO QAM 12/19/22 12/19/22 gabapentin 300 mg capsule 300 mg PO AMPM 12/19/22 12/19/22 iron,carbonyl 65 mg-vitamin C 125 1 tab PO QAM 12/19/22 12/19/22 mg tablet,delayed release (Vitron-C) Previous Rx's Medication Instructions Recorded nitroglycerin 0.4 mg sublingual 0.4 mg sublingual PRN PRN chest 05/06/22 tablet (Nitrostat) pain #10 tabs Results & Data (ED) Vital Signs Vital Signs - 24 hr 12/19/22 13:47 12/19/22 15:22 12/19/22 15:30 Temperature 36.8 C Temperature Source Temporal Artery Scan Pulse Rate 76 79 77 Pulse Rate [Apical] Pulse Rate from SpO2 Sensor Respiratory Rate 18 21 23 Respiratory Effort / Characteristics Non-Labored Spontaneous Respiratory Depth Normal Respiratory Pattern Regular Blood Pressure 115/71 Blood Pressure [Right Arm] Blood Pressure Mean 85 Blood Pressure Mean [Right Arm] Blood Pressure Position Sitting Pulse Oximetry 96 Oxygen Delivery Method Room Air Sepsis Recent Fever Within 48 Hours No Sepsis New/Unexplained Change in Mental Status N/A Sepsis Action Taken by Nursing No Action Required 12/19/22 16:00 12/19/22 16:30 12/19/22 17:45 Temperature Temperature Source Pulse Rate 75 67 Pulse Rate [Apical] 78 Pulse Rate from SpO2 Sensor 75 Respiratory Rate 20 18 12 Respiratory Effort / Characteristics Non-Labored Spontaneous Respiratory Depth Normal Respiratory Pattern Blood Pressure 119/65 130/68 Blood Pressure [Right Arm] 102/59 L Blood Pressure Mean 83 88 Blood Pressure Mean [Right Arm] 73 Blood Pressure Position Pulse Oximetry 95 97 96 Oxygen Delivery Method Room Air Room Air Room Air Sepsis Recent Fever Within 48 Hours Sepsis New/Unexplained Change in Mental Status Sepsis Action Taken by Nursing 12/19/22 18:00 12/19/22 19:00 12/19/22 19:00 Temperature Temperature Source Pulse Rate 73 82 Pulse Rate [Apical] Pulse Rate from SpO2 Sensor 73 Respiratory Rate 12 15 Respiratory Effort / Characteristics Respiratory Depth Respiratory Pattern Blood Pressure 141/65 H 134/85 Blood Pressure [Right Arm] Blood Pressure Mean 90 101 Blood Pressure Mean [Right Arm] Blood Pressure Position Pulse Oximetry 97 Oxygen Delivery Method Room Air Sepsis Recent Fever Within 48 Hours Sepsis New/Unexplained Change in Mental Status Sepsis Action Taken by Nursing 12/19/22 19:30 12/19/22 19:30 12/19/22 20:00 Temperature Temperature Source Pulse Rate 84 Pulse Rate [Apical] Pulse Rate from SpO2 Sensor Respiratory Rate 24 Respiratory Effort / Characteristics Respiratory Depth Respiratory Pattern Blood Pressure 155/83 H 135/84 Blood Pressure [Right Arm] Blood Pressure Mean 107 101 Blood Pressure Mean [Right Arm] Blood Pressure Position Pulse Oximetry Oxygen Delivery Method Sepsis Recent Fever Within 48 Hours Sepsis New/Unexplained Change in Mental Status Sepsis Action Taken by Nursing 12/19/22 20:00 12/19/22 20:30 12/19/22 20:30 Temperature Temperature Source Pulse Rate 83 78 Pulse Rate [Apical] Pulse Rate from SpO2 Sensor Respiratory Rate 25 H 19 Respiratory Effort / Characteristics Respiratory Depth Respiratory Pattern Blood Pressure 147/75 H Blood Pressure [Right Arm] Blood Pressure Mean 99 Blood Pressure Mean [Right Arm] Blood Pressure Position Pulse Oximetry Oxygen Delivery Method Sepsis Recent Fever Within 48 Hours Sepsis New/Unexplained Change in Mental Status Sepsis Action Taken by Snf Medications Current Medication List: was personally reviewed by me Laboratory Data Attestation: I reviewed the patient's lab results. 12/19/22 14:31 12/19/22 14:31 Lab Results 12/19/22 12/19/22 12/19/22 Range/Units 14:31 14:31 16:03 WBC 7.42 (4.8-10.8) K/ul RBC 4.46 L (4.70-6.10) M/uL Hgb 13.4 L (14.0-18.0) g/dl Hct 40.4 L (42.0-52.0) % MCV 90.6 (80.0-100.0) fL MCH 30.0 (25.0-34.0) pg MCHC 33.2 (32.0-36.0) g/dL RDW Std Deviation 57.3 H (36.4-46.3) fL RDW Coeff of Adrian 17.1 H (11.5-14.5) % Plt Count 242 (130-400) K/uL MPV 9.6 (9.4-12.4) fL Immature Gran % (Auto) 0.4 % Neut % (Auto) 72.3 % Lymph % (Auto) 15.9 % Charlton % (Auto) 9.6 % Eos % (Auto) 0.7 % Baso % (Auto) 1.1 % Neut # (Auto) 5.37 (1.40-6.50) K/uL Lymph # (Auto) 1.18 L (1.2-3.4) K/uL Charlton # (Auto) 0.71 H (0.11-0.59) K/uL Eos # (Auto) 0.05 (0-0.50) K/uL Baso # (Auto) 0.08 (0-0.2) K/uL Immature Gran # (Auto) 0.03 (0.01-0.20) K/uL Sodium 139 (136-145) mmol/L Potassium 4.2 (3.5-5.1) mmol/L Chloride 104 (98-107) mmol/L Carbon Dioxide 28 (21-32) mmol/L Anion Gap 7 (3-11) BUN 23 (6-23) mg/dl Creatinine 0.99 (0.6-1.4) mg/dl Est Cr Clr Drug Dosing 72.6 ml/min Est GFR ( Amer) 86.6 ml/min Est GFR (Non-Af Amer) 74.7 ml/min BUN/Creatinine Ratio 23.2 H (10-20) Glucose 104 H (70-99(Fasting)) mg/dl Calcium 9.3 (8.5-10.1) mg/dl Magnesium 2.3 (1.7-2.4) mg/dl Total Bilirubin 0.6 (0.2-1.0) mg/dl AST 22 (13-39) U/L ALT 14 (7-52) U/L Alkaline Phosphatase 80 (34-104) U/L B-Natriuretic Peptide (0-100) pg/ml Total Protein 7.9 (6.0-8.3) gm/dl Albumin 4.1 (3.4-5.0) gm/dl Globulin 3.8 (2.5-4.0) gm/dl Albumin/Globulin Ratio 1.1 (0.9-2) Lipase 29 (11-82) U/L Urine Color Urine Appearance (Clear) Urine pH (4.5-7.5) Ur Specific [place] (1.000-1.030) Urine Protein (Negative) Urine Glucose (UA) (Negative) Urine Ketones (Negative) Urine Blood (Negative) Urine Nitrite (Negative) Urine Bilirubin (Negative) Urine Urobilinogen (Negative) Ur Leukocyte Esterase (Negative) Urine WBC (Auto) (0-5) /hpf Urine RBC (Auto) (0-4) /hpf U Hyaline Cast (Auto) (0-5) /lpf U Epithel Cells (Auto) (0-5) /lpf Urine Bacteria (Auto) (Negative) Urine Yeast SARS-CoV-2, RNA, NAAT NEGATIVE (NEGATIVE) 12/19/22 12/19/22 Range/Units 16:06 21:17 WBC (4.8-10.8) K/ul RBC (4.70-6.10) M/uL Hgb (14.0-18.0) g/dl Hct (42.0-52.0) % MCV (80.0-100.0) fL MCH (25.0-34.0) pg MCHC (32.0-36.0) g/dL RDW Std Deviation (36.4-46.3) fL RDW Coeff of Adrian (11.5-14.5) % Plt Count (130-400) K/uL MPV (9.4-12.4) fL Immature Gran % (Auto) % Neut % (Auto) % Lymph % (Auto) % Charlton % (Auto) % Eos % (Auto) % Baso % (Auto) % Neut # (Auto) (1.40-6.50) K/uL Lymph # (Auto) (1.2-3.4) K/uL Charlton # (Auto) (0.11-0.59) K/uL Eos # (Auto) (0-0.50) K/uL Baso # (Auto) (0-0.2) K/uL Immature Gran # (Auto) (0.01-0.20) K/uL Sodium (136-145) mmol/L Potassium (3.5-5.1) mmol/L Chloride (98-107) mmol/L Carbon Dioxide (21-32) mmol/L Anion Gap (3-11) BUN (6-23) mg/dl Creatinine (0.6-1.4) mg/dl Est Cr Clr Drug Dosing ml/min Est GFR ( Amer) ml/min Est GFR (Non-Af Amer) ml/min BUN/Creatinine Ratio (10-20) Glucose (70-99(Fasting)) mg/dl Calcium (8.5-10.1) mg/dl Magnesium (1.7-2.4) mg/dl Total Bilirubin (0.2-1.0) mg/dl AST (13-39) U/L ALT (7-52) U/L Alkaline Phosphatase (34-104) U/L B-Natriuretic Peptide 198 H (0-100) pg/ml Total Protein (6.0-8.3) gm/dl Albumin (3.4-5.0) gm/dl Globulin (2.5-4.0) gm/dl Albumin/Globulin Ratio (0.9-2) Lipase (11-82) U/L Urine Color Yellow Urine Appearance Clear (Clear) Urine pH 8.0 H (4.5-7.5) Ur Specific [place] 1.016 (1.000-1.030) Urine Protein Negative (Negative) Urine Glucose (UA) Negative (Negative) Urine Ketones Negative (Negative) Urine Blood Negative (Negative) Urine Nitrite Negative (Negative) Urine Bilirubin Negative (Negative) Urine Urobilinogen Negative (Negative) Ur Leukocyte Esterase Trace H (Negative) Urine WBC (Auto) 5-10 H (0-5) /hpf Urine RBC (Auto) 0-4 (0-4) /hpf U Hyaline Cast (Auto) 1-5 (0-5) /lpf U Epithel Cells (Auto) 0-5 (0-5) /lpf Urine Bacteria (Auto) 3+ H (Negative) Urine Yeast Not Reportable SARS-CoV-2, RNA, NAAT (NEGATIVE) Administered Medications Miscellaneous (Remove Lidoderm Patch) 1 each N/A DAILY@2100 CONOR Stop: 01/18/23 20:59 Last Admin: 12/19/22 21:30 Dose: 1 each Documented By: [id number] Discontinued Medications Albuterol (Albut/Ipratrop 3mg/0.5mg Neb 3 Ml Vial) 3 ml NEB NOW STA; Protocol Stop: 12/19/22 18:52 Last Admin: 12/19/22 19:16 Dose: 3 ml Documented By: [id number] Fentanyl Citrate (Fentanyl Citrate 100 Mcg/2 Ml Vial) 25 mcg IV NOW ONE Stop: 12/19/22 17:38 Last Admin: 12/19/22 17:44 Dose: 25 mcg Documented By: MAMTA Sodium Chloride (Nss 1000ml) 500 mls @ 999 mls/hr IV .Q31M ONE Stop: 12/19/22 17:09 Last Infusion: 12/19/22 18:48 Dose: 0 mls/hr Documented By: Admin: 12/19/22 17:49 Dose: 999 mls/hr Documented By: MAMTA Ceftriaxone Sodium (Rocephin) 2,000 mg in 70 mls @ 140 mls/hr IV NOW STA Stop: 12/19/22 17:08 Last Infusion: 12/19/22 18:48 Dose: 0 mls/hr Documented By: Admin: 12/19/22 17:50 Dose: 140 mls/hr Documented By: MAMTA Piperacillin Sod/Tazobactam Sod (Zosyn) 4.5 gm in 120 mls @ 240 mls/hr IV NOW STA Stop: 12/19/22 20:23 Last Admin: 12/19/22 20:00 Dose: 240 mls/hr Documented By: [id number] Ioversol (Optiray 350 100ml) 91 ml IV ONCE ONE Stop: 12/19/22 17:03 Last Admin: 12/19/22 17:02 Dose: 91 ml Documented By: SARA Lactulose (Lactulose Syrup 20 Gm/30 Ml Udc) 30 gm PO NOW STA Stop: 12/19/22 18:52 Last Admin: 12/19/22 19:16 Dose: 30 gm Documented By: [id number] Lidocaine (Lidocaine 5% 1 Patch) 1 patch TD NOW STA Stop: 12/19/22 17:38 Last Admin: 12/19/22 17:45 Dose: 1 patch Documented By: MAMTA Methylprednisolone (Methylprednisolone 125 Mg/2 Ml Vial) 125 mg IV NOW STA Stop: 12/19/22 17:38 Last Admin: 12/19/22 17:46 Dose: 125 mg Documented By: MAMTA Morphine Sulfate (Morphine Sulfate 4 Mg/Ml 1 Ml Carp\\Vial) 4 mg IV NOW STA Stop: 12/19/22 14:54 Last Admin: 12/19/22 15:36 Dose: 4 mg Documented By: GUERO Senna/Docusate Sodium (Docusate Sodium/Senna 50/8.6mg Tab) 1 tab PO NOW STA Stop: 12/19/22 21:01 Last Admin: 12/19/22 21:30 Dose: 1 tab Documented By: [id number] Imaging Data Radiologist's Impression: Abdomen/Pelvis CT 12/19/22 14:[address] WITH IV CONTRAST CT DOSE: 776.40 mGy.cm HISTORY: Low back pain, constipation/urinary retention TECHNIQUE: Multiaxial CT images of the abdomen and pelvis were performed following the use of intravenous contrast. A dose lowering technique was utilized adhering to the principles of ALARA. COMPARISON STUDY: CT lumbar spine 05/26/2022. FINDINGS: Small cluster of tree-in-bud nodular opacities within the lung bases. This favors a mild infectious bronchiolitis. No pneumoperitoneum. No pneumatosis. 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 L3-L5 posterior decompression and fusion with pedicle screws and rods. No acute fractures identified. Moderate to severe degenerative changes at L1-L2 and L2-L3 again noted. Small fat-containing left inguinal hernia. The liver, gallbladder, pancreas, spleen, and kidneys are unremarkable. No hydronephrosis. Mild nodular thickening within the bilateral adrenal glands. Normal caliber abdominal aorta. No retroperitoneal or pelvic lymphadenopathy. No pelvic free fluid. The prostate gland is mildly enlarged. The bladder is decompressed by Acuna catheter. There is a moderate to large amount well-formed stool within the rectum. There is mild rectal wall thickening for the degree of distention. Therefore, this raises the possibility of mild stercoral proctitis. Colonic diverticulosis. Questionable focal area of thickening within the proximal sigmoid colon on image 309 is likely due to a combination of muscular hypertrophy and under distention. No associated inflammatory change to suggest an acute process at this time. Normal appendix. No evidence for a bowel obstruction. IMPRESSION: 1. There is a moderate to large amount well-formed stool within the rectum. There is mild rectal wall thickening for the degree of distention. Therefore, this raises the possibility of mild stercoral proctitis. 2. Questionable focal area of thickening within the proximal sigmoid colon is likely due to a combination of muscular hypertrophy and under distention. No associated inflammatory change to suggest an acute diverticulitis at this time. 3. Small cluster of tree-in-bud nodular opacities within the lung bases. This favors a mild infectious bronchiolitis. No pneumoperitoneum. 4. Additional findings as described above. ACT 112: Negative or not required by law. Electronically signed by: Seth Armas M.D. 12/19/2022 5:13 PM Chest X-Ray 12/19/22 18:51 XR chest 1V portable HISTORY: Shortness of breath. copd COMPARISON: Chest 05/03/2022. FINDINGS: No pneumothorax. No pleural effusions. The cardiac silhouette is enlarged. There is progressive interstitial/vascular thickening suggestive of mild congestive change. Otherwise, no new focal lung consolidations to suggest a pneumonia. IMPRESSION: Cardiomegaly with mild congestive change. This has progressed in the interval. ACT 112: Negative or not required by law. Electronically signed by: Seth Armas M.D. 12/19/2022 7:30 PM Discharge Plan Visit Data Chief Complaint: Unable to Void Stated Complaint: REF BY , BACK PAIN, KIDNEY PAIN ED Provider: Wali Biggs Discharge Problem: Acute UTI, Acute urinary retention, Constipation, Back pain Patient Disposition: Admitted As Inpatient Forms Stand Alone Forms: [facility] Prescriptions Prescriptions: No Action metformin 500 mg tablet 500 mg PO QAM clopidogrel 75 mg tablet 37.5 mg PO QAM Rx Instructions: 1/2 tablet dose lisinopril 2.5 mg tablet 2.5 mg PO QAM rosuvastatin 20 mg tablet 20 mg PO QAM aspirin 81 mg Tablet,Delayed Release (Dr/Ec) 81 mg PO QAM montelukast [Singulair] 10 mg Tablet 10 mg PO HS cholecalciferol (vitamin D3) [Vitamin D3] 5,000 unit Tablet 5,000 unit PO QAM PreserVision AREDS-2 [id number] Capsule 1 tab PO BID fluticasone propion-salmeterol [Advair Diskus] 500-50 mcg/dose Blister With Device 1 inh INHALATION BID metoprolol succinate 50 mg tablet extended release 24 hr 25 mg PO BID nitroglycerin [Nitrostat] 0.4 mg Tablet, Sublingual 0.4 mg sublingual PRN PRN (Reason: chest pain) Qty: 10 0RF Rx Instructions: take max of three tabs if chest pain not controlled, each tablet 5 minutes apart. Call ER w/ ongoing chest pain. albuterol sulfate [ProAir HFA] 90 mcg/actuation HFA aerosol inhaler 2 puff INHALATION Q6H PRN (Reason: Wheezing) citalopram 20 mg tablet 20 mg PO QAM Vitron-C 65 mg iron- 125 mg tablet,delayed release (DR/EC) 1 tab PO QAM gabapentin 300 mg capsule 300 mg PO AMPM Referrals Referrals: Nisha Lafleur M.D. [Primary Care Provider] -
[2022-12-19] MEDS ORDERED: MoRPHine SULFATE 4 MG/ML 1 ML CARP\\VIAL IV STA (14:53)
[2022-12-19 15:04] LABS: Basophils # (auto) 0.08 K/uL (0-0.2); Basophils % (auto) 1.1 %; Eosinophils # (auto) 0.05 K/uL (0-0.50); Eosinophils % (auto) 0.7 %; Hematocrit (blood only) 40.4 % (42.0-52.0); Hemoglobin 13.4 g/dl (14.0-18.0); Immature Granulocytes # (auto) 0.03 K/uL (0.01-0.20); Immature Granulocytes % (auto) 0.4 %; Lymphocytes # (auto) 1.18 K/uL (1.2-3.4); Lymphocytes % (auto) 15.9 %; Mean Corpuscular Hgb Conc 33.2 g/dL (32.0-36.0); Mean Corpuscular Volume 90.6 fL (80.0-100.0); Mean Platelet Volume 9.6 fL (9.4-12.4); Monocytes # (auto) 0.71 K/uL (0.11-0.59); Monocytes % (auto) 9.6 %; Neutrophils # (auto) 5.37 K/uL (1.40-6.50); Neutrophils % (auto) 72.3 %; Platelet Count 242 K/uL (130-400); RDW Coefficient of Variation 17.1 % (11.5-14.5); RDW Standard Deviation 57.3 fL (36.4-46.3); Red Blood Count 4.46 M/uL (4.70-6.10); White Blood Count 7.42 K/ul (4.8-10.8)
[2022-12-19 15:20] LABS: Albumin Level 4.1 gm/dl (3.4-5.0); Bilirubin,Total 0.6 mg/dl (0.2-1.0); Calcium 9.3 mg/dl (8.5-10.1); Potassium 4.2 mmol/L (3.5-5.1)
[2022-12-19 15:26] LABS: Albumin Globulin Ratio 1.1 (0.9-2); BUN Creatinine Ratio 23.2 (10-20); Creatinine Clr Calc Pharmacy 72.6 ml/min; Est GFR (African American) 86.6 ml/min; Est GFR (Non-African American) 74.7 ml/min; Globulin 3.8 gm/dl (2.5-4.0); Total Protein 7.9 gm/dl (6.0-8.3)
[2022-12-19 16:17] LABS: Appearance Urine Clear (Clear); Bacteria Urine Automated 3+ (Negative); Bilirubin Urine Negative (Negative); Blood Urine Negative (Negative); Color Urine Yellow; Epithelial Cell Urine Auto 0-5 /lpf (0-5); Glucose Urine UA Negative (Negative); Ketones Urine Negative (Negative); Leukocyte Esterase Urine Trace (Negative); Nitrite Urine Negative (Negative); Protein Urine Negative (Negative); RBC Urine Automated 0-4 /hpf (0-4); Specific Gravity Urine 1.016 (1.000-1.030); Urobilinogen Urine Negative (Negative)
[2022-12-19] MEDS ORDERED: cefTRIAXone SODIUM 2,000 MG/70 ML BAG IV STA (16:39)
[2022-12-19] MEDS ORDERED: SODIUM CHLORIDE 0.9% 1000ML 500 ML IV ONE (16:39)
[2022-12-19] MEDS ORDERED: OPTIRAY 350 100ml IV ONE (17:02)
--- NOTE | 2022-12-19 17:15 | CT Scan Report ---
ABDOMEN AND PELVIS CT WITH IV CONTRAST CT DOSE: 776.40 mGy.cm HISTORY: Low back pain, constipation/urinary retention TECHNIQUE: Multiaxial CT images of the abdomen and pelvis were performed following the use of intrave nous contrast. A dose lowering technique was utilized adhering to the principles of ALARA. COMPARISON STUDY: CT lumbar spine 05/26/2022. FINDINGS: Small cluster of tree-in-bud nodular opacities within the lung bases. This favors a mild in fectious bronchiolitis. No pneumoperitoneum. No pneumatosis. Bilateral femoral head avascular necrosi s with mild articular collapse. L3-L5 posterior decompression and fusion with pedicle screws and rods . No acute fractures identified. Moderate to severe degenerative changes at L1-L2 and L2-L3 again not ed. Small fat-containing left inguinal hernia. The liver, gallbladder, pancreas, spleen, and kidneys are unremarkable. No hydronephrosis. Mild nodular thickening within the bilateral adrenal glands. [place] caliber abdominal aorta. No retroperitoneal or pelvic lymphadenopathy. No pelvic free fluid. The prostate gland is mildly enlarged. The bladder is decompressed by Acuna catheter. There is a moderate to large amount well-formed stool within the rectum. There is mild rectal wall thickening for the de gree of distention. Therefore, this raises the possibility of mild stercoral proctitis. Colonic diver ticulosis. Questionable focal area of thickening within the proximal sigmoid colon on image 309 is li audrey due to a combination of muscular hypertrophy and under distention. No associated inflammatory ch kory to suggest an acute process at this time. Normal appendix. No evidence for a bowel obstruction. IMPRESSION: 1. There is a moderate to large amount well-formed stool within the rectum. There is mild rectal wall thickening for the degree of distention. Therefore, this raises the possibility of mild stercoral pr octitis. 2. Questionable focal area of thickening within the proximal sigmoid colon is likely due to a combina tion of muscular hypertrophy and under distention. No associated inflammatory change to suggest an ac [place] diverticulitis at this time. 3. Small cluster of tree-in-bud nodular opacities within the lung bases. This favors a mild infectiou s bronchiolitis. No pneumoperitoneum. 4. Additional findings as described above. ACT 112: Negative or not required by law. Electronically signed by: Seth Armas M.D. 12/19/2022 5:13 PM
[2022-12-19] MEDS ORDERED: methylPREDNISolone 125 MG/2 ML VIAL IV STA (17:37)
[2022-12-19] MEDS ORDERED: fentaNYL citrate 100 MCG/2 ML VIAL IV ONE (17:37)
[2022-12-19] MEDS ORDERED: LIDOCAINE 5% 1 PATCH TD STA (17:37)
[2022-12-19] MEDS ORDERED: LACTULOSE SYRUP 20 GM/30 ML UDC PO STA (18:51)
[2022-12-19] MEDS ORDERED: ALBUT/IPRATROP 3MG/0.5MG NEB 3 ML VIAL NEB STA (18:51)
--- NOTE | 2022-12-19 19:31 | XRay Report ---
XR chest 1V portable HISTORY: Shortness of breath. copd COMPARISON: Chest 05/03/2022. FINDINGS: No pneumothorax. No pleural effusions. The cardiac silhouette is enlarged. There is progres sive interstitial/vascular thickening suggestive of mild congestive change. Otherwise, no new focal l ben consolidations to suggest a pneumonia. IMPRESSION: Cardiomegaly with mild congestive change. This has progressed in the interval. ACT 112: Negative or not required by law. Electronically signed by: Seth Armas M.D. 12/19/2022 7:30 PM
[2022-12-19] MEDS ORDERED: PIPERACILLIN/TAZOBACTAM 4.5 GM/120 ML BAG IV STA (19:54)
[2022-12-19 20:25] LABS: Magnesium 2.3 mg/dl (1.7-2.4)
[2022-12-19] MEDS ORDERED: DOCUSATE SODIUM/SENNA 50/8.6MG TAB PO STA (21:00)
--- NOTE | 2022-12-19 21:02 | History & Physical Report ---
Date of Service December 19, 2022 Assessment & Plan (1) Stercoral colitis: Plan: secondary to constipation symptoms possibly from worsening back pain/radiculopathy symptoms hx back surgery 2010 chronic systolic heart failure (EF 35 to 40%, TTE 2021), equivocal volume status given congestion on CXR hx CAD status post stent PVD status post surgery history TIA hypertension, stable hyperlipidemia, on statin Rx DM2 on oral medications, well-controlled as of recent hemoglobin A1c of 6 last March 2022 hx COPD, chronic cough symptoms OSMAN on CPAP chronic anemia, hemoglobin better than baseline anxiety/mood disorder, at baseline ongoing tobacco abuse GMF Zosyn, bowel regimen Analgesia (low-dose narcotics for now, NSAIDs contraindicated given cardiovascular history) MRI lumbosacral spine, Orthopedic spine consult Re: Worsening back pain, history of back surgery Hold Plavix for now until patient seen by orthopedics Basal bolus insulin, ISS BG goal 1 10-1 40, carb count coverage, update hemoglobin A1c Nicotine patch as needed DVT prophylaxis. SCDs until patient seen by orthopedics Re: Possible procedure Full code Patient requesting updates from providers. Shanice Konstantin, contact #[phone]. Text document was generated using [employer] voice recognition software. It may contain grammatical or spelling errors. Kindly contact undersigned for clarification of any documentation item in question. History of Present Illness Chief Complaint: Worsening back pain, abdominal pain Primary Care Provider: JOEY Willis History obtained from patient, family, and records. Medical history significant for chronic systolic heart failure (EF 35 to 40%, TTE 2021), CAD status post stent, PVD status post surgery, history TIA, hypertension, hyperlipidemia, DM2 on oral medications, COPD, OSMAN on CPAP, chronic anemia (baseline hemoglobin 11-12 ), chronic back pain status post surgery, anxiety/mood disorder, ongoing tobacco abuse. Last confinement April 2022 for chest pain, ACS ruled out. Patient had back surgery in [place] in 2010. Recurrence of back pain with radiation to the lower extremities about 5 years ago. [place] [facility] [place] [facility] [place] told him to go to family doctor for pain management. Patient noted worsening back pain the last 2 weeks. Patient only able to take Tylenol at home. Achy generalized abdominal discomfort today, last bowel movement was about 3 days ago which is unusual for patient. Patient denies unusual chest pain, SOB, cough symptoms. Some nausea without emesis. Patient fell at home and was crawling because it hurt his back more to walk. No incontinence symptoms, no fever, no chills. Patient seen at PCPs office today and directed to ER for evaluation. Medical History as above Surgical History : Back surgery, vasectomy, vascular procedures, dental surgery Family History : Heart disease Personal/Social history : Half pack daily, no EtOH intake, retired [employer] employee Allergies Allergy/AdvReac Type Severity Reaction Status Date / Time fenoprofen Allergy Severe SYNCOPE Verified 12/19/22 20:46 Home Medications Medication Instructions Recorded Confirmed Type aspirin 81 mg tablet,delayed 81 mg PO QAM 02/25/19 12/19/22 History release cholecalciferol (vitamin D3) 125 5,000 unit PO QAM 02/25/19 12/19/22 History mcg (5,000 unit) tablet (Vitamin D3) clopidogrel 75 mg tablet 37.5 mg PO QAM 02/25/19 12/19/22 History lisinopril 2.5 mg tablet 2.5 mg PO QAM 02/25/19 12/19/22 History metformin 500 mg tablet 500 mg PO QAM 02/25/19 12/19/22 History montelukast 10 mg tablet 10 mg PO HS 02/25/19 12/19/22 History (Singulair) rosuvastatin 20 mg tablet 20 mg PO QAM 02/25/19 12/19/22 History vit C 250 mg-vit E 90 mg-zinc 40 1 tab PO BID 02/25/19 12/19/22 History mg-copper 1 [id number]-[id number] capsule (PreserVision AREDS-2) fluticasone 500 mcg-salmeterol 50 1 inh inhalation BID 05/18/20 12/19/22 History mcg/dose blistr powdr for inhalation (Advair Diskus) albuterol sulfate 90 mcg/actuation 2 puff inhalation Q6H PRN Wheezing 01/19/22 12/19/22 History aerosol inhaler (ProAir HFA) metoprolol succinate 50 mg 25 mg PO BID 04/04/22 12/19/22 History tablet,extended release 24 hr nitroglycerin 0.4 mg sublingual 0.4 mg sublingual PRN PRN chest 05/06/22 12/19/22 Rx tablet (Nitrostat) pain #10 tabs citalopram 20 mg tablet 20 mg PO QAM 12/19/22 12/19/22 History gabapentin 300 mg capsule 300 mg PO AMPM 12/19/22 12/19/22 History iron,carbonyl 65 mg-vitamin C 125 1 tab PO QAM 12/19/22 12/19/22 History mg tablet,delayed release (Vitron-C) Past Med/Surg History Medical History (Updated 12/20/22 @ 02:06 by Silvino Oliver MD) Cardiac murmur in childhood; no further issues COPD (chronic obstructive pulmonary disease) inhaler prn Coronary artery disease "s/p non-STEMI 01/31/18, cath showed circ lesion and lesser disease in LAD and RCA, PCI circ with WALDO 02/02/18" Degenerative disc disease Depression Diabetes mellitus, type 2 Dyslipidemia Hypertension Macular degeneration of both eyes NSTEMI (non-ST elevated myocardial infarction) 01/31/18--follows with Dr. Laguna--plavix daily Sleep apnea cpap Stenosis of both vertebral arteries Transient ischemic attack (TIA) 02/2019--[place] with Dr. Itz Fernando [place] [facility] [place]av[place] Surgical History History of bilateral cataract extraction History of cardiac cath 02/02/2018 @ [facility] with 1 stent placed History of carotid angioplasty left side 1 stent placed @ [facility] [place] History of colonoscopy History of lumbar spinal fusion History of tooth extraction all teeth removed Hx of vasectomy Status post coronary artery stent placement "PCI L circumflex with WALDO 02/02/18" Family History Other Family history not known due to adoption No pertinent family history Social History Smoking Status: Current every day smoker Tobacco Type: Cigarettes Cigarettes Per Day: 1/2 PPD; Second Hand Exposure: No; Do You Dip or Chew Tobacco: No; Tobacco Cessation Education Requested by Patient: No Hx Alcohol Use: Yes Alcohol type: beer Hx Substance Use: No Preferred Language: Macanese Communication Ability: Effective Tour Agent Required: No Beliefs That Will Affect Care: None marital status: Current Living Situation: Spouse Other Information That Helps Us Care for You: No Feels Safe at Home: Yes Safety Concerns: Feels Safe At This Time Assistive Devices: Denture - Upper and Denture - Lower Review of Systems Review of Systems: As per HPI, all other systems reviewed and negative Physical Exam Physical Exam: GENERAL: Slightly uncomfortable, obese, pleasant, no respiratory distress SKIN: Pallor, warm HEENT: Pale palpebral conjunctivae, no ptosis, dry buccal mucosa NECK : Supple, short neck, no tenderness CHEST : Decreased breath sounds, scattered expiratory wheezes, no tenderness HEART : RRR, no obvious murmurs ABDOMEN: distention, hypogastric tenderness BACK : Low back tenderness, negative straight leg raise test EXTREMITIES : No LE swelling/tenderness, no other conspicuous deformities noted NEUROLOGIC : Coherent, no facial asymmetry, gait and stance not assessed Results & Data Results & Data ([facility]) Vital Signs (Past 12 Hours) Vital Signs Temp Pulse Pulse Resp BP BP Pulse Ox 12/19/22 20:30 78 19 12/19/22 20:30 147/75 H 12/19/22 20:00 83 25 H 12/19/22 20:00 135/84 12/19/22 19:30 84 24 12/19/22 19:30 155/83 H 12/19/22 19:00 82 15 12/19/22 19:00 134/85 12/19/22 18:00 73 12 141/65 H 97 12/19/22 17:45 67 12 130/68 96 12/19/22 16:30 75 18 119/65 97 12/19/22 16:00 78 20 102/59 L 95 12/19/22 15:30 77 23 12/19/22 15:22 79 21 12/19/22 13:47 36.8 C 76 18 115/71 96 O2 Del Method 12/19/22 20:30 12/19/22 20:30 12/19/22 20:00 12/19/22 20:00 12/19/22 19:30 12/19/22 19:30 12/19/22 19:00 12/19/22 19:00 12/19/22 18:00 Room Air 12/19/22 17:45 Room Air 12/19/22 16:30 Room Air 02/09/23 16:00 Room Air 12/19/22 15:30 12/19/22 15:22 12/19/22 13:47 Room Air Laboratory Results Laboratory Results WBC 7.42 K/ul (4.8-10.8) 12/19/22 14:31 RBC 4.46 M/uL (4.70-6.10) L 12/19/22 14:31 Hgb 13.4 g/dl (14.0-18.0) L 12/19/22 14:31 Hct 40.4 % (42.0-52.0) L 12/19/22 14:31 MCV 90.6 fL (80.0-100.0) 12/19/22 14:31 MCH 30.0 pg (25.0-34.0) 12/19/22 14:31 MCHC 33.2 g/dL (32.0-36.0) 12/19/22 14:31 RDW Std Deviation 57.3 fL (36.4-46.3) H 12/19/22 14:31 RDW Coeff of Adrian 17.1 % (11.5-14.5) H 12/19/22 14:31 Plt Count 242 K/uL (130-400) 12/19/22 14:31 MPV 9.6 fL (9.4-12.4) 12/19/22 14:31 Immature Gran % (Auto) 0.4 % 12/19/22 14:31 Neut % (Auto) 72.3 % 12/19/22 14:31 Lymph % (Auto) 15.9 % 12/19/22 14:31 Hale % (Auto) 9.6 % 12/19/22 14:31 Eos % (Auto) 0.7 % 12/19/22 14:31 Baso % (Auto) 1.1 % 12/19/22 14:31 Neut # (Auto) 5.37 K/uL (1.40-6.50) 12/19/22 14:31 Lymph # (Auto) 1.18 K/uL (1.2-3.4) L 12/19/22 14:31 Hale # (Auto) 0.71 K/uL (0.11-0.59) H 12/19/22 14:31 Eos # (Auto) 0.05 K/uL (0-0.50) 12/19/22 14:31 Baso # (Auto) 0.08 K/uL (0-0.2) 12/19/22 14:31 Immature Gran # (Auto) 0.03 K/uL (0.01-0.20) 12/19/22 14:31 Sodium 139 mmol/L (136-145) 12/19/22 14:31 Potassium 4.2 mmol/L (3.5-5.1) 12/19/22 14:31 Chloride 104 mmol/L (98-107) 12/19/22 14:31 Carbon Dioxide 28 mmol/L (21-32) 12/19/22 14:31 Anion Gap 7 (3-11) 12/19/22 14:31 BUN 23 mg/dl (6-23) 12/19/22 14:31 Creatinine 0.99 mg/dl (0.6-1.4) 12/19/22 14:31 Est Cr Clr Drug Dosing 72.6 ml/min 12/19/22 14:31 Est GFR ( Amer) 86.6 ml/min 12/19/22 14:31 Est GFR (Non-Af Amer) 74.7 ml/min 12/19/22 14:31 BUN/Creatinine Ratio 23.2 (10-20) H 12/19/22 14:31 Glucose 104 mg/dl (70-99(Fasting)) H 12/19/22 14:31 Calcium 9.3 mg/dl (8.5-10.1) 12/19/22 14:31 Magnesium 2.3 mg/dl (1.7-2.4) 12/19/22 14:31 Total Bilirubin 0.6 mg/dl (0.2-1.0) 12/19/22 14:31 AST 22 U/L (13-39) 12/19/22 14:31 ALT 14 U/L (7-52) 12/19/22 14:31 Alkaline Phosphatase 80 U/L (34-104) 12/19/22 14:31 Total Protein 7.9 gm/dl (6.0-8.3) 12/19/22 14:31 Albumin 4.1 gm/dl (3.4-5.0) 12/19/22 14:31 Globulin 3.8 gm/dl (2.5-4.0) 12/19/22 14:31 Albumin/Globulin Ratio 1.1 (0.9-2) 12/19/22 14:31 Lipase 29 U/L (11-82) 12/19/22 14:31 Urine Color Yellow 12/19/22 16:06 Urine Appearance Clear (Clear) 12/19/22 16:06 Urine pH 8.0 (4.5-7.5) H 12/19/22 16:06 Ur Specific [place] 1.016 (1.000-1.030) 12/19/22 16:06 Urine Protein Negative (Negative) 12/19/22 16:06 Urine Glucose (UA) Negative (Negative) 12/19/22 16:06 Urine Ketones Negative (Negative) 12/19/22 16:06 Urine Blood Negative (Negative) 12/19/22 16:06 Urine Nitrite Negative (Negative) 12/19/22 16:06 Urine Bilirubin Negative (Negative) 12/19/22 16:06 Urine Urobilinogen Negative (Negative) 12/19/22 16:06 Ur Leukocyte Esterase Trace (Negative) H 12/19/22 16:06 Urine WBC (Auto) 5-10 /hpf (0-5) H 12/19/22 16:06 Urine RBC (Auto) 0-4 /hpf (0-4) 12/19/22 16:06 U Hyaline Cast (Auto) 1-5 /lpf (0-5) 12/19/22 16:06 U Epithel Cells (Auto) 0-5 /lpf (0-5) 12/19/22 16:06 Urine Bacteria (Auto) 3+ (Negative) H 12/19/22 16:06 Urine Yeast Not Reportable 12/19/22 16:06 SARS-CoV-2, RNA, NAAT NEGATIVE (NEGATIVE) 12/19/22 16:03 Impressions Abdomen/Pelvis CT 12/19/22 14:[address] WITH IV CONTRAST CT DOSE: 776.40 mGy.cm HISTORY: Low back pain, constipation/urinary retention TECHNIQUE: Multiaxial CT images of the abdomen and pelvis were performed following the use of intravenous contrast. A dose lowering technique was utilized adhering to the principles of ALARA. COMPARISON STUDY: CT lumbar spine 05/26/2022. FINDINGS: Small cluster of tree-in-bud nodular opacities within the lung bases. This favors a mild infectious bronchiolitis. No pneumoperitoneum. No pneumatosis. 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 L3-L5 posterior decompression and fusion with pedicle screws and rods. No acute fractures identified. Moderate to severe degenerative changes at L1-L2 and L2-L3 again noted. Small fat-containing left inguinal hernia. The liver, gallbladder, pancreas, spleen, and kidneys are unremarkable. No hydronephrosis. Mild nodular thickening within the bilateral adrenal glands. Normal caliber abdominal aorta. No retroperitoneal or pelvic lymphadenopathy. No pelvic free fluid. The prostate gland is mildly enlarged. The bladder is decompressed by Acuna catheter. There is a moderate to large amount well-formed stool within the rectum. There is mild rectal wall thickening for the degree of distention. Therefore, this raises the possibility of mild stercoral proctitis. Colonic diverticulosis. Questionable focal area of thickening within the proximal sigmoid colon on image 309 is likely due to a combination of muscular hypertrophy and under distention. No associated inflammatory change to suggest an acute process at this time. Normal appendix. No evidence for a bowel obstr uction. IMPRESSION: 1. There is a moderate to large amount well-formed stool within the rectum. There is mild rectal wall thickening for the degree of distention. Therefore, this raises the possibility of mild stercoral proctitis. 2. Questionable focal area of thickening within the proximal sigmoid colon is likely due to a combination of muscular hypertrophy and under distention. No associated inflammatory change to suggest an acute diverticulitis at this time. 3. Small cluster of tree-in-bud nodular opacities within the lung bases. This favors a mild infectious bronchiolitis. No pneumoperitoneum. 4. Additional findings as described above. ACT 112: Negative or not required by law. Electronically signed by: Seth Armas M.D. 12/19/2022 5:13 PM Chest X-Ray 12/19/22 18:51 XR chest 1V portable HISTORY: Shortness of breath. copd COMPARISON: Chest 05/03/2022. FINDINGS: No pneumothorax. No pleural effusions. The cardiac silhouette is enlarged. There is progressive interstitial/vascular thickening suggestive of mild congestive change. Otherwise, no new focal lung consolidations to suggest a pneumonia. IMPRESSION: Cardiomegaly with mild congestive change. This has progressed in the interval. ACT 112: Negative or not required by law. Electronically signed by: Seth Armas M.D. 12/19/2022 7:30 PM Diagnostic Findings EKG as per my interpretation :
[2022-12-19] MEDS ORDERED: NITROGLYCERIN SL 0.4 MG/TAB TAB SL PRN (22:37)
[2022-12-19] MEDS ORDERED: ACETAMINOPHEN 325 MG TAB PO PRN (22:37)
[2022-12-19] MEDS ORDERED: POLYETHYLENE (MIRALAX) 17 GM PACK PO PRN (22:37)
[2022-12-19] MEDS ORDERED: GLUCOSE 10 TAB/TUBE PO PRN (22:37)
[2022-12-19] MEDS ORDERED: DEXTROSE 50% 50 ML SYRINGE IV PRN (22:37)
[2022-12-19] MEDS ORDERED: GLUCOSE 40% GEL 15 GM TUBE PO PRN (22:37)
[2022-12-19] MEDS ORDERED: CARBOHYDRATES FOR HYPOGLYCEMIA PO PRN (22:37)
[2022-12-19] MEDS ORDERED: PROMETHAZINE HCL 12.5 MG in SODIUM CHLORIDE 0.9% 50 ML IV PRN (22:37)
[2022-12-19] MEDS ORDERED: GLUCAGON FOR INJ 1 MG VIAL SQ PRN (22:37)
[2022-12-19] MEDS: traMADol HCL 50 MG TABLET PO PRN (23:04)
[2022-12-19] MEDS: METOPROLOL SUCC 25MG EXT REL TAB PO SCH (23:05)
[2022-12-19] MEDS: GABAPENTIN 300 MG CAP PO SCH (23:05)
[2022-12-19] MEDS: INSULIN ASPART PER UNIT SC SCH (23:12)
[2022-12-19] MEDS ORDERED: LANTUS PER UNIT CHARGE SQ SCH (23:20)
[2022-12-20] MEDS ORDERED: POLYETHYLENE (MIRALAX) 17 GM PACK PO STA (01:33)
[2022-12-20] MEDS ORDERED: LACTULOSE SYRUP 30 GM/45 ML UDP PO ONE (01:45)
[2022-12-20] MEDS: PIPERACILLIN/TAZOBACTAM 3.375 GM in DEXTROSE 5% 100 ML IV SCH ×3 (02:06→18:08)
[2022-12-20 06:45] LABS: Basophils # (auto) 0.01 K/uL (0-0.2); Basophils % (auto) 0.2 %; Eosinophils # (auto) 0.25 K/uL (0-0.50); Eosinophils % (auto) 4.4 %; Hematocrit (blood only) 37.9 % (42.0-52.0); Hemoglobin 12.8 g/dl (14.0-18.0); Immature Granulocytes # (auto) 0.03 K/uL (0.01-0.20); Immature Granulocytes % (auto) 0.5 %; Lymphocytes # (auto) 0.41 K/uL (1.2-3.4); Lymphocytes % (auto) 7.2 %; Mean Corpuscular Hemoglobin 30.8 pg (25.0-34.0); Mean Corpuscular Hgb Conc 33.8 g/dL (32.0-36.0); Mean Corpuscular Volume 91.3 fL (80.0-100.0); Mean Platelet Volume 9.4 fL (9.4-12.4); Monocytes # (auto) 0.15 K/uL (0.11-0.59); Monocytes % (auto) 2.6 %; Neutrophils # (auto) 4.85 K/uL (1.40-6.50); Neutrophils % (auto) 85.1 %; Platelet Count 221 K/uL (130-400); RDW Coefficient of Variation 17.1 % (11.5-14.5); RDW Standard Deviation 57.5 fL (36.4-46.3); Red Blood Count 4.15 M/uL (4.70-6.10)
[2022-12-20 07:04] LABS: Calcium 9.2 mg/dl (8.5-10.1); Potassium 4.4 mmol/L (3.5-5.1)
[2022-12-20 07:09] LABS: Creatinine Clr Calc Pharmacy 57.7 ml/min; Est GFR (African American) 66.6 ml/min; Est GFR (Non-African American) 57.5 ml/min
[2022-12-20 07:11] LABS: Estimated Average Glucose 123 mg/dl; Hemoglobin A1C 5.9 % (4.5-5.6)
[2022-12-20] MEDS: METOPROLOL SUCC 25MG EXT REL TAB PO SCH ×2 (08:00→21:14)
[2022-12-20] MEDS: ROSUVASTATIN CALCIUM 20 MG TAB PO SCH (08:04)
[2022-12-20] MEDS: DOCUSATE SODIUM/SENNA 50/8.6MG TAB PO SCH (08:05)
[2022-12-20] MEDS: lisinopril 2.5 MG TAB PO SCH (08:05)
[2022-12-20] MEDS: CITALOPRAM 20 MG TAB PO SCH (08:06)
[2022-12-20] MEDS: ASPIRIN 81 MG ECTAB PO SCH (08:06)
[2022-12-20] MEDS: GABAPENTIN 300 MG CAP PO SCH ×2 (08:07→21:12)
[2022-12-20] MEDS: CEROVITE ADV FORMULA TAB PO SCH ×2 (08:07→21:14)
[2022-12-20] MEDS ORDERED: NON-FORMULARY MEDICATION (Iron,Carbonyl-Vitamin C [Vitron-C] 65 mg iron- 125 mg tablet,del PO SCH (09:00)
[2022-12-20] MEDS: INSULIN ASPART PER UNIT SC SCH ×4 (09:31→20:50)
[2022-12-20] MEDS: FLUTICASONE/VILANTEROL 200/25MCG 14 PUFFS/INHALER INH SCH (09:32)
--- NOTE | 2022-12-20 09:42 | Hospitalist Progress Note ---
Date of Service December 20, 2022 Assessment & Plan (1) Stercoral colitis: Plan: This is a 69-year-old male with a PMH of HTN, HLD, DM II, CAD (s/p stent placement in January 2018), tobacco use disorder, COPD, chroni back pain and other medical problems listed below who presents with worsening back pain and constipation. Acute on chronic lumbar radiculopathy, spinal stenosis H/o lumbar spinal surgery in 2010 Lumbar spine MRI - * No acute fracture or subluxation. * Progressively worsened intervertebral disc space narrowing with likely degenerative marrow edema at L1-L2 results in progressively worsened central canal stenosis, now severe. * Prior L4-L5 laminectomy with L3-L5 posterior interbody rickey and screw fusion. 5.9 cm multilocular fluid collection within the deep operative bed suggestive of a probable seroma is unchanged. * Multilevel neural foraminal narrowing Evaluated by orthopedic surgery today. Not feel there are significant enough changes on lumbar spine MRI that would make surgical intervention beneficial. Patient also not interested in surgery at this point Ortho recommending physical therapy for ambulation and gait training as well as trial of Decadron and as needed Toradol Sterocoral proctitis CT abd/pelvis - * 1. There is a moderate to large amount well-formed stool within the rectum. There is mild rectal wall thickening for the degree of distention. Therefore, this raises the possibility of mild stercoral proctitis. * 2. Questionable focal area of thickening within the proximal sigmoid colon is likely due to a combination of muscular hypertrophy and under distention. No associated inflammatory change to suggest an acute diverticulitis at this time. * 3. Small cluster of tree-in-bud nodular opacities within the lung bases. This favors a mild infectious bronchiolitis. No pneumoperitoneum. Had a bowel movement this morning with improvement of abdominal distention. Continue antibiotic, bowel regimen PRN Urinary retention Likely worsened by fecal retention and pain - remove carroll and trial of void , bladder scan as needed, obtain UA Coronary artery disease H/o NSTEMI s/p PCI L circumflex with WALDO 02/02/18 Continue Plavix, aspirin, statin COPD (chronic obstructive pulmonary disease) Stable. Encourage smoking cessation. Offered nicotine patch but declined Diabetes mellitus, type 2 A1c 5.9 on admission Hold home agents SSI while in-patient - may need to tighten coverage with Decadron BSG AC HS Hypertension Normotensive. Continue Toprol, lisinopril Code status:FULL PCP:[facility] in [place] Will call to update. A total of 60 minutes were spent with greater than 50% of that time face to face with the patient, personally reviewing all current laboratories, imaging studies, past medication reconciliation, outpatient chart review, and discussion with specialists to collaborate care for the patient with attending and utilization of translation services. Please see attending documentation for corrections and/or additions. Admission and Anticipated Discharge Date Admission Date: December 19, 2022 Supervising Physician Co-Signing Physician Notes Patient seen and examined at bedside as a follow-up office to coral colitis and acute on chronic back pain. Patient was a started on Zosyn, already reports improvement in his belly pain and is moving bowels and is tolerating diet. We will continue with antibiotic for now. For his low back pain, lumbar spine MRI revealed severe central canal stenosis of L1-L2, seroma of lumbar region, and multilevel neural foraminal narrowing. Orthospine evaluated, PT/OT, trial of Decadron, Toradol for pain management. Follow-up with orthospine as an outpatient. PT/OT, CM to assist with DC planning. Likely DC in next day if continues to improve with pain and after PT/OT eval. Upon examination: Patient was sitting up in bed, on room air, NAD, abdomen/heart/lungs examination fairly WNL. Rest of the examination as above. I have seen and examined the patient and have discussed the case with the provider above. I agree with the assessment and plan as stated. Subjective Seen and examined in 317-1 in follow up for stercoral colitis and lower back pain. Back pain limited ability to work around the house. Pain is in lower back with extension around into lower extremities to knees. Intermittent weakness but not any worse than previously. Ambulates independently. Denies any numbness of distal lower extremities or saddle anesthesia. Also notably constipated recently which she believes is also impairing his ability to urinate. Did have a large bowel movement this AM and feels much better. Denies fever, chills, lightheadedness, CP, SOB, N/V, abdominal pain, dysuria or diarrhea. Review of Systems Review of Systems: At least ten systems reviewed and negative except as noted in the HPI. Physical Exam Physical Exam: Gen: WD/WN, NAD, sitting at side of bed, A&Ox3 HEENT: Normocephalic, atraumatic, conjunctivae moist, sclerae anicteric, mucous membranes moist Lung: Clear to Auscultation bilaterally, no wheezes/rales/rhonchi Heart: Regular rate, regular rhythm, no murmurs, rubs, or gallops Abdomen: Soft, NT, ND +BS x 4 : Carroll draining pinkish urine (likely catheter trauma but monitor) Extremities:+ back pain in lumbar area along midline. No edema. Active ROM, 5/5 LIN Skin: Warm, no rash Results & Data Results & Data ([facility]) Vital Signs (Past 12 Hours) Vital Signs Temp Pulse Pulse Resp BP Pulse Ox O2 Del Method 12/20/22 07:39 36.6 C 68 15 144/84 H 96 Room Air 12/19/22 22:38 Room Air 12/19/22 22:38 36.6 C 86 19 147/59 H 97 Room Air Laboratory Results Short CBC 12/20/22 Range/Units 06:22 WBC 5.70 (4.8-10.8) K/ul Hgb 12.8 L (14.0-18.0) g/dl Hct 37.9 L (42.0-52.0) % Plt Count 221 (130-400) K/uL BMP 12/20/22 06:22 Sodium 140 Potassium 4.4 Chloride 107 Carbon Dioxide 27 BUN 27 H Creatinine 1.23 Glucose 139 H Calcium 9.2 Urine 12/19/22 Range/Units 16:06 Urine Color Yellow Urine Appearance Clear (Clear) Urine pH 8.0 H (4.5-7.5) Ur Specific [place] 1.016 (1.000-1.030) Urine Protein Negative (Negative) Urine Glucose (UA) Negative (Negative) Diagnostic Findings Abdomen/Pelvis CT 12/19/22 14:[address] WITH IV CONTRAST CT DOSE: 776.40 mGy.cm HISTORY: Low back pain, constipation/urinary retention TECHNIQUE: Multiaxial CT images of the abdomen and pelvis were performed following the use of intravenous contrast. A dose lowering technique was ut ilized adhering to the principles of ALARA. COMPARISON STUDY: CT lumbar spine 05/26/2022. FINDINGS: Small cluster of tree-in-bud nodular opacities within the lung bases. This favors a mild infectious bronchiolitis. No pneumoperitoneum. No pneumatosis. 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 L3-L5 posterior decompression and fusion with pedicle screws and rods. No acute fractures identified. Moderate to severe degenerative changes at L1-L2 and L2-L3 again noted. Small fat-containing left inguinal hernia. The liver, gallbladder, pancreas, spleen, and kidneys are unremarkable. No hydronephrosis. Mild nodular thickening within the bilateral adrenal glands. Normal caliber abdominal aorta. No retroperitoneal or pelvic lymphadenopathy. No pelvic free fluid. The prostate gland is mildly enlarged. The bladder is decompressed by Carroll catheter. There is a moderate to large amount well-formed stool within the rectum. There is mild rectal wall thickening for the degree of distention. Therefore, this raises the possibility of mild stercoral proctitis. Colonic diverticulosis. Questionable focal area of thickening within the proximal sigmoid colon on image 309 is likely due to a combination of muscular hypertrophy and under distention. No associated inflammatory change to suggest an acute process at this time. Normal appendix. No evidence for a bowel obstruc tion. IMPRESSION: 1. There is a moderate to large amount well-formed stool within the rectum. There is mild rectal wall thickening for the degree of distention. Therefore, this raises the possibility of mild stercoral proctitis. 2. Questionable focal area of thickening within the proximal sigmoid colon is likely due to a combination of muscular hypertrophy and under distention. No associated inflammatory change to suggest an acute diverticulitis at this time. 3. Small cluster of tree-in-bud nodular opacities within the lung bases. This favors a mild infectious bronchiolitis. No pneumoperitoneum. 4. Additional findings as described above. ACT 112: Negative or not required by law. Electronically signed by: Seth Armas M.D. 12/19/2022 5:13 PM Chest X-Ray 12/19/22 18:51 XR chest 1V portable HISTORY: Shortness of breath. copd COMPARISON: Chest 05/03/2022. FINDINGS: No pneumothorax. No pleural effusions. The cardiac silhouette is en larged. There is progressive interstitial/vascular thickening suggestive of mild congestive change. Otherwise, no new focal lung consolidations to suggest a pneumonia. IMPRESSION: Cardiomegaly with mild congestive change. This has progressed in the interval. ACT 112: Negative or not required by law. Electronically signed by: Seth Armas M.D. 12/19/2022 7:30 PM Lumbar Spine MRI 12/19/22 21:01 MR lumbar spine wo con CLINICAL HISTORY: 72 years-old Male with worsening back pain. Acute on chronic low back pain COMPARISON: CT lumbar spine 05/26/2022, MRI lumbar spine 01/20/2022 TECHNIQUE: Multiplanar, multi sequence MRI of the lumbar spine was performed without intravenous contrast. FINDINGS: The study is motion degraded. Oil Scout localizer images demonstrate no gross extraspinal abnormality. Mild lumbar levoscoliosis. There is moderate Modic type I and II endplate degenerative changes at L1-L2, stable from prior. Small chronic appearing Schmorl's node involves the inferior endplate of L1 anteriorly. Mild edema within the adjacent prevertebral tissues is also similar to prior. No acute fracture, subluxation or endplate erosion. Susceptibility artifact related to the posterior interbody rickey and screw fusion hardware at L3- L5. Prior L4-L5 laminectomy. There is a multilocular fluid collection within the operative bed at the L4-L5 level measuring 1.8 x 2.0 x 6 cm, stable Conus medullaris terminates at L1. Signal within the imaged thoracic spinal cord and cauda equina is within normal limits. T12-L1: Ligamentum flavum thickening with moderate facet arthrosis. No central canal or neural foraminal stenosis. Unchanged. L1-L2: Severe intervertebral disc space narrowing with degenerative marrow edema, progressed from prior. Mild spondylitic spurring with small circumferential annular disc bulge. Ligamental flavum thickening with severe facet arthrosis and small facet effusions. Severe central canal stenosis with AP dimension of the thecal sac measuring 4 mm, previously 6 mm Mild to moderate bilateral foraminal stenosis is unchanged. L2-L3: Severe intervertebral disc space narrowing with moderate osteophytic spurring. Circumferential annular disc bulge with disc osteophyte complex. Ligamentum flavum thickening with severe facet arthrosis. Mild to moderate central canal stenosis, AP dimension of the thecal sac measuring 8 mm. The right neural foramen is patent. Mild left foraminal stenosis. Unchanged. L3-L4: Mild intervertebral disc space narrowing with spondylitic spurring and tiny posterior annular disc bulge. Facet arthrosis. The central canal is patent. Mild bilateral foraminal narrowing. Unchanged. L4-L5: Mild to moderate intervertebral disc space narrowing with spondylitic spurring and posterior disc osteophyte complex. Facet arthrosis. Central canal is patent. Mild bilateral foraminal narrowing. Unchanged. L5-S1: Severe intervertebral disc space narrowing with spondylitic spurring and central/left paracentral disc osteophyte complex. Ligamentum flavum thickening with moderate facet arthrosis. The central canal and right neural foramen are patent. Moderate narrowing of the left lateral recess. The aforementioned disc osteophyte complex is again noted abutting the left S1 nerve root. Mild left foraminal stenosis. Unchanged. IMPRESSION: 1. No acute fracture or subluxation. 2. Progressively worsened intervertebral disc space narrowing with likely degenerative marrow edema at L1-L2 results in progressively worsened central canal stenosis, now severe. 3. Prior L4-L5 laminectomy with L3-L5 posterior interbody rickey and screw fusion. 5.9 cm multilocular fluid collection within the deep operative bed suggestive of a probable seroma is unchanged. 4. Multilevel neural foraminal narrowing. ACT 112: Negative or not required by law. The above report was generated using voice recognition software. It may contain grammatical, syntax or spelling errors. Electronically signed by: Carl Austin M.D. 12/20/2022 10:15 AM
--- NOTE | 2022-12-20 09:53 | Orthopedic Consultation ---
Date of Consultation December 20, 2022 Assessment & Plan (1) Spinal stenosis of lumbar region with radiculopathy: This point the patient is having acute on chronic pain. Surgical invention would be quite extensive and the patient is not interested in having surgery at this point. In-house physical therapy for ambulation and gait training trial of Decadron and if not effective 15mg of Toradol may be helpful. Neurologically he is intact with no significant decline. I reviewed the films with Dr. Hays and he agrees. He may follow-up with us as an outpatient if he chooses. History of Present Illness Attending Physician: Pavan Barron MD History of Present Illness Patient is a pleasant 72-year-old male who presented to the emergency room with worsening low back pain and right-sided radicular complaints going down to the side of his knee. He also presented with constipation he had an acute episode where he was barely able to walk. He has history significant for a lumbar surgery fusion from L3-L5 that was done in [address] [facility]. He has had chronic back pain and ongoing fashion ever since. He had presented last January to this facility reviewed consulted and determined that acute intervention was not necessary. He actually followed up with Dr. Gardner and was referred to pain management. When the pain started he was barely able to walk. Today he appears more comfortable. Typically he can walk and perform all of his normal activities with just back pain. He denies any saddle anesthesia or any change in bladder or bowel function other than his constipation. He states he had no complications with his surgery in 2010 no infections or spinal fluid leaks. Allergies Allergy/AdvReac Type Severity Reaction Status Date / Time fenoprofen Allergy Severe SYNCOPE Verified 12/19/22 20:46 Home Medications Medication Instructions Recorded Confirmed Type aspirin 81 mg tablet,delayed 81 mg PO QAM 02/25/19 12/19/22 History release cholecalciferol (vitamin D3) 125 5,000 unit PO QAM 02/25/19 12/19/22 History mcg (5,000 unit) tablet (Vitamin D3) clopidogrel 75 mg tablet 37.5 mg PO QAM 02/25/19 12/19/22 History lisinopril 2.5 mg tablet 2.5 mg PO QAM 02/25/19 12/19/22 History metformin 500 mg tablet 500 mg PO QAM 02/25/19 12/19/22 History montelukast 10 mg tablet 10 mg PO HS 02/25/19 12/19/22 History (Singulair) rosuvastatin 20 mg tablet 20 mg PO QAM 02/25/19 12/19/22 History vit C 250 mg-vit E 90 mg-zinc 40 1 tab PO BID 02/25/19 12/19/22 History mg-copper 1 [id number] capsule (PreserVision AREDS-2) fluticasone 500 mcg-salmeterol 50 1 inh inhalation BID 05/18/20 12/19/22 History mcg/dose blistr powdr for inhalation (Advair Diskus) albuterol sulfate 90 mcg/actuation 2 puff inhalation Q6H PRN Wheezing 01/19/22 12/19/22 History aerosol inhaler (ProAir HFA) metoprolol succinate 50 mg 25 mg PO BID 04/04/22 12/19/22 History tablet,extended release 24 hr nitroglycerin 0.4 mg sublingual 0.4 mg sublingual PRN PRN chest 05/06/2208/02 Rx tablet (Nitrostat) pain #10 tabs citalopram 20 mg tablet 20 mg PO QAM 12/19/22 12/19/22 History gabapentin 300 mg capsule 300 mg PO AMPM 12/19/22 12/19/22 History iron,carbonyl 65 mg-vitamin C 125 1 tab PO QAM 12/19/22 12/19/22 History mg tablet,delayed release (Vitron-C) Patient History Medical History (Updated 12/20/22 @ 09:52 by Truman Campos PA-C) Cardiac murmur in childhood; no further issues COPD (chronic obstructive pulmonary disease) inhaler prn Coronary artery disease "s/p non-STEMI 01/31/18, cath showed circ lesion and lesser disease in LAD and RCA, PCI circ with WALDO 02/02/18" Degenerative disc disease Depression Diabetes mellitus, type 2 Dyslipidemia Hypertension Macular degeneration of both eyes NSTEMI (non-ST elevated myocardial infarction) 01/31/18--follows with Dr. Laguna--plavix daily Sleep apnea cpap Stenosis of both vertebral arteries Transient ischemic attack (TIA) 02/2019--[place]z [place] [facility] [place] Surgical History History of bilateral cataract extraction History of cardiac cath 02/02/2018 @ [facility] with 1 stent placed History of carotid angioplasty [place] 1 [place] [facility] [place] History of colonoscopy History of lumbar spinal fusion History of tooth extraction all teeth removed Hx of vasectomy Status post coronary artery stent placement "PCI L circumflex with WALDO 02/02/18" Family History Other Family history not known due to adoption No pertinent family history Social History Smoking Status: Current every day smoker Tobacco Type: Cigarettes Cigarettes Per Day: 1/2 PPD; Second Hand Exposure: No; Do You Dip or Chew Tobacco: No; Tobacco Cessation Education Requested by Patient: No Hx Alcohol Use: Yes Alcohol type: beer Hx Substance Use: No Preferred Language: Armenian Communication Ability: Effective Community Center Worker Required: No Beliefs That Will Affect Care: None marital status: Current Living Situation: Spouse Other Information That Helps Us Care for You: No Feels Safe at Home: Yes Safety Concerns: Feels Safe At This Time Assistive Devices: Denture - Upper and Denture - Lower Physical Exam Physical Exam: On exam patient is alert and oriented. He answers all questions appropriately. His incision is well-healed. Skin is clean dry and intact. Acuna catheter is in place his visual merino are grossly intact. Cardiovascular exam reveals no gross abnormalities. His lower extreme motor exam reveals no focal atrophy strength 5 out of 5 to detailed muscle testing without exception. Full range of motion of the hips and knees. Has no nerve root tension signs. He has tenderness palpation on the left lower hand side of the back and in the midline as well. Sensations intact to light touch proprioception is also intact Babinski's negative there is no clonus. Results & Data ([facility]) Vital Signs (Past 12 Hours) Vital Signs Temp Pulse Pulse Resp BP Pulse Ox O2 Del Method 12/20/22 07:39 36.6 C 68 15 144/84 H 96 Room Air 12/19/22 22:38 Room Air 12/19/22 22:38 36.6 C 86 19 147/59 H 97 Room Air Diagnostic Findings MRI of the lumbar spine performed recently was reviewed and compared to the MRI from January 2022. This reveals postoperative changes noted from L3-L5 with a posterior seroma behind the L4 and L5 vertebral bodies which is noncompressive. There is a grade 1 spondylolisthesis at L1-2 with degenerative disc disease at L1-2 and L2-3 with Modic changes in the endplates. There is severe stenosis at L1-2 secondary to facet arthropathy. There is severe left lateral recess and foraminal stenosis at this level as well. L2-3 has moderate severe stenosis. L5-S1 appears to be anteriorly ankylosed.
[2022-12-20] MEDS ORDERED: dexAMETHasone 8 MG in SYRINGE 0 ML IV ONE (10:00)
--- NOTE | 2022-12-20 10:16 | Magnetic Resonance Report ---
MR lumbar spine wo con CLINICAL HISTORY: 72 years-old Male with worsening back pain. Acute on chronic low back pain COMPARISON: CT lumbar spine 05/26/2022, MRI lumbar spine 01/20/2022 TECHNIQUE: Multiplanar, multi sequence MRI of the lumbar spine was performed without intravenous cont rast. FINDINGS: The study is motion degraded. Color Room Attendant localizer images demonstrate no gross extraspinal abnormality. Mi ld lumbar levoscoliosis. There is moderate Modic type I and II endplate degenerative changes at L1-L2 , stable from prior. Small chronic appearing Schmorl's node involves the inferior endplate of L1 ante riorly. Mild edema within the adjacent prevertebral tissues is also similar to prior. No acute fractu re, subluxation or endplate erosion. Susceptibility artifact related to the posterior interbody rickey a nd screw fusion hardware at L3-L5. Prior L4-L5 laminectomy. There is a multilocular fluid collection within the operative bed at the L4-L5 level measuring 1.8 x 2.0 x 6 cm, stable Conus medullaris termi nates at L1. Signal within the imaged thoracic spinal cord and cauda equina is within normal limits. T12-L1: Ligamentum flavum thickening with moderate facet arthrosis. No central canal or neural forami nal stenosis. Unchanged. L1-L2: Severe intervertebral disc space narrowing with degenerative marrow edema, progressed from jose or. Mild spondylitic spurring with small circumferential annular disc bulge. Ligamental flavum thicke sindy with severe facet arthrosis and small facet effusions. Severe central canal stenosis with AP dim ension of the thecal sac measuring 4 mm, previously 6 mm Mild to moderate bilateral foraminal stenosi s is unchanged. L2-L3: Severe intervertebral disc space narrowing with moderate osteophytic spurring. Circumferential annular disc bulge with disc osteophyte complex. Ligamentum flavum thickening with severe facet arth rosis. Mild to moderate central canal stenosis, AP dimension of the thecal sac measuring 8 mm. The ri ght neural foramen is patent. Mild left foraminal stenosis. Unchanged. L3-L4: Mild intervertebral disc space narrowing with spondylitic spurring and tiny posterior annular disc bulge. Facet arthrosis. The central canal is patent. Mild bilateral foraminal narrowing. Unchang ed. L4-L5: Mild to moderate intervertebral disc space narrowing with spondylitic spurring and posterior d isc osteophyte complex. Facet arthrosis. Central canal is patent. Mild bilateral foraminal narrowing. Unchanged. L5-S1: Severe intervertebral disc space narrowing with spondylitic spurring and central/left paracent ral disc osteophyte complex. Ligamentum flavum thickening with moderate facet arthrosis. The central canal and right neural foramen are patent. Moderate narrowing of the left lateral recess. The aforeme ntioned disc osteophyte complex is again noted abutting the left S1 nerve root. Mild left foraminal s tenosis. Unchanged. IMPRESSION: 1. No acute fracture or subluxation. 2. Progressively worsened intervertebral disc space narrowing with likely degenerative marrow edema a t L1-L2 results in progressively worsened central canal stenosis, now severe. 3. Prior L4-L5 laminectomy with L3-L5 posterior interbody rickey and screw fusion. 5.9 cm multilocular f luid collection within the deep operative bed suggestive of a probable seroma is unchanged. 4. Multilevel neural foraminal narrowing. ACT 112: Negative or not required by law. The above report was generated using voice recognition software. It may contain grammatical, syntax o r spelling errors. Electronically signed by: Carl Austin M.D. 12/20/2022 10:15 AM
[2022-12-20] MEDS: traMADol HCL 50 MG TABLET PO PRN ×2 (11:47→21:13)
[2022-12-20 17:15] LABS: Appearance Urine Cloudy (Clear); Bacteria Urine Automated Negative (Negative); Bilirubin Urine Negative (Negative); Blood Urine 3+ (Negative); Color Urine Red; Glucose Urine UA Negative (Negative); Ketones Urine Negative (Negative); Leukocyte Esterase Urine Trace (Negative); Nitrite Urine Negative (Negative); Protein Urine 1+ (Negative); RBC Urine Automated >30 /hpf (0-4); Urobilinogen Urine Negative (Negative)
[2022-12-20] MEDS: LIDOCAINE 5% 1 PATCH TD SCH (21:12)
[2022-12-20] MEDS: MONTELUKAST SODIUM 10 MG TABLET PO SCH (21:14)
[2022-12-20] MEDS: LANTUS PER UNIT CHARGE SQ SCH (21:15)
[2022-12-21] MEDS: PIPERACILLIN/TAZOBACTAM 3.375 GM in DEXTROSE 5% 100 ML IV SCH ×3 (01:52→18:07)
[2022-12-21 06:30] LABS: Hematocrit (blood only) 34.9 % (42.0-52.0); Hemoglobin 11.9 g/dl (14.0-18.0); Mean Corpuscular Hemoglobin 30.8 pg (25.0-34.0); Mean Corpuscular Hgb Conc 34.1 g/dL (32.0-36.0); Mean Corpuscular Volume 90.4 fL (80.0-100.0); Mean Platelet Volume 9.8 fL (9.4-12.4); Platelet Count 212 K/uL (130-400); RDW Standard Deviation 56.8 fL (36.4-46.3); Red Blood Count 3.86 M/uL (4.70-6.10); White Blood Count 9.03 K/ul (4.8-10.8)
[2022-12-21 06:52] LABS: BUN Creatinine Ratio 23.2 (10-20); Calcium 8.6 mg/dl (8.5-10.1); Creatinine Clr Calc Pharmacy 63.3 ml/min; Est GFR (African American) 74.6 ml/min; Est GFR (Non-African American) 64.4 ml/min; Potassium 4.3 mmol/L (3.5-5.1)
[2022-12-21] MEDS: lisinopril 2.5 MG TAB PO SCH (07:30)
[2022-12-21] MEDS: ROSUVASTATIN CALCIUM 20 MG TAB PO SCH (07:32)
[2022-12-21] MEDS: GABAPENTIN 300 MG CAP PO SCH ×2 (07:33→19:42)
[2022-12-21] MEDS: METOPROLOL SUCC 25MG EXT REL TAB PO SCH ×2 (07:34→19:43)
[2022-12-21] MEDS: CLOPIDOGREL BISULFATE 75 MG TAB PO SCH (07:35)
[2022-12-21] MEDS: ASPIRIN 81 MG ECTAB PO SCH (07:36)
[2022-12-21] MEDS: CITALOPRAM 20 MG TAB PO SCH (07:36)
[2022-12-21] MEDS: DOCUSATE SODIUM/SENNA 50/8.6MG TAB PO SCH (07:36)
[2022-12-21] MEDS: CEROVITE ADV FORMULA TAB PO SCH ×2 (07:37→19:44)
[2022-12-21] MEDS: FLUTICASONE/VILANTEROL 200/25MCG 14 PUFFS/INHALER INH SCH (07:43)
[2022-12-21] MEDS: INSULIN ASPART PER UNIT SC SCH ×4 (09:31→20:49)
[2022-12-21] MEDS: LANTUS PER UNIT CHARGE SQ SCH ×2 (09:40→20:54)
[2022-12-21] MEDS: traMADol HCL 50 MG TABLET PO PRN ×2 (10:40→18:09)
--- NOTE | 2022-12-21 17:02 | Hospitalist Progress Note ---
Date of Service December 21, 2022 Assessment & Plan (1) Stercoral colitis: Plan: This is a 69-year-old male with a PMH of HTN, HLD, DM II, CAD (s/p stent placement in January 2018), tobacco use disorder, COPD, chroni back pain and other medical problems listed below who presents with worsening back pain and constipation. Acute on chronic lumbar radiculopathy, spinal stenosis H/o lumbar spinal surgery in 2010 Lumbar spine MRI - * No acute fracture or subluxation. * Progressively worsened intervertebral disc space narrowing with likely degenerative marrow edema at L1-L2 results in progressively worsened central canal stenosis, now severe. * Prior L4-L5 laminectomy with L3-L5 posterior interbody rickey and screw fusion. 5.9 cm multilocular fluid collection within the deep operative bed suggestive of a probable seroma is unchanged. * Multilevel neural foraminal narrowing Evaluated by orthopedic surgery. Not feel there are significant enough changes on lumbar spine MRI that would make surgical intervention beneficial. Patient also not interested in surgery early on but expressed interest in surgery today, communicated with orthospine team. Ortho recommending physical therapy for ambulation and gait training as well as trial of Decadron and as needed Toradol Pt still will pain affecting his activity. Likely will need rehab. Sterocoral proctitis CT abd/pelvis - * 1. There is a moderate to large amount well-formed stool within the rectum. There is mild rectal wall thickening for the degree of distention. Therefore, this raises the possibility of mild stercoral proctitis. * 2. Questionable focal area of thickening within the proximal sigmoid colon is likely due to a combination of muscular hypertrophy and under distention. No associated inflammatory change to suggest an acute diverticulitis at this time. * 3. Small cluster of tree-in-bud nodular opacities within the lung bases. This favors a mild infectious bronchiolitis. No pneumoperitoneum. Had bm regularly now with improvement of abdominal distention. Continue antibiotic, bowel regimen PRN Urinary retention Likely worsened by fecal retention and pain - currently no problem. Coronary artery disease H/o NSTEMI s/p PCI L circumflex with WALDO 02/02/18 Continue Plavix, aspirin, statin COPD (chronic obstructive pulmonary disease) Stable. Encourage smoking cessation. Offered nicotine patch but declined Diabetes mellitus, type 2 A1c 5.9 on admission Hold home agents SSI while in-patient - may need to tighten coverage with Decadron BSG AC HS Hypertension Normotensive. Continue Toprol, lisinopril Code status:FULL PCP:[facility]iarra in [place] Dispo: pt/ot, cm to assist. Admission and Anticipated Discharge Date Admission Date: December 19, 2022 Subjective Seen and examined in 317-1 in follow up for stercoral colitis and lower back pain. Patient was lying in bed, on room air, had worked with PT in the morning prior to my exam, reported worsening lower back pain today, denies any new acute event overnight, reports eating okay and moving bowels okay, denies lower belly pain, denies headache or dizziness or chest pain or sore throat or other review of symptoms. Physical Exam Physical Exam: Gen: WD/WN, NAD, sitting at side of bed, A&Ox3 HEENT: Normocephalic, atraumatic, conjunctivae moist, sclerae anicteric, mucous membranes moist Lung: Clear to Auscultation bilaterally, no wheezes/rales/rhonchi Heart: Regular rate, regular rhythm, no murmurs, rubs, or gallops Abdomen: Soft, NT, ND +BS x 4 : not done Extremities: No edema. Active ROM, 5/5 LIN Skin: Warm, no rash Results & Data Results & Data ([facility]) Vital Signs (Past 12 Hours) Vital Signs Temp Pulse Resp BP Pulse Ox O2 Del Method 12/21/22 15:10 36.7 C 70 16 124/70 96 Room Air 12/21/22 08:24 36.6 C 67 16 124/70 91 Room Air
[2022-12-21] MEDS: DICLOFENAC SOD 1% GEL 100 GM TUBE EXT SCH ×2 (18:07→20:55)
[2022-12-21] MEDS: LIDOCAINE 5% 1 PATCH TD SCH (19:43)
[2022-12-21] MEDS: MONTELUKAST SODIUM 10 MG TABLET PO SCH (19:44)
[2022-12-22] MEDS: PIPERACILLIN/TAZOBACTAM 3.375 GM in DEXTROSE 5% 100 ML IV SCH ×2 (01:09→09:36)
[2022-12-22] MEDS ORDERED: traMADol HCL 50 MG TABLET PO STA (01:21)
[2022-12-22] MEDS ORDERED: POLYETHYLENE (MIRALAX) 17 GM PACK PO STA (01:22)
[2022-12-22] MEDS ORDERED: DOCUSATE SODIUM/SENNA 50/8.6MG TAB PO SCH (01:30)
[2022-12-22] MEDS: DICLOFENAC SOD 1% GEL 100 GM TUBE EXT SCH ×2 (03:20→09:13)
[2022-12-22 06:05] LABS: Hemoglobin 12.3 g/dl (14.0-18.0); Mean Corpuscular Hemoglobin 30.4 pg (25.0-34.0); Mean Corpuscular Hgb Conc 34.2 g/dL (32.0-36.0); Mean Corpuscular Volume 88.9 fL (80.0-100.0); Mean Platelet Volume 9.7 fL (9.4-12.4); Platelet Count 201 K/uL (130-400); RDW Coefficient of Variation 16.7 % (11.5-14.5); RDW Standard Deviation 54.6 fL (36.4-46.3); Red Blood Count 4.05 M/uL (4.70-6.10); White Blood Count 7.31 K/ul (4.8-10.8)
[2022-12-22 06:21] LABS: BUN Creatinine Ratio 19.5 (10-20); Calcium 8.7 mg/dl (8.5-10.1); Creatinine Clr Calc Pharmacy 60.1 ml/min; Est GFR (Non-African American) 60.4 ml/min; Potassium 4.3 mmol/L (3.5-5.1)
[2022-12-22] MEDS: traMADol HCL 50 MG TABLET PO PRN ×2 (08:00→13:42)
[2022-12-22] MEDS: lisinopril 2.5 MG TAB PO SCH (09:11)
[2022-12-22] MEDS: GABAPENTIN 300 MG CAP PO SCH (09:12)
[2022-12-22] MEDS: CLOPIDOGREL BISULFATE 75 MG TAB PO SCH (09:12)
[2022-12-22] MEDS: CITALOPRAM 20 MG TAB PO SCH (09:12)
[2022-12-22] MEDS: ASPIRIN 81 MG ECTAB PO SCH (09:12)
[2022-12-22] MEDS: ROSUVASTATIN CALCIUM 20 MG TAB PO SCH (09:13)
[2022-12-22] MEDS: METOPROLOL SUCC 25MG EXT REL TAB PO SCH (09:13)
[2022-12-22] MEDS: CEROVITE ADV FORMULA TAB PO SCH (09:13)
[2022-12-22] MEDS: FLUTICASONE/VILANTEROL 200/25MCG 14 PUFFS/INHALER INH SCH (09:14)
[2022-12-22] MEDS: INSULIN ASPART PER UNIT SC SCH ×2 (09:34→13:41)
[2022-12-22] MEDS: LANTUS PER UNIT CHARGE SQ SCH (09:35)
[2022-12-22] MEDS ORDERED: ADVANCED PROBIOTIC 1250 MG CAPSULE PO SCH (10:00)
--- NOTE | 2022-12-22 12:24 | Discharge Summary ---
Date of Service December 22, 2022 Admission HPI Per Admitting Provider History obtained from patient, family, and records. Medical history significant for chronic systolic heart failure (EF 35 to 40%, TTE 2021), CAD status post stent, PVD status post surgery, history TIA, hypertension, hyperlipidemia, DM2 on oral medications, COPD, OSMAN on CPAP, chronic anemia (baseline hemoglobin 11-12 ), chronic back pain status post surgery, anxiety/mood disorder, ongoing tobacco abuse. Last confinement April 2022 for chest pain, ACS ruled out. Patient had back surgery in [place] in 2010. Recurrence of back pain with radiation to the lower extremities about 5 years ago. Outpatient MRI done late last year at [facility] as per patient. [facility] specialist told him to go to family doctor for pain management. Patient noted worsening back pain the last 2 weeks. Patient only able to take Tylenol at home. Achy generalized abdominal discomfort today, last bowel movement was about 3 days ago which is unusual for patient. Patient denies unusual chest pain, SOB, cough symptoms. Some nausea without emesis. Patient fell at home and was crawling because it hurt his back more to walk. No incontinence symptoms, no fever, no chills. Patient seen at PCPs office today and directed to ER for evaluation. Medical History as above Surgical History : Back surgery, vasectomy, vascular procedures, dental surgery Family History : Heart disease Personal/Social history : Half pack daily, no EtOH intake, retired [employer] employee Admission Exam Per Admitting Provider GENERAL: Slightly uncomfortable, obese, pleasant, no respiratory distress SKIN: Pallor, warm HEENT: Pale palpebral conjunctivae, no ptosis, dry buccal mucosa NECK : Supple, short neck, no tenderness CHEST : Decreased breath sounds, scattered expiratory wheezes, no tenderness HEART : RRR, no obvious murmurs ABDOMEN: distention, hypogastric tenderness BACK : Low back tenderness, negative straight leg raise test EXTREMITIES : No LE swelling/tenderness, no other conspicuous deformities noted NEUROLOGIC : Coherent, no facial asymmetry, gait and stance not assessed Principal Diagnosis Acute on chronic lumbar radiculopathy, spinal stenosis Sterocoral proctitis Possible UTI Discharge Exam Gen: WD/WN, NAD, sitting at side of bed, A&Ox3 HEENT: Normocephalic, atraumatic, conjunctivae moist, sclerae anicteric, mucous membranes moist Lung: Clear to Auscultation bilaterally, no wheezes/rales/rhonchi Heart: Regular rate, regular rhythm, no murmurs, rubs, or gallops Abdomen: Soft, NT, ND +BS x 4 : not done Extremities: No edema. Active ROM, 5/5 LIN Skin: Warm, no rash No vertebral tenderness Discharge Data Allergies Allergy/AdvReac Type Severity Reaction Status Date / Time fenoprofen Allergy Severe SYNCOPE Verified 12/19/22 20:46 Consultations 12/19/22 19:07 ED Decision to Admit Stat 12/20/22 01:34 Consult Orthopedic Surgery Routine Ordered Studies 12/19/22 14:51 CT abd pelvis IV con only Stat 12/19/22 21:01 MRI Lumbar Spine [MR lumbar spine wo con] Urgent Hospital Course (1) Stercoral colitis: This is a 69-year-old male with a PMH of HTN, HLD, DM II, CAD (s/p stent placement in January 2018), tobacco use disorder, COPD, chroni back pain and other medical problems listed below who presents with worsening back pain and constipation. He was managed for the following: Acute on chronic lumbar radiculopathy, spinal stenosis H/o lumbar spinal surgery in 2010 Lumbar spine MRI - * No acute fracture or subluxation. * Progressively worsened intervertebral disc space narrowing with likely degenerative marrow edema at L1-L2 results in progressively worsened central canal stenosis, now severe. * Prior L4-L5 laminectomy with L3-L5 posterior interbody rickey and screw fusion. 5.9 cm multilocular fluid collection within the deep operative bed suggestive of a probable seroma is unchanged. * Multilevel neural foraminal narrowing Evaluated by orthopedic surgery. Not feel there are significant enough changes on lumbar spine MRI that would make surgical intervention beneficial. Patient also not interested in surgery early on but expressed interest in surgery today, communicated with orthospine team. Ortho recommending conservative management. PT/OT evaled, cleared for home. Pt to continue w/ PT on DC and maintain f/u PCP and orthospine on DC. Pt aware. Pt feeling better control w/ pain, and would like to go home today. Sterocoral proctitis CT abd/pelvis - * 1. There is a moderate to large amount well-formed stool within the rectum. There is mild rectal wall thickening for the degree of distention. Therefore, this raises the possibility of mild stercoral proctitis. * 2. Questionable focal area of thickening within the proximal sigmoid colon is likely due to a combination of muscular hypertrophy and under distention. No associated inflammatory change to suggest an acute diverticulitis at this time. * 3. Small cluster of tree-in-bud nodular opacities within the lung bases. This favors a mild infectious bronchiolitis. No pneumoperitoneum. Had bm regularly now with improvement of abdominal distention. No bowel pain, will DC antibiotic and f/u PCP in a week for re-eval. Urinary retention /acute UTI Likely worsened by fecal retention and pain - currently no problem. UCx w/ CONS, will do 5 days of bactrim on DC. Coronary artery disease H/o NSTEMI s/p PCI L circumflex with WALDO 02/02/18 Continue Plavix, aspirin, statin COPD (chronic obstructive pulmonary disease) Stable. Encourage smoking cessation. Offered nicotine patch but declined Diabetes mellitus, type 2 A1c 5.9 on admission Hold home agents SSI while in-patient - may need to tighten coverage with Decadron BSG AC HS Hypertension Normotensive. Continue Toprol, lisinopril Code status:FULL PCP:[facility] in [place] Patient being discharged home with following instruction at the point of discharge: Follow-up with your primary care physician within a week time and likely you will need labs CBC/CMP/magnesium/phosphorus. Take oqqv-rig-fcfuxrg laxatives and stool softeners to maintain your bowel movement. Your urine culture showed infection, you will be treated with few days of antibiotic to complete the course. For your low back pain, you can use rmhq-ebt-nxfbjqg Tylenol tablet and Voltaren gel for kbaj-tn-phnmpveb pain, you can also use blrc-eke-ibnlqok 4% lidocaine patch for your moderate pain, you will be discharged with few days worth of opiate pain medication for severe pain. If your pain is ongoing/worsening, you will need further evaluation either by orthospine doctor or PCP doctor for [facility] pain management/prescription. Use over the counter laxatives while using opiates pain meds to avoid constipation. Follow-up with orthospine doctor as an outpatient. Continue your physical therapy either at home or with outpatient. Take your medications as prescribed. Please make sure that you are able to get your medications today by calling your pharmacy before you leave the hospital so that your treatment continuity is not broken. Home Health Attestation I certify that this patient is under my care and that I, or a physicians administrative assistant office manager working with me, had a face to-face encounter that meets the home health jufe-br-ncrv encounter requirements with this patient. The encounter with the patient was in whole, or in part, for the following medical condition, which is the primary reason for home health care (list medical condition): I certify that, based on my findings, the following services are medically necessary home health services: My clinical findings support the need for the above services because: Further, I certify that my clinical findings support that this patient is homebound (i.e. absences from home require considerable and taxing effort and are for medical reasons or [facility] or infrequently or of short duration when for other reasons) because: Certification for Home Health Services: Based on the above findings, I certify that this patient is confined to the home and needs intermittent half-way care, physical therapy and/or speech therapy or continues to need occupational therapy. The patient is under my care, and I have initiated the establishment of the plan of care. This patient will be followed by a physician who will periodically review the plan of care. Total Time Total Time Spent Total Time Spent (In Minutes): 45 Discharge Plan Discharge Items Patient Disposition: Home - Home Health Services Reason For Visit: COLITIS Discharge Diagnosis: Acute on chronic lumbar radiculopathy, spinal stenosis Sterocoral proctitis Possible UTI Activity: Resume your previous activity Non-emergency contact: Primary Care Provider Call non-emergency contact if: you have any medication questions, your symptoms worsen and your temperature is above 101.5 Follow-up/Referrals: Nisha Lafleur M.D. [Primary Care Provider] - Diet: Carb Consistent or DM2 and Heart Healthy Addtl Attending Provider Instructions: Follow-up with your primary care physician within a week time and likely you will need labs CBC/CMP/magnesium/phosphorus. Take rgtw-kfl-zxupsej laxatives and stool softeners to maintain your bowel movement. Your urine culture showed infection, you will be treated with few days of antibiotic to complete the course. For your low back pain, you can use anwe-ixk-jxkthhp Tylenol tablet and Voltaren gel for yqkm-ux-wcotxnjh pain, you can also use qqkx-gha-xwvzqpy 4% lidocaine patch for your moderate pain, you will be discharged with few days worth of opiate pain medication for severe pain. If your pain is ongoing/worsening, you will need further evaluation either by orthospine doctor or PCP doctor for further pain management/prescription. Use over the counter laxatives while using opiates pain meds to avoid constipation. Follow-up with orthospine doctor as an outpatient. Continue your physical therapy either at home or with outpatient. Take your medications as prescribed. Please make sure that you are able to get your medications today by calling your pharmacy before you leave the hospital so that your treatment continuity is not broken. Pending Studies at Discharge: No Stand-Alone Forms: My [facility] [employer], Smoking Cessation Medications and DC Order Prescriptions: New diclofenac sodium [Voltaren Arthritis Pain] 1 % Gel 4 g EXT Q6H PRN (Reason: low back pain) Qty: 100 0RF acetaminophen 325 mg Tablet 650 mg PO Q8H PRN (Reason: mild pain (scale score 1-4)) Qty: 60 0RF tramadol 50 mg Tablet 50 mg PO Q8H PRN (Reason: severe pain (scale score 7-10)) 5 Days Qty: 15 0RF Advanced Probiotic 625 mg (10 billion cell) Capsule 2 cap PO DAILY 7 Days Qty: 14 0RF sulfamethoxazole-trimethoprim [Bactrim DS] 800-160 mg tablet 1 tab PO BID 5 Days Qty: 10 0RF Continued metformin 500 mg tablet 500 mg PO QAM clopidogrel 75 mg tablet 37.5 mg PO QAM Rx Instructions: 1/2 tablet dose lisinopril 2.5 mg tablet 2.5 mg PO QAM rosuvastatin 20 mg tablet 20 mg PO QAM aspirin 81 mg Tablet,Delayed Release (Dr/Ec) 81 mg PO QAM montelukast [Singulair] 10 mg Tablet 10 mg PO HS cholecalciferol (vitamin D3) [Vitamin D3] 5,000 unit Tablet 5,000 unit PO QAM PreserVision AREDS-2 [id number] fx-rvpf-rm-mg Capsule 1 tab PO BID fluticasone propion-salmeterol [Advair Diskus] 500-50 mcg/dose Blister With Device 1 inh INHALATION BID metoprolol succinate 50 mg tablet extended release 24 hr 25 mg PO BID nitroglycerin [Nitrostat] 0.4 mg Tablet, Sublingual 0.4 mg sublingual PRN PRN (Reason: chest pain) Qty: 10 0RF Rx Instructions: take max of three tabs if chest pain not controlled, each tablet 5 minutes apart. Call ER w/ ongoing chest pain. albuterol sulfate [ProAir HFA] 90 mcg/actuation HFA aerosol inhaler 2 puff INHALATION Q6H PRN (Reason: Wheezing) citalopram 20 mg tablet 20 mg PO QAM Vitron-C 65 mg iron- 125 mg tablet,delayed release (DR/EC) 1 tab PO QAM gabapentin 300 mg capsule 300 mg PO AMPM Discharge Orders: Discharge Order (Routine); Ordered 12/22/22 Ordered By: Pavan Barron Admission Data Admit Date/Time: 12/19/22 21:05 Attending Provider: Pavan Barron Admit Provider: Silvino Oliver Primary Care Provider: Nisha Lafleur Other Providers: Silvino Oliver ; Guerrero Hays Jill
== END 2022-12-22 13:57 | disposition home or self-care (01) | DRG 394 ==
LOC: ED 13:35 → 3E 21:05 → INTOOBSV 21:05 → 3E 22:45